=== PATIENT | female | born 1950 | race Caucasian/White ===

== ENCOUNTER → 2017-07-10 16:16 | Outpatient (CLI) | payer MEDICARE, SELFPAY ==
[2017-07-10 18:25] LABS: Amphetamine Urine VISTA NEGATIVE (<1000 ng/mL); Barbiturate Urine VISTA NEGATIVE (< 200 ng/mL); Benzodiazepine Urine VISTA NEGATIVE (< 200 ng/mL); Cocaine Urine VISTA NEGATIVE (< 300 ng/mL); Ecstacy Urine VISTA NEGATIVE (< 500 ng/mL); Methadone Urine VISTA NEGATIVE (< 300 ng/mL); PCP Urine VISTA NEGATIVE (< 25 ng/mL); THC Urine VISTA NEGATIVE (< 50 ng/mL); Vista UDS pH Range 6
== END ==
PROVIDERS: Family Provider Family Medicine; PCP Family Medicine; Visit Provider Anesthesiology Pain Medicine
DX: F11.20 Opioid dependence, uncomplicated (principal)
CPT/HCPCS: 80307

== ENCOUNTER → 2017-08-21 09:01 | Outpatient (CLI) | payer MEDICARE, SELFPAY ==
[2017-08-21 10:24] LABS: Absolute Lymphocyte Count 1.47 X10^3/ul (0.83-4.51); Absolute Neutrophil Count 3.2 X10^3/uL (2.0-7.7); Basophil# 0.02 X10^3/uL; Basophil% 0.4 % (0-1); Eosinophil# 0.12 X10^3/uL; Eosinophils% 2.3 % (0-5); Hematocrit 43.3 % (37-47); Hemoglobin 13.9 g/dl (12.0-15.0); Lymphocyte # 1.47 X10^3/ul (4.0); Mean Corp Hgb Conc 32.1 g/gl (32-36); Mean Corpuscular Hgb 28.8 pg (27.0-32.0); Mean Corpuscular Volume 89.8 fL (81-99); Mean Platelet Vol. 11.1 fl (6.2-12.0); Monocyte# 0.48 X10^3/uL; Monocyte% 9.1 % (0-10); Neutrophil # 3.15 X10^3/uL (2.7-7.7); Platelet Count 132 K/mm3 (150-450); RBC Distribution Width CV 15.5 % (11.6-14.6); RBC Distribution Width SD 51.1 fl (35.1-43.9); Red Blood Count 4.82 M/mm3 (4.2-5.4); White Blood Count 5.3 K/mm3 (4.4-11.0)
[2017-08-21 10:25] LABS: POSITIVE COUNT NO; POSITIVE DIFFERENTIAL NO; POSITIVE MORPHOLOGY NO
[2017-08-21 10:56] LABS: Hemoglobin A1c 5.9 % (4.2-6.3)
[2017-08-21 10:57] LABS: Vitamin D,25 Hydroxy 6.1 ng/mL (29.95-100.01)
[2017-08-21 11:01] LABS: Anion Gap 6 (5-15); BUN 18 mg/dL (7-18); Calcium,Total 8.8 mg/dL (8.5-10.1); Chloride 107 mmol/L (98-107); Cholesterol 136 mg/dL (200); Creatinine, Serum 0.86 mg/dL (0.55-1.02); EST Glomerular Filtration Rate 70 mL/min (>60); Est Glom Filt Rate - Afr Amer 85 mL/min (>60); Glucose 76 mg/dL (74-106); High Density Lipoprotein 60 mg/dL; Potassium 4.3 mmol/L (3.5-5.1); Sodium Level 140 mmol/L (136-145); Triglycerides 68 mg/dL; Very Low Density Lipoprotein 14 mg/dL (5-40)
== END ==
PROVIDERS: Family Provider Family Medicine; PCP Family Medicine; Visit Provider Family Medicine
DX: I10 Essential (primary) hypertension (principal); R53.83 Other fatigue; E11.9 Type 2 diabetes mellitus without complications; D50.9 Iron deficiency anemia, unspecified; E55.9 Vitamin D deficiency, unspecified
CPT/HCPCS: 36415; 80048; 80061; 82306; 83036; 84443; 85025

== ENCOUNTER → 2017-12-02 15:39 | Outpatient (CLI) | payer MEDICARE, SELFPAY ==
[2017-12-02 17:56] LABS: Vitamin D,25 Hydroxy 72.6 ng/mL (29.95-100.01)
== END ==
PROVIDERS: Family Provider Family Medicine; PCP Family Medicine; Referring Provider Family Medicine; Visit Provider Family Medicine
DX: E55.9 Vitamin D deficiency, unspecified (principal)
CPT/HCPCS: 36415; 82306

== ENCOUNTER → 2018-10-29 | Outpatient (CLI) | payer MEDICARE, SELFPAY ==
--- NOTE | 2018-10-29 15:41 | RAD_ITS ---
STUDY: X-RAY - ABDOMEN/PELVIS REASON FOR EXAM: Female, 68 years old. Chronic diarrhea. TECHNIQUE: AP supine and upright views of the abdomen and pelvis. COMPARISON: Prior abdominal series of September 20, 2016. FINDINGS: Normal visualized lung bases. Nondistended stomach. Increased intestinal bowel gas and fluid levels in mostly nondistended colon without evidence of obstruction or bowel wall thickening. Negative for organomegaly, abdominal or pelvic calcifications. Normal soft tissue structures. Bilateral spinal fusion hardware unchanged from prior exam. The fusion alexia on the left is broken at approximately the L4-5 disc space level. The fusion alexia on the right is broken at its sacral implant. RAD/Abd Inc Decub and/or Erect IMPRESSION: Diffuse increased bowel gas and fluid levels present mostly in the colon without evidence of obstruction or bowel perforation. Findings are consistent with diarrhea but do not suggest a specific etiology. Stable appearance of the posterior spinal fusion hardware. There are fractures of the posterior fusion rods bilaterally as described above. This finding is not changed from prior examination. Electronically Signed: Swathi Puente MD at 21:24 EDT , Service support ,
== END | disposition home or self-care (01) ==
PROVIDERS: Family Provider Family Medicine; PCP Family Medicine; Referring Provider Family Medicine; Visit Provider Family Medicine
DX: K52.9 Noninfective gastroenteritis and colitis, unspecified (principal)
CPT/HCPCS: 74019

== ENCOUNTER → 2018-10-30 13:19 | Outpatient (CLI) | payer MEDICARE, SELFPAY | PROVIDERS: Family Provider Family Medicine; PCP Family Medicine; Referring Provider Family Medicine; Visit Provider Family Medicine | DX: K52.9 Noninfective gastroenteritis and colitis, unspecified (principal) | CPT/HCPCS: 87493 ==

== ENCOUNTER → 2018-11-07 16:44 | Outpatient (CLI) | payer MEDICARE, SELFPAY ==
[2018-11-07 17:47] LABS: Absolute Lymphocyte Count 1.61 X10^3/uL (0.83-4.51); Absolute Neutrophil Count 4.4 X10^3/uL (2.0-7.7); Basophil# 0.04 X10^3/uL; Basophil% 0.6 % (0-1); Eosinophil# 0.18 X10^3/uL; Eosinophils% 2.6 % (0-5); Hematocrit 42.4 % (37-47); Hemoglobin 13.3 g/dL (12.0-15.0); Lymphocyte # 1.61 X10^3/ul (4.0); Lymphocyte % 23.5 % (19-41); Mean Corp Hgb Conc 31.4 g/dL (32-36); Mean Corpuscular Hgb 29.8 pg (27.0-32.0); Mean Corpuscular Volume 94.9 fL (81-99); Mean Platelet Vol. 10.8 fl (6.2-12.0); Monocyte# 0.58 X10^3/uL; Monocyte% 8.5 % (0-10); NRBC Flagged by Analyzer 0 % (0-5); Neutrophil # 4.38 X10^3/uL (2.7-7.7); Neutrophil % 64.1 % (47-70); Platelet Count 174 K/mm3 (150-450); RBC Distribution Width CV 15.2 % (11.6-14.6); RBC Distribution Width SD 53.3 fl (35.1-43.9); Red Blood Count 4.47 M/mm3 (4.2-5.4); White Blood Count 6.8 K/mm3 (4.4-11.0)
[2018-11-07 18:21] LABS: Erythrocyte Sedimentation Rate 22 mm/hr (0-30)
[2018-11-11 16:34] LABS: Endomysial Antibody IgA Negative (Negative)
[2018-11-12 12:10] LABS: Deamidated Gliadin IgA 4 units (0-19); Deamidated Gliadin IgG 2 units (0-19); Immunoglobulin A 97 mg/dL (87-352); t-Transglutaminase IgA <2 U/mL (0-3)
== END ==
PROVIDERS: Family Provider Family Medicine; PCP Family Medicine; Referring Provider Family Medicine; Visit Provider Family Medicine
DX: K52.9 Noninfective gastroenteritis and colitis, unspecified (principal)
CPT/HCPCS: 36415; 82784; 83516; 85025; 85652; 86255

== ENCOUNTER → 2018-12-02 17:05 | Outpatient (CLI) | payer MEDICARE, SELFPAY ==
--- NOTE | 2018-12-02 17:08 | RAD_ITS ---
STUDY: X-RAY - LUMBAR SPINE REASON FOR EXAM: Female, 68 years old. Back pain. TECHNIQUE: 6 view(s) of the lumbar spine were obtained. COMPARISON: Prior lumbar spine films of September 20, 2016 FINDINGS: Increased lumbar lordosis. There is no substantial scoliosis. She is status post bilateral posterior spinal fusion. The lumbar component extends from the sacrum to T12 on the right and 2 T11 on the left. Since the prior exam there has been a fracture in the posterior spinal fusion hardware on the left just below its first lumbar pedicle screw and 4.5 cm above the last sacral screw. No additional hardware changes. Concerning the fracture hardware, the distal alexia at the fracture is displaced posteriorly by 3 mm relative to the anterior alexia. Generally there appears to be fusion of the mid/lower and sacral levels. Atherosclerotic calcifications of the aorta and iliac vessels. RAD/L/S Spine Min 4 Views IMPRESSION: Fracture of the left spinal fusion alexia occurring just below the first sacral pedicle screw and 4.5 cm above the last sacral screw with 3 mm posterior displacement of the distal alexia relative to the proximal alexia. No general change in lumbar alignment status post fusion of mid and lower lumbar segments and sacrum. Electronically Signed: Swathi Puente MD at 16:37 EDT , Service support ,
--- NOTE | 2018-12-02 17:20 | RAD_ITS ---
STUDY: X-RAY - SACROILIAC JOINTS REASON FOR EXAM: Female, 68 years old. Back pain. TECHNIQUE: 3 view(s) of the sacroiliac joints were obtained. COMPARISON: None. FINDINGS: Mild to moderate degenerative changes of the sacroiliac joints left greater than right. Normal visualized sacral ala and sacrum. Normal visualized iliac bones. Spinal fusion hardware present with sacral implants. There is a fracture of the left-sided alexia occurring just below the first lumbar implantation and 4.5 cm above the left sacral implantation screw. RAD/S-I Jts 3 or More Views IMPRESSION: Broken spinal fusion hardware on the left side occurring just below the first lumbar pedicle screw and 4.5 cm above the sacral screw on the left. Degenerative changes of the sacroiliac joints, left greater than right. Electronically Signed: Swathi Puente MD at 16:54 EDT , Service support ,
== END ==
PROVIDERS: Family Provider Family Medicine; PCP Family Medicine; Referring Provider Family Medicine; Visit Provider Family Medicine
DX: M54.9 Dorsalgia, unspecified (principal)
CPT/HCPCS: 72110; 72202

== ENCOUNTER → 2019-01-01 16:04 | Outpatient (CLI) | payer MEDICARE, SELFPAY ==
--- NOTE | 2019-01-01 16:06 | CT_ITS ---
STUDY: CT LUMBAR SPINE WITHOUT CONTRAST REASON FOR EXAM: Female, 68 years old. Spinal fusion failure RADIATION DOSAGE (If Supplied By Facility): CTDIvol = ( 37.07 ) mGy, DLP = ( 1207.20 ) mGycm TECHNIQUE: The patient was scanned in a multi detector CT scanner. High resolution transaxial imaging was performed. Images were obtained from T11 to coccyx. Sagittal and coronal images were reconstructed. Individualized dose optimization techniques were used for this CT. COMPARISON: Previous study of April 19, 2015 FINDINGS: Normal lumbar lordosis. There is a mild thoracolumbar levoscoliosis. There is a grade 1 anterolisthesis of L4 relative to L5. There are posterior spinal fusion changes with rods and interpeduncular screws extending from T11 to the sacrum. There are status post laminectomy changes at L1 and L2. There is a fractured alexia on the left at the L3 level. There are status post laminectomy changes throughout the visualized thoracolumbar region. There is a question of fracture of intrapeduncular screws on the left at the L1 and L2 levels. Evaluation of this is limited however secondary to scanning artifact. L1-2: Disc spacing is within normal limits. There is no central canal stenosis or foraminal narrowing. There are bilateral degenerative facet changes. L2-3: There is severe disc space narrowing. There is sclerosis of the adjacent endplates. There are mild bilateral degenerative facet changes. There is no central canal stenosis. L3-4: There is severe disc space narrowing. There is mild central canal stenosis. There are mild bilateral degenerative facet changes. There is foraminal narrowing on the left. L4-5: There is severe disc space narrowing. Again noted is a grade 1 anterolisthesis of L4 relative to L5. There is mild central canal stenosis. There are bilateral degenerative facet changes. L5-S1: There is moderately severe disc space narrowing. There are bilateral degenerative facet changes. There is mild central canal stenosis. There are calcified plaques of the visualized abdominal aorta and common iliac arteries. CT/Spine Lumbar without Contrast IMPRESSION: Extensive orthopedic hardware as detailed above. There is a fracture of the left fixation alexia at the L3 level and possible fractures of left interpeduncular screws at L1 and L2. Extensive degenerative changes of the visualized thoracolumbar spine. Electronically Signed: Hima Painting MD at 17:55 EST , Service support ,
--- NOTE | 2019-01-01 16:07 | CT_ITS ---
STUDY: CT THORACIC SPINE WITHOUT CONTRAST REASON FOR EXAM: Female, 68 years old. Spinal fusion failure. RADIATION DOSAGE (If Supplied By Facility): CTDIvol = ( 20.66 ) mGy, DLP = ( 637.83 ) mGycm TECHNIQUE: The patient was scanned in a multi detector CT scanner. High resolution imaging was performed. Images were obtained from C6-C7 to L2. Sagittal and coronal images were reconstructed. Individualized dose optimization techniques were used for this CT. COMPARISON: None. FINDINGS: There is multilevel degenerative disc disease and cervical spondylosis. There is a slight increased kyphosis of the thoracic spine more so in the cephalad aspect. There is suggestion of scoliosis of thoracic spine with convexity to the right. The patient is status post posterior fusion from T5 to L1. Otherwise unremarkable vertebrae and endplates. There is multilevel spondylosis with degenerative disease of the disc spaces . No acute fracture. No subluxation. The soft tissue structures are unremarkable. CT/Spine Thoracic without Contras IMPRESSION: Postoperative changes of thoracic spine with no acute fracture or subluxation. Electronically Signed: Eda Dunaway MD at 7:08 EST , Service support ,
== END ==
PROVIDERS: Family Provider Family Medicine; PCP Family Medicine; Visit Provider Family Medicine
DX: T84.9XXA Unspecified complication of internal orthopedic prosthetic device, implant and graft, initial encounter (principal)
CPT/HCPCS: 72128; 72131

== ENCOUNTER → 2019-02-04 16:25 | Outpatient (CLI) | payer MEDICARE, SELFPAY ==
[2019-02-04 17:54] LABS: Absolute Lymphocyte Count 1.38 X10^3/uL (0.83-4.51); Absolute Neutrophil Count 6.6 X10^3/uL (2.0-7.7); Basophil# 0.03 X10^3/uL; Basophil% 0.3 % (0-1); Eosinophil# 0.19 X10^3/uL; Eosinophils% 2.1 % (0-5); Hematocrit 41.3 % (37-47); Hemoglobin 12.9 g/dL (12.0-15.0); Lymphocyte # 1.38 X10^3/ul (4.0); Lymphocyte % 15.2 % (19-41); Mean Corp Hgb Conc 31.2 g/dL (32-36); Mean Corpuscular Hgb 29.3 pg (27.0-32.0); Mean Corpuscular Volume 93.7 fL (81-99); Mean Platelet Vol. 10.4 fl (6.2-12.0); Monocyte# 0.79 X10^3/uL; Monocyte% 8.7 % (0-10); NRBC Flagged by Analyzer 0 % (0-5); Neutrophil # 6.61 X10^3/uL (2.7-7.7); Platelet Count 220 K/mm3 (150-450); RBC Distribution Width SD 51.8 fl (35.1-43.9); Red Blood Count 4.41 M/mm3 (4.2-5.4); White Blood Count 9.1 K/mm3 (4.4-11.0)
[2019-02-04 18:16] LABS: Hemoglobin A1c 6.3 % (4.2-6.3)
[2019-02-04 18:17] LABS: ALB/GLOB Ratio 0.9 RATIO (0.9-2.4); AST(SGOT) 10 U/L (15-37); Alanine Aminotransfer ALT/SGPT 13 U/L (13-56); Albumin, Serum 3.4 g/dL (3.2-5.0); Alkaline Phosphatase 47 U/L (45-117); Anion Gap 5 (5-15); BUN 19 mg/dL (7-18); Calcium,Total 9.2 mg/dL (8.5-10.1); Chloride 106 mmol/L (98-107); Cholesterol 155 mg/dL (200); Creatinine, Serum 1.12 mg/dL (0.55-1.02); EST Glomerular Filtration Rate 51 mL/min (>60); Est Glom Filt Rate - Afr Amer 62 mL/min (>60); Globulin 3.9 g/dL (2.2-4.2); Glucose 145 mg/dL (74-106); High Density Lipoprotein 37 mg/dL; Potassium 4.6 mmol/L (3.5-5.1); Protein, Total 7.3 g/dL (6.4-8.2); Sodium Level 138 mmol/L (136-145); Thyroid Stim Hormone (TSH) 2.62 uIU/mL (0.358-3.74); Triglycerides 158 mg/dL; Very Low Density Lipoprotein 32 mg/dL (5-40)
[2019-02-04 18:24] LABS: Microalbumin,Random Urine < 5.0 mg/L (NO RANGE EST.)
[2019-02-04 18:25] LABS: Vitamin D,25 Hydroxy 30.5 ng/mL (29.95-100.01)
[2019-02-04 18:26] LABS: Amphetamine Urine VISTA NEGATIVE (<1000 ng/mL); Barbiturate Urine VISTA NEGATIVE (< 200 ng/mL); Benzodiazepine Urine VISTA NEGATIVE (< 200 ng/mL); Cocaine Urine VISTA NEGATIVE (< 300 ng/mL); Ecstacy Urine VISTA NEGATIVE (< 500 ng/mL); Methadone Urine VISTA NEGATIVE (< 300 ng/mL); PCP Urine VISTA NEGATIVE (< 25 ng/mL); THC Urine VISTA NEGATIVE (< 50 ng/mL); Vista UDS pH Range 5
== END ==
PROVIDERS: Family Provider Family Medicine; PCP Family Medicine; Referring Provider Family Medicine; Visit Provider Family Medicine
DX: E11.9 Type 2 diabetes mellitus without complications (principal); E55.9 Vitamin D deficiency, unspecified; I10 Essential (primary) hypertension; T84.9XXA Unspecified complication of internal orthopedic prosthetic device, implant and graft, initial encounter
CPT/HCPCS: 36415; 80053; 80061; 80307; 82043; 82306; 82570; 83036; 84443; 85025

== ENCOUNTER → 2019-03-19 17:04 | Outpatient (CLI) | payer MEDICARE, SELFPAY ==
[2019-03-19 17:55] LABS: Mucous, Urine 0 SEEN /hpf (<or=2+)
[2019-03-19 18:35] LABS: Color, Urine Yellow (Yellow); Glucose, Dipstick Normal (Normal); Ketone-Dipstick Negative (Negative); Leukocyte Esterase-Dipstick 500 /ul (Negative); Nitrite-Dipstick Negative (Negative); Occult Blood-Urine 250 /ul (Negative); Protein-Dipstick 100 mg/dl (Negative); Specific Gravity, Urine 1.015 (1.002-1.030); Urine Bilirubin Dipstick Negative (Negative); Urine Clarity Cloudy (Clear); Urine Urobilinogen 4 mg/dl (Normal)
[2019-03-19 18:41] LABS: Anion Gap 6 (5-15); BUN 15 mg/dL (7-18); BUN/Creat Ratio 21.6 RATIO (10-20); Chloride 107 mmol/L (98-107); EST Glomerular Filtration Rate 89 mL/min (>60); Est Glom Filt Rate - Afr Amer 107 mL/min (>60); Glucose 65 mg/dL (74-106); Potassium 3.2 mmol/L (3.5-5.1); Sodium Level 140 mmol/L (136-145)
[2019-03-19 18:50] LABS: Bacteria 1+ /hpf (None Seen); Red Blood Cells-Urine 25-50 SEEN /hpf (0-5); Squamous Epithelial Cells - UA 0-5 SEEN /hpf (5-10); White Blood Cells >100 SEEN /hpf (0-5)
[2019-03-19 19:46] LABS: BNP,B-Type NATRIURETIC PEPTIDE 374.2 pg/mL (0-100)
== END ==
PROVIDERS: Nurse Practitioner Family; PCP Family Medicine; Referring Provider Family Medicine; Visit Provider Family Medicine
DX: N39.0 Urinary tract infection, site not specified (principal); R94.4 Abnormal results of kidney function studies; R60.9 Edema, unspecified
CPT/HCPCS: 80048; 81001; 83880; 87086; 87088

== ENCOUNTER 2019-03-21 17:16 | Emergency (ER) | payer MEDICARE, SELFPAY ==
[2019-03-21 17:17] VITALS: BP 168/75; PULSE 106; RESP 20; TEMP 36.1; O2SAT 94; BMI 34.2
[2019-03-21 17:19] VITALS: BP 168/75; PULSE 106; RESP 20; TEMP 36.1; O2SAT 94
--- NOTE | 2019-03-21 17:28 | RAD_ITS ---
STUDY: X-RAY CHEST REASON FOR EXAM: Female, 68 years old. RECENT BACK SURGERY ON FEB 10, RECENT FLU, INCREASE OF SHORTNESS OF BREATH, TECHNIQUE: Single AP portable view of the chest. COMPARISON: 06/13/2016. FINDINGS: The lungs are clear and expanded. There is no demonstrated pleural abnormality. Normal size heart. Normal mediastinum and giancarlo. Normal visualized pulmonary arteries. Normal visualized aortic arch and descending thoracic aorta. Stable appearance of extensive spinal fixation and right shoulder arthroplasty. There is no demonstrated abnormality of the visualized soft tissue structures of the upper abdomen. RAD/Chest 1 View (Portable) IMPRESSION: No evidence for acute chest disease. Electronically Signed: Lit Holly MD at 18:05 EST , Service support ,
--- NOTE | 2019-03-21 17:29 | EKG12_ITS ---
Test Reason : SOB Blood Pressure : / mmHG Vent. Rate : 081 BPM Atrial Rate : 081 BPM P-R Int : 128 ms QRS Dur : 082 ms QT Int : 412 ms P-R-T Axes : 062 007 -17 degrees QTc Int : 478 ms Sinus rhythm with Premature atrial complexes Cannot rule out Inferior infarct , age undetermined Abnormal ECG Confirmed by SOFIA WASHINGTON, ANDREA ([id number]), news editor MIREYA IVORY ([id number]) on 03/23/2019 12:27:24 PM Referred By: LAURYN Confirmed By:ANDREA BLACK MD
--- NOTE | 2019-03-21 17:43 | CT_ITS ---
STUDY: CTA CHEST REASON FOR EXAM: Female, 68 years old. SHORT OF BREATH,EDEMA IN LEGS, RADIATION DOSAGE (If Supplied By Facility): CTDIvol = ( 13.78 ) mGy, DLP = ( 551.06 ) mGycm TECHNIQUE: The examination was performed with the intravenous administration of IV 100mL Isovue-370. Post-processing of the angiographic images was performed, with multiplanar reformation and 3D reconstruction. Individualized dose optimization techniques were used for this CT. COMPARISON: 06/14/2016. FINDINGS: Normal enhancement of the main pulmonary artery and right and left pulmonary arteries. Normal enhancement of the bilateral peripheral pulmonary arteries. There is no demonstrated pulmonary embolism. There is atherosclerotic calcification of the aortic arch with tortuosity. There is no demonstrated aortic dissection. Normal heart and pericardium. Normal mediastinum. Normal hilar regions. Moderate hiatal hernia. Normal visualized trachea and bronchi. The lungs are hyper expanded, with flattening of the hemidiaphragms. Diffuse emphysematous changes are seen. No focal infiltrates. Trace bilateral pleural effusions are suggested. Normal chest wall structures. Stable extensive postoperative changes throughout the spine. Normal visualized upper abdomen. CT/CTA Chest W/WO Contrast IMPRESSION: No evidence for PE. Stable COPD. Possible trace bilateral pleural effusions. Electronically Signed: Lit Holly MD at 18:59 EST , Service support ,
--- NOTE | 2019-03-21 17:44 | ED.VIS.GEN ---
History of Present Illness Chief Complaint: Shortness of Breath Informant: Patient Onset: Weeks Maximum Severity: Mild Narrative: The patient presents complaining of persistent shortness of breath she has had for weeks indicates in January she had a lumbar spine alexia removed by [facility] physicians as the alexia had broken, about a week later she developed describes a bad flu with cough shortness of breath runny nose body aches that seemed to improve but then she was left with a persistent sense of shortness of breath and lower extremity edema She saw her outpatient providers she was told the exact etiology is unclear she is started on Lasix which she started yesterday she reports persistence of the shortness of breath and she presents now for evaluation. She has a dry cough that is been persistent throughout the course of this month-long illness, she had no chest pain shortness of breath is worse when she is in bed at night, she denies orthopnea however. She denies chest pain she has no history of KS PE or DVT she has normal urine output normal bowel habits no fever she does report potential history for COPD that would be new onset she is trying to quit smoking she does have an inhaler Past Medical History - Allergies and Home Meds Allergies/Adverse Reactions: Allergies atorvastatin calcium [From Lipitor] Allergy (Verified 03/21/19 17:19) Unknown LEG CRAMPS pravastatin Allergy (Verified 03/21/19 17:19) Unknown LEG CRAMPS simvastatin Allergy (Verified 03/21/19 17:19) Unknown LEG CRAMPS morphine Adverse Reaction (Verified 03/21/19 17:19) Other BAD NIGHTMARES altace Allergy (Uncoded 03/21/19 17:19) Unknown antihyperlipidemics Allergy (Uncoded 03/21/19 17:19) Unknown LEG CRAMPS Primary Care Physician: Israel Carrion MD [Primary Care Provider] - Past Medical History: - Surgical History: appendectomy, cataract - 2012, total knee arthroplasty - bilateral, - - carpal tunnel 1989, lumbar fusion x 6; the patient has had multiple back surgeries with placement of metal hardware. She is undergone bilateral total knee replacement surgery. Appendectomy was performed in the past. Smoking Status: Current every day smoker - Family History Paternal Family History: Family History (Last Reviewed 02/14/17 @ 14:54 by Jennifer Pete) Mother Brain aneurysm Father CVA (cerebral vascular accident) Sister Thyroid cancer Family History: Reports: Stroke - age 68, - - Alcoholism Offspring Family History: Family History (Last Reviewed 02/14/17 @ 14:54 by Jennifer Pete) Mother Brain aneurysm Father CVA (cerebral vascular accident) Sister Thyroid cancer Family History: Reports: Asthma - Multiple allergies requiring allergy shots twice weekly Maternal Family History: Family History (Last Reviewed 02/14/17 @ 14:54 by Jennifer Pete) Mother Brain aneurysm Father CVA (cerebral vascular accident) Sister Thyroid cancer Family History: Reports: - - age 72 cerebral aneurysm; the patient's father at age of 72 from a cerebrovascular accident. He was an alcoholic. Additional Family History: No pertinent family history Review of Systems ROS: - As above General: Denies: Chills, Fever, Sweats Eyes: Denies: Visual changes - bilaterally, Diplopia ENT: Denies: Rhinorrhea, Sore throat Cardiovascular: Denies: Chest pain, Palpitations Respiratory: Denies: Dyspnea, Cough, Dyspnea on exertion Gastrointestinal: Denies: Abdominal pain, Nausea, Vomiting, Diarrhea, Melena, Hematochezia Genitourinary: Denies: Dysuria, Hematuria, Frequency Musculoskeletal: Denies: Back pain, Extremity Pain Skin: Denies: Rash, Wounds Neurological: Denies: Headache, Weakness, Numbness Physical Exam Vital Signs/Narrative: Vital Signs Temp Pulse Resp BP Pulse Ox 03/21/19 17:19 97 F L 106 H 20 H 168/75 H 94 03/21/19 17:17 97 F L 106 H 20 H 168/75 H 94 General: Well nourished, Well developed, No Acute Distress Head: Normocephalic, Atraumatic Eyes: Perrl, EOMI ENT: Moist mucous membranes, No rhinorrhea Neck: Supple, Nontender Cardiovascular: Regular rate, Regular rhythm, No murmurs Respiratory: No distress, CTA bilaterally, Chest nontender Abdomen: Soft, Nontender, Nondistended, Normal bowel sounds Back: Nontender, Normal Inspection Extremities: Nontender, No edema, - - She has 1+ edema bilaterally there is no cords and gets her edema is markedly improved since using the Lasix Skin: Normal color, No rash Neurological: Alert, Oriented x3, Cranial nerves II-XII grossly intact, Normal Strength, Normal Sensation Psychological: Normal affect, Normal Mood Diagnostic/Tx/Re-eval - Medical Decision Making Patient indicates she has a chronic history of leg edema and shortness of breath that occurs after she has a procedure indications had multiple back spine procedures knee replacement shoulder replacement since she experiences edema and shortness of breath usually resolve this time they have persisted She indicates the viral type illness she had 10 days ago resolved without specific therapy, she has no history of KS PE or DVT given all the above screening labs CTA Patient screening labs are all generally unremarkable BNP 310 no old for comparison chest x-ray CTA unremarkable for signs of life-threatening condition no PE no pneumonia, see those reports The patient is currently on Lasix just discussed with her and her family she understands all the above discussed and patient is outpatient management discomfort discharged home to continue the Lasix she is referred to see her outpatient for further management of the dyspnea Understands and agrees Home stable Final impression dyspnea, edema, recent lumbar spine back surgery ED Disposition - Plan for ED Patient: Diagnosis: Dyspnea Instructions: Copd Flare Referrals: Israel Carrion MD [Primary Care Provider] -
[2019-03-21] MEDS: Ipratropium/Albuterol Sulfate 3 ML AMPUL.NEB INHALATION (17:46)
[2019-03-21 17:48] VITALS: PULSE 99; RESP 18
[2019-03-21 17:58] LABS: Absolute Lymphocyte Count 1.26 X10^3/uL (0.83-4.51); Absolute Neutrophil Count 5.4 X10^3/uL (2.0-7.7); Basophil# 0.01 X10^3/uL; Basophil% 0.1 % (0-1); Eosinophil# 0.19 X10^3/uL; Eosinophils% 2.5 % (0-5); Hematocrit 35.6 % (37-47); Hemoglobin 11.1 g/dL (12.0-15.0); Lymphocyte # 1.26 X10^3/ul (4.0); Lymphocyte % 16.7 % (19-41); Mean Corp Hgb Conc 31.2 g/dL (32-36); Mean Corpuscular Hgb 27.7 pg (27.0-32.0); Mean Corpuscular Volume 88.8 fL (81-99); Mean Platelet Vol. 9.4 fl (6.2-12.0); Monocyte# 0.62 X10^3/uL; Monocyte% 8.2 % (0-10); NRBC Flagged by Analyzer 0 % (0-5); Neutrophil # 5.36 X10^3/uL (2.7-7.7); Neutrophil % 71.3 % (47-70); Platelet Count 286 K/mm3 (150-450); RBC Distribution Width CV 14.5 % (11.6-14.6); RBC Distribution Width SD 46.2 fl (35.1-43.9); Red Blood Count 4.01 M/mm3 (4.2-5.4); White Blood Count 7.5 K/mm3 (4.4-11.0)
[2019-03-21 18:04] VITALS: BP 133/74; PULSE 85; RESP 14; O2SAT 92
[2019-03-21 18:13] LABS: Anion Gap 7 (5-15); BUN 13 mg/dL (7-18); BUN/Creat Ratio 13.8 RATIO (10-20); Calcium,Total 9.1 mg/dL (8.5-10.1); Chloride 108 mmol/L (98-107); Creatinine, Serum 0.94 mg/dL (0.55-1.02); EST Glomerular Filtration Rate 62 mL/min (>60); Est Glom Filt Rate - Afr Amer 75 mL/min (>60); Estimated Creatinine Clearance 66.33 ml/min; Glucose 173 mg/dL (74-106); Sodium Level 141 mmol/L (136-145)
[2019-03-21 18:29] LABS: BNP,B-Type NATRIURETIC PEPTIDE 310.1 pg/mL (0-100)
[2019-03-21 19:08] LABS: Color, Urine Yellow (Yellow); Glucose, Dipstick Normal (Normal); Ketone-Dipstick Negative (Negative); Leukocyte Esterase-Dipstick 500 /ul (Negative); Nitrite-Dipstick Negative (Negative); Occult Blood-Urine 250 /ul (Negative); Protein-Dipstick 30 mg/dl (Negative); Urine Bilirubin Dipstick Negative (Negative); Urine Clarity Cloudy (Clear); Urine Urobilinogen Normal (Normal)
[2019-03-21 19:18] LABS: White Blood Cells >100 SEEN /hpf (0-5)
[2019-03-21 19:19] LABS: Bacteria 3+ /hpf (None Seen); Mucous, Urine RARE /hpf (<or=2+); Red Blood Cells-Urine 10-25 SEEN /hpf (0-5); Squamous Epithelial Cells - UA 0-5 SEEN /hpf (5-10)
== END 2019-03-21 19:46 | disposition home or self-care (01) ==
LOC: ED 18:00
PROVIDERS: Emergency Provider Emergency Medicine; PCP Family Medicine
DX: R06.00 Dyspnea, unspecified (principal); R60.0 Localized edema; R05 Cough; Z98.890 Other specified postprocedural states; Z79.899 Other long term (current) drug therapy; F17.200 Nicotine dependence, unspecified, uncomplicated
CPT/HCPCS: 71045; 71275; 80048; 81001; 83880; 84484; 85025; 93005; 94640; 99284; Q9967; A4216

== ENCOUNTER → 2019-03-26 14:09 | Outpatient (CLI) | payer MEDICARE, SELFPAY ==
[2019-03-21 17:17] VITALS: BMI 34.2
[2019-03-26 06:17] VITALS: BMI 35.5
--- NOTE | 2019-03-26 14:14 | ECHOCS_ITS ---
Reason For Study: SOB Procedure This was a 2D Doppler, Color Flow transthoracic echocardiogram. The study was technically difficult. Contrast injection was performed. Exam performed in department. Left Ventricle Normal LV size. The estimated ejection fraction is 60 %. No evidence for diastolic dysfunction. No regional wall motion abnormalities noted. Right Ventricle Normal RV size. Normal systolic function. Atria The left atrium is mildly enlarged. Normal right atrium. No doppler evidence for ASD. Mitral Valve There is no mitral valve stenosis. Mild (1+) mitral valve insufficiency. Tricuspid Valve There is no tricuspid stenosis. Mild tricuspid valve insufficiency. Pulmonary artery systolic pressure is 60 mmHg. Aortic Valve Trisinus/trileaflet aortic valve. Aortic sclerosis, no stenosis. There is no aortic stenosis. No aortic valve insufficiency. Pulmonic Valve There is no pulmonic valvular stenosis. No pulmonic valve insufficiency. Great Vessels Normal aortic root. Pericardium/Pleural No pericardial effusion. Medication 22 gauge I.V. with prn adaptor inserted into left arm. Diluted definity 4.5ml given slow IV push to enhance endocardial definition. MMode/2D Measurements & Calculations LVIDd: 4.4 cm IVSd: 0.87 cm Ao root diam: 3.4 cm LVIDs: 3.1 cm LVPWd: 1.00 cm FS: 28.8 % LAV(MOD-bp): 65.0 ml LA A4 area: 20.2 cm2 LA dimension(2D): 4.5 cm LAV(MOD-bp) Indexed: 37.7 ml/m2 LAV(MOD-sp2): 70.4 ml LAV(MOD-sp4): 59.9 ml RA A4 area: 16.9 cm2 Time Measurements MV dec time: 0.14 sec Doppler Measurements & Calculations MV E max leo: 119.3 cm/sec Lat Peak E' Leo: 8.0 cm/sec Med Peak E' Leo: 8.6 cm/sec MV A max leo: 57.8 cm/sec E/E' lat: 14.9 E/E' med: 13.9 MV E/A: 2.1 Ao V2 max: 150.6 cm/sec LV V1 max: 93.9 cm/sec PA V2 max: 84.3 cm/sec Ao max P.1 mmHg LV V1 max P.5 mmHg TR max leo: 384.5 cm/sec TR max P.1 mmHg Interpretation Summary The study was technically difficult. Diluted definity 4.5ml given slow IV push to enhance endocardial definition. The estimated ejection fraction is 60 %. No evidence for diastolic dysfunction. Mild (1+) mitral valve insufficiency. Pulmonary artery systolic pressure is 60 mmHg. The study was technically difficult. Ordering Physician: Shaunna Bradley Referring Physician: CLEVELAND MELCHOR Performed By: Talia, Teresa, RDCS, RVT
== END ==
PROVIDERS: PCP Family Medicine; Referring Provider Nurse Practitioner Family; Visit Provider Nurse Practitioner Family
DX: R06.02 Shortness of breath (principal)
CPT/HCPCS: 93306; Q9957; A4216; C8929

== ENCOUNTER → 2019-04-30 16:35 | Outpatient (CLI) | payer MEDICARE, SELFPAY ==
[2019-03-26 06:17] VITALS: BMI 35.5
[2019-04-30 18:45] LABS: ALB/GLOB Ratio 0.9 RATIO (0.9-2.4); AST(SGOT) 15 U/L (15-37); Alanine Aminotransfer ALT/SGPT 14 U/L (13-56); Albumin, Serum 3.4 g/dL (3.2-5.0); Alkaline Phosphatase 61 U/L (45-117); Anion Gap 8 (5-15); BUN 22 mg/dL (7-18); BUN/Creat Ratio 19.6 RATIO (10-20); Calcium,Total 9.6 mg/dL (8.5-10.1); Chloride 107 mmol/L (98-107); Creatinine, Serum 1.12 mg/dL (0.55-1.02); EST Glomerular Filtration Rate 51 mL/min (>60); Est Glom Filt Rate - Afr Amer 62 mL/min (>60); Globulin 3.8 g/dL (2.2-4.2); Glucose 145 mg/dL (74-106); Magnesium 1.7 mg/dL (1.6-2.6); Protein, Total 7.2 g/dL (6.4-8.2); Sodium Level 139 mmol/L (136-145)
== END ==
PROVIDERS: PCP Family Medicine; Referring Provider Family Medicine; Visit Provider Family Medicine
DX: R19.7 Diarrhea, unspecified (principal)
CPT/HCPCS: 36415; 80053; 83735

== ENCOUNTER → 2019-05-05 12:16 | Outpatient (CLI) | payer MEDICARE, SELFPAY ==
[2019-03-26 06:17] VITALS: BMI 35.5
[2019-05-05 12:50] VITALS: PULSE 62; PULSE 64; PULSE 77; PULSE 81; PULSE 83; PULSE 84; PULSE 85; O2SAT 91; O2SAT 92; O2SAT 94; O2SAT 95; O2SAT 96
--- NOTE | 2019-05-06 10:41 | PCM.PSN.6M ---
PSN 6 Minute Walk Test - 6 Minute Walk Test 6 Minute Walk Test: 6 Minute Walk Test PSN:6-Minute Walk Test Start: 05/05/19 12:50 Freq: Status: Active Protocol: [id number].6MINW Document 05/05/19 12:50 [facility] (Rec: 05/05/19 12:53 [facility] [id number]) 6 Minute Walk Test Date Performed 05/05/19 Time Performed 12:30 Height 4 ft 11 in Weight: 164 lb Weight in Pounds 164.[address]: Nathan Breaux Assistive device used: Walker Pre-test Oxygen Delivery Method Room Air Pulse Ox (%) 95 Pulse Rate (60-100 beats/min) 64 Dyspnea Lucie Scale (0-10) 0 1st minute Oxygen Delivery Method Room Air Pulse Ox (%) 94 Pulse Rate (60-100 beats/min) 77 Dyspnea Lucie Scale (0-10) 0 Number of Rests Taken 0 2nd minute Oxygen Delivery Method Room Air Pulse Ox (%) 91 Pulse Rate (60-100 beats/min) 81 Dyspnea Lucie Scale (0-10) 1 Number of Rests Taken 0 3rd minute Oxygen Delivery Method Room Air Pulse Ox (%) 94 Pulse Rate (60-100 beats/min) 85 Dyspnea Lucie Scale (0-10) 1 Number of Rests Taken 0 4th minute Oxygen Delivery Method Room Air Pulse Ox (%) 92 Pulse Rate (60-100 beats/min) 83 Dyspnea Lucie Scale (0-10) 1 Number of Rests Taken 0 5th minute Oxygen Delivery Method Room Air Pulse Ox (%) 92 Pulse Rate (60-100 beats/min) 84 Dyspnea Lcuie Scale (0-10) 1 Number of Rests Taken 0 6th minute Oxygen Delivery Method Room Air Pulse Ox (%) 91 Pulse Rate (60-100 beats/min) 84 Dyspnea Lucie Scale (0-10) 1 Number of Rests Taken 0 Post-test Oxygen Delivery Method Room Air Pulse Ox (%) 96 Pulse Rate (60-100 beats/min) 62 Dyspnea Lucie Scale (0-10) 0 Full Laps Walked 10 Partial Lap, Number of Tiles Walked 23 Total Distance Walked (ft) 613 - Interpretation Interpretation: The patient ambulated 613 feet over the course of 6 minutes beginning on room air with the use of a walker. Pretesting oxygen saturation was noted to be 95% on room air. With ambulation, the norma oxygen saturation was 91%. Although there was no significant exertional oxygen desaturation, there was evidence of impaired walk distance. - Recommendations Recommendations: There is no indication for the use of supplemental oxygen at this time.
== END ==
PROVIDERS: PCP Family Medicine; Referring Provider Internal Medicine Critical Care Medicine; Visit Provider Internal Medicine Critical Care Medicine
DX: R06.09 Other forms of dyspnea (principal); M41.35 Thoracogenic scoliosis, thoracolumbar region; T84.9XXS Unspecified complication of internal orthopedic prosthetic device, implant and graft, sequela
CPT/HCPCS: 94618

== ENCOUNTER → 2019-05-07 13:00 | Outpatient (CLI) | payer MEDICARE, SELFPAY ==
[2019-03-26 06:17] VITALS: BMI 35.5
--- NOTE | 2019-05-08 10:43 | PFT ---
INTRODUCTION: The patient is a 69-year-old female that presents for pulmonary function studies secondary to a diagnosis of dyspnea on exertion. Respiratory therapy reports good patient effort. Bronchodilators were used during testing. INTERPRETATION: Forced expiration spirometry demonstrates no evidence of a large airways obstructive ventilatory defect. There was no significant response to aerosolized bronchodilators. Spirograms are of fair quality and plateau normally. Body plethysmography was performed and reveals an elevated TLC and RV, likely spurious in nature. Diffusing capacity by single breath CO is reduced at 45% of predicted. IMPRESSION: Isolated reduction in diffusing capacity, which could be related to an underlying pulmonary vascular disorder such as pulmonary hypertension.
== END ==
PROVIDERS: PCP Family Medicine; Referring Provider Internal Medicine Critical Care Medicine; Visit Provider Internal Medicine Critical Care Medicine
DX: R06.09 Other forms of dyspnea (principal); M41.35 Thoracogenic scoliosis, thoracolumbar region; T84.9XXS Unspecified complication of internal orthopedic prosthetic device, implant and graft, sequela
CPT/HCPCS: 94060; 94726; 94729

== ENCOUNTER 2019-05-13 15:00 | Outpatient (RCR) | payer MEDICARE, SELFPAY ==
[2019-03-26 06:17] VITALS: BMI 35.5
--- NOTE | 2019-04-15 17:44 | HP.PTEVAL_ITS ---
Patient's Visit Information LUCY GUTIERREZ is a 69 year old F referred to Physical Therapy by CLEVELAND EMMANUEL with a diagnosis of Pain from implanted hardware. Date of Evaluation: 04/15/19 Physical Therapist: Fabricio Cagle, MITCHT, OCS, CSCS - Visit Plan Frequency: 2x /Week Duration: 4-6 Weeks Plan: 2x/week for 4-6 weeks for : Stretch quad and hip flexors, ITB with supine lie. Core strengthening, postural strength and LE strength to HEP as safety allows. Gait training. Pt to use cane at home for now, I am recommending wh walker to help her get on a walking program regularly. - Subjective Findings: Had surgery taking alexia out of back in Mid January as it was broken. It snapped in October while pushing a trash can. That hurt. Had instant back pain and stayed until mid January at 8/10 with standing, needed heat to sit. Surgery helped. Feels weak but not painful. Fusion is still holding. Is still in pain in LB but it is more tolerable at 7/10 with rain and good days are 5/10. Still taking ibuprofen adn tylenol. Sleeping is OK sometimes and other times interrupted. Comfortable lying down. Spends day working on crafts sitting most of day as standing is hard. Has asthma. Live alone and doing basic ADLs are getting done painfully. gets groceries and drives OK. Has to lean on cart. Did fall last week and could not get up. Fell putting boot on with foot ons tep in standing. Has cane she uses sometimes. - Pain LBP Pain Intensity (Out of 10): 5 Pain Intensity Range: 5, 8 - Objective Pt walks slightly hunched over today but taller than I have seen her in previous PT episodes. Incision is full back posterior and seems healed well, no signs of excessive redness heat or swelling. Patient has limited UE elevation due to OA and hard time moving hips on table due to pain and bursitis. Virtually no spinal ROM due to history of rods throughout spine. Patient in LBP if tries to lie flat on table with legs extended but can lie with large pillow and knees bent to 20 degrees fairly comforably. No SB or flexion or ext in lumbar or thoracic spine. Able to get hands down past knees in full body flexion mostly at hips. Is tender to palpation in B lateral hips over trochanter L >R(time for her injection she says). ITB and quads and hip flexors max tight, HS not bad. reflexes 2/3 patelaa and achilles with some clonus R achilles. Sensation is diminished to gross light touch in R ant-lat quad from previous back problems adn has been like that for years. Strength in hips is 3, knees 3+ adn ankles 4- . Hard to get knees together due to hip tighness. Coordination to reciprocal toe tap is good. Ankle AROM is good but tight in gastroc to 0 DF., Knee AROM WFL, Hips barely get to neutral ext adn adduction. Functionally: Walks I but slow with short steps adn wide QUINTON withotu AD. Using walker with wh feels much better adn able to stay even taller. Sit to stadn transfer from chair without need for UE. Needs assist for table trasnfers and is very weka in pelvis and core unable to bridge fully or rol or scoot on her own with an I can't attitude. Mod A to trasnfer to back and roll to side. - Balance Scores Functional Gait Assessment Score: 19 % Disability: 36.6700 - Goals Goal 1:: Patient roll to side adn sit up I without c/o pain. Goal Time Frame: 4-6 Weeks Goal 2:: Patient feel pain 4/10 at worst adn 50% improved. Goal Time Frame: 4-6 Weeks Goal 3:: LEFS < 50% disability Goal Time Frame: 4-6 Weeks Goal 4:: I approp HEP to help with mobility adn pain Goal Time Frame: 4-6 Weeks Goal 5:: FGA with good posture without VC to diminish fall risk. Goal Time Frame: 4-6 Weeks - Rehabilitation Potential Physical Therapy Diagnosis: debility adn pain LB. Rehabilitation Potential: Fair - Anticipated Interventions Patient/Client Instruction: Educate patient on: Condition, Plan of Care For the Purpose of:: To decrease pain, To increase ROM, To improve muscle performance and motor function, To increase tolerance to activity/condition/position Therapeutic Exercise to Include: Strength training, Balance training, Postural training, Flexibilty training, Gait and locomotor training, Neuromotor development, Passive ROM, Active ROM, Dynamic Lumbar Stabilization For the Purpose of:: To decrease pain, To increase ROM, To improve muscle performance and motor function, To increase tolerance to activity/condition/position, To improve ability of physical actions for home/community/work/leisure, To improve gait and locomotor functions Manual Therapy Techniques to Include: Passive ROM For the Purpose of:: To increase ROM Thank you for the opportunity to evaluate your patient. For Medicare and Medicare HMO plans, please review the plan of care and approve it. It will need to be FAXED BACK to us at [phone] for Medicare purposes. For Medicare only, by signing this I certify the plan of care. Please let me know if there are questions or concerns regarding this plan of care. Physician Signature: Date:
[2019-05-06 20:31] LABS: Fats, Neutral Normal (.); Fats, Total Normal (.)
--- NOTE | 2019-09-10 11:19 | HP.PT.NRP ---
LUCY GUTIERREZ was seen in my office for initial evaluation on 04/15/19. The following Plan of Care was established for this patient: Initial Frequency: 2x /Week Initial Duration: 4-6 Weeks Patient/Client Instruction: Educate patient on: Condition, Plan of Care For the Purpose of:: To decrease pain, To increase ROM, To improve muscle performance and motor function, To increase tolerance to activity/condition/position Therapeutic Exercise to Include: Strength training, Balance training, Postural training, Flexibilty training, Gait and locomotor training, Neuromotor development, Passive ROM, Active ROM, Dynamic Lumbar Stabilization For the Purpose of:: To decrease pain, To increase ROM, To improve muscle performance and motor function, To increase tolerance to activity/condition/position, To improve ability of physical actions for home/community/work/leisure, To improve gait and locomotor functions Manual Therapy Techniques to Include: Passive ROM For the Purpose of:: To increase ROM This patient was last seen in our office 05/13/19. Pertinent comments regarding their Physical therapy will appear below: Pt seen 4 visits of POC but cancelled due to diarrhea sickness that she was being doctored for. She was to call when that was taken care of. at this point, it has been over 3 months and I will discontinue due to nonattendance. At this point I will be discontinuing this patient from physical therapy. I would be happy to see this patient again in the future if found appropriate by the physician. Thank you! Fabricio Cagle, DPT, OCS, CSCS
== END 2019-05-13 19:00 | disposition home or self-care (01) ==
LOC: PT 15:00
PROVIDERS: PCP Family Medicine
DX: T85.848D Pain due to other internal prosthetic devices, implants and grafts, subsequent encounter (principal); R19.7 Diarrhea, unspecified
CPT/HCPCS: 82705; 83630; 87177; 87209; 87493; 87506; 97110; 97163

== ENCOUNTER → 2019-05-14 15:06 | Outpatient (CLI) | payer MEDICARE, SELFPAY ==
[2019-05-14 08:39] VITALS: BMI 32.1
[2019-05-14 16:31] LABS: Rheumatoid Factor < 10.0 IU/mL (<15)
[2019-05-18 13:56] LABS: ANTINUCLEAR ANTIBODIES DIRECT Negative (Negative)
[2019-05-18 16:07] LABS: Cytoplasmic Ab (C-ANCA) <1:20 titer (Neg:<1:20)
[2019-05-18 16:34] LABS: Perinuclear Ab (P-ANCA) <1:20 titer (Neg:<1:20)
== END ==
PROVIDERS: Nurse Practitioner Acute Care; PCP Family Medicine; Referring Provider Internal Medicine Critical Care Medicine; Visit Provider Internal Medicine Critical Care Medicine
DX: R06.09 Other forms of dyspnea (principal)
CPT/HCPCS: 36415; 86038; 86256; 86431

== ENCOUNTER → 2019-06-04 13:56 | Outpatient (CLI) | payer MEDICARE, SELFPAY ==
[2019-05-14 08:39] VITALS: BMI 32.1
[2019-06-04 15:21] LABS: Absolute Lymphocyte Count 1.17 X10^3/uL (0.83-4.51); Absolute Neutrophil Count 5.9 X10^3/uL (2.0-7.7); Basophil# 0.02 X10^3/uL; Basophil% 0.3 % (0-1); Eosinophil# 0.04 X10^3/uL; Eosinophils% 0.5 % (0-5); Hematocrit 36.2 % (37-47); Hemoglobin 11.4 g/dL (12.0-15.0); Lymphocyte # 1.17 X10^3/ul (4.0); Lymphocyte % 14.9 % (19-41); Mean Corp Hgb Conc 31.5 g/dL (32-36); Mean Corpuscular Hgb 27.6 pg (27.0-32.0); Mean Corpuscular Volume 87.7 fL (81-99); Mean Platelet Vol. 10.3 fl (6.2-12.0); Monocyte# 0.63 X10^3/uL; NRBC Flagged by Analyzer 0 % (0-5); Neutrophil # 5.91 X10^3/uL (2.7-7.7); Neutrophil % 75.2 % (47-70); Platelet Count 240 K/mm3 (150-450); RBC Distribution Width CV 15.6 % (11.6-14.6); RBC Distribution Width SD 49.9 fl (35.1-43.9); Red Blood Count 4.13 M/mm3 (4.2-5.4); White Blood Count 7.9 K/mm3 (4.4-11.0)
== END ==
PROVIDERS: PCP Family Medicine; Referring Provider Family Medicine; Visit Provider Family Medicine
DX: N39.0 Urinary tract infection, site not specified (principal); R19.7 Diarrhea, unspecified
CPT/HCPCS: 36415; 82705; 83630; 85025; 87086; 87088; 87177; 87186; 87209; 87493; 87506

== ENCOUNTER → 2019-06-05 17:47 | Outpatient (CLI) | payer MEDICARE, SELFPAY ==
[2019-05-14 08:39] VITALS: BMI 32.1
== END ==
PROVIDERS: PCP Family Medicine; Visit Provider Family Medicine
DX: Z00.00 Encounter for general adult medical examination without abnormal findings (principal)

== ENCOUNTER → 2019-07-15 16:56 | Outpatient (CLI) | payer MEDICARE, SELFPAY ==
[2019-05-14 08:39] VITALS: BMI 32.1
[2019-07-15 18:07] LABS: Absolute Lymphocyte Count 1.81 X10^3/uL (0.83-4.51); Absolute Neutrophil Count 3.5 X10^3/uL (2.0-7.7); Basophil# 0.02 X10^3/uL; Basophil% 0.3 % (0-1); Eosinophil# 0.05 X10^3/uL; Eosinophils% 0.8 % (0-5); Hematocrit 35.8 % (37-47); Hemoglobin 11.1 g/dL (12.0-15.0); Lymphocyte # 1.81 X10^3/ul (4.0); Lymphocyte % 30.3 % (19-41); Mean Corpuscular Hgb 28.1 pg (27.0-32.0); Mean Corpuscular Volume 90.6 fL (81-99); Mean Platelet Vol. 10.5 fl (6.2-12.0); Monocyte# 0.53 X10^3/uL; Monocyte% 8.9 % (0-10); NRBC Flagged by Analyzer 0 % (0-5); Neutrophil # 3.53 X10^3/uL (2.7-7.7); Neutrophil % 59.2 % (47-70); Platelet Count 221 K/mm3 (150-450); RBC Distribution Width CV 17.5 % (11.6-14.6); Red Blood Count 3.95 M/mm3 (4.2-5.4)
[2019-07-15 18:50] LABS: ALB/GLOB Ratio 0.7 RATIO (0.9-2.4); AST(SGOT) 15 U/L (15-37); Alanine Aminotransfer ALT/SGPT 21 U/L (13-56); Alkaline Phosphatase 46 U/L (45-117); Anion Gap 8 (5-15); BUN 19 mg/dL (7-18); BUN/Creat Ratio 15.7 RATIO (10-20); Calcium,Total 9.5 mg/dL (8.5-10.1); Chloride 107 mmol/L (98-107); Creatinine, Serum 1.21 mg/dL (0.55-1.02); EST Glomerular Filtration Rate 47 mL/min (>60); Est Glom Filt Rate - Afr Amer 57 mL/min (>60); Globulin 4.1 g/dL (2.2-4.2); Glucose 115 mg/dL (74-106); Magnesium 1.5 mg/dL (1.6-2.6); Potassium 3.6 mmol/L (3.5-5.1); Protein, Total 7.1 g/dL (6.4-8.2); Sodium Level 137 mmol/L (136-145); Thyroid Stim Hormone (TSH) 2.66 uIU/mL (0.358-3.74)
[2019-07-15 19:32] LABS: Vitamin B12 271 pg/mL (211-911); Vitamin D,25 Hydroxy 71.6 ng/mL
[2019-07-16 09:16] LABS: Iron 45 ug/dL (50-170); Iron Binding Capacity,Total 291 ug/dL (250-450); PERCENT IRON SATURATION 15.5 % (15.0-55.0)
[2019-07-17 14:54] LABS: Transferrin 215 mg/dL (192-364)
== END ==
PROVIDERS: PCP Family Medicine; Referring Provider Family Medicine; Visit Provider Family Medicine
DX: R53.83 Other fatigue (principal); K52.9 Noninfective gastroenteritis and colitis, unspecified; D64.9 Anemia, unspecified
CPT/HCPCS: 36415; 80053; 82306; 82607; 83540; 83550; 83735; 84443; 84466; 85025

== ENCOUNTER → 2019-07-22 15:43 | Outpatient (CLI) | payer MEDICARE, SELFPAY ==
[2019-05-14 08:39] VITALS: BMI 32.1
[2019-07-24 16:08] LABS: Endomysial Antibody IgA Negative (Negative)
[2019-07-24 19:09] LABS: Immunoglobulin A 137 mg/dL (87-352); t-Transglutaminase IgA <2 U/mL (0-3)
== END ==
PROVIDERS: PCP Family Medicine; Referring Provider Family Medicine; Visit Provider Internal Medicine Gastroenterology
DX: R19.7 Diarrhea, unspecified (principal)
CPT/HCPCS: 36415; 82746; 82784; 83516; 86140; 86255

== ENCOUNTER → 2019-07-23 14:37 | Outpatient (CLI) | payer MEDICARE, SELFPAY ==
[2019-05-14 08:39] VITALS: BMI 32.1
--- NOTE | 2019-07-23 14:39 | BI_ITS ---
MAMMOGRAPHY - BILATERAL SCREENING REASON FOR EXAM: Female, 69 years old. Routine annual screening examination. PERTINENT HISTORY: Non-contributory. TECHNIQUE: Digital bilateral breast nakul (3D mammographic acquisition) in the CC and MLO projections. 2-D mediolateral oblique (MLO) and craniocaudad (CC) views of both breasts were obtained. CAD: Full Field Digital Mammography with Computer Added Detection was performed. COMPARISON: Comparison is made with prior study dated February 23, 2015 and January 09, 2012. FINDINGS: Breast Composition: There are scattered areas of fibroglandular density. There are no dominant masses or suspicious calcifications. Stable scattered bilateral benign-appearing calcifications. No other significant abnormalities are identified. There has been no significant change since the prior study. BI/SCREEN MAMM (CAD) W/NAKUL BILAT IMPRESSION: Stable bilateral screening mammogram. Yearly follow-up mammogram recommended. (A) ASSESSMENT CATEGORY: BIRADS Category 2: Benign. A letter regarding these results will be sent to the patient by the facility within 30 days. Approximately 10% of breast cancers are not detected by mammography. A normal mammogram should not delay biopsy of a clinically suspicious abnormality. [id number] Electronically Signed: Moreno Landa, at 15:27 EDT , Service support ,
--- NOTE | 2019-07-23 15:10 | BD_ITS ---
STUDY: DUAL ENERGY X-RAY ABSORPTIOMETRY / DXA REASON FOR EXAM: Female, 69 years old. PATIENT WAS UNABLE TO GET ON TABLE OR LIE FLAT. Pat is 153.4# and 4''10 and quot; a loss of 4.5 and quot;. Past hx of taking an HRT. Past hx of taking a diurtetic. Has been a smoker for about 20 yrs off and on, she is currently smoking. Type II diabetic and takes Gliburide. Hx of steriod injections in her back. Takes a multi-vit. Hx of 7 back surgerys. Does not exercise. TECHNIQUE: Bone Mineral Density (BMD) measurements of both forearms were obtained. COMPARISON: None. FINDINGS: Right Forearm: g/cm2 (0.710) / T-score (-2.0) / Z-score (-0.2) Left Forearm: g/cm2 (0.759) / T-score (-1.5) / Z-score (0.4) BD/Dexa Bone Density/Append Skel IMPRESSION: The patient is considered osteopenic as outlined below according to World Perry Organization (WHO) criteria with a moderate fracture risk. Reference Information: The T-score is the number of standard deviations above or below the standard which is normal for young adults at their peak bone mineral density. The World Health Organization (WHO) interprets the T-scores as follows: Above -1 Normal bone density Between -1 and -2.5 Osteopenia Equal to / or below -2.5 Osteoporosis As a practical clinical guideline, osteopenia may be graded as follows: Mild -1 through -1.5 Moderate -1.6 through -2.0 Severe -2.1 through -2.4 The Z-score is the number of standard deviations above or below age-matched controls. A Z-score of less than -1.5 would be considered abnormal. References: 1. NIH Osteoporosis and Related Bone Diseases http://www.osteo.org 2. International Society for Clinical Densitometry http://www.iscd.org 3. National Osteoporosis Foundation http://www.nof.org Electronically Signed: Moreno Landa, at 15:23 EDT , Service support ,
== END ==
PROVIDERS: PCP Family Medicine; Referring Provider Family Medicine; Visit Provider Family Medicine
DX: Z12.31 Encounter for screening mammogram for malignant neoplasm of breast (principal); Z13.820 Encounter for screening for osteoporosis; M81.0 Age-related osteoporosis without current pathological fracture
CPT/HCPCS: 77063; 77067; 77080; 77081

== ENCOUNTER → 2019-08-06 14:00 | Outpatient (CLI) | payer MEDICARE, SELFPAY ==
[2019-05-14 08:39] VITALS: BMI 32.1
--- NOTE | 2019-08-06 14:03 | CT_ITS ---
STUDY: CT ABDOMEN AND PELVIS WITH CONTRAST REASON FOR EXAM: Female, 69 years old. Crohn''s, COLITIS, DIARRHEA X 2 MONTHS -- ENTEROGRAPHY PROTOCOL RADIATION DOSAGE (If Supplied By Facility): CTDIvol = ( 20.21 ) mGy, DLP = ( 1909.99 ) mGycm TECHNIQUE: Transaxial images were obtained from the dome of the diaphragm to the symphysis pubis with oral contrast. 100CC ISOVUE 370 was administered. Sagittal and coronal images were reconstructed. Individualized dose optimization techniques were used for this CT. COMPARISON: None. FINDINGS: The lung bases are not visualized. The visualized portions of the heart are within normal limits. Hepatomegaly. Fatty infiltration of the liver. There are multiple gallstones. Normal spleen. Normal pancreas. Normal bilateral adrenal glands. Normal right kidney. Normal left kidney. Normal visualized stomach. Normal small intestine. There are multiple colonic diverticula consistent with diverticulosis. The appendix is visualized and appears normal. There is diffuse atherosclerotic calcification of the abdominal aorta, without a demonstrated aneurysm. Normal inferior vena cava. There is borderline retroperitoneal lymphadenopathy with enlarged nodes no greater than 10mm in the short axis diameter. Normal urinary bladder. Normal abdominal wall. There are diffuse degenerative changes of the visualized lumbar spine. Levoscoliosis. Prior multilevel interpedicular screw and alexia fixation CT/Abdomen/Pelvis WITH Contrast IMPRESSION: Stable examination. No acute abnormality is seen. Electronically Signed: Moreno Landa, at 9:02 EDT , Service support ,
== END ==
PROVIDERS: PCP Family Medicine; Referring Provider Internal Medicine Gastroenterology; Visit Provider Internal Medicine Gastroenterology
DX: K50.90 Crohn's disease, unspecified, without complications (principal)
CPT/HCPCS: 74177; Q9967

== ENCOUNTER → 2019-09-23 16:24 | Outpatient (CLI) | payer MEDICARE, SELFPAY ==
[2019-05-14 08:39] VITALS: BMI 32.1
--- NOTE | 2019-09-23 16:29 | RAD_ITS ---
STUDY: X-RAY - LUMBAR SPINE REASON FOR EXAM: Female, 69 years old. EXTREME PAIN IN HER BACK MOSTLY LOWER BACK. HX OF 7 BACK SURGERYS. NO KNOWN RECENT INJURY. TECHNIQUE: 6 view(s) of the lumbar spine were obtained. COMPARISON: Prior lumbar spine films of 12/02/2018 FINDINGS: Exaggerated lumbar lordosis. Mild levoscoliosis. The mild levoscoliosis has increased from prior exam. Spinal fusion hardware remains bilaterally noting that the lowermost portion of the hardware on the left side has been removed below the last pedicle screw at the level of the prior hardware fracture. There is a new fracture of the posterior fusion alexia on the left that is occurring above the pedicle screw of L2. The remainder of the hardware above this level included in the [id number] which extends into the thoracic spine appears unchanged On the right, the terminal portion of the spinal fusion hardware appears unstable in its sacral anchor, possibly a hub of the sacral screw is fractured. Otherwise the fusion hardware on the right remains unchanged in alignment. There is no visible loss of vertebral body height. Disc spaces are obliterated in the mid and lower lumbar levels. The soft tissue structures are unremarkable. RAD/L/S Spine Min 4 Views IMPRESSION: Continued exaggerated lumbar lordosis with an increased levocurvature of the lumbar spine since prior exam. The distalmost portion of the left posterior spinal fusion hardware has been surgically removed at its fracture point below the last pedicle screw. There is a new hardware fracture just above the pedicle screw on the left that enters at L2. The distal end of the spinal fusion alexia on the right appears unstable as it enters the sacral anchor, of the anchor appears partially fragmented. Electronically Signed: Swathi Puente MD at 17:54 EDT , Service support ,
== END ==
LOC: MTRAD 16:25
PROVIDERS: PCP Family Medicine; Referring Provider Family Medicine; Visit Provider Family Medicine
DX: M54.9 Dorsalgia, unspecified (principal)
CPT/HCPCS: 72110

== ENCOUNTER → 2019-11-19 11:27 | Outpatient (CLI) | payer MEDICARE, SELFPAY ==
[2019-05-14 08:39] VITALS: BMI 32.1
[2019-11-19 15:26] LABS: Absolute Neutrophil Count 3.4 X10^3/uL (2.0-7.7); Basophil# 0.03 X10^3/uL; Basophil% 0.5 % (0-1); Eosinophil# 0.09 X10^3/uL; Eosinophils% 1.4 % (0-5); Hematocrit 41.2 % (37-47); Hemoglobin 12.8 g/dL (12.0-15.0); Lymphocyte % 30.1 % (19-41); Mean Corp Hgb Conc 31.1 g/dL (32-36); Mean Corpuscular Hgb 29.2 pg (27.0-32.0); Mean Corpuscular Volume 93.8 fL (81-99); Mean Platelet Vol. 11.2 fl (6.2-12.0); Monocyte# 0.88 X10^3/uL; Monocyte% 13.9 % (0-10); NRBC Flagged by Analyzer 0 % (0-5); Neutrophil # 3.39 X10^3/uL (2.7-7.7); Neutrophil % 53.6 % (47-70); Platelet Count 229 K/mm3 (150-450); RBC Distribution Width CV 14.7 % (11.6-14.6); RBC Distribution Width SD 51.4 fl (35.1-43.9); Red Blood Count 4.39 M/mm3 (4.2-5.4); White Blood Count 6.3 K/mm3 (4.4-11.0)
[2019-11-19 15:52] LABS: Vitamin B12 303 pg/mL (211-911); Vitamin D,25 Hydroxy 50.1 ng/mL
[2019-11-19 16:35] LABS: ALB/GLOB Ratio 0.7 RATIO (0.9-2.4); AST(SGOT) 10 U/L (15-37); Alanine Aminotransfer ALT/SGPT 12 U/L (13-56); Albumin, Serum 3.1 g/dL (3.2-5.0); Alkaline Phosphatase 51 U/L (45-117); Anion Gap 7 (5-15); BUN 23 mg/dL (7-18); BUN/Creat Ratio 16.2 RATIO (10-20); Calcium,Total 9.6 mg/dL (8.5-10.1); Chloride 107 mmol/L (98-107); Cholesterol 137 mg/dL (200); Creatinine, Serum 1.42 mg/dL (0.55-1.02); EST Glomerular Filtration Rate 39 mL/min (>60); Est Glom Filt Rate - Afr Amer 47 mL/min (>60); Ferritin 93 ng/mL (8-252); Globulin 4.4 g/dL (2.2-4.2); Glucose 82 mg/dL (74-106); High Density Lipoprotein 33 mg/dL; Iron 34 ug/dL (50-170); Iron Binding Capacity,Total 319 ug/dL (250-450); Phosphorus 4.2 mg/dL (2.5-4.9); Potassium 4.6 mmol/L (3.5-5.1); Protein, Total 7.5 g/dL (6.4-8.2); Sodium Level 139 mmol/L (136-145); Triglycerides 156 mg/dL; Very Low Density Lipoprotein 31 mg/dL (5-40)
[2019-11-20 08:21] LABS: PTHIN 18.7 pg/mL (18.4-80.1)
== END ==
PROVIDERS: PCP Family Medicine; Referring Provider Family Medicine; Visit Provider Family Medicine
DX: D64.9 Anemia, unspecified (principal); E55.9 Vitamin D deficiency, unspecified; E78.00 Pure hypercholesterolemia, unspecified; E11.22 Type 2 diabetes mellitus with diabetic chronic kidney disease; N18.3 Chronic kidney disease, stage 3 (moderate)
CPT/HCPCS: 36415; 80053; 80061; 82306; 82607; 82728; 82746; 83036; 83540; 83550; 83970; 84100; 85025

== ENCOUNTER → 2020-03-10 15:22 | Outpatient (CLI) | payer MEDICARE, SELFPAY ==
[2019-05-14 08:39] VITALS: BMI 32.1
[2020-03-10 18:28] LABS: Absolute Lymphocyte Count 1.71 X10^3/uL (0.83-4.51); Absolute Neutrophil Count 4.7 X10^3/uL (2.0-7.7); Basophil# 0.03 X10^3/uL; Basophil% 0.4 % (0-1); Eosinophil# 0.12 X10^3/uL; Eosinophils% 1.6 % (0-5); Hematocrit 38.6 % (37-47); Lymphocyte # 1.71 X10^3/ul (4.0); Lymphocyte % 23.3 % (19-41); Mean Corp Hgb Conc 31.1 g/dL (32-36); Mean Corpuscular Hgb 28.9 pg (27.0-32.0); Mean Platelet Vol. 10.8 fl (6.2-12.0); Monocyte# 0.73 X10^3/uL; NRBC Flagged by Analyzer 0 % (0-5); Neutrophil % 64.2 % (47-70); Platelet Count 208 K/mm3 (150-450); RBC Distribution Width CV 15.9 % (11.6-14.6); RBC Distribution Width SD 54.5 fl (35.1-43.9); Red Blood Count 4.15 M/mm3 (4.2-5.4); White Blood Count 7.3 K/mm3 (4.4-11.0)
[2020-03-10 18:52] LABS: Vitamin B12 285 pg/mL (211-911)
[2020-03-10 18:55] LABS: Hemoglobin A1c 6.4 % (3.8-5.6)
[2020-03-10 18:57] LABS: ALB/GLOB Ratio 0.8 RATIO (0.9-2.4); AST(SGOT) 13 U/L (15-37); Alanine Aminotransfer ALT/SGPT 13 U/L (13-56); Albumin, Serum 3.2 g/dL (3.2-5.0); Alkaline Phosphatase 46 U/L (45-117); Anion Gap 5 (5-15); BUN 37 mg/dL (7-18); BUN/Creat Ratio 20.3 RATIO (10-20); Calcium,Total 8.9 mg/dL (8.5-10.1); Chloride 101 mmol/L (98-107); Cholesterol 153 mg/dL (200); Creatinine, Serum 1.82 mg/dL (0.55-1.02); EST Glomerular Filtration Rate 29 mL/min (>60); Est Glom Filt Rate - Afr Amer 35 mL/min (>60); Ferritin 83 ng/mL (8-252); Globulin 3.8 g/dL (2.2-4.2); Glucose 130 mg/dL (74-106); High Density Lipoprotein 45 mg/dL; Iron 53 ug/dL (50-170); Iron Binding Capacity,Total 370 ug/dL (250-450); Potassium 4.6 mmol/L (3.5-5.1); Sodium Level 134 mmol/L (136-145); Triglycerides 127 mg/dL; Very Low Density Lipoprotein 25 mg/dL (5-40)
== END ==
PROVIDERS: PCP Family Medicine; Referring Provider Family Medicine; Visit Provider Family Medicine
DX: E11.9 Type 2 diabetes mellitus without complications (principal); E78.00 Pure hypercholesterolemia, unspecified; E55.9 Vitamin D deficiency, unspecified; D64.9 Anemia, unspecified
CPT/HCPCS: 36415; 80053; 80061; 82306; 82607; 82728; 82746; 83036; 83540; 83550; 85025

== ENCOUNTER → 2020-03-24 14:58 | Outpatient (CLI) | payer MEDICARE, SELFPAY ==
[2019-05-14 08:39] VITALS: BMI 32.1
--- NOTE | 2020-03-24 15:03 | RAD_ITS ---
STUDY: X-RAY EXAMINATION: SCOLIOSIS SERIES REASON FOR EXAM: Female, 70 years old. PAIN IN ENTIRE SPINE. PATIENT STATES IT FEELS LIKE ALL OF HER RODS ARE MOVING. PATIENT STATES HAS A HX OF POLIO AND HAS HAD 8 SPINAL SURGERYS FIRST ONE BEING IN 1962. NO KNOWN RECENT INJURY PER PATIENT. TECHNIQUE: 5 view(s) of the thoracolumbar spine were obtained in the upright standing position. COMPARISON: 06/17/2015 FINDINGS: Extensive spinal alexia fixation throughout the thoracic and lumbar spines. Interval removal from the screws and rods at the level of the sacrum. Interval fracture of the rods at L1/L2 with distraction and kyphosis.. Normal kyphosis of the thoracic spine. There is multilevel endplate spondylosis of the thoracic vertebrae. There is multilevel disc space narrowing of the thoracic spine. Normal lordosis of the lumbar spine. There is multilevel endplate spondylosis of the lumbar vertebrae. There is multilevel disc space narrowing of the lumbar spine. The soft tissue structures are unremarkable. RAD/Scoliosis 2 or 3 views IMPRESSION: Interval fracture of the spinal rods at L1/L2 with increased distraction and kyphosis. Electronically Signed: Kendell Flanagan MD at 9:09 EST Tel , Service support ,
--- NOTE | 2020-03-24 15:20 | RAD_ITS ---
STUDY: X-RAY - LUMBAR SPINE REASON FOR EXAM: Female, 70 years old. PAIN IN ENTIRE SPINE. PATIENT STATES IT FEELS LIKE ALL OF HER RODS ARE MOVING. PATIENT STATES HAS A HX OF POLIO AND HAS HAD 8 SPINAL SURGERYS FIRST ONE BEING IN 1962. NO KNOWN RECENT INJURY PER PATIENT. TECHNIQUE: 4 view(s) of the lumbar spine were obtained. COMPARISON: 09/23/2019 FINDINGS: Normal lumbar lordosis. There is a levoscoliosis of the lumbar spine. Status post transpedicular and alexia fixation of the thoracolumbar spine. The rods are fractured at L1/L2 and there has been an interval increase in the kyphosis and distraction of the rods this level. This is unchanged on the flexion and extension views. Interval removal of the screw through the sacrum. Status post discectomy with 5 mm of anterolisthesis of L5 on S1 which is unchanged. There is multilevel endplate spondylosis of the lumbar vertebrae. There is multi-level degenerative disc disease with multi-level disc space narrowing. The soft tissue structures are unremarkable. RAD/L/S Spine Min 4 Views IMPRESSION: Fracture the spinal rods at L1/L2 with increased kyphosis and distraction which is unchanged on the flexion and extension views. Electronically Signed: Kendell Flanagan MD at 9:06 EST Tel , Service support ,
[2020-03-24 18:10] LABS: ALB/GLOB Ratio 0.8 RATIO (0.9-2.4); AST(SGOT) 12 U/L (15-37); Alanine Aminotransfer ALT/SGPT 13 U/L (13-56); Albumin, Serum 3.3 g/dL (3.2-5.0); Alkaline Phosphatase 55 U/L (45-117); Anion Gap 7 (5-15); BUN 19 mg/dL (7-18); BUN/Creat Ratio 13.4 RATIO (10-20); Calcium,Total 8.9 mg/dL (8.5-10.1); Chloride 107 mmol/L (98-107); Creatinine, Serum 1.42 mg/dL (0.55-1.02); EST Glomerular Filtration Rate 39 mL/min (>60); Est Glom Filt Rate - Afr Amer 47 mL/min (>60); Globulin 4.1 g/dL (2.2-4.2); Glucose 211 mg/dL (74-106); Potassium 4.6 mmol/L (3.5-5.1); Protein, Total 7.4 g/dL (6.4-8.2); Sodium Level 137 mmol/L (136-145)
[2020-03-25 08:08] LABS: PTHIN 29.2 pg/mL (18.4-80.1)
== END ==
PROVIDERS: PCP Family Medicine
DX: T85.848D Pain due to other internal prosthetic devices, implants and grafts, subsequent encounter (principal); N18.30 Chronic kidney disease, stage 3 unspecified
CPT/HCPCS: 36415; 72082; 72110; 80053; 83970

== ENCOUNTER → 2020-05-05 15:28 | Outpatient (CLI) | payer MEDICARE, SELFPAY ==
[2019-05-14 08:39] VITALS: BMI 32.1
[2020-05-05 17:24] LABS: Albumin, Serum 2.8 g/dL (3.2-5.0); BUN 18 mg/dL (7-18); BUN/Creat Ratio 13.8 RATIO (10-20); Calcium,Total 8.7 mg/dL (8.5-10.1); Chloride 110 mmol/L (98-107); EST Glomerular Filtration Rate 43 mL/min (>60); Est Glom Filt Rate - Afr Amer 52 mL/min (>60); Glucose 212 mg/dL (74-106); Phosphorus 3.6 mg/dL (2.5-4.9); Potassium 4.1 mmol/L (3.5-5.1); Sodium Level 143 mmol/L (136-145)
[2020-05-05 17:31] LABS: Protein, Urine (Random) 9.3 mg/dL (<11.9); Protein:Creat Ratio 189 mg/g CRE (0-200)
== END ==
PROVIDERS: PCP Family Medicine; Visit Provider Internal Medicine Nephrology
DX: N18.32 Chronic kidney disease, stage 3b (principal)
CPT/HCPCS: 80069; 82570; 84156

== ENCOUNTER 2020-06-09 15:43 | Emergency (ER) | payer MEDICARE, SELFPAY ==
[2019-05-14 08:39] VITALS: BMI 32.1
[2020-06-09 15:44] VITALS: BP 100/77; PULSE 100; RESP 18; TEMP 36.6; O2SAT 92; BMI 38.0
--- NOTE | 2020-06-09 16:04 | ED.VISSUMM ---
- ER Visit Summary Date of Service: 06/09/20 Chief Complaint: [Fall] History of Present Illness: The patient is a 70 F presents to the emergency department after sustaining a fall today. Patient states that she and her friend were walking out the front steps trying to go to her doctor's appointment when patient lost her balance and fell down about 2-3 steps. Patient states that she fell mostly onto her back. She is complaining of low back pain and left hip pain. Patient was unable to get up afterwards. Patient states that she recently got a walker normally walks with a walker. She has history of chronic back pain issues and is scheduled to see a neurosurgeon to have surgery for some broken rods in her back. Patient has history of diabetes, hypertension, high cholesterol, pulmonary hypertension, and osteoarthritis. Patient denies striking her head or loss of consciousness. She denies any neck pain. She is not currently anticoagulated. [] Physical Examination: [HEENT-PERRLA, EOMI. Cranial nerves II through XII grossly intact. TMs clear. Mucous membranes moist. No adenopathy. No external evidence of trauma to her head. No C-spine tenderness on palpation. Cardiovascular-regular rate and rhythm without murmur or ectopy Lungs-clear to auscultation, chest wall stable without crepitus or subcu emphysema Abdomen-normoactive bowel sounds, soft, nontender, no rebound or rigidity, no peritoneal signs. Back exam-patient has diffuse tenderness over lumbar spine. No ecchymosis or bruising noted. Patient has some mild tenderness over the left hip on exam with no evidence of shortening or rotational deformity noted. She is neurovascular intact distally. Extremities-intact ?4, normal range of motion, normal pulses, atraumatic. Patient does have +2 edema in both lower extremities.] Test Results: [X-rays of the lumbar spine 3 views obtained interpreted by myself as no acute fractures. She was noted to have hardware with screws and rods and the rods appear to be broken. Radiology was in agreement. Patient also had x-rays of the left hip and pelvis 3 views interpreted by myself as no acute fractures and radiology in agreement.] Emergency Department Course and Treatment: [Patient was given Dilaudid 1mg IM and she had some pain relief with that. Patient was able to stand and move around and radiology and she feels comfortable going home. Her friend can take her home and make sure she gets into the home. She has a walker at home which she uses and also got a power chair that she can use as well. I offered patient admission for pain control and physical therapy and possible admission if she does not feel safe going home and she does not want to do that and would prefer to go home at this time. Patient feels like she can care for herself still.] Treatment Plan: [To follow-up with her primary care physician in 3 to 4 days.] Disposition: [Discharged home in stable condition] Impression: [Mechanical fall Back contusion] Left hip contusion This note was generated with [employer] dictation software. It may contain incorrect words, spelling, and punctuation that were not noted in review of the chart prior to signing ED Disposition - Plan for ED Patient: Referrals: Makenzie Ace DO [Primary Care Provider] -
[2020-06-09] MEDS: HYDROmorphone 1 MG/ML Syringe IM (16:13)
--- NOTE | 2020-06-09 16:45 | RAD_ITS ---
STUDY: X-RAY - PELVIS AND LEFT HIP REASON FOR EXAM: Female, 70 years old. patient fell down 2-3 steps onto cement. patient complaining of left hip pain. patient with chronic back pain. TECHNIQUE: 3 views of the pelvis and hip. The images are under penetrated COMPARISON: CT of abdomen and pelvis dated AUGUST 06, 2019 FINDINGS: There is a non-specific bowel gas pattern. Normal visualized soft tissue structures. Stable lumbar spine hardware and chronic postoperative changes. No visualized fractures of the pelvis or bilateral hips. Normal visualized femoral head. Normal acetabulum. Normal hip joint. RAD/HIP, UNI W/ Pelvis 2-3 Views IMPRESSION: No visualized acute process Electronically Signed: Jah Mullins MD at 17:52 EDT , Service support ,
--- NOTE | 2020-06-09 16:45 | RAD_ITS ---
STUDY: X-RAY - LUMBAR SPINE REASON FOR EXAM: Female, 70 years old. fall TECHNIQUE: 2 view(s) of the lumbar spine were obtained. COMPARISON: Lumbar spine x-ray dated March 24, 2020 FINDINGS: Stable thoracic and lumbar spine spinal rods and pedicle screws. Reidentification of fracture of the rods and T12-L1 mild levoscoliosis chronic postoperative changes. No definite visualized acute fracture. Multilevel degenerative changes are present. The soft tissue structures are unremarkable. RAD/Lumbar Spine 2 or 3 Views IMPRESSION: No definite visualized acute fracture Electronically Signed: Jah Mullins MD at 17:56 EDT , Service support ,
[2020-06-09 17:56] LABS: Bedside Glucose 130 mg/dL (70-110)
--- NOTE | 2020-06-09 18:20 | ED.DEP ---
ED Disposition - Plan for ED Patient: Instructions: ED Mechanical Fall, ED Back Contusion, ED Hip Contusion Referrals: Makenzie Ace DO [Primary Care Provider] - 3-5 Days
[2020-06-09 18:36] VITALS: BP 105/70; PULSE 87; RESP 17; TEMP 36.6; O2SAT 98
== END 2020-06-09 18:38 | disposition home or self-care (01) ==
LOC: ED 16:28
PROVIDERS: Emergency Provider Emergency Medicine; PCP Internal Medicine Nephrology
DX: S30.0XXA Contusion of lower back and pelvis, initial encounter (principal); S70.02XA Contusion of left hip, initial encounter; W10.9XXA Fall (on) (from) unspecified stairs and steps, initial encounter; Y93.01 Activity, walking, marching and hiking; Y92.9 Unspecified place or not applicable; I10 Essential (primary) hypertension; E11.9 Type 2 diabetes mellitus without complications; E78.00 Pure hypercholesterolemia, unspecified; I27.20 Pulmonary hypertension, unspecified; M19.90 Unspecified osteoarthritis, unspecified site; K21.9 Gastro-esophageal reflux disease without esophagitis; Z79.84 Long term (current) use of oral hypoglycemic drugs; Z79.899 Other long term (current) drug therapy; Z72.0 Tobacco use
CPT/HCPCS: 72100; 73502; 82962; 96372; 99284

== ENCOUNTER 2020-06-14 16:58 | Observation (INO) | payer MEDICARE, SELFPAY ==
[2020-06-14] VITALS (7 sets, daily range): BP systolic 100–122; BP diastolic 34–92; PULSE 76–111; RESP 16–18; TEMP 36.6–36.8; O2SAT 88–98; BMI 38.8
--- NOTE | 2020-06-14 17:50 | ED.DCSUM_ITS ---
History of Present Illness Chief Complaint: Back Informant: Patient Onset: Weeks Timing: Continuous Quality: Low back pain with radiation to the right thigh laterally Location: Central and paralumbar with radiation to the right thigh Current Severity: Moderate Maximum Severity: Severe Worsened by: Movement Relieved by: Nothing Associated Symptoms: None Narrative: Patient is 70-year-old woman with multiple back surgeries who recently had x- rays of her hip and back which revealed a broken alexia where she had a fusion. This is the suspected culprit causing her back pain. She does not have sciatica, which she claims. She has pain that radiates to the proximal lateral right thigh. It does not go to the knee or down the medial aspect of the leg to suggest an L3-4 lesion either. She denies foot drop. Denies buckling of her knees going up or down steps. She denies numbness or tingling in her perineal region. She denies loss of bowel control or inability to urinate. She denies fever or chills. She has had no recent injection of her back. She denies weigh t loss. She denies night sweats. Prior similar symptoms: Yes Recent Illness/Hospitalization: Yes - Past Medical History (1) Dyspnea on exertion Status: Acute (2) Pulmonary hypertension Status: Acute Comment: RVSP 60 mmHg (3) Degenerative arthritis of spine Status: Chronic (4) Diabetes Status: Chronic (5) Esophageal reflux disease Status: Chronic (6) Hiatal hernia with GERD Status: Chronic (7) Hypercholesterolemia Status: Chronic (8) Hypertension Status: Chronic (9) Obesity (BMI 35.0-39.9 without comorbidity) Status: Chronic (10) Osteoarthritis Status: Chronic (11) Scoliosis Status: Chronic Past Medical History - Allergies and Home Meds Allergies/Adverse Reactions: Allergies atorvastatin calcium [From Lipitor] Allergy (Verified 06/14/20 17:07) Unknown LEG CRAMPS pravastatin Allergy (Verified 06/14/20 17:07) Unknown LEG CRAMPS simvastatin Allergy (Verified 06/14/20 17:07) Unknown LEG CRAMPS morphine Adverse Reaction (Verified 06/14/20 17:07) Other BAD NIGHTMARES altace Allergy (Uncoded 06/14/20 17:07) Unknown antihyperlipidemics Allergy (Uncoded 06/14/20 17:07) Unknown LEG CRAMPS Primary Care Physician: Makenzie Ace DO [Primary Care Provider] - Surgical History: appendectomy, cataract - 2012, total knee arthroplasty - bilateral, - - carpal tunnel 1989, lumbar fusion x 6; the patient has had multiple back surgeries with placement of metal hardware. She is undergone bilateral total knee replacement surgery. Appendectomy was performed in the past. Lives: Alone Smoking Status: Former smoker Alcohol: None Drugs: None - Family History Paternal Family History: Family History (Last Reviewed 05/14/19 @ 14:33 by Arianne Smiley OFFSHORE WIND OPERATIONS MANAGER, OFFSHORE WIND OPERATIONS MANAGER-C) Mother Brain aneurysm Father CVA (cerebral vascular accident) Sister Thyroid cancer Family History: Reports: Stroke - age 68, - - Alcoholism Offspring Family History: Family History (Last Reviewed 05/14/19 @ 14:33 by Arianne Smiley OFFSHORE WIND OPERATIONS MANAGER, OFFSHORE WIND OPERATIONS MANAGER-C) Mother Brain aneurysm Father CVA (cerebral vascular accident) Sister Thyroid cancer Family History: Reports: Asthma - Multiple allergies requiring allergy shots twice weekly Maternal Family History: Family History (Last Reviewed 05/14/19 @ 14:33 by Arianne Smiley OFFSHORE WIND OPERATIONS MANAGER, OFFSHORE WIND OPERATIONS MANAGER-C) Mother Brain aneurysm Father CVA (cerebral vascular accident) Sister Thyroid cancer Family History: Reports: - - age 72 cerebral aneurysm; the patient's father at age of 72 from a cerebrovascular accident. He was an alcoholic. Additional Family History: No pertinent family history Review of Systems General: Denies: Chills, Fever, Malaise, Subjective, Sweats, Weight loss Eyes: Denies: Visual changes - bilaterally, Blurred Vision - bilaterally ENT: Denies: Right ear pain, Rhinorrhea Cardiovascular: Denies: Chest pain, Palpitations Respiratory: Denies: Dyspnea, Cough, Dyspnea on exertion Gastrointestinal: Denies: Abdominal pain, Nausea, Vomiting, Diarrhea, Melena, Hematochezia Genitourinary: Denies: Dysuria, Hematuria, Frequency Musculoskeletal: Reports: Back pain. Denies: Myalgias, Arthralgias, Neck pain, Swelling, Extremity Pain, -, - Skin: Denies: Rash, Wounds Neurological: Denies: Headache, Weakness, Numbness Psych: Denies: Depression, Anxiety Endocrine: Denies: Polyuria, Polydipsia Hematologic: Denies: Easy bruising, Easy bleeding Allergy: Denies: Uticaria Physical Exam Vital Signs/Narrative: Vital Signs Temp Pulse Resp BP Pulse Ox 06/14/20 17:29 78 16 113/34 L 98 06/14/20 17:04 97.8 F 111 H 18 116/52 L 88 06/14/20 17:01 97.8 F 76 18 116/52 L 92 Inital Vital Signs reviewed: Yes General: Well nourished, Well developed, Obese, No Acute Distress Head: Normocephalic, Atraumatic Eyes: Perrl, EOMI. Negative for: Pale conjunctiva, Scleral icterus ENT: Moist mucous membranes, No rhinorrhea Neck: Supple, Nontender, No lymphadenopathy, No JVD Cardiovascular: Regular rate, Regular rhythm, No murmurs, Normal S1, Normal S2 Respiratory: No distress, CTA bilaterally, Chest nontender Abdomen: Soft, Nontender, Nondistended, Normal bowel sounds Back: Normal Inspection. Negative for: CVA tenderness Extremities: Nontender, Edema - 2 to 4 mm of pitting edema bilateral 3 with venous stasis changes. Skin: Normal color, No rash Neurological: Alert, Oriented x3, Cranial nerves II-XII grossly intact, Normal Strength, Normal Sensation Psychological: Depressed Diagnostic/Tx/Re-eval - Medical Decision Making Patient has mechanical back pain based on history and physical exam. Straight leg test is negative. Crossover test is negative. Patella and ankle reflex are 2+ and symmetric. PT pulses palpable bilaterally. She has normal sensation over L4-5 dermatome. She had normal perianal sensation. EHL is intact. She has good strength with plantar and dorsiflexion of her foot. She is unable to stand presently. She states she has pain that she localizes to the right groin area. X-rays revealed no acute pathology that were obtained on June 09. She was medicated with IV Zofran and morphine. Patient was reassessed at 2004. And states she feels better. She does not feel comfortable going home. Head consult to case management. She informed Viktoriya that she is not been feeling for last couple days. She does not feel comfortable going home and being by herself. Patient was informed that she does not meet criteria for admission. Case management recommended observation status with OT PT eval in the morning. ED Disposition - Plan for ED Patient: Disposition: Acute Care [facility] Diagnosis: Acute exacerbation of chronic low back pain, Broken alexia for fusion lumbar Referrals: Makenzie Ace DO [Primary Care Provider] -
[2020-06-14] MEDS: Ondansetron 4 MG/2 ML Vial IV (18:44)
[2020-06-14] MEDS: HYDROmorphone 0.5 MG/0.5 ML SYRINGE IV (18:44)
--- NOTE | 2020-06-14 20:26 | CM.ED ---
Social Work Note Referral Source: MD Referral Reason: Patient advised MD that she does not feel safe going home and feels she needs to go someplace MIKAYLA and MIKAYLA Celaya met with patient at MD's request. Patient said that she needs to go someplace as she is unable to care for her ADL's. She reports that on Saturday she was unable to go to bathroom and had to urinate in a cup and then got urine all over her yesterda Patient said that her private pay nursing staff assisted her with cleaning her up and giving a sponge bath. Patient said she hasn't eaten since yesterday. Patient reports her son on Saturday and she is grieving. She reports that she is always the strong one but can't be due to her current medical condition. Patient said that she has private duty nursing, [facility]. Patient said that she has some money stashed away if she would need to private pay to senior care. Patient said that she would also be interested in assisted living. Patient has previously been on the rehab unit 2x in the past. Patient reports her daughter, who lives in [place], and her don't talk and haven't talked for 4 years but she will take care of my cats. Patient said that she needs someone to take care of her and assist her with toileting and ADL's . Updated Dr. Mcintosh about the above. Anticipate admission. Juliana JOSHUA
--- NOTE | 2020-06-14 21:19 | PCM.HP.STD ---
Problem List (1) Acute exacerbation of chronic low back pain Status: Acute (2) Type 2 diabetes mellitus without complications Status: Chronic Qualifiers: Diabetes mellitus ocean transportation intermediary insulin use: without long-term use Qualified Code(s): E11.9 - Type 2 diabetes mellitus without complications (3) Diabetes Status: Chronic (4) Hypercholesterolemia Status: Chronic (5) Hypertension Status: Chronic (6) Esophageal reflux disease Status: Chronic Qualifiers: Esophagitis presence: esophagitis presence not specified Qualified Code(s): K21.9 - Gastro-esophageal reflux disease without esophagitis (7) Scoliosis Status: Chronic History of Present Illness Date of Admission: 06/14/20 Chief Complaint: Intractable back pain The patient is a 70 y/o F w/ PMHx: HTN, HLD, Diabetes mellitus type II, GERD, Hx Polio, Chronic back pain s/p intervention with hardware who presents to the [facility] ED on 06/14/20 with history of ongoing intractable back pain with recent worsening back discomfort with recent film of her hip and back revealing a broken alexia where she had a previous fusion with worsened sciatica specifically to the right thigh described as severe, constant, worse with any movement or activity, rated 10 out of 10 in severity at its worst, recent pain medication in the ED and now rated 6 out of 10. She denies any alteration to her bowel or bladder. She denies any focal specific weakness or foot drop. She has fallen over the last week but has had no injury associated. Patient has follow-up with her surgeon, Dr. Rust with the [facility] but she cannot recall the exact date. Patient presents to the ED secondary to pain worsening noting to recently have completed a steroid regimen of unclear type. Work-up in the ED included T 97.8, heart rate 76, BP 116/52, respiratory rate 18, 98% on room air, no labs were obtained per the ED or any repeat imaging. In the ED patient ministered Zofran, morphine and Dilaudid. Past Medical History Past Medical History (Chronic Problems): Chronic Problems (Last Reviewed 05/14/19 @ 14:33 by Arianne Smiley PELLETISING EXTRUDER OPERATOR, PELLETISING EXTRUDER OPERATOR-C) Hiatal hernia with GERD (Chronic) Osteoarthritis (Chronic) Lumbar disc disease (Chronic) Scoliosis (Chronic) Polio (Chronic) Hyperlipidemia (Chronic) Hypertension (Chronic) Type 2 diabetes mellitus without complications (Chronic) Diabetes (Chronic) Hypercholesterolemia (Chronic) Hypertension (Chronic) Esophageal reflux disease (Chronic) Scoliosis (Chronic) Lumbar disc disease (Chronic) Obesity (BMI 35.0-39.9 without comorbidity) (Chronic) Tobacco abuse (Chronic) Hypoxia (Chronic) Diabetes mellitus (Chronic) Degenerative arthritis of spine (Chronic) Medical History: Medical History (Last Reviewed 05/14/19 @ 14:33 by Arianne Smiley PELLETISING EXTRUDER OPERATOR, PELLETISING EXTRUDER OPERATOR-C) Hiatal hernia with GERD (Chronic) K21.9, K44.9 Osteoarthritis (Chronic) M19.90 Lumbar disc disease (Chronic) M51.9 Scoliosis (Chronic) M41.9 Polio (Chronic) A80.9 Hyperlipidemia (Chronic) E78.5 Hypertension (Chronic) I10 Type 2 diabetes mellitus without complications (Chronic) E11.9 Allergies atorvastatin calcium [From Lipitor] Allergy (Verified 06/14/20 17:07) Unknown LEG CRAMPS pravastatin Allergy (Verified 06/14/20 17:07) Unknown LEG CRAMPS simvastatin Allergy (Verified 06/14/20 17:07) Unknown LEG CRAMPS morphine Adverse Reaction (Verified 06/14/20 17:07) Other BAD NIGHTMARES altace Allergy (Uncoded 06/14/20 17:07) Unknown antihyperlipidemics Allergy (Uncoded 06/14/20 17:07) Unknown LEG CRAMPS Home Medications: Ambulatory Orders Medication Instructions Recorded Gabapentin [Neurontin] 800 mg PO 4X/DAYCM 05/13/15 Glimepiride [Amaryl] 4 mg PO DAILY 05/13/15 Omeprazole [Prilosec] 20 mg PO QHS 05/13/15 Fenofibrate,Micronized 134 mg PO DAILY 06/04/16 [Fenofibrate] Tizanidine HCl [Zanaflex] 4 mg PO Q8H PRN 06/04/16 Metoprolol Succinate 50 mg PO DAILY 12/18/16 albuterol sulfate 90 mcg/actuation 2 puff INHALATION Q6H PRN #18 g 05/14/19 aerosol inhaler budesonide-formoterol HFA 160 2 inh INHALATION BID #10.2 g 05/14/19 mcg-4.5 mcg/actuation aerosol inhaler Ascorbic Acid [Vitamin C] 500 mg PO DAILY 06/09/20 Cyanocobalamin [Vitamin B12] 1,000 mcg PO DAILY@0800 06/09/20 Magnesium Oxide [Magnesium] 400 mg PO DAILY 06/09/20 Zinc Amino Acid Chelate [Zinc] 50 mg PO DAILY 06/09/20 Surgical History: Surgical History (Last Reviewed 05/14/19 @ 14:33 by Arianne Smiley PELLETISING EXTRUDER OPERATOR, PELLETISING EXTRUDER OPERATOR-C) S/P carpal tunnel release (Resolved) Z98.890 left 12/26/16 H/O tubal ligation Z98.51 History of Z98.891 History of reverse total replacement of right shoulder joint Z98.890 05/2016 S/P appendectomy Z90.49 S/P carpal tunnel release Z98.890 Status post total replacement of right shoulder Z96.611 02/07/16 back 04/2015 knee right shoulder 05/2016 spinal fusion from polio complications Surgical History: appendectomy, cataract - 2012, total knee arthroplasty - bilateral, - - carpal tunnel 1989, lumbar fusion x 6; the patient has had multiple back surgeries with placement of metal hardware. She is undergone bilateral total knee replacement surgery. Appendectomy was performed in the past. Psychiatric History: No pertinent psych hx INCOME TAX ANALYST History: No pertinent INCOME TAX ANALYST history Lives: Alone Smoking Status: Former smoker Tobacco Use: Non-smoker Alcohol: None Drugs: None - *Family History Paternal Family History: Family History (Last Reviewed 05/14/19 @ 14:33 by Arianne Smiley PELLETISING EXTRUDER OPERATOR, PELLETISING EXTRUDER OPERATOR-C) Mother Brain aneurysm Father CVA (cerebral vascular accident) Sister Thyroid cancer History Items: Stroke - age 68, - - Alcoholism Offspring Family History: Family History (Last Reviewed 05/14/19 @ 14:33 by Arianne Smiley NP, PELLETISING EXTRUDER OPERATOR-C) Mother Brain aneurysm Father CVA (cerebral vascular accident) Sister Thyroid cancer History Items: Asthma - Multiple allergies requiring allergy shots twice weekly Maternal Family History: Family History (Last Reviewed 05/14/19 @ 14:33 by Arianne Smiley NP, PELLETISING EXTRUDER OPERATOR-C) Mother Brain aneurysm Father CVA (cerebral vascular accident) Sister Thyroid cancer History Items: - - age 72 cerebral aneurysm; the patient's father at age of 72 from a cerebrovascular accident. He was an alcoholic. Review of Systems Constitutional: Reports: Weakness, Fatigue. Denies: Anorexia, Chills, Fever, Malaise, Weight Change HEENT: Denies: Head Aches, Sinus Congestion, Sinus Drainage Cardiovascular: Denies: Chest Pain, Palpitations Respiratory: Denies: Cough, Shortness of breath at rest, Sputum production Gastrointestinal: Denies: Abdominal Pain, Nausea, Vomiting Genitourinary: Denies: Dysuria Musculoskeletal: Reports: Back Pain, Joint Pain, Leg Pain. Denies: Joint Tenderness Skin: Denies: Rash, Wounds Neurological: Reports: - - Chronic neuropathy.. Denies: Focal weakness, Numbness, Tingling Psychiatric: Denies: Anxiety, Depression, Homicidal Ideations, Suicidal Ideations Hematologic/ Lymphatic: Denies: Easy Bruising, Easy Bleeding VTE Information - Inpt Only VTE Present on Admission: No VTE Mechan Device Prophylaxis: SCD's VTE Pharm Prophylaxis ordered?: Yes Patient Problems: Active and Suspected Problems (Last Reviewed 05/14/19 @ 14:33 by Arianne Smiley PELLETISING EXTRUDER OPERATOR, PELLETISING EXTRUDER OPERATOR-C) Acute exacerbation of chronic low back pain (Acute) Pulmonary hypertension (Acute) RVSP 60 mmHg Dyspnea on exertion (Acute) Subjective: Patient laying in the ED bed, fatigued, uncomfortable, notes recent pain regimen with some improvement to 6 8 of 10 in severity. Objective: Physical Examination: General: awake, alert, oriented x 3 and cooperative, seated upright in the ED bed, uncomfortable appearing, notes some improvement following recent ED pain regimen. Skin: normal color, turgor, no icterus, cyanosis. HEENT: AT/NC, EOMI, PERRLA, mildly dry MM, no carotid bruits or JVD noted. Lungs: Diminished breath sounds, greater bases, appropriate effort, no rales, ronchi or wheezing. Heart: Regular rate and rhythm; no gallop, rub audible. Abdomen: soft, obese, NTTP, ND, normal BS, no HSM. Extremities: no cyanosis, clubbing, or edema. Significant discomfort with any straight leg attempts, bilateral paraspinous lumbar discomfort with palpation. Neurological: patient awake, alert, oriented x 3; cognitive function intact; pupils equally reactive to light and accomodation; cranial nerves II-XII grossly normal, moving all 4 extremities however extremely limited given intractable back pain, strength accordingly severely global decrease. Psychiatric: affect appears fatigued, uncomfortable, no acute evidence of depressive or anxiety feelings. - Physical Exam Vitals/I&O's: Vital Signs Temp Pulse Resp BP Pulse Ox 98.2 F 95 16 112/85 H 97 06/14/20 19:54 06/14/20 19:54 06/14/20 19:54 06/14/20 19:54 06/14/20 19:54 Oxygen Flow Rate (L/min) 2 Oxygen Delivery Method Nasal Cannula Weight: 192 lb 3.889 oz Body Mass Index (BMI) 38.8 Finger Stick Blood Glucose 83 Assessment/Plan All Active Problems (Last Reviewed 05/14/19 @ 14:33 by Arianne Smiley PELLETISING EXTRUDER OPERATOR, PELLETISING EXTRUDER OPERATOR-C) Acute exacerbation of chronic low back pain (Acute) Pulmonary hypertension (Acute) Dyspnea on exertion (Acute) S/P carpal tunnel release (Resolved) Left carpal tunnel syndrome (Acute) Ulnar nerve compression (Acute) Cubital tunnel syndrome (Acute) Spinal fusion failure (Acute) S/P laminectomy with spinal fusion (Acute) Surgical wound infection (Acute) Dehiscence of surgical wound (Acute) The patient is a 70 y/o F w/ PMHx: Chronic COPD, Former Tobacco use, HTN, HLD, Diabetes mellitus type II, GERD, Hx Polio, Chronic back pain s/p intervention with hardware who presents to the [facility] ED on 06/14/20 with history of ongoing intractable back pain with recent worsening back discomfort with recent film of her hip and back revealing a broken alexia where she had a previous fusion with worsened sciatica specifically to the right thigh described as severe, constant, worse with any movement or activity. 1. Acute Intractable Back Pain likely secondary to broken alexia status post fusion complicated by prior chronic back pain with hardware secondary to history of prior polio: Will admit to [facility], maintain on fall precautions, frequent positioning, initiate IV toradol if renal function is appropriate as awaiting admission CBC and CMP, place lidoacine patches, transition to scheduled tizanidine, continue patient gabapentin regimen, initiate medrol dose pack, po/IV narcotic pain regimen, anti-emetics, bowel regimen. Will consult PT and OT for evaluation as well as Case management for discharge planning. If pain ongoing intractable despite these interventions may require placement and may need to consider neurosurgery/orthospine evaluation. 2. Diabetes mellitus type II with neuropathy: Hold oral home regimen, ADA diet, accu checks w/ ISS, continued on patient home gabapentin regimen. 3. Hypertension: Continue home regimen including metoprolol with hold parameters, PRN hydralazine. 4. Hyperlipidemia: We will continue patient fenofibrate regimen. 5. Chronic COPD: We will temporarily hold patient home inhaler, transition to ATC DuoNeb therapy, as needed albuterol, encourage head of bed and I-S. 6. GERD: We will continue patient home PPI. 7. Obesity: Weight loss and lifestyle changes encouraged. 8. Former tobacco use: Encourage continued tobacco cessation. 9. DVT prophylaxis: SCDs, Lovenox. OBSV E&M: [id number] Initial observation care L3
[2020-06-15] VITALS (15 sets, daily range): BP systolic 75–131; BP diastolic 48–70; PULSE 61–100; RESP 12–20; TEMP 36.5–36.9; O2SAT 93–98; BMI 34.4; BMI 34.5
[2020-06-15] MEDS: 0.9% Normal Saline 1,000 ML 100 ML IV (01:26)
[2020-06-15] MEDS: HYDROmorphone 0.5 MG/0.5 ML SYRINGE IV (01:30)
[2020-06-15] MEDS: guaiFENesin 10 ML UDC (200MG/10ML) 20 ML PO (01:31)
[2020-06-15] MEDS: 0.9% Saline Lock 10 ML Syringe IV ×3 (01:31→19:02)
[2020-06-15 02:04] LABS: Absolute Lymphocyte Count 1.47 X10^3/uL (0.83-4.51); Absolute Neutrophil Count 5.1 X10^3/uL (2.0-7.7); Basophil# 0.03 X10^3/uL; Basophil% 0.4 % (0-1); Eosinophils% 1.3 % (0-5); Hematocrit 37.7 % (37-47); Hemoglobin 11.1 g/dL (12.0-15.0); Lymphocyte # 1.47 X10^3/ul (0.83-4.51); Lymphocyte % 19.7 % (19-41); Mean Corp Hgb Conc 29.4 g/dL (32-36); Mean Corpuscular Hgb 28.8 pg (27.0-32.0); Mean Corpuscular Volume 97.9 fL (81-99); Mean Platelet Vol. 10.2 fl (6.2-12.0); Monocyte# 0.71 X10^3/uL; Monocyte% 9.5 % (0-10); NRBC Flagged by Analyzer 0 % (0-5); Neutrophil # 5.12 X10^3/uL (2.7-7.7); Neutrophil % 68.7 % (47-70); Platelet Count 219 K/mm3 (150-450); RBC Distribution Width SD 61.3 fl (35.1-43.9); Red Blood Count 3.85 M/mm3 (4.2-5.4); White Blood Count 7.5 K/mm3 (4.4-11.0)
[2020-06-15 02:23] LABS: ALB/GLOB Ratio 0.8 RATIO (0.9-2.4); AST(SGOT) 9 U/L (15-37); Alanine Aminotransfer ALT/SGPT 19 U/L (13-56); Albumin, Serum 2.7 g/dL (3.2-5.0); Alkaline Phosphatase 40 U/L (45-117); Anion Gap 3 (5-15); BUN 20 mg/dL (7-18); Calcium,Total 8.6 mg/dL (8.5-10.1); Chloride 102 mmol/L (98-107); Creatinine, Serum 1.11 mg/dL (0.55-1.02); EST Glomerular Filtration Rate 52 mL/min (>60); Est Glom Filt Rate - Afr Amer 62 mL/min (>60); Globulin 3.5 g/dL (2.2-4.2); Glucose 133 mg/dL (74-106); Magnesium 2.2 mg/dL (1.6-2.6); Potassium 4.1 mmol/L (3.5-5.1); Protein, Total 6.2 g/dL (6.4-8.2); Sodium Level 135 mmol/L (136-145)
[2020-06-15] MEDS: tiZANidine HCl 2 MG Tablet 4 MG PO ×2 (06:41→14:05)
[2020-06-15] MEDS: Acetaminophen 325 MG Tablet 650 MG PO ×2 (06:47→20:22)
[2020-06-15] MEDS: Senna/Docusate Sodium 1 Tablet 2 TABLET PO ×2 (06:47→10:19)
[2020-06-15] MEDS: oxyCODONE 5 MG Tablet 10 MG PO ×3 (06:47→20:23)
[2020-06-15 07:05] LABS: Bedside Glucose 110 mg/dL (70-110)
[2020-06-15] MEDS: MethylPREDNISolone DosePak 4 MG BOX PO ×4 (08:39→20:24)
[2020-06-15] MEDS: Gabapentin 800 MG Tablet PO (08:40)
[2020-06-15] MEDS: Cyanocobalamin 500 MCG Tablet 1000 MCG PO (08:41)
--- NOTE | 2020-06-15 09:48 | PN_ITS ---
Patient Problems: Active and Suspected Problems (Last Reviewed 05/14/19 @ 14:33 by Arianne Smiley PROCESS WORKER, PROCESS WORKER-C) Acute exacerbation of chronic low back pain (Acute) Pulmonary hypertension (Acute) RVSP 60 mmHg Dyspnea on exertion (Acute) Vitals/I&O's: Vital Signs Temp Pulse Resp BP Pulse Ox 98.2 F 61 16 87/60 L 95 06/15/20 08:33 06/15/20 08:33 06/15/20 08:33 06/15/20 08:33 06/15/20 09:01 Oxygen Flow Rate (L/min) 2 Oxygen Delivery Method Nasal Cannula Weight: 174 lb 6.17 oz Body Mass Index (BMI) 34.4 Finger Stick Blood Glucose 83 Intake and Output for Last 24 Hours 06/13/20 06/14/20 06/15/20 23:59 23:59 23:59 Intake Total 340 / 340 Balance 340 / 340 Laboratory Results 06/15/20 01:50: WBC 7.5, RBC 3.85 L, Hgb 11.1 L, Hct 37.7, MCV 97.9, MCH 28.8, MCHC 29.4 L, RDW Std Deviation 61.3 H, RDW Coeff of Liseth 17.0 H, Plt Count 219, MPV 10.2, Immature Gran % (Auto) 0.400, Neut % (Auto) 68.7, Lymph % (Auto) 19.7, [place] % (Auto) 9.5, Eos % (Auto) 1.3, Baso % (Auto) 0.4, Absolute Neuts (auto) 5.1, Absolute Lymphs (auto) 1.47, Nucleated RBC % 0 06/15/20 01:50: Sodium 135 L, Potassium 4.1, Chloride 102, Carbon Dioxide 30.0, Anion Gap 3 L, BUN 20 H, Creatinine 1.11 H, Estim Creat Clear Calc 56.80, Est GFR (MDRD) Af Amer 62, Est GFR (MDRD) Non-Af 52 L, BUN/Creatinine Ratio 18.0, Glucose 133 H, Calcium 8.6, Magnesium 2.2, Total Bilirubin 0.40, AST 9 L, ALT 19, Alkaline Phosphatase 40 L, Total Protein 6.2 L, Albumin 2.7 L, Globulin 3.5, Albumin/Globulin Ratio 0.8 L 06/15/20 06:35: POC Glucose 110 Current Medications Acetaminophen (Acetaminophen 325 Mg Tablet) 650 mg PO Q6H PRN PRN PRN Reason: Pain Score 1-10/Temp > 100.7 F Last Admin: 06/15/20 06:47 Dose: 650 mg Documented by: Al Hydroxide/Mg Hydroxide (Mag Hydrox/Al Hydrox/Simeth 30 Ml Udc) 30 ml PO Q6H PRN PRN PRN Reason: Gastric Burning Albuterol Sulfate (Albuterol 2.5 Mg/3 Ml Vial.Neb.) 2.5 mg INHALATION Q2H PRN PRN PRN Reason: Dyspnea, wheezing Albuterol/Ipratropium (Ipratropium/Albuterol Sulfate 3 Ml Ampul.Neb) 3 ml INHALATION Q6HWA.RT SARAH Atenolol (Atenolol 50 Mg Tablet) 50 mg PO DAILY SARAH Cyanocobalamin (Cyanocobalamin 500 Mcg Tablet) 1,000 mcg PO DAILY@0800 [facility] Last Admin: 06/15/20 08:41 Dose: 1,000 mcg Documented by: Diphenhydramine HCl (Diphenhydramine 25 Mg Capsule) 50 mg PO QHS SARAH Enoxaparin Sodium (Enoxaparin 40 Mg/0.4 Ml Syringe) 40 mg SC DAILY SARAH Fenofibrate (Fenofibrate 145 Mg Tablet) 145 mg PO DAILY SARAH Gabapentin (Gabapentin 800 Mg Tablet) 800 mg PO 4X/DAYCM [facility] Last Admin: 06/15/20 08:40 Dose: 800 mg Documented by: Guaifenesin (Guaifenesin 10 Ml Udc (200mg/10ml)) 20 ml PO Q4H PRN PRN PRN Reason: COUGH Last Admin: 06/15/20 01:31 Dose: 20 ml Documented by: Hydralazine HCl (Hydralazine 20 Mg/Ml Vial) 10 mg IV Q4H PRN PRN PRN Reason: SBP > 160 Hydromorphone HCl (Hydromorphone 0.5 Mg/0.5 Ml Syringe) 0.5 mg IV Q4H PRN PRN PRN Reason: Pain Score 6-10 Last Admin: 06/15/20 01:30 Dose: 0.5 mg Documented by: Sodium Chloride () 1,000 mls @ 100 mls/hr IV .Q10H SARAH Stop: 06/15/20 10:26 Last Admin: 06/15/20 01:26 Dose: 100 mls/hr Documented by: Insulin Human Lispro (Insulin Lispro 100 Unit/Ml Insuln.Pen) 0 unit SC ACHS [facility]; Protocol Last Admin: 06/15/20 06:38 Dose: Not Given Documented by: Lidocaine (Lidocaine 5% Patch) 3 patch TOPICAL DAILY [facility]; Protocol Magnesium Hydroxide (Magnesium Hydroxide 30 Ml Udc) 30 ml PO DAILY PRN PRN PRN Reason: Constipation Melatonin (Melatonin 10 Mg Tablet) 15 mg PO QHS [facility] Methylprednisolone (Methylprednisolone Dosepak 4 Mg Box) 8 mg PO 0800 [facility]; Taper Stop: 06/20/20 08:59 Last Admin: 06/15/20 08:39 Dose: 8 mg Documented by: Nutritional Formula (Lactose Free) (Glucerna Shake 120 Ml Liquid) 120 ml PO 4X/DAY [facility] Ondansetron HCl (Ondansetron 4 Mg/2 Ml Vial) 4 mg IV Q8H PRN PRN PRN Reason: NAUSEA/VOMITING Oxycodone HCl (Oxycodone 5 Mg Tablet) 10 mg PO Q4H PRN PRN PRN Reason: Pain Score 4-5 Last Admin: 06/15/20 06:47 Dose: 10 mg Documented by: Pantoprazole Sodium (Pantoprazole Sodium 20 Mg Tablet) 20 mg PO QHS [facility] Prochlorperazine Edisylate (Prochlorperazine 10 Mg/2 Ml Vial) 5 mg IV Q4H PRN PRN PRN Reason: Breakthrough nausea/vomiting Psyllium Hydrophilic Mucilloid (Psyllium 1 Packet) 1 packet PO DAILY PRN PRN PRN Reason: Constipation Senna/Docusate Sodium (Senna/Docusate Sodium 1 Tablet) 2 tablet PO BID PRN PRN PRN Reason: Constipation Last Admin: 06/15/20 06:47 Dose: 2 tablet Documented by: Sodium Chloride (0.9% Saline Lock 10 Ml Syringe) 10 - 40 ml IV UD PRN PRN Reason: SALINE FLUSH Last Admin: 06/15/20 01:31 Dose: 10 ml Documented by: Throat Lozenges (Benzocaine/Menthol 1 Lozenge) 1 lozenge MUCOUS MEM Q2H PRN PRN PRN Reason: SORE THROAT Tizanidine HCl (Tizanidine Hcl 2 Mg Tablet) 4 mg PO Q8 SARAH Last Admin: 06/15/20 06:41 Dose: 4 mg Documented by: STROKE Vital Signs/Narrative: Vital Signs Temp Pulse Resp BP Pulse Ox 06/15/20 09:01 95 06/15/20 08:33 98.2 F 61 16 87/60 L 93 Medical Necessity - Tobacco Use Smoking Status: Former smoker Tobacco Use: Cigarettes Assessment/Plan All Active Problems (Last Reviewed 05/14/19 @ 14:33 by Arianne Smiley PROCESS WORKER, PROCESS WORKER- C) Acute exacerbation of chronic low back pain (Acute) Pulmonary hypertension (Acute) Dyspnea on exertion (Acute) S/P carpal tunnel release (Resolved) Left carpal tunnel syndrome (Acute) Ulnar nerve compression (Acute) Cubital tunnel syndrome (Acute) Spinal fusion failure (Acute) S/P laminectomy with spinal fusion (Acute) Surgical wound infection (Acute) Dehiscence of surgical wound (Acute)
[2020-06-15] MEDS: Fenofibrate 145 MG Tablet PO (10:11)
[2020-06-15] MEDS: Enoxaparin 40 MG/0.4 ML Syringe SC (10:11)
--- NOTE | 2020-06-15 10:20 | CASEMGMT ---
LUCIE BRAGA Assessment: Face to Face with pt for initial transition planning/care coordination assessment. LUCIE BRAGA introduced self and role at [facility], pt voices understanding and consents to assessment. Pt is A/O x4 and answers all questions appropriately at this time. Pt lying in bed in no distress. Pt receiving meds from nurse Roldan during assessment. Care providers, pharmacy, and demographics verified/updated. Admitting Dx: intractable back pain PCP: Sheyla Specialists: Antonia Curiel [facility] neurospine; NADER Rust Preferred Pharmacy: [facility] [place] Insurance: [facility] Prescription Benefit: yes LW/HPOA: Pt states her dtr is working on her LW/DPOA. She does not believe she has either yet. LNOK: Marcy Sewell, dtr; Vera Barrow, friend Living Arrangements: Pt states she lives alone as her son who lived with her passed 2 weeks ago from a drug overdose. Pt denied needing to speak to SW regarding this, although Alyssia SW notified. Pt states she cannot return home in the shape she is in. Pt reports being I in ADL's. Transportation: Pt states she drives self and denies concerns with transportation. DME/HHC/SNF: Pt has a lift chair, rollator and shower chair at home. Pt states she is current with [facility] at this time, denies prior SNF stays. Pt states no further concerns/needs. CM to follow for home vs placement. Advised pt to ask CM if any further question/concerns/needs arise, voices understanding. Pt Goal: Home vs SNF Plan: Home vs SNF, CM to follow. Notified Alyssia of pt possibly wanting placement.
[2020-06-15] MEDS: Atenolol 25 MG Tablet PO (10:26)
[2020-06-15 11:41] LABS: Bedside Glucose 196 mg/dL (70-110)
[2020-06-15] MEDS: Nystatin Ointment 1 APPLIC TOPICAL (12:10)
[2020-06-15] MEDS: Gabapentin 600 MG Tablet PO ×3 (12:12→20:25)
[2020-06-15] MEDS: Insulin Lispro 100 UNIT/ML INSULN.PEN SC ×3 (12:12→20:35)
--- NOTE | 2020-06-15 13:14 | CASEMGMT ---
Social Work SW received referral that pt feels she needs placement and cannot live at home alone at this time. SW met with pt in room and introduced self and role of SW. Pt stating that her son, who lived with her and provided some assistance, 10 days ago. SW and pt spoke at length about pt son and his . Emotional support provided. Pt feels she will need placement as she cannot care for herself at time of discharge but she is hopeful she could return home with home health services in place. SW provided list of SNF providers including quality and resource use data and consistent with the patient's preferred geographic region, medical needs, and insurance network. Pt preferred provider is [facility]. SW also spoke with pt about advance directives. Pt stating that she would like to complete a new HCPOA as hers is out of date. SW offered to assist however, pt stating she is too painful to complete at this time. Pt aware that SW can assist when pt feels better. SW spoke with Bren in TCU and they are able to accept patient. TCU to start precert. Pt notified and agreeable to discharge plan. PROSPER Bishop
[2020-06-15] MEDS: Glucerna Shake 120 ML LIQUID PO ×2 (14:05→18:33)
--- NOTE | 2020-06-15 15:30 | TREXTCAR_ITS ---
- Diet 06/15/20 15:46 Diet: Carbohydrate Controlled Food consistency:: Regular Liquid Consistency:: Regular/Thin Is pt able to select menu?: Yes - Routine Orders/Code Status Suppository Type: Dulcolax 10mg Suppository Frequency: Daily PRN Code Status: Full Code - Wound(s) right knee Wound Type: Abrasion left elbow Wound Type: Skin Tear - Therapies Weight Bearing: Weight bearing as tolerated Extremity Affected:: Bilateral Lower Physical Therapy: Eval and Treat Occupational Therapy: Eval and Treat Speech Therapy: Eval and Treat - Allergies/Procedures Done in Hospital Allergies/Adverse Reactions: Allergies atorvastatin calcium [From Lipitor] Allergy (Verified 06/14/20 17:07) Unknown LEG CRAMPS pravastatin Allergy (Verified 06/14/20 17:07) Unknown LEG CRAMPS simvastatin Allergy (Verified 06/14/20 17:07) Unknown LEG CRAMPS morphine Adverse Reaction (Verified 06/14/20 17:07) Other BAD NIGHTMARES altace Allergy (Uncoded 06/14/20 17:07) Unknown antihyperlipidemics Allergy (Uncoded 06/14/20 17:07) Unknown LEG CRAMPS - Type of Care/Length of Stay Estimated LOS: Convalescent Care Less Than 30 days Type of Care Needed: Skilled Rehab Potential: Good Prognosis: Good - Additional Orders/Day of Discharge Additional Orders: Israel Ruvalcaba, [facility] neuro spine surgeon and Dr. Rust in June 2020 Day of Discharge: 06/15/20 - Dietary and Speech Recommendations Dietitian Recommendations/Changes: Will liberalize diet to CHO controlled. Will continue ONS at [facility]. - Follow Up Care Primary Care Physician: Israel Carrion MD [STAFF PHYSICIAN] - Makenzie Ace DO [Primary Care Provider] - 06/30/20 1:00 pm Please follow up with your Primary Care Physician in: In 2 weeks Please Follow Up With: Makenzie Ace DO When: On 06/30/2020 Please Follow Up With: Darnell Burgos MD When: for management
--- NOTE | 2020-06-15 15:41 | CHAPLAIN ---
Type of Pastoral Visit _x__ Initial Visit ___ Follow-up Visit ___ On-call Visit ___ General Patient Visit ___ Spiritual Assessment ___ Family Conference ___ Bereavement ___ Rapid Response ___ Code Blue ___ Other (describe below) Pastoral Care Referral From _x__ Patient ___ Family ___ Nurse ___ Physician ___ News Photographer ___ Steeler ___ Other (describe below) Sacrament/Intervention _x__ Active listening ___ Anointing ___ Hinduism _x__ Bereavement ___ Communion _x__ Faviola exploration ___ _x__ Life review ___ Prayer ___ Reconciliation ___ Sacrament of Sick _x__ Supportive presence ___ Wedding ___ Other (describe below) Pastoral Comments patient has experienced of son in last 10 days and is estranged from her daughter which is compounding to her physical issues; pt identifies as Anabaptist and would seek further spiritual support
--- NOTE | 2020-06-15 15:45 | CASEMGMT ---
Addendum entered by Reta Jaimes 06/15/20 16:33: SW updated both Charge Nurse and pt's RN that pt is able to discharge to TCU today once discharge is in and once pt's COVID test comes back. Physician does still need to complete SNF paperwork (transfer summary and signed medication list). Plan: TCU today Original Note: Social Work Note SW received call from [facility] with TCU stating pt was approved and can discharge to TCU today. Pt will need COVID test. SW in to speak with pt. SW introduced self and role at [facility]. SW updated pt that she has been approved for TCU and will discharge there today. Pt states understanding. SW updated Charge Nurse that pt will need COVID test. SW updated physician on approval to TCU. Plan: TCU today Reta Jaimes PAINTING INSTRUCTOR, ROLL WRAPPER
[2020-06-15 16:36] LABS: Bedside Glucose 169 mg/dL (70-110)
--- NOTE | 2020-06-15 17:01 | PCM.PN.HOSP ---
Patient Problems: Active and Suspected Problems (Last Reviewed 05/14/19 @ 14:33 by Arianne Smiley WELFARE MANAGER, WELFARE MANAGER-C) Acute exacerbation of chronic low back pain (Acute) Pulmonary hypertension (Acute) RVSP 60 mmHg Dyspnea on exertion (Acute) Reason for Visit: Follow-up for acute on chronic back pain with debility Objective: Patient has chronic history of lumbar radiculopathy and sciatica and had lumbar spine surgery in the past. She follows pain management Dr. Medeiros. She has also seen spine surgeon Dr. Israel Ruvalcaba in [facility] and is referred to Dr. Rust in [facility], neuro spine surgeon. Physical exam General: Alert, Oriented x3, Cooperative HEENT: Atraumatic, PERRLA, EOMI, Normocephalic Oral: No Gingival or Mucosal Lesions/ Ulcerations Neck: Supple, No JVD, Negative Carotid Bruits Lungs: Air entry diminished in bilateral lung bases. No crepitation/rhonchi Cardiovascular: Regular rate, Regular Rhythm, Normal S1, Normal S2, No murmurs Abdomen: Bowel Sounds Present, Soft, Non Tender, Non-Distended : No renal angle tenderness. No suprapubic tenderness. Spine: Lumbar spine tenderness. Muscle strength at right hip and knee joint, 4/5 and left lower extremity 4+/5. Extremities: moderate bilateral lower extremity edema, Capillary Refill Less than 3 Seconds Skin: No rashes, No breakdown Musculoskeletal: Bilateral knee and hip joints arthritis. Neurological: Cranial nerves II-XII grossly intact, Deep Tendon Reflexes 2+/4 and Symmetrical, Neuro grossly intact Psych/Mental Status: Normal Affect, Appropriate. Vitals/I&O's: Vital Signs Temp Pulse Resp BP Pulse Ox 98.4 F 76 12 86/56 L 94 06/15/20 16:53 06/15/20 16:53 06/15/20 16:53 06/15/20 16:53 06/15/20 16:53 Oxygen Flow Rate (L/min) 2 Oxygen Delivery Method Nasal Cannula Weight: 174 lb 6.17 oz Body Mass Index (BMI) 34.4 Finger Stick Blood Glucose 83 Intake and Output for Last 24 Hours 06/13/20 06/14/20 06/15/20 23:59 23:59 23:59 Intake Total 1340 / 1340 Output Total 100 / 100 Balance 1240 / 1240 Laboratory Results 06/15/20 01:50: WBC 7.5, RBC 3.85 L, Hgb 11.1 L, Hct 37.7, MCV 97.9, MCH 28.8, MCHC 29.4 L, RDW Std Deviation 61.3 H, RDW Coeff of Liseth 17.0 H, Plt Count 219, MPV 10.2, Immature Gran % (Auto) 0.400, Neut % (Auto) 68.7, Lymph % (Auto) 19.7, [place] % (Auto) 9.5, Eos % (Auto) 1.3, Baso % (Auto) 0.4, Absolute Neuts (auto) 5.1, Absolute Lymphs (auto) 1.47, Nucleated RBC % 0 06/15/20 01:50: Sodium 135 L, Potassium 4.1, Chloride 102, Carbon Dioxide 30.0, Anion Gap 3 L, BUN 20 H, Creatinine 1.11 H, Estim Creat Clear Calc 56.80, Est GFR (MDRD) Af Amer 62, Est GFR (MDRD) Non-Af 52 L, BUN/Creatinine Ratio 18.0, Glucose 133 H, Calcium 8.6, Magnesium 2.2, Total Bilirubin 0.40, AST 9 L, ALT 19, Alkaline Phosphatase 40 L, Total Protein 6.2 L, Albumin 2.7 L, Globulin 3.5, Albumin/Globulin Ratio 0.8 L 06/15/20 06:35: POC Glucose 110 06/15/20 11:34: POC Glucose 196 H 06/15/20 16:31: POC Glucose 169 H Current Medications Acetaminophen (Acetaminophen 325 Mg Tablet) 650 mg PO Q6H PRN PRN PRN Reason: Pain Score 1-10/Temp > 100.7 F Last Admin: 06/15/20 06:47 Dose: 650 mg Documented by: Al Hydroxide/Mg Hydroxide (Mag Hydrox/Al Hydrox/Simeth 30 Ml Udc) 30 ml PO Q6H PRN PRN PRN Reason: Gastric Burning Albuterol Sulfate (Albuterol 2.5 Mg/3 Ml Vial.Neb.) 2.5 mg INHALATION Q2H PRN PRN PRN Reason: Dyspnea, wheezing Albuterol/Ipratropium (Ipratropium/Albuterol Sulfate 3 Ml Ampul.Neb) 3 ml INHALATION Q6HWA.RT SARAH Atenolol (Atenolol 25 Mg Tablet) 25 mg PO DAILY [facility] Last Admin: 06/15/20 10:26 Dose: 25 mg Documented by: Calamine/Phenol (Menthol/Lanolin/Calamine/Znox 113 Gm Tube) 1 applic TOPICAL BID [facility]; Protocol Cyanocobalamin (Cyanocobalamin 500 Mcg Tablet) 1,000 mcg PO DAILY@0800 [facility] Last Admin: 06/15/20 08:41 Dose: 1,000 mcg Documented by: Diphenhydramine HCl (Diphenhydramine 25 Mg Capsule) 25 mg PO QHS [facility] Enoxaparin Sodium (Enoxaparin 40 Mg/0.4 Ml Syringe) 40 mg SC DAILY [facility] Last Admin: 06/15/20 10:11 Dose: 40 mg Documented by: Fenofibrate (Fenofibrate 145 Mg Tablet) 145 mg PO DAILY [facility] Last Admin: 06/15/20 10:11 Dose: 145 mg Documented by: Gabapentin (Gabapentin 600 Mg Tablet) 600 mg PO 4X/DAYCM [facility] Last Admin: 06/15/20 16:46 Dose: 600 mg Documented by: Guaifenesin (Guaifenesin 10 Ml Udc (200mg/10ml)) 20 ml PO Q4H PRN PRN PRN Reason: COUGH Last Admin: 06/15/20 01:31 Dose: 20 ml Documented by: Hydralazine HCl (Hydralazine 20 Mg/Ml Vial) 10 mg IV Q4H PRN PRN PRN Reason: SBP > 160 Hydromorphone HCl (Hydromorphone 0.5 Mg/0.5 Ml Syringe) 0.5 mg IV Q4H PRN PRN PRN Reason: Pain Score 6-10 Last Admin: 06/15/20 01:30 Dose: 0.5 mg Documented by: Insulin Human Lispro (Insulin Lispro 100 Unit/Ml Insuln.Pen) 0 unit SC ACHS [facility]; Protocol Last Admin: 06/15/20 16:47 Dose: 1 u Documented by: Lidocaine (Lidocaine 5% Patch) 3 patch TOPICAL DAILY [facility]; Protocol Last Admin: 06/15/20 10:33 Dose: Not Given Documented by: Melatonin (Melatonin 10 Mg Tablet) 15 mg PO QHS [facility] Methylprednisolone (Methylprednisolone Dosepak 4 Mg Box) 4 mg PO 1200,1700 [facility]; Taper Stop: 06/20/20 08:59 Last Admin: 06/15/20 16:46 Dose: 4 mg Documented by: Nutritional Formula (Lactose Free) (Glucerna Shake 120 Ml Liquid) 120 ml PO 4X/DAY [facility] Last Admin: 06/15/20 14:05 Dose: 120 ml Documented by: Nystatin (Nystatin Ointment) 1 applic TOPICAL TID [facility]; Protocol Last Admin: 06/15/20 12:10 Dose: 1 applic Documented by: Ondansetron HCl (Ondansetron 4 Mg/2 Ml Vial) 4 mg IV Q8H PRN PRN PRN Reason: NAUSEA/VOMITING Oxycodone HCl (Oxycodone 5 Mg Tablet) 10 mg PO Q4H PRN PRN PRN Reason: Pain Score 4-5 Last Admin: 06/15/20 10:21 Dose: 10 mg Documented by: Pantoprazole Sodium (Pantoprazole Sodium 20 Mg Tablet) 20 mg PO QHS [facility] Prochlorperazine Edisylate (Prochlorperazine 10 Mg/2 Ml Vial) 5 mg IV Q4H PRN PRN PRN Reason: Breakthrough nausea/vomiting Psyllium Hydrophilic Mucilloid (Psyllium 1 Packet) 1 packet PO DAILY PRN PRN PRN Reason: Constipation Senna/Docusate Sodium (Senna/Docusate Sodium 1 Tablet) 2 tablet PO BID PRN PRN PRN Reason: Constipation Last Admin: 06/15/20 10:19 Dose: 2 tablet Documented by: Sodium Chloride (0.9% Saline Lock 10 Ml Syringe) 10 - 40 ml IV UD PRN PRN Reason: SALINE FLUSH Last Admin: 06/15/20 01:31 Dose: 10 ml Documented by: Throat Lozenges (Benzocaine/Menthol 1 Lozenge) 1 lozenge MUCOUS MEM Q2H PRN PRN PRN Reason: SORE THROAT Tizanidine HCl (Tizanidine Hcl 2 Mg Tablet) 4 mg PO Q8 [facility] Last Admin: 06/15/20 14:05 Dose: 4 mg Documented by: STROKE Vital Signs/Narrative: Vital Signs Temp Pulse Resp BP BP Pulse Ox 06/15/20 16:53 98.4 F 76 12 86/56 L 94 06/15/20 16:51 75/48 L 06/15/20 15:03 98.4 F 89 18 91/50 L 94 06/15/20 13:34 82 19 H Medical Necessity - Tobacco Use Smoking Status: Former smoker Tobacco Use: Cigarettes Assessment/Plan All Active Problems (Last Reviewed 05/14/19 @ 14:33 by Arianne Smiley WELFARE MANAGER, WELFARE MANAGER-C) Acute exacerbation of chronic low back pain (Acute) Pulmonary hypertension (Acute) Dyspnea on exertion (Acute) S/P carpal tunnel release (Resolved) Left carpal tunnel syndrome (Acute) Ulnar nerve compression (Acute) Cubital tunnel syndrome (Acute) Spinal fusion failure (Acute) S/P laminectomy with spinal fusion (Acute) Surgical wound infection (Acute) Dehiscence of surgical wound (Acute) The patient is a 70 y/o F with multiple comorbidities admitted with severe worsening lower back pain with radiation to bilateral lower extremity, right more than left, sciatic in nature. 1. 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 Muscle relaxant. On high dose of gabapentin. Patient blood pressure was 131/70 and then decreased to 87/60, 86/56. Most likely due to atenolol, muscle relaxant narcotics. Dose decreased. Hold Dilaudid. 2. Diabetes mellitus type II with neuropathy: Hold oral home regimen, ADA diet, accu checks SNF coverage Humalog sliding scale 3. Hypertension: Continue home regimen including metoprolol with hold parameters, PRN hydralazine. 4. Hyperlipidemia: continue patient fenofibrate regimen. 5. COPD: On bronchodilator as needed. Not in exacerbation 6. GERD: We will continue patient home PPI. 7. Obesity: Weight loss and lifestyle changes encouraged. 8. Former tobacco use: Encourage continued tobacco cessation. VT prophylaxis: On Lovenox 40 mg subcu daily OBSV E&M: [id number] Subsequent observation care L2
[2020-06-15] MEDS: Lactated Ringers 1,000 ML 999 ML IV ×2 (17:22→19:02)
--- NOTE | 2020-06-15 18:57 | NURSING ---
tcu notified of cancellation of dc for tonight
[2020-06-15] MEDS: Ipratropium/Albuterol Sulfate 3 ML AMPUL.NEB INHALATION (19:10)
--- NOTE | 2020-06-15 19:13 | NURSING ---
2nd bolus infusing. ls clear to auscultation. payton w/resp therapy in to give breathing tx
[2020-06-15] MEDS: tiZANidine HCl 2 MG Tablet PO (20:25)
[2020-06-15] MEDS: MELATONIN 10 MG TABLET 15 MG PO (20:25)
[2020-06-15] MEDS: Pantoprazole Sodium 20 MG Tablet PO (20:25)
[2020-06-15] MEDS: Menthol/Lanolin/Calamine/Znox 113 GM Tube 1 APPLIC TOPICAL (20:26)
[2020-06-15] MEDS: DiphenhydrAMINE 25 MG Capsule PO (20:26)
[2020-06-15] MEDS: Lidocaine 5% Patch 2 PATCH TOPICAL (20:36)
[2020-06-15 22:41] LABS: Bedside Glucose 173 mg/dL (70-110)
[2020-06-15] MEDS: NYSTATIN 500,000 UNIT/5 ML UDC 500000 UNIT PO (23:08)
[2020-06-15] MEDS: Nystatin Powder 15gm Bottle 1 APPLIC TOPICAL (23:08)
[2020-06-16] MEDS: oxyCODONE 5 MG Tablet 10 MG PO ×3 (02:08→12:10)
[2020-06-16] MEDS: guaiFENesin 10 ML UDC (200MG/10ML) 20 ML PO (02:08)
[2020-06-16] MEDS: Acetaminophen 325 MG Tablet 650 MG PO (02:09)
[2020-06-16 02:10] VITALS: BP 101/60; PULSE 77; RESP 16; TEMP 36.1; O2SAT 99
[2020-06-16] MEDS: Nystatin Powder 15gm Bottle 1 APPLIC TOPICAL (06:59)
[2020-06-16] MEDS: tiZANidine HCl 2 MG Tablet PO (07:00)
[2020-06-16 07:05] LABS: Absolute Lymphocyte Count 2.06 X10^3/uL (0.83-4.51); Absolute Neutrophil Count 6.7 X10^3/uL (2.0-7.7); Basophil# 0.02 X10^3/uL; Basophil% 0.2 % (0-1); Eosinophil# 0.06 X10^3/uL; Eosinophils% 0.6 % (0-5); Hemoglobin 12.1 g/dL (12.0-15.0); Lymphocyte # 2.06 X10^3/ul (0.83-4.51); Lymphocyte % 21.5 % (19-41); Mean Corp Hgb Conc 29.5 g/dL (32-36); Mean Corpuscular Hgb 28.1 pg (27.0-32.0); Mean Corpuscular Volume 95.3 fL (81-99); Mean Platelet Vol. 10.5 fl (6.2-12.0); Monocyte# 0.75 X10^3/uL; Monocyte% 7.8 % (0-10); NRBC Flagged by Analyzer 0 % (0-5); Neutrophil # 6.68 X10^3/uL (2.7-7.7); Neutrophil % 69.6 % (47-70); Platelet Count 281 K/mm3 (150-450); RBC Distribution Width CV 16.7 % (11.6-14.6); White Blood Count 9.6 K/mm3 (4.4-11.0)
[2020-06-16 07:15] VITALS: PULSE 90; RESP 16; O2SAT 90
[2020-06-16 07:15] LABS: Bedside Glucose 79 mg/dL (70-110)
[2020-06-16] MEDS: Ipratropium/Albuterol Sulfate 3 ML AMPUL.NEB INHALATION ×2 (07:15→13:18)
[2020-06-16 07:26] LABS: Anion Gap 5 (5-15); BUN 23 mg/dL (7-18); BUN/Creat Ratio 21.1 RATIO (10-20); Calcium,Total 8.6 mg/dL (8.5-10.1); Chloride 100 mmol/L (98-107); Creatinine, Serum 1.09 mg/dL (0.55-1.02); EST Glomerular Filtration Rate 53 mL/min (>60); Est Glom Filt Rate - Afr Amer 64 mL/min (>60); Estimated Creatinine Clearance 59.36 ml/min; Glucose 81 mg/dL (74-106); Potassium 4.5 mmol/L (3.5-5.1); Sodium Level 131 mmol/L (136-145)
[2020-06-16] MEDS: MethylPREDNISolone DosePak 4 MG BOX PO ×2 (07:44→11:59)
[2020-06-16] MEDS: Gabapentin 600 MG Tablet PO ×2 (07:45→12:00)
[2020-06-16] MEDS: Cyanocobalamin 500 MCG Tablet 1000 MCG PO (07:45)
[2020-06-16] MEDS: NYSTATIN 500,000 UNIT/5 ML UDC 500000 UNIT PO (07:46)
[2020-06-16] MEDS: Enoxaparin 40 MG/0.4 ML Syringe SC (07:46)
[2020-06-16] MEDS: Fenofibrate 145 MG Tablet PO (07:46)
[2020-06-16] MEDS: Glucerna Shake 120 ML LIQUID PO (07:47)
[2020-06-16] MEDS: Menthol/Lanolin/Calamine/Znox 113 GM Tube 1 APPLIC TOPICAL (07:47)
[2020-06-16 08:10] VITALS: BP 104/51; PULSE 99; RESP 16; TEMP 36.6; O2SAT 95
--- NOTE | 2020-06-16 08:55 | CASEMGMT ---
Social Work Note Discharge is in for today. MIKAYLA placed a call to Bren with TCU, pre-cert is still good for today. MIKAYLA informed Bren that discharge is in for today. Plan: TCU today Reta Jaimes CORN GRINDER, EDUCATION INSTRUCTOR
--- NOTE | 2020-06-16 09:34 | CASEMGMT ---
LUCIE CM in to discuss ALMANZA form with patient. RN CM explained ALMANZA form, patient voiced understanding. Pt signed form and filed in chart. Pt provided with a copy of signed ALMANZA form. Patient had no further questions or concerns at this time.
--- NOTE | 2020-06-16 10:37 | TREXTCAR_ITS ---
- Diet 06/15/20 15:46 Diet: Carbohydrate Controlled Food consistency:: Regular Liquid Consistency:: Regular/Thin Is pt able to select menu?: Yes - Routine Orders/Code Status Suppository Type: Dulcolax 10mg Suppository Frequency: Daily PRN Routine Lab Work: CBC, BMP - In 1 week Code Status: Full Code - Wound(s) right knee Wound Type: Abrasion left elbow Wound Type: Skin Tear - Therapies Weight Bearing: Weight bearing as tolerated Extremity Affected:: Bilateral Lower Physical Therapy: Eval and Treat Occupational Therapy: Eval and Treat Speech Therapy: Eval and Treat - Allergies/Procedures Done in Hospital Allergies/Adverse Reactions: Allergies atorvastatin calcium [From Lipitor] Allergy (Verified 06/14/20 17:07) Unknown LEG CRAMPS pravastatin Allergy (Verified 06/14/20 17:07) Unknown LEG CRAMPS simvastatin Allergy (Verified 06/14/20 17:07) Unknown LEG CRAMPS morphine Adverse Reaction (Verified 06/14/20 17:07) Other BAD NIGHTMARES altace Allergy (Uncoded 06/14/20 17:07) Unknown antihyperlipidemics Allergy (Uncoded 06/14/20 17:07) Unknown LEG CRAMPS - Type of Care/Length of Stay Estimated LOS: Convalescent Care Less Than 30 days Type of Care Needed: Skilled Rehab Potential: Good Prognosis: Good - Additional Orders/Day of Discharge Additional Orders: Israel Ruvalcaba, [facility] neuro spine surgeon and Dr. Rust in June 2020 Day of Discharge: 06/15/20 - Dietary and Speech Recommendations Dietitian Recommendations/Changes: Will liberalize diet to CHO controlled. Will continue ONS at [facility]. - Follow Up Care Primary Care Physician: Makenzie Ace DO [Primary Care Provider] - 06/30/20 1:00 pm Israel Carrion MD [STAFF PHYSICIAN] - Please follow up with your Primary Care Physician in: In 2 weeks Please Follow Up With: Makenzie Ace DO When: On 06/30/2020 Please Follow Up With: Darnell Burgos MD When: for management
[2020-06-16 11:20] VITALS: O2SAT 93
--- NOTE | 2020-06-16 11:21 | NURSING ---
c/o im short of breath. resps 18, ls cta, pox 93-94% on ra. i think im allergic to what is going on in my feet. me-'what do you mean, what is going on in your feet. pt replied i dont know, i just think i might be allergic to whatever is going on in my feet. pt had this nurse remove acewraps from bilat le. reassured pt that her feet look fine, slightly dry, rubbed them w/the rolled acewraps. pt resting quietly in chair.
[2020-06-16 11:50] LABS: Bedside Glucose 122 mg/dL (70-110)
--- NOTE | 2020-06-16 12:36 | NURSING ---
REPORT CALLED TO KAUSHIK IN TCU. PT WILL TRANSFER TO ROOM 17 AT 1300
[2020-06-16 13:18] VITALS: PULSE 93; RESP 16
--- NOTE | 2020-06-16 15:48 | PCM.DC.SUM ---
Discharge Date and Diagnosis - Problem List Patient Problems: Active and Suspected Problems (Last Reviewed 05/14/19 @ 14:33 by Arianne Smiley MANAGER [employer], MANAGER [employer]-C) Acute exacerbation of chronic low back pain (Acute) Pulmonary hypertension (Acute) RVSP 60 mmHg Dyspnea on exertion (Acute) Date of Admission: 06/14/20 Date of Discharge: 06/16/20 - Primary Discharge Diagnosis Acute Problems: Active Problems (Last Reviewed 05/14/19 @ 14:33 by Arianne Smiley MANAGER [employer]MENT, MANAGER [employer]-C) Acute exacerbation of chronic low back pain (Acute) Pulmonary hypertension (Acute) RVSP 60 mmHg Dyspnea on exertion (Acute) - Secondary Discharge Diagnosis Chronic Problems: Chronic Problems (Last Reviewed 05/14/19 @ 14:33 by Arianne Smiley MANAGER [employer], MANAGER [employer]-C) Hiatal hernia with GERD (Chronic) Osteoarthritis (Chronic) Lumbar disc disease (Chronic) Scoliosis (Chronic) Polio (Chronic) Hyperlipidemia (Chronic) Hypertension (Chronic) Type 2 diabetes mellitus without complications (Chronic) Diabetes (Chronic) Hypercholesterolemia (Chronic) Hypertension (Chronic) Esophageal reflux disease (Chronic) Scoliosis (Chronic) Lumbar disc disease (Chronic) Obesity (BMI 35.0-39.9 without comorbidity) (Chronic) Tobacco abuse (Chronic) Hypoxia (Chronic) Diabetes mellitus (Chronic) Degenerative arthritis of spine (Chronic) Hospital Course and Treatment Operations: None Summary of Care Provided: The patient is a 70 year old F with multiple comorbidities including COPD and chronic back pain with sciatica status post lumbar spine surgery came to ER with intractable worsening back pain and unable to ambulate. [facility] Blood pressure was low probably due to opioid medication, muscle relaxant. Patient states her baseline blood pressure is low in 80s and 90s. 2 L of Ringer lactate bolus was given. Patient had been seen by [facility] spine surgeon Dr. Israel Ruvalcaba was referred to Dr. Rust, neuro spine surgeon. Patient also follows pain management doctor. On [place], high-dose of gabapentin. Patient was given a prescription of gabapentin and 28 tablets of hydrocodone/APAP on 06/[address] Karin Altman. Prescription for 7 tablets of [place] was given in order to transfer to TCU. OARRS reviewed. On no stool softeners. She was seen by PT and OT. She has multiple other comorbidities which include diabetes mellitus type 2 with diabetic neuropathy, hypertension, dyslipidemia, COPD, GERD and morbid obesity: Glucose is in acceptable limit. Discharge medication reconciliation done. Discharge follow-up instructions completed. Discharge process discussed with the patient and all questions were answered to patient's satisfaction. Transfer to TCU Total time spent, exact 35 minutes on discharge meds reconciliation, examination, coordination of care with nurses and ancillary staff, review of imaging and blood test and discussion with the patient on follow-up instructions Patient Problems: Active and Suspected Problems (Last Reviewed 05/14/19 @ 14:33 by Arianne Smiley MANAGER [employer]MENT, MANAGER [employer]MENT-C) Acute exacerbation of chronic low back pain (Acute) Pulmonary hypertension (Acute) RVSP 60 mmHg Dyspnea on exertion (Acute) Objective: Blood pressure recovered after 2 boluses of Ringer lactate 1 L last evening. Muscle relaxant, opioids were held temporarily. Patient is still complaining of back pain and although drowsy but she asked for more pain medication. Patient has chronic history of lumbar radiculopathy and sciatica and had lumbar spine surgery in the past. She follows pain management Dr. Medeiros. She has also seen spine surgeon Dr. Israel Ruvalcaba in [facility] and is referred to Dr. Rust in [facility], neuro spine surgeon. Physical exam General: Intermittent drowsiness but wake up easily. Cooperative. Oriented x3 HEENT: Atraumatic, PERRLA, EOMI, Normocephalic Oral: No Gingival or Mucosal Lesions/ Ulcerations Neck: Supple, No JVD, Negative Carotid Bruits Lungs: Air entry diminished in bilateral lung bases. No crepitation/rhonchi Cardiovascular: Regular rate, Regular Rhythm, Normal S1, Normal S2, No murmurs Abdomen: Bowel Sounds Present, Soft, Non Tender, Non-Distended : No renal angle tenderness. No suprapubic tenderness. Spine: Lumbar spine tenderness. Muscle strength at right hip and knee joint, 4/5 and left lower extremity 4+/5. Extremities: moderate bilateral lower extremity edema, Capillary Refill Less than 3 Seconds. Skin: No rashes, No breakdown Musculoskeletal: Bilateral knee and hip joints arthritis. Diffuse degenerative joint disease of the spine, hip and knee joints. Neurological: Cranial nerves II-XII grossly intact, Deep Tendon Reflexes 2+/4 and Symmetrical, Neuro grossly intact Psych/Mental Status: Normal Affect, Appropriate. - Physical Exam Vitals/I&O's: Vital Signs Temp Pulse Resp BP Pulse Ox 98.4 F 89 18 91/50 L 94 06/15/20 15:03 06/15/20 15:03 06/15/20 15:03 06/15/20 15:03 06/15/20 15:03 Oxygen Flow Rate (L/min) 2 Oxygen Delivery Method Nasal Cannula Weight: 174 lb 6.17 oz Body Mass Index (BMI) 34.4 Finger Stick Blood Glucose 83 Intake and Output for Last 24 Hours 06/13/20 06/14/20 06/15/20 23:59 23:59 23:59 Intake Total 1340 / 1340 Output Total 100 / 100 Balance 1240 / 1240 Laboratory Results 06/15/20 01:50: WBC 7.5, RBC 3.85 L, Hgb 11.1 L, Hct 37.7, MCV 97.9, MCH 28.8, MCHC 29.4 L, RDW Std Deviation 61.3 H, RDW Coeff of Liseth 17.0 H, Plt Count 219, MPV 10.2, Immature Gran % (Auto) 0.400, Neut % (Auto) 68.7, Lymph % (Auto) 19.7, Kings % (Auto) 9.5, Eos % (Auto) 1.3, Baso % (Auto) 0.4, Absolute Neuts (auto) 5.1, Absolute Lymphs (auto) 1.47, Nucleated RBC % 0 06/15/20 01:50: Sodium 135 L, Potassium 4.1, Chloride 102, Carbon Dioxide 30.0, Anion Gap 3 L, BUN 20 H, Creatinine 1.11 H, Estim Creat Clear Calc 56.80, Est GFR (MDRD) Af Amer 62, Est GFR (MDRD) Non-Af 52 L, BUN/Creatinine Ratio 18.0, Glucose 133 H, Calcium 8.6, Magnesium 2.2, Total Bilirubin 0.40, AST 9 L, ALT 19, Alkaline Phosphatase 40 L, Total Protein 6.2 L, Albumin 2.7 L, Globulin 3.5, Albumin/Globulin Ratio 0.8 L 06/15/20 06:35: POC Glucose 110 06/15/20 11:34: POC Glucose 196 H 06/15/20 16:31: POC Glucose 169 H Current Medications Acetaminophen (Acetaminophen 325 Mg Tablet) 650 mg PO Q6H PRN PRN PRN Reason: Pain Score 1-10/Temp > 100.7 F Last Admin: 06/15/20 06:47 Dose: 650 mg Documented by: Al Hydroxide/Mg Hydroxide (Mag Hydrox/Al Hydrox/Simeth 30 Ml Udc) 30 ml PO Q6H PRN PRN PRN Reason: Gastric Burning Albuterol Sulfate (Albuterol 2.5 Mg/3 Ml Vial.Neb.) 2.5 mg INHALATION Q2H PRN PRN PRN Reason: Dyspnea, wheezing Albuterol/Ipratropium (Ipratropium/Albuterol Sulfate 3 Ml Ampul.Neb) 3 ml INHALATION Q6HWA.RT SARAH Atenolol (Atenolol 25 Mg Tablet) 25 mg PO DAILY [facility] Last Admin: 06/15/20 10:26 Dose: 25 mg Documented by: Calamine/Phenol (Menthol/Lanolin/Calamine/Znox 113 Gm Tube) 1 applic TOPICAL BID [facility]; Protocol Cyanocobalamin (Cyanocobalamin 500 Mcg Tablet) 1,000 mcg PO DAILY@0800 [facility] Last Admin: 06/15/20 08:41 Dose: 1,000 mcg Documented by: Diphenhydramine HCl (Diphenhydramine 25 Mg Capsule) 25 mg PO QHS [facility] Enoxaparin Sodium (Enoxaparin 40 Mg/0.4 Ml Syringe) 40 mg SC DAILY [facility] Last Admin: 06/15/20 10:11 Dose: 40 mg Documented by: Fenofibrate (Fenofibrate 145 Mg Tablet) 145 mg PO DAILY [facility] Last Admin: 06/15/20 10:11 Dose: 145 mg Documented by: Gabapentin (Gabapentin 600 Mg Tablet) 600 mg PO 4X/DAYCM [facility] Last Admin: 06/15/20 16:46 Dose: 600 mg Documented by: Guaifenesin (Guaifenesin 10 Ml Udc (200mg/10ml)) 20 ml PO Q4H PRN PRN PRN Reason: COUGH Last Admin: 06/15/20 01:31 Dose: 20 ml Documented by: Hydralazine HCl (Hydralazine 20 Mg/Ml Vial) 10 mg IV Q4H PRN PRN PRN Reason: SBP > 160 Hydromorphone HCl (Hydromorphone 0.5 Mg/0.5 Ml Syringe) 0.5 mg IV Q4H PRN PRN PRN Reason: Pain Score 6-10 Last Admin: 06/15/20 01:30 Dose: 0.5 mg Documented by: Insulin Human Lispro (Insulin Lispro 100 Unit/Ml Insuln.Pen) 0 unit SC [facility]; Protocol Last Admin: 06/15/20 16:47 Dose: 1 u Documented by: Lidocaine (Lidocaine 5% Patch) 3 patch TOPICAL DAILY [facility]; Protocol Last Admin: 06/15/20 10:33 Dose: Not Given Documented by: Melatonin (Melatonin 10 Mg Tablet) 15 mg PO QHS [facility] Methylprednisolone (Methylprednisolone Dosepak 4 Mg Box) 4 mg PO 1200,1700 [facility]; Taper Stop: 06/20/20 08:59 Last Admin: 06/15/20 16:46 Dose: 4 mg Documented by: Nutritional Formula (Lactose Free) (Glucerna Shake 120 Ml Liquid) 120 ml PO 4X/DAY [facility] Last Admin: 06/15/20 14:05 Dose: 120 ml Documented by: Nystatin (Nystatin Ointment) 1 applic TOPICAL TID [facility]; Protocol Last Admin: 06/15/20 12:10 Dose: 1 applic Documented by: Ondansetron HCl (Ondansetron 4 Mg/2 Ml Vial) 4 mg IV Q8H PRN PRN PRN Reason: NAUSEA/VOMITING Oxycodone HCl (Oxycodone 5 Mg Tablet) 10 mg PO Q4H PRN PRN PRN Reason: Pain Score 4-5 Last Admin: 06/15/20 10:21 Dose: 10 mg Documented by: Pantoprazole Sodium (Pantoprazole Sodium 20 Mg Tablet) 20 mg PO QHS [facility] Prochlorperazine Edisylate (Prochlorperazine 10 Mg/2 Ml Vial) 5 mg IV Q4H PRN PRN PRN Reason: Breakthrough nausea/vomiting Psyllium Hydrophilic Mucilloid (Psyllium 1 Packet) 1 packet PO DAILY PRN PRN PRN Reason: Constipation Senna/Docusate Sodium (Senna/Docusate Sodium 1 Tablet) 2 tablet PO BID PRN PRN PRN Reason: Constipation Last Admin: 06/15/20 10:19 Dose: 2 tablet Documented by: Sodium Chloride (0.9% Saline Lock 10 Ml Syringe) 10 - 40 ml IV UD PRN PRN Reason: SALINE FLUSH Last Admin: 04/21/21 01:31 Dose: 10 ml Documented by: Throat Lozenges (Benzocaine/Menthol 1 Lozenge) 1 lozenge MUCOUS MEM Q2H PRN PRN PRN Reason: SORE THROAT Tizanidine HCl (Tizanidine Hcl 2 Mg Tablet) 4 mg PO Q8 SARAH Last Admin: 06/15/20 14:05 Dose: 4 mg Documented by: Home Medications: Medications to take at Discharge Glimepiride [Amaryl] 4 mg PO DAILY 05/13/15 Omeprazole [Prilosec] 20 mg PO QHS 05/13/15 Fenofibrate,Micronized [Fenofibrate] 134 mg PO DAILY 06/04/16 Tizanidine HCl [Zanaflex] 4 mg PO Q8H PRN 06/04/16 albuterol sulfate 90 mcg/actuation aerosol inhaler 2 puff INHALATION Q6H PRN #18 g 05/14/19 Ascorbic Acid [Vitamin C] 500 mg PO DAILY 06/09/20 Magnesium Oxide [Magnesium] 400 mg PO DAILY 06/09/20 Zinc Amino Acid Chelate [Zinc] 50 mg PO DAILY 06/09/20 Cyanocobalamin [Vitamin B12] 500 mcg PO QHS #0 06/15/20 Hydrocodone Bitart/Apap 5-325 [[place] 5/325] 1 tablet PO Q6H PRN PRN 2 Days #7 tablet 06/15/20 Melatonin 15 mg PO QHS 06/15/20 Psyllium [Metamucil] 1 packet PO DAILY PRN PRN packet 06/15/20 Senna/Docusate Sodium [Senokot-S] 2 tablet PO BID PRN PRN tablet 06/15/20 Atenolol [Tenormin (beta annalee)] 25 mg PO DAILY 06/16/20 Budesonide/Formoterol Fumarate [Budesonide-Formoterol 160-4.5] 2 inh INHALATION BID 06/16/20 DiphenhydrAMINE [Benadryl] 25 mg PO QHS 06/16/20 Gabapentin [Neurontin] 600 mg PO 4X/DAYCM 06/16/20 Nystatin [Mycostatin] 1 applic TOPICAL TID 06/16/20 Following Prescriptions Were Given to Patient: Hydrocodone Bitart/Apap 5-325 [[place] 5/325] 1 tablet PO Q6H PRN PRN 2 Days #7 tablet PRN Reason: Pain Score 6-10 Prescription Printed Primary Care Physician: Makenzie Ace DO [Primary Care Provider] - 06/30/20 1:00 pm Israel Carrion MD [STAFF PHYSICIAN] - Please follow up with your Primary Care Physician in: In 2 weeks Please Follow Up With: Makenzie Ace DO When: On 06/30/2020 Please Follow Up With: Darnell Burgos MD When: for management Medical Necessity - Tobacco Use Smoking Status: Former smoker Tobacco Use: Cigarettes Meaningful Use Info Meaningful Use Diagnoses (Choose all that apply): None applicable Inpatient E&M: 57807 Disch Hosp
== END 2020-06-16 13:52 | disposition skilled nursing facility (03) ==
LOC: ED 20:55 → MS3 22:47
PROVIDERS: Admitting Provider Family Medicine; Emergency Provider Emergency Medicine; PCP Internal Medicine Nephrology; Visit Provider Internal Medicine
DX: M51.16 Intervertebral disc disorders with radiculopathy, lumbar region (principal); G89.29 Other chronic pain; T84.89XA Other specified complication of internal orthopedic prosthetic devices, implants and grafts, initial encounter; I27.20 Pulmonary hypertension, unspecified; K21.9 Gastro-esophageal reflux disease without esophagitis; K44.9 Diaphragmatic hernia without obstruction or gangrene; M41.9 Scoliosis, unspecified; E78.5 Hyperlipidemia, unspecified; I10 Essential (primary) hypertension; J44.9 Chronic obstructive pulmonary disease, unspecified; E11.40 Type 2 diabetes mellitus with diabetic neuropathy, unspecified; E66.9 Obesity, unspecified; Z86.12 Personal history of poliomyelitis; Z79.899 Other long term (current) drug therapy; Y79.2 Prosthetic and other implants, materials and accessory orthopedic devices associated with adverse incidents; Z87.891 Personal history of nicotine dependence; Z68.38 Body mass index [BMI] 38.0-38.9, adult
CPT/HCPCS: 36415; 80048; 80053; 82962; 83735; 85025; 87426; 94640; 96361; 96372; 96374; 96375; 96376; 97162; 97166; 97530; 97802; 99218; 99251; 99285; 99406; J7030; J7120; A4216; G0378; G0463; J2405

== ENCOUNTER 2020-06-16 13:57 | Inpatient (IN) | payer MEDICARE, SELFPAY ==
[2020-06-15 00:39] VITALS: BMI 34.4
[2020-06-16 14:13] VITALS: BMI 37.5
[2020-06-16 14:17] VITALS: BP 99/48; PULSE 84; RESP 20; TEMP 36.6; O2SAT 92
[2020-06-16 15:23] VITALS: BMI 37.5
[2020-06-16 15:37] VITALS: BP 99/48; PULSE 84; RESP 20; TEMP 36.6; O2SAT 92
[2020-06-16 15:38] VITALS: PULSE 84; RESP 20; O2SAT 92
[2020-06-16] MEDS: Menthol/Lanolin/Calamine/Znox 113 GM Tube 1 APPLIC TOPICAL (18:50)
[2020-06-16] MEDS: Gabapentin 600 MG Tablet PO ×2 (18:51→21:46)
--- NOTE | 2020-06-16 19:11 | HP.PCM_ITS ---
Problem List (1) Debility Status: Acute (2) Low back pain Status: Acute (3) Neuropathic pain Status: Chronic (4) Muscle spasm Status: Chronic (5) Chronic obstructive pulmonary disease Status: Chronic (6) Hiatal hernia Status: Chronic (7) Body mass index 37.0-37.9, adult Status: Chronic (8) Pulmonary hypertension Status: Chronic Comment: RVSP 60 mmHg (9) Scoliosis Status: Chronic Qualifiers: (10) Hyperlipidemia Status: Chronic (11) Hypertension Status: Chronic (12) Esophageal reflux disease Status: Chronic Qualifiers: (13) Diabetes mellitus Status: Chronic (14) Degenerative arthritis of spine Status: Chronic History of Present Illness Date of Admission: 06/16/20 Chief Complaint: Here for rehabilitation, strengthening, prior to discharge home alone. 06/14/2020 The patient is a 70 year old Female with below past medical history presented to [facility] Emergency Department with back pain. low back pain radiating to right thigh for weeks. Moderate to severe pain. Broken alexia in back where she had fusion. Straight leg raise negative, unable to stand due to pain. Morphine, Zofran given. 06/14/2020 Admit to Hospital. Toradol, Lidoderm, Tizanidine, Gabapentin, Medrol dose pack, PO/IV narcotics for pain control. PT/OT for debility. Patient sees Dr. Rust, Neuro Spine. Patient sees Dr. Burgos, pain management. 06/15/2020 Patient hypotensive, probably from atenolol, tizanidine, Dilaudid. Dose decreased, Dilaudid held. Normal Saline 2 liters IV bolus given with improvement in blood pressure. 06/16/2020 Admit to TCU with debility, here for rehabilitation, strengthening, prior to discharge home alone. Past Medical History Past Medical History (Chronic Problems): Chronic Problems (Last Reviewed 05/14/19 @ 14:33 by Arianne Smiley PAIN MANAGEMENT PHYSICIAN, PAIN MANAGEMENT PHYSICIAN-C) Neuropathic pain (Chronic) Muscle spasm (Chronic) Chronic obstructive pulmonary disease (Chronic) Hiatal hernia (Chronic) Body mass index 37.0-37.9, adult (Chronic) Pulmonary hypertension (Chronic) RVSP 60 mmHg Hiatal hernia with GERD (Chronic) Osteoarthritis (Chronic) Lumbar disc disease (Chronic) Scoliosis (Chronic) Polio (Chronic) Hyperlipidemia (Chronic) Hypertension (Chronic) Type 2 diabetes mellitus without complications (Chronic) Diabetes (Chronic) Hypercholesterolemia (Chronic) Hypertension (Chronic) Esophageal reflux disease (Chronic) Scoliosis (Chronic) Lumbar disc disease (Chronic) Obesity (BMI 35.0-39.9 without comorbidity) (Chronic) Tobacco abuse (Chronic) Hypoxia (Chronic) Diabetes mellitus (Chronic) Degenerative arthritis of spine (Chronic) Medical History: Medical History (Last Reviewed 05/14/19 @ 14:33 by Arianne Smiley PAIN MANAGEMENT PHYSICIAN, PAIN MANAGEMENT PHYSICIAN-C) Hiatal hernia with GERD (Chronic) K21.9, K44.9 Osteoarthritis (Chronic) M19.90 Lumbar disc disease (Chronic) M51.9 Scoliosis (Chronic) M41.9 Polio (Chronic) A80.9 Hyperlipidemia (Chronic) E78.5 Hypertension (Chronic) I10 Type 2 diabetes mellitus without complications (Chronic) E11.9 Allergies atorvastatin calcium [From Lipitor] Allergy (Verified 06/14/20 17:07) Unknown LEG CRAMPS pravastatin Allergy (Verified 06/14/20 17:07) Unknown LEG CRAMPS simvastatin Allergy (Verified 06/14/20 17:07) Unknown LEG CRAMPS morphine Adverse Reaction (Verified 06/14/20 17:07) Other BAD NIGHTMARES altace Allergy (Uncoded 06/14/20 17:07) Unknown antihyperlipidemics Allergy (Uncoded 06/14/20 17:07) Unknown LEG CRAMPS Home Medications: Ambulatory Orders Medication Instructions Recorded Glimepiride [Amaryl] 4 mg PO DAILY 05/13/15 Omeprazole [Prilosec] 20 mg PO QHS 05/13/15 Fenofibrate,Micronized 134 mg PO DAILY 06/04/16 [Fenofibrate] Tizanidine HCl [Zanaflex] 4 mg PO Q8H PRN 06/04/16 albuterol sulfate 90 mcg/actuation 2 puff INHALATION Q6H PRN #18 g 05/14/19 aerosol inhaler Ascorbic Acid [Vitamin C] 500 mg PO DAILY 06/09/20 Magnesium Oxide [Magnesium] 400 mg PO DAILY 06/09/20 Zinc Amino Acid Chelate [Zinc] 50 mg PO DAILY 06/09/20 Cyanocobalamin [Vitamin B12] 500 mcg PO QHS #0 06/15/20 Hydrocodone Bitart/Apap 5-325 1 tablet PO Q6H PRN PRN 2 Days #7 06/15/20 [[place] 5/325] tablet Melatonin 15 mg PO QHS 06/15/20 Psyllium [Metamucil] 1 packet PO DAILY PRN PRN packet 06/15/20 Senna/Docusate Sodium [Senokot-S] 2 tablet PO BID PRN PRN tablet 06/15/20 Atenolol [Tenormin (beta annalee)] 25 mg PO DAILY 06/16/20 Budesonide/Formoterol Fumarate 2 inh INHALATION BID 06/16/20 [Budesonide-Formoterol 160-4.5] DiphenhydrAMINE [Benadryl] 25 mg PO QHS 06/16/20 Gabapentin [Neurontin] 600 mg PO 4X/DAYCM 06/16/20 Nystatin [Mycostatin] 1 applic TOPICAL TID 06/16/20 Surgical History: Surgical History (Last Reviewed 05/14/19 @ 14:33 by Arianne Smiley PAIN MANAGEMENT PHYSICIAN, PAIN MANAGEMENT PHYSICIAN-C) S/P carpal tunnel release (Resolved) Z98.890 left 12/26/16 H/O tubal ligation Z98.51 History of Z98.891 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 Lives: Alone Smoking Status: Former smoker Tobacco Use: Non-smoker Alcohol: None Drugs: None - *Family History Paternal Family History: Family History (Last Reviewed 05/14/19 @ 14:33 by Arianne Smiley PAIN MANAGEMENT PHYSICIAN, PAIN MANAGEMENT PHYSICIAN-C) Mother Brain aneurysm Father CVA (cerebral vascular accident) Sister Thyroid cancer History Items: Stroke - age 68, - - Alcoholism Offspring Family History: Family History (Last Reviewed 05/14/19 @ 14:33 by Arianne Smiley PAIN MANAGEMENT PHYSICIAN, PAIN MANAGEMENT PHYSICIAN-C) Mother Brain aneurysm Father CVA (cerebral vascular accident) Sister Thyroid cancer History Items: Asthma - Multiple allergies requiring allergy shots twice weekly Maternal Family History: Family History (Last Reviewed 05/14/19 @ 14:33 by Arianne Smiley PAIN MANAGEMENT PHYSICIAN, PAIN MANAGEMENT PHYSICIAN-C) Mother Brain aneurysm Father CVA (cerebral vascular accident) Sister Thyroid cancer History Items: - - age 72 cerebral aneurysm; the patient's father at age of 72 from a cerebrovascular accident. He was an alcoholic. Review of Systems Constitutional: Denies: Chills, Fever, Weight Change HEENT: Denies: Head Aches, Sinus Congestion, Sinus Drainage Cardiovascular: Denies: Chest Pain, Palpitations Respiratory: Denies: Cough, Shortness of breath at rest, Sputum production Gastrointestinal: Denies: Abdominal Pain, Nausea, Vomiting Genitourinary: Denies: Dysuria Musculoskeletal: Reports: Back Pain. Denies: Joint Pain, Joint Tenderness Skin: Denies: Rash, Wounds Neurological: Denies: Numbness, Tingling, Focal weakness Psychiatric: Denies: Anxiety, Depression, Homicidal Ideations, Suicidal Ideations Hematologic/ Lymphatic: Denies: Easy Bruising, Easy Bleeding VTE Information - Inpt Only VTE Present on Admission: No VTE Mechan Device Prophylaxis: Knee High JANNETTE Hose VTE Pharm Prophylaxis ordered?: Yes Patient Problems: Active and Suspected Problems (Last Reviewed 05/14/19 @ 14:33 by Arianne Smiley PAIN MANAGEMENT PHYSICIAN, PAIN MANAGEMENT PHYSICIAN-C) Debility (Acute) Low back pain (Acute) - Physical Exam Vitals/I&O's: Vital Signs Temp Pulse Resp BP Pulse Ox 97.8 F 84 20 H 99/48 L 92 06/16/20 15:37 06/16/20 15:38 06/16/20 15:38 06/16/20 15:37 06/16/20 15:38 Oxygen Flow Rate (L/min) 2 Oxygen Delivery Method Nasal Cannula Weight: 84.232 kg Body Mass Index (BMI) 37.5 Finger Stick Blood Glucose 83 General: Alert, Oriented x3, Cooperative HEENT: Atraumatic, PERRLA, EOMI, Normocephalic Neck: Supple, No JVD, Negative Carotid Bruits Lungs: Clear to auscultation, Normal air movement Cardiovascular: Regular rate, No murmurs Abdomen: Bowel Sounds Present, Soft, Non Tender Extremities: No edema, Capillary Refill Less than 3 Seconds Skin: No rashes, No breakdown Musculoskeletal: No Tenderness to Palpation of Joints or Extremities Neurological: Cranial nerves II-XII grossly intact Psych/Mental Status: Normal Affect, Appropriate Laboratory Results 06/16/20 17:23: COVID-19 (MARLENI) Pending Current Medications Acetaminophen (Acetaminophen 500 Mg Tablet) 1,000 mg PO Q6H PRN PRN Reason: Pain Score 1-3 Albuterol Sulfate (Albuterol Sulfate 8 Gm Inhaler (60 Puffs)) 2 puff INHALATION Q6H PRN PRN Reason: SOB/WHEEZING Ascorbic Acid (Ascorbic Acid 500 Mg Tablet) 500 mg PO DAILY SARAH Atenolol (Atenolol 25 Mg Tablet) 25 mg PO DAILY SARAH Bisacodyl (Bisacodyl 10 Mg Suppository) 10 mg RC DAILY PRN PRN Reason: Constipation Calamine/Phenol (Menthol/Lanolin/Calamine/Znox 113 Gm Tube) 1 applic TOPICAL BI D SARAH; Protocol Last Admin: 06/16/20 18:50 Dose: 1 applic Documented by: Cyanocobalamin (Cyanocobalamin 500 Mcg Tablet) 500 mcg PO QHS [facility] Diphenhydramine HCl (Diphenhydramine 25 Mg Capsule) 25 mg PO QHS [facility] Fenofibrate (Fenofibrate 145 Mg Tablet) 145 mg PO DAILYCM [facility] Gabapentin (Gabapentin 600 Mg Tablet) 600 mg PO 4X/DAYCM [facility] Last Admin: 06/16/20 18:51 Dose: 600 mg Documented by: Glimepiride (Glimepiride 4 Mg Tablet) 4 mg PO DAILYCM [facility] Magnesium Chloride (Magnesium Chloride 64 Mg Delay Rel.Tablet) 128 mg PO DAILY [facility] Melatonin (Melatonin 10 Mg Tablet) 15 mg PO QHS SARAH Nystatin (Nystatin Ointment) 1 applic TOPICAL TID SARAH; Protocol Oxycodone HCl (Oxycodone 5 Mg Tablet) 10 mg PO Q4H PRN PRN PRN Reason: Pain Score 6-10 Pantoprazole Sodium (Pantoprazole Sodium 20 Mg Tablet) 20 mg PO QHS [facility] Psyllium Hydrophilic Mucilloid (Psyllium 1 Packet) 1 packet PO DAILY PRN PRN PRN Reason: Constipation Fluticasone/Salmeterol (Fluticasone/Salmeterol 232-14 Inhaler) 1 puff INHA LATION Q12 [facility] Senna/Docusate Sodium (Senna/Docusate Sodium 1 Tablet) 2 tablet PO BID PRN PRN PRN Reason: Constipation Sodium Chloride (0.9% Saline Lock 10 Ml Syringe) 10 - 40 ml IV UD PRN PRN Reason: SALINE FLUSH Sodium Chloride (0.9% Saline Lock 10 Ml Syringe) 10 - 40 ml IV UD PRN PRN Reason: SALINE FLUSH Tizanidine HCl (Tizanidine Hcl 2 Mg Tablet) 4 mg PO Q8H PRN PRN Reason: SPASMS Tramadol HCl (Tramadol 50 Mg Tablet) 50 mg PO Q6H PRN PRN PRN Reason: Pain Score 4-5 Tuberculin PPD (Tuberculin,Purif.Prot.Deriv. 50 Tu/Ml Vial) 5 tu ID X1 ONE Stop: 06/17/20 10:01 Tuberculin PPD (Tuberculin,Purif.Prot.Deriv. 50 Tu/Ml Vial) 5 tu ID X1 ONE Stop: 06/24/20 10:01 Zinc Sulfate (Zinc Sulfate (50mg Elemental) 220 Mg Capsule) 220 mg PO DAILY [facility] Assessment/Plan All Active Problems (Last Reviewed 05/14/19 @ 14:33 by Arianne Smiley PAIN MANAGEMENT PHYSICIAN, PAIN MANAGEMENT PHYSICIAN- C) Acute exacerbation of chronic low back pain (Acute) Debility (Acute) Low back pain (Acute) Dyspnea on exertion (Acute) S/P carpal tunnel release (Resolved) Left carpal tunnel syndrome (Acute) Ulnar nerve compression (Acute) Cubital tunnel syndrome (Acute) Spinal fusion failure (Acute) S/P laminectomy with spinal fusion (Acute) Surgical wound infection (Acute) Dehiscence of surgical wound (Acute) 70 year old female with below past medical history hospitalized for intractable low back pain, complicated by hypotension secondary to medications, admitted to TCU with debility, here for rehabilitation, strengthening, prior to discharge home alone. * Debility - PT/OT. * Pain - Tylenol 1000MG Q6H PRN pain (1-3), Tramadol 50MG Q6H PRN pain (4-5), Oxycodone 10MG Q4H PRN pain (6-10), Consult Dr. Burgos. * Bowel - Miralax 17GM daily, Senna/colace 2 tablets BID, MOM 30ML daily PRN, Dulcolax 10MG MO daily PRN. * Adult immunization - Administer Prevnar 13, Pneumovax 23, Fluzone, COVID19 vaccine as appropriate. * DVT prophylaxis - Lovenox 40MG SC daily. * COPD - Advair 232-14 1 puff BID, Albuterol MDI 2 puffs Q6H PRN. * Vitamin C deficiency - Vitamin C 500MG daily. * Hypertension - Atenolol 25MG daily. * Vitamin B12 deficiency - Vitamin B12 500MCG QHS. * Hyperlipidemia - Fenofibrate 145MG daily. * Neuropathic pain - Gabapentin 600MG 4x/day. * Diabetes Mellitus II - Glimepiride 4MG daily. * Hypomagnesemia - Magnesium 128MG daily. * Insomnia - Melatonin 15MG QHS. * Skin irritation - Calmoseptine topical BID. * Tinea Corporis - Nystatin topical TID. * GERD - Pantoprazole 20MG QHS. * Muscle spasm - Tizanidine 4MG Q8H PRN. * Zinc deficiency - Zinc 220MG daily.
[2020-06-16 19:55] LABS: Probe Check PASS; Specimen Processing Control PASS
[2020-06-16] MEDS: oxyCODONE 5 MG Tablet 10 MG PO (20:05)
[2020-06-16] MEDS: DiphenhydrAMINE 25 MG Capsule PO (21:46)
[2020-06-16] MEDS: Cyanocobalamin 500 MCG Tablet PO (21:46)
[2020-06-16] MEDS: Pantoprazole Sodium 20 MG Tablet PO (21:46)
[2020-06-16] MEDS: Nystatin Ointment 1 APPLIC TOPICAL (21:47)
[2020-06-17] MEDS: oxyCODONE 5 MG Tablet 10 MG PO ×2 (01:05→05:08)
[2020-06-17] MEDS: MELATONIN 10 MG TABLET 15 MG PO (01:05)
[2020-06-17] MEDS: Acetaminophen 500 MG Tablet 1000 MG PO (05:08)
[2020-06-17] MEDS: Atenolol 25 MG Tablet PO (05:09)
[2020-06-17] MEDS: Menthol/Lanolin/Calamine/Znox 113 GM Tube 1 APPLIC TOPICAL (05:10)
[2020-06-17] MEDS: Nystatin Ointment 1 APPLIC TOPICAL (05:10)
[2020-06-17] MEDS: Enoxaparin 40 MG/0.4 ML Syringe SC (05:11)
[2020-06-17 05:41] LABS: Absolute Lymphocyte Count 1.55 X10^3/uL (0.83-4.51); Absolute Neutrophil Count 7.7 X10^3/uL (2.0-7.7); Basophil# 0.02 X10^3/uL; Basophil% 0.2 % (0-1); Eosinophil# 0.07 X10^3/uL; Eosinophils% 0.7 % (0-5); Hematocrit 41.2 % (37-47); Hemoglobin 12.3 g/dL (12.0-15.0); Lymphocyte # 1.55 X10^3/ul (0.83-4.51); Lymphocyte % 15.1 % (19-41); Mean Corp Hgb Conc 29.9 g/dL (32-36); Mean Corpuscular Hgb 28.3 pg (27.0-32.0); Mean Corpuscular Volume 94.9 fL (81-99); Mean Platelet Vol. 10.5 fl (6.2-12.0); Monocyte# 0.89 X10^3/uL; Monocyte% 8.7 % (0-10); NRBC Flagged by Analyzer 0 % (0-5); Neutrophil # 7.68 X10^3/uL (2.7-7.7); Neutrophil % 74.8 % (47-70); Platelet Count 284 K/mm3 (150-450); RBC Distribution Width CV 16.8 % (11.6-14.6); Red Blood Count 4.34 M/mm3 (4.2-5.4); White Blood Count 10.3 K/mm3 (4.4-11.0)
[2020-06-17 06:02] LABS: Anion Gap 7 (5-15); BUN 19 mg/dL (7-18); BUN/Creat Ratio 19.3 RATIO (10-20); Calcium,Total 8.8 mg/dL (8.5-10.1); Chloride 100 mmol/L (98-107); Creatinine, Serum 0.98 mg/dL (0.55-1.02); EST Glomerular Filtration Rate 59 mL/min (>60); Est Glom Filt Rate - Afr Amer 72 mL/min (>60); Estimated Creatinine Clearance 70.01 ml/min; Glucose 135 mg/dL (74-106); Potassium 3.9 mmol/L (3.5-5.1); Sodium Level 134 mmol/L (136-145)
[2020-06-17 06:21] LABS: Bedside Glucose 141 mg/dL (70-110)
[2020-06-17 07:25] VITALS: O2SAT 93
[2020-06-17] MEDS: Magnesium Chloride 64 MG Delay Rel.Tablet 128 MG PO (07:56)
[2020-06-17] MEDS: Ascorbic Acid 500 MG Tablet PO (07:57)
[2020-06-17 08:52] VITALS: BP 127/73; PULSE 73; RESP 18; TEMP 36.3; O2SAT 92
--- NOTE | 2020-06-17 08:57 | EKG12_ITS ---
Test Reason : ARRYTHMIA Blood Pressure : / mmHG Vent. Rate : 162 BPM Atrial Rate : 170 BPM P-R Int : 000 ms QRS Dur : 076 ms QT Int : 284 ms P-R-T Axes : 000 064 034 degrees QTc Int : 466 ms Atrial fibrillation Low voltage QRS Abnormal ECG Confirmed by NATHALY WASHINGTON, SOM ([id number]), social media editor DOMENICO GLEZ ([id number]) on 06/20/2020 9:46:31 AM Referred By: BAO Confirmed By:ALHAJI ANDERSEN MD
--- NOTE | 2020-06-17 08:59 | NURSING ---
pt c/o not feeling weak, light she is going to faint, shakey, palpitations. HR bouncing 90's to 120's, irreg pt had just been up with therapy to BR. sat 90% on 2 liters, increased to 3 liters, up to 95%. pt sitting up in chair, call light in reach. Resp therapy notified of needing STAT EKG. will update Dr Domingo
--- NOTE | 2020-06-17 09:11 | NURSING ---
EKG showing AFIB HR 150s, sending pt to ER. this is new for pt. notified ER sending pt down. will update DR Domingo
[2020-06-17 09:16] LABS: Bedside Glucose 178 mg/dL (70-110)
--- NOTE | 2020-06-17 09:18 | NURSING ---
Addendum entered by Macy Blunt 06/17/20 10:44: daughter returned call updated on mothers condition and then transferred call to ER for update. Original Note: attempted to notify Daughter, Marcy, no answer and mailbox full.
--- NOTE | 2020-06-17 14:40 | DCINST_ITS ---
- Discharge Diagnoses Current Active Problems: Current Active and Chronic Problems (Last Reviewed 05/14/19 @ 14:33 by Arianne Smiley CLIMATE CHANGE RISK ASSESSOR, CLIMATE CHANGE RISK ASSESSOR-C) Neuropathic pain (Chronic) Chronic obstructive pulmonary disease (Chronic) Hiatal hernia (Chronic) Body mass index 37.0-37.9, adult (Chronic) Pulmonary hypertension (Chronic) RVSP 60 mmHg Scoliosis (Chronic) Hyperlipidemia (Chronic) Hypertension (Chronic) Esophageal reflux disease (Chronic) Degenerative arthritis of spine (Chronic) You will use the following diet at home:: No restrictions, Regular Your food should be the consistency of: Regular Your liquids should be the consistency of: Regular/Thin Discharge Activity: Return to Normal Activity, May Shower, Use Walker Weight Bearing Status: Weight bearing as tolerated Call your doctor if you observe: Fever of 101 or Higher, Inability to urinate, Inability to have a bowel movement, Shortness of breath, Chest pain, Uncontrolled pain Allergies/Adverse Reactions: Allergies atorvastatin calcium [From Lipitor] Allergy (Verified 06/17/20 09:37) Unknown LEG CRAMPS pravastatin Allergy (Verified 06/17/20 09:37) Unknown LEG CRAMPS simvastatin Allergy (Verified 06/17/20 09:37) Unknown LEG CRAMPS morphine Adverse Reaction (Verified 06/17/20 09:37) Other BAD NIGHTMARES altace Allergy (Uncoded 06/17/20 09:37) Unknown antihyperlipidemics Allergy (Uncoded 06/17/20 09:37) Unknown LEG CRAMPS Medications to take at Discharge Glimepiride [Amaryl] 4 mg PO DAILY 05/13/15 Fenofibrate,Micronized [Fenofibrate] 134 mg PO DAILY 06/04/16 Tizanidine HCl [Zanaflex] 4 mg PO Q8H PRN 06/04/16 albuterol sulfate 90 mcg/actuation aerosol inhaler 2 puff INHALATION Q6H PRN #18 g 05/14/19 Ascorbic Acid [Vitamin C] 500 mg PO DAILY 06/09/20 Magnesium Oxide [Magnesium] 400 mg PO DAILY 06/09/20 Cyanocobalamin [Vitamin B12] 500 mcg PO QHS #0 06/15/20 Melatonin 15 mg PO QHS 06/15/20 Senna/Docusate Sodium [Senokot-S] 2 tablet PO BID PRN PRN tablet 06/15/20 Atenolol [Tenormin (beta annalee)] 25 mg PO DAILY 06/16/20 DiphenhydrAMINE [Benadryl] 25 mg PO QHS 06/16/20 Gabapentin [Neurontin] 600 mg PO 4X/DAYCM 06/16/20 Nystatin [Mycostatin] 1 applic TOPICAL TID 06/16/20 Acetaminophen [Tylenol Extra Strength] 1,000 mg PO Q6H PRN PRN 06/17/20 Enoxaparin Sodium 40 mg SQ DAILY 06/17/20 Menthol/Zinc Oxide [Calmoseptine Ointment] 1 applic TOPICAL BID 06/17/20 Oxycodone HCl 10 mg PO Q4H PRN PRN 06/17/20 Pantoprazole Sodium [Protonix] 20 mg PO QHS 06/17/20 Polyethylene Glycol 3350 17 gm PO DAILY 06/17/20 Zinc Sulfate 220 mg PO DAILY 06/17/20 traMADol [Ultram (G)] 50 mg PO Q6H PRN PRN 06/17/20 Primary Care Physician: Israel Carrion MD [STAFF PHYSICIAN] - Please follow up with your Primary Care Physician in: 1 week. Test Results: Test results from this visit will be discussed in further detail at your follow- up appointment, if applicable. Please Follow Up With: Makenzie Ace DO When: 2 weeks. Please Follow Up With: Darnell Burgos MD When: 2 weeks. Proposed Discharge Date: 06/17/20
--- NOTE | 2020-06-17 14:42 | PCM.DC.SUM ---
Discharge Date and Diagnosis Date of Admission: 06/17/20 Date of Discharge: 06/17/20 - Secondary Discharge Diagnosis Chronic Problems: Chronic Problems (Last Reviewed 05/14/19 @ 14:33 by Arianne Smiley UNDERWRITING TECHNICIAN, UNDERWRITING TECHNICIAN-C) Neuropathic pain (Chronic) Chronic obstructive pulmonary disease (Chronic) Hiatal hernia (Chronic) Body mass index 37.0-37.9, adult (Chronic) Pulmonary hypertension (Chronic) RVSP 60 mmHg Dyspnea on exertion (Chronic) Hiatal hernia with GERD (Chronic) Osteoarthritis (Chronic) Lumbar disc disease (Chronic) Scoliosis (Chronic) Polio (Chronic) Hyperlipidemia (Chronic) Hypertension (Chronic) Type 2 diabetes mellitus without complications (Chronic) Left carpal tunnel syndrome (Chronic) Ulnar nerve compression (Chronic) Cubital tunnel syndrome (Chronic) Hypercholesterolemia (Chronic) Hypertension (Chronic) Esophageal reflux disease (Chronic) Scoliosis (Chronic) Lumbar disc disease (Chronic) Spinal fusion failure (Chronic) S/P laminectomy with spinal fusion (Chronic) Obesity (BMI 35.0-39.9 without comorbidity) (Chronic) Tobacco abuse (Chronic) Hypoxia (Chronic) Degenerative arthritis of spine (Chronic) Hospital Course and Treatment Imaging Results: Labs (Last 48 Hours) 06/16/20 06/17/20 06/17/20 17:23 05:20 05:20 WBC 10.3 RBC 4.34 Hgb 12.3 Hct 41.2 MCV 94.9 MCH 28.3 MCHC 29.9 L RDW Std Deviation 58.0 H RDW Coeff of Liseth 16.8 H Plt Count 284 MPV 10.5 Immature Gran % (Auto) 0.500 Neut % (Auto) 74.8 H Lymph % (Auto) 15.1 L Kent % (Auto) 8.7 Eos % (Auto) 0.7 Baso % (Auto) 0.2 Absolute Neuts (auto) 7.7 Absolute Lymphs (auto) 1.55 Nucleated RBC % 0 Sodium 134 L Potassium 3.9 Chloride 100 Carbon Dioxide 27.0 Anion Gap 7 BUN 19 H Creatinine 0.98 Estim Creat Clear Calc 70.01 Est GFR (MDRD) Af Amer 72 Est GFR (MDRD) Non-Af 59 L BUN/Creatinine Ratio 19.3 Glucose 135 H Calcium 8.8 COVID-19 (MARLENI) Negative POC Glucose 06/17/20 06/17/20 06:08 09:09 WBC RBC Hgb Hct MCV MCH MCHC RDW Std Deviation RDW Coeff of Liseth Plt Count MPV Immature Gran % (Auto) Neut % (Auto) Lymph % (Auto) Kent % (Auto) Eos % (Auto) Baso % (Auto) Absolute Neuts (auto) Absolute Lymphs (auto) Nucleated RBC % Sodium Potassium Chloride Carbon Dioxide Anion Gap BUN Creatinine Estim Creat Clear Calc Est GFR (MDRD) Af Amer Est GFR (MDRD) Non-Af BUN/Creatinine Ratio Glucose Calcium COVID-19 (MARLENI) POC Glucose 141 H 178 H Operations: None Procedures: None Summary of Care Provided: The patient is a 70 year old Female with below past medical history hospitalized for intractable low back pain, complicated by hypotension secondary to medications, admitted to TCU with debility, here for rehabilitation, strengthening, prior to discharge home alone. 06/17/2020 Heart rate 150's, EKG showed new onset atrial fibrillation with rapid ventricular response, resident diaphoretic, unstable. Discharge to [facility] Emergency Department for evaluation, admission to hospital. - Physical Exam Vitals/I&O's: Vital Signs Temp Pulse Resp BP Pulse Ox 97.3 F L 73 18 127/73 H 92 06/17/20 08:52 06/17/20 08:52 06/17/20 08:52 06/17/20 08:52 06/17/20 08:52 Oxygen Flow Rate (L/min) 2 Oxygen Delivery Method Nasal Cannula Weight: 84.232 kg Body Mass Index (BMI) 37.5 Finger Stick Blood Glucose 83 Intake and Output for Last 24 Hours 06/15/20 06/16/20 06/17/20 23:59 23:59 23:59 Intake Total 240 / 240 120 / 120 Balance 240 / 240 120 / 120 Laboratory Results 06/16/20 17:23: COVID-19 (MARLENI) Negative 06/17/20 05:20: WBC 10.3, RBC 4.34, Hgb 12.3, Hct 41.2, MCV 94.9, MCH 28.3, MCHC 29.9 L, RDW Std Deviation 58.0 H, RDW Coeff of Liseth 16.8 H, Plt Count 284, MPV 10.5, Immature Gran % (Auto) 0.500, Neut % (Auto) 74.8 H, Lymph % (Auto) 15.1 L, Kent % (Auto) 8.7, Eos % (Auto) 0.7, Baso % (Auto) 0.2, Absolute Neuts (auto) 7.7, Absolute Lymphs (auto) 1.55, Nucleated RBC % 0 06/17/20 05:20: Sodium 134 L, Potassium 3.9, Chloride 100, Carbon Dioxide 27.0, Anion Gap 7, BUN 19 H, Creatinine 0.98, Estim Creat Clear Calc 70.01, Est GFR (MDRD) Af Amer 72, Est GFR (MDRD) Non-Af 59 L, BUN/Creatinine Ratio 19.3, Glucose 135 H, Calcium 8.8 06/17/20 06:08: POC Glucose 141 H 06/17/20 09:09: POC Glucose 178 H Discharge Diet: No Restrictions Discharge Activity: Return to Normal Activity, May Shower, Use Walker Weight Bearing Status: Weight bearing as tolerated Call your doctor if you observe: Fever of 101 or Higher, Inability to urinate, Inability to have a bowel movement, Shortness of breath, Chest pain, Uncontrolled pain Home Medications: Medications to take at Discharge Glimepiride [Amaryl] 4 mg PO DAILY 05/13/15 Fenofibrate,Micronized [Fenofibrate] 134 mg PO DAILY 06/04/16 Tizanidine HCl [Zanaflex] 4 mg PO Q8H PRN 06/04/16 albuterol sulfate 90 mcg/actuation aerosol inhaler 2 puff INHALATION Q6H PRN #18 g 05/14/19 Ascorbic Acid [Vitamin C] 500 mg PO DAILY 06/09/20 Magnesium Oxide [Magnesium] 400 mg PO DAILY 06/09/20 Cyanocobalamin [Vitamin B12] 500 mcg PO QHS #0 06/15/20 Melatonin 15 mg PO QHS 06/15/20 Senna/Docusate Sodium [Senokot-S] 2 tablet PO BID PRN PRN tablet 06/15/20 Atenolol [Tenormin (beta annalee)] 25 mg PO DAILY 06/16/20 DiphenhydrAMINE [Benadryl] 25 mg PO QHS 06/16/20 Gabapentin [Neurontin] 600 mg PO 4X/DAYCM 06/16/20 Nystatin [Mycostatin] 1 applic TOPICAL TID 06/16/20 Acetaminophen [Tylenol Extra Strength] 1,000 mg PO Q6H PRN PRN 06/17/20 Enoxaparin Sodium 40 mg SQ DAILY 06/17/20 Menthol/Zinc Oxide [Calmoseptine Ointment] 1 applic TOPICAL BID 06/17/20 Oxycodone HCl 10 mg PO Q4H PRN PRN 06/17/20 Pantoprazole Sodium [Protonix] 20 mg PO QHS 06/17/20 Polyethylene Glycol 3350 17 gm PO DAILY 06/17/20 Zinc Sulfate 220 mg PO DAILY 06/17/20 traMADol [Ultram (G)] 50 mg PO Q6H PRN PRN 06/17/20 Primary Care Physician: Israel Carrion MD [STAFF PHYSICIAN] - Please follow up with your Primary Care Physician in: 1 week. Please Follow Up With: Makenzie Ace DO When: 2 weeks. Please Follow Up With: Darnell Burgos MD When: 2 weeks. Disposition: Acute care Hospital Minutes spent on discharge:: 30 Patient Condition:: Guarded Medical Necessity - Tobacco Use Smoking Status: Former smoker Tobacco Use: Non-smoker Meaningful Use Info Meaningful Use Diagnoses (Choose all that apply): None applicable
--- NOTE | 2020-06-28 12:34 | MDS.RN ---
Information for the mds was obtained from review of the clinical record, interview of resident, staff, and direct observation of resident's care.
== END 2020-06-17 13:35 | disposition short-term general hospital (02) | DRG 552 ==
LOC: TCU 14:05
PROVIDERS: Admitting Provider Family Medicine Geriatric Medicine; PCP Internal Medicine Nephrology; Visit Provider Family Medicine Geriatric Medicine
DX: M51.9 Unspecified thoracic, thoracolumbar and lumbosacral intervertebral disc disorder (principal); E78.5 Hyperlipidemia, unspecified; J44.9 Chronic obstructive pulmonary disease, unspecified; E11.9 Type 2 diabetes mellitus without complications; I48.91 Unspecified atrial fibrillation; K21.9 Gastro-esophageal reflux disease without esophagitis; B35.4 Tinea corporis; E60 Dietary zinc deficiency; M62.838 Other muscle spasm; I10 Essential (primary) hypertension; E53.8 Deficiency of other specified B group vitamins; I27.20 Pulmonary hypertension, unspecified; K44.9 Diaphragmatic hernia without obstruction or gangrene; M41.9 Scoliosis, unspecified; T84.296D Other mechanical complication of internal fixation device of vertebrae, subsequent encounter; Y79.3 Surgical instruments, materials and orthopedic devices (including sutures) associated with adverse incidents; M19.90 Unspecified osteoarthritis, unspecified site; E66.9 Obesity, unspecified; Z68.37 Body mass index [BMI] 37.0-37.9, adult; Z86.12 Personal history of poliomyelitis; Z79.899 Other long term (current) drug therapy; Z79.84 Long term (current) use of oral hypoglycemic drugs; Z98.1 Arthrodesis status; Z87.891 Personal history of nicotine dependence
CPT/HCPCS: 80048; 82962; 85025; 87635; 93005; 97162; 97166; 99406; U0002

== ENCOUNTER 2020-06-17 09:31 | Inpatient (IN) | payer MEDICARE, SELFPAY ==
[2020-06-16 14:13] VITALS: BMI 37.5
[2020-06-17] VITALS (24 sets, daily range): BP systolic 103–141; BP diastolic 60–103; PULSE 88–164; RESP 12–25; TEMP 36.2–37.1; O2SAT 83–96; BMI 39.4; BMI 40.0
--- NOTE | 2020-06-17 09:48 | RAD_ITS ---
STUDY: X-RAY CHEST REASON FOR EXAM: Female, 70 years old. Sob TECHNIQUE: Single AP portable view of the chest. COMPARISON: Comparison is made with prior examination dated 09/19/2019. FINDINGS: EKG electrodes are seen. Right lower lobe infiltrate. Mild increased markings at the left lung base. There is no demonstrated pleural abnormality. Normal size heart. Normal mediastinum and giancarlo. Normal visualized pulmonary arteries. Normal visualized aortic arch and descending thoracic aorta. Status post multilevel screw and interpedicular screw fixation of the thoracic and lumbar spines. Prior right shoulder replacement. There is no demonstrated abnormality of the visualized soft tissue structures of the upper abdomen. RAD/Chest 1 View (Portable) IMPRESSION: Right lower lobe infiltrate. The remainder the examination is unchanged. Electronically Signed: Moreno Landa MD at 10:44 EDT , Service support ,
--- NOTE | 2020-06-17 09:49 | EKG12_ITS ---
Test Reason : AFIB NSR Blood Pressure : / mmHG Vent. Rate : 126 BPM Atrial Rate : 156 BPM P-R Int : 000 ms QRS Dur : 076 ms QT Int : 312 ms P-R-T Axes : 000 062 028 degrees QTc Int : 451 ms Atrial fibrillation Abnormal ECG Confirmed by NATHALY WASHINGTON, SOM ([id number]), social media editor DOMENICO GLEZ ([id number]) on 06/20/2020 9:46:52 AM Referred By: Confirmed By:ALHAJI ANDERSEN MD
--- NOTE | 2020-06-17 09:51 | ED.DCSUM_ITS ---
- ER Visit Summary Date of Service: 06/17/20 Chief Complaint: Palpitations History of Present Illness: The patient is a 70 F presenting from TCU for palpitations, dizziness, near syncope. Patient was admitted to the hospital on Saturday for back pain. She was sent to the TCU yesterday. This morning she co mplained of dizziness and near syncope and EKG was performed which showed atrial fibrillation. She has no history of atrial fibrillation. She denies chest pain. She complains of shortness of breath which has been ongoing. Denies fever. She continues to have back pain. This is no worse than usual. She believes she had Covid in February 2019. Physical Examination: Vitals are stable. Heart rate 162. Patient is afebrile. Alert no acute distress. HEENT exam is unremarkable. Neck is supple. Lungs are clear and equal bilaterally. Heart is irregularly irregular and tachycardic Abdomen is soft nontender nondistended. Extremities are unremarkable. Skin is warm and dry. No focal neurologic deficit. Remainder of exam is unremarkable. Emergency Department Course and Treatment: EKG shows A. fib with RVR rate of 162. Patient was given Cardizem IV with some improvement of her heart rate. She was a started on a Cardizem drip. She was given Zofran IV. D-dimer 1.77, troponin 0.029. Chest x-ray read by myself and radiology shows right lower lobe infiltrate. The remainder the examination is unchanged. CTA chest shows no e vidence of pulmonary embolism. Bilateral pleural effusions with bibasilar compressive atelectasis and/or infiltrates. Discussed with hospitalist for admission. Disposition: Admission Impression: New onset A. fib with RVR This note was generated with [employer] dictation software. It may contain incorrect words, spelling, and punctuation that were not noted in review of the chart prior to signing ED Disposition - Plan for ED Patient: Referrals: Makenzie Ace DO [Primary Care Provider] -
[2020-06-17] MEDS: dilTIAZem 25 MG/5 ML Vial 20 MG IV BOLUS (09:59)
[2020-06-17 10:20] LABS: International Normalized Ratio 1.3; Prothrombin Time (Protime)PT. 15.1 SECONDS (11.7-14.9)
[2020-06-17 10:21] LABS: Partial Thromboplast Time 29.7 Seconds (24.1-36.2)
[2020-06-17 10:26] LABS: D-Dimer Quantitative (DVT/PE) 1.77 FEU/ug/m (0.27-0.49)
--- NOTE | 2020-06-17 10:27 | CT_ITS ---
STUDY: CTA CHEST REASON FOR EXAM: Female, 70 years old. Elevated d dimer RADIATION DOSAGE (If Supplied By Facility): CTDIvol = ( 15.41 ) mGy, DLP = ( 441.64 ) mGycm TECHNIQUE: The examination was performed with the intravenous administration of IV 100mL [id number]-370. Post-processing of the angiographic images was performed, with multiplanar reformation and 3D reconstruction. Individualized dose optimization techniques were used for this CT. COMPARISON: Comparison is made with prior CT scan of the thorax dated 03/21/2019 and prior chest radiograph done earlier in the day. FINDINGS: Normal enhancement of the main pulmonary artery and right and left pulmonary arteries. Normal enhancement of the bilateral peripheral pulmonary arteries. There is no demonstrated pulmonary embolism. Normal thoracic aorta and visualized great vessels. There is no demonstrated aortic dissection. Normal heart and pericardium. Normal mediastinum. Normal hilar regions. Normal visualized trachea and bronchi. The lungs are well expanded. Small bilateral pleural effusions slightly worse on the right side with bibasilar compressive atelectasis and/or infiltrates. Mild degree of emphysematous changes more prominent in the upper lobes. Normal chest wall structures. Status post multilevel interpedicular screw and alexia fixation of the thoracic and lumbar vertebrae. Status post right shoulder replacement. Small amount of perihepatic fluid. CT/CTA Chest W/WO Contrast IMPRESSION: No evidence of pulmonary was obtained. Bilateral pleural effusions with bibasilar compressive atelectasis and/or infiltrates. Electronically Signed: Moreno Landa MD at 11:57 EDT , Service support ,
[2020-06-17] MEDS: Ondansetron 4 MG/2 ML Vial IV (10:58)
[2020-06-17] MEDS: oxyCODONE 5 MG Tablet 10 MG PO (11:40)
--- NOTE | 2020-06-17 14:04 | HP.PCM_ITS ---
Problem List (1) Acute exacerbation of chronic low back pain Status: Acute (2) Neuropathic pain Status: Chronic (3) Chronic obstructive pulmonary disease Status: Chronic (4) Hiatal hernia Status: Chronic (5) Body mass index 37.0-37.9, adult Status: Chronic (6) Pulmonary hypertension Status: Chronic Comment: RVSP 60 mmHg (7) Dyspnea on exertion Status: Chronic (8) S/P carpal tunnel release Status: Resolved Comment: left 12/26/16 (9) Hiatal hernia with GERD Status: Chronic (10) Osteoarthritis Status: Chronic (11) Lumbar disc disease Status: Chronic (12) Scoliosis Status: Chronic Qualifiers: (13) Polio Status: Chronic (14) Hyperlipidemia Status: Chronic (15) Hypertension Status: Chronic (16) Type 2 diabetes mellitus without complications Status: Chronic Qualifiers: (17) Left carpal tunnel syndrome Status: Chronic (18) Ulnar nerve compression Status: Chronic (19) Cubital tunnel syndrome Status: Chronic (20) Hypercholesterolemia Status: Chronic (21) Hypertension Status: Chronic (22) Esophageal reflux disease Status: Chronic Qualifiers: (23) Scoliosis Status: Chronic (24) Lumbar disc disease Status: Chronic (25) Spinal fusion failure Status: Chronic (26) S/P laminectomy with spinal fusion Status: Chronic (27) Obesity (BMI 35.0-39.9 without comorbidity) Status: Chronic (28) Tobacco abuse Status: Chronic (29) Hypoxia Status: Chronic (30) Degenerative arthritis of spine Status: Chronic (31) Dehiscence of surgical wound Status: Resolved History of Present Illness Date of Admission: 06/17/20 Chief Complaint: Atrial fibrillation. The patient is a 70 year old F who presents from transitional care unit due to palpitations, dizziness and near syncope. She was found to be in atrial fibrillation. Patient was discharged to transitional care unit yesterday, 06/16/2020 for rehab due to intractable acute on chronic back pain. This morning, patient was noted to develop palpitations with dizziness and near syncope and was evaluated by nursing. EKG was performed which demonstrated atrial fibrillation. She denies chest pain. Denies other associated symptoms or complaints. Denies history of atrial fibrillation. She has a past medical history of chronic back pain, type 2 diabetes mellitus with neuropathy, hypertension, hyperlipidemia, chronic COPD, GERD, obesity, former tobacco use. Past Medical History Past Medical History (Chronic Problems): Chronic Problems (Last Reviewed 05/14/19 @ 14:33 by Arianne Smiley FULFILLMENT ASSOCIATE, FULFILLMENT ASSOCIATE-C) Neuropathic pain (Chronic) Chronic obstructive pulmonary disease (Chronic) Hiatal hernia (Chronic) Body mass index 37.0-37.9, adult (Chronic) Pulmonary hypertension (Chronic) RVSP 60 mmHg Dyspnea on exertion (Chronic) Hiatal hernia with GERD (Chronic) Osteoarthritis (Chronic) Lumbar disc disease (Chronic) Scoliosis (Chronic) Polio (Chronic) Hyperlipidemia (Chronic) Hypertension (Chronic) Type 2 diabetes mellitus without complications (Chronic) Left carpal tunnel syndrome (Chronic) Ulnar nerve compression (Chronic) Cubital tunnel syndrome (Chronic) Hypercholesterolemia (Chronic) Hypertension (Chronic) Esophageal reflux disease (Chronic) Scoliosis (Chronic) Lumbar disc disease (Chronic) Spinal fusion failure (Chronic) S/P laminectomy with spinal fusion (Chronic) Obesity (BMI 35.0-39.9 without comorbidity) (Chronic) Tobacco abuse (Chronic) Hypoxia (Chronic) Degenerative arthritis of spine (Chronic) Medical History: Medical History (Last Reviewed 05/14/19 @ 14:33 by Arianne Smiley FULFILLMENT ASSOCIATE, FULFILLMENT ASSOCIATE-C) Hiatal hernia with GERD (Chronic) K21.9, K44.9 Osteoarthritis (Chronic) M19.90 Lumbar disc disease (Chronic) M51.9 Scoliosis (Chronic) M41.9 Polio (Chronic) A80.9 Hyperlipidemia (Chronic) E78.5 Hypertension (Chronic) I10 Type 2 diabetes mellitus without complications (Chronic) E11.9 Allergies atorvastatin calcium [From Lipitor] Allergy (Verified 06/17/20 09:37) Unknown LEG CRAMPS pravastatin Allergy (Verified 06/17/20 09:37) Unknown LEG CRAMPS simvastatin Allergy (Verified 06/17/20 09:37) Unknown LEG CRAMPS morphine Adverse Reaction (Verified 06/17/20 09:37) Other BAD NIGHTMARES altace Allergy (Uncoded 06/17/20 09:37) Unknown antihyperlipidemics Allergy (Uncoded 06/17/20 09:37) Unknown LEG CRAMPS Home Medications: Ambulatory Orders Medication Instructions Recorded Glimepiride [Amaryl] 4 mg PO DAILY 05/13/15 Fenofibrate,Micronized 134 mg PO DAILY 06/04/16 [Fenofibrate] Tizanidine HCl [Zanaflex] 4 mg PO Q8H PRN 06/04/16 albuterol sulfate 90 mcg/actuation 2 puff INHALATION Q6H PRN #18 g 05/14/19 aerosol inhaler Ascorbic Acid [Vitamin C] 500 mg PO DAILY 06/09/20 Magnesium Oxide [Magnesium] 400 mg PO DAILY 06/09/20 Cyanocobalamin [Vitamin B12] 500 mcg PO QHS #0 06/15/20 Melatonin 15 mg PO QHS 06/15/20 Senna/Docusate Sodium [Senokot-S] 2 tablet PO BID PRN PRN tablet 06/15/20 Atenolol [Tenormin (beta annalee)] 25 mg PO DAILY 06/16/20 DiphenhydrAMINE [Benadryl] 25 mg PO QHS 06/16/20 Gabapentin [Neurontin] 600 mg PO 4X/DAYCM 06/16/20 Nystatin [Mycostatin] 1 applic TOPICAL TID 06/16/20 Acetaminophen [Tylenol Extra 1,000 mg PO Q6H PRN PRN 06/17/20 Strength] Enoxaparin Sodium 40 mg SQ DAILY 06/17/20 Menthol/Zinc Oxide [Calmoseptine 1 applic TOPICAL BID 06/17/20 Ointment] Oxycodone HCl 10 mg PO Q4H PRN PRN 06/17/20 Pantoprazole Sodium [Protonix] 20 mg PO QHS 06/17/20 Polyethylene Glycol 3350 17 gm PO DAILY 06/17/20 Zinc Sulfate 220 mg PO DAILY 06/17/20 traMADol [Ultram (G)] 50 mg PO Q6H PRN PRN 06/17/20 Surgical History: Surgical History (Last Reviewed 05/14/19 @ 14:33 by Arianne Smiley FULFILLMENT ASSOCIATE, FULFILLMENT ASSOCIATE-C) S/P carpal tunnel release (Resolved) Z98.890 left 12/26/16 H/O tubal ligation Z98.51 History of Z98.891 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 Psychiatric History: No pertinent psych hx FLAGMAN History: No pertinent FLAGMAN history Smoking Status: Former smoker - *Family History Paternal Family History: Family History (Last Reviewed 05/14/19 @ 14:33 by Arianne Smiley FULFILLMENT ASSOCIATE, FULFILLMENT ASSOCIATE-C) Mother Brain aneurysm Father CVA (cerebral vascular accident) Sister Thyroid cancer History Items: Stroke - age 68, - - Alcoholism Offspring Family History: Family History (Last Reviewed 05/14/19 @ 14:33 by Arianne Smiley NP, FULFILLMENT ASSOCIATE-C) Mother Brain aneurysm Father CVA (cerebral vascular accident) Sister Thyroid cancer History Items: Asthma - Multiple allergies requiring allergy shots twice weekly Maternal Family History: Family History (Last Reviewed 05/14/19 @ 14:33 by Arianne Smiley NP, FULFILLMENT ASSOCIATE-C) Mother Brain aneurysm Father CVA (cerebral vascular accident) Sister Thyroid cancer History Items: - - age 72 cerebral aneurysm; the patient's father at age of 72 from a cerebrovascular accident. He was an alcoholic. Review of Systems Constitutional: Denies: Chills, Fever, Weight Change HEENT: Denies: Head Aches, Sinus Congestion, Sinus Drainage Cardiovascular: Reports: Light Headedness, Palpitations, - - Near syncope. D enies: Chest Pain Respiratory: Denies: Cough, Shortness of breath at rest, Sputum production Gastrointestinal: Denies: Abdominal Pain, Nausea, Vomiting Genitourinary: Denies: Dysuria Musculoskeletal: Reports: Back Pain - Chronic. Denies: Joint Pain, Joint Tenderness Skin: Denies: Rash, Wounds Neurological: Denies: Numbness, Tingling, Focal weakness Psychiatric: Denies: Anxiety, Depression, Homicidal Ideations, Suicidal I deations Hematologic/ Lymphatic: Denies: Easy Bruising, Easy Bleeding VTE Information - Inpt Only VTE Present on Admission: No VTE Mechan Device Prophylaxis: None VTE Pharm Prophylaxis ordered?: Yes Patient Problems: Active and Suspected Problems (Last Reviewed 05/14/19 @ 14:33 by Arianne Smiley NP, FULFILLMENT ASSOCIATE-C) Acute exacerbation of chronic low back pain (Acute) - Physical Exam Vitals/I&O's: Vital Signs Temp Pulse Resp BP Pulse Ox 98.8 F 124 H 18 118/62 90 06/17/20 12:47 06/17/20 13:29 06/17/20 13:29 06/17/20 13:29 06/17/20 13:29 Oxygen Flow Rate (L/min) 3 Oxygen Delivery Method Nasal Cannula Weight: 188 lb 11.451 oz Body Mass Index (BMI) 39.4 Finger Stick Blood Glucose 83 Intake and Output for Last 24 Hours 06/15/20 06/16/20 06/17/20 23:59 23:59 23:59 Intake Total .02.18 Balance 02.18 General: Alert, Oriented x3, Cooperative HEENT: Atraumatic, PERRLA, EOMI, Normocephalic Neck: Supple, No JVD, Negative Carotid Bruits Lungs: Clear to auscultation, Normal air movement Cardiovascular: - - Atrial fibrillation, tachycardic Abdomen: Bowel Sounds Present, Soft, Non Tender, Non-Distended Extremities: No clubbing, No cyanosis, No edema, Capillary Refill Less than 3 Seconds Skin: No rashes, No breakdown Musculoskeletal: No Tenderness to Palpation of Joints or Extremities Neurological: Cranial nerves II-XII grossly intact, Neuro grossly intact Psych/Mental Status: Normal Affect, Appropriate Laboratory Results 06/17/20 09:55: PT 15.1 H, INR 1.3, APTT 29.7, D-Dimer Quant (PE/DVT) 1.77 H* 06/17/20 09:55: Troponin I 0.029 Current Medications Diltiazem HCl 125 mg/ Dextrose 125 mls @ 5 mls/hr IV .Q25H [facility]; Protocol Last Titration: 06/17/20 13:29 Dose: 15 mg/hr, 15 mls/hr Documented by: Assessment/Plan All Active Problems (Last Reviewed 05/14/19 @ 14:33 by Arianne Smiley FULFILLMENT ASSOCIATE, FULFILLMENT ASSOCIATE- C) Acute exacerbation of chronic low back pain (Acute) S/P carpal tunnel release (Resolved) Dehiscence of surgical wound (Resolved) 1. New onset atrial fibrillation with RVR-placed on Cardizem drip in ER. D- dimer elevated. CTA without PE. Trend enzymes. Begin Eliquis. Obtain echocardiogram. Continue Cardizem drip for rate control. 2. Debility with intractable back pain, chronic lumbar spinal radicular pain- discharge to transitional care 06/16/20 for rehab. 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 PT/OT. As needed pain regimen. Plan for return to rehab following treatment of above. 3. Type 2 diabetes mellitus with [id number] with sliding scale insulin. Continue oral regimen. Continue gabapentin regimen. 4. Hypertension-stable, on atenolol. 5. Hyperlipidemia-on fenofibrate. 6. Chronic COPD-as needed albuterol aerosol. 7. GERD-continue PPI. 8. Obesity-encouraged diet and lifestyle modifications. 9. Former tobacco use-encouraged continued cessation. DVT prophylaxis- Lovenox sc This patient was seen by CEDRIC Peacock under the supervision of Dr. Vale.
--- NOTE | 2020-06-17 14:06 | ECHOD_ITS ---
Reason For Study: Afib Procedure This was a 2D Doppler, Color Flow transthoracic echocardiogram. The study was technically difficult. Patient has severe fungal infection under left breast, unable to tolerate probe pressure, apicals are foreshortened. Exam performed portable in patient room. Left Ventricle Normal LV size. The estimated ejection fraction is 55 %. Unable to assess diastolic dysfunction. No regional wall motion abnormalities noted. Right Ventricle Normal RV size. Normal systolic function. Atria The left atrium is mildly enlarged. The right atrium is mildly enlarged. No doppler evidence for ASD. Mitral Valve There is no mitral valve stenosis. Mild-Moderate (1-2+) mitral valve insufficiency. Tricuspid Valve There is no tricuspid stenosis. Mild tricuspid valve insufficiency. Pulmonary artery systolic pressure is 40 mmHg. Aortic Valve Aortic sclerosis, no stenosis. There is no aortic stenosis. No aortic valve insufficiency. Pulmonic Valve There is no pulmonic valvular stenosis. No pulmonic valve insufficiency. Great Vessels Normal aortic root. Pericardium/Pleural No pericardial effusion. MMode/2D Measurements & Calculations LVIDd: 4.5 cm IVSd: 0.77 cm Ao root diam: 3.0 cm LVIDs: 3.5 cm LVPWd: 0.75 cm RVDd: 2.9 cm FS: 21.7 % LAV(MOD-bp): 29.4 ml LA A4 area: 13.1 cm2 LA dimension(2D): 4.8 cm LAV(MOD-bp) Indexed: 16.6 ml/m2 LAV(MOD-sp2): 20.4 ml LAV(MOD-sp4): 31.0 ml RA A4 area: 15.3 cm2 Doppler Measurements & Calculations MV E max ye: 81.1 cm/sec Ao V2 max: 84.3 cm/sec LV V1 max: 59.0 cm/sec Ao max P.8 mmHg LV V1 max P.4 mmHg Ao V2 mean: 61.9 cm/sec Ao mean P.7 mmHg Ao V2 VTI: 15.4 cm PA V2 max: 50.7 cm/sec TR max ye: 289.4 cm/sec TR max P.5 mmHg ECHO/Echo Complete Interpretation Summary The estimated ejection fraction is 55 %. Unable to assess diastolic dysfunction. Mild-Moderate (1-2+) mitral valve insufficiency. Mild tricuspid valve insufficiency. The left atrium is mildly enlarged. The right atrium is mildly enlarged. Ordering Physician: Deshaun Vale Referring Physician: Israel Carrion Performed By: Peggy Jean-Baptiste, FAVIANCS, RVT
--- NOTE | 2020-06-17 15:11 | CON.PCM_ITS ---
Reason for Consult Date of Consultation: 06/17/20 Reason for Consultation: Atrial fibrillation with rapid ventricular response History of Present Illness: The patient is a 70 year old F [presenting to the ER with severe back pain. She was found to be in A. fib with RVR. The ER notes and H&P do mention that the patient was having palpitations, dizziness, near syncope. Patient denies any chest pain or shortness of breath. In the emergency room she was started on Cardizem drip and her heart rate is better controlled. Review of systems: All systems reviewed. All else is negative except that in HPI.] Past Medical History Allergies/Adverse Reactions: Allergies atorvastatin calcium [From Lipitor] Allergy (Verified 06/17/20 09:37) Unknown LEG CRAMPS pravastatin Allergy (Verified 06/17/20 09:37) Unknown LEG CRAMPS simvastatin Allergy (Verified 06/17/20 09:37) Unknown LEG CRAMPS morphine Adverse Reaction (Verified 06/17/20 09:37) Other BAD NIGHTMARES altace Allergy (Uncoded 06/17/20 09:37) Unknown antihyperlipidemics Allergy (Uncoded 06/17/20 09:37) Unknown LEG CRAMPS Home Medications: Ambulatory Orders Medication Instructions Recorded Glimepiride [Amaryl] 4 mg PO DAILY 05/13/15 Fenofibrate,Micronized 134 mg PO DAILY 06/04/16 [Fenofibrate] Tizanidine HCl [Zanaflex] 4 mg PO Q8H PRN 06/04/16 albuterol sulfate 90 mcg/actuation 2 puff INHALATION Q6H PRN #18 g 05/14/19 aerosol inhaler Ascorbic Acid [Vitamin C] 500 mg PO DAILY 06/09/20 Magnesium Oxide [Magnesium] 400 mg PO DAILY 06/09/20 Cyanocobalamin [Vitamin B12] 500 mcg PO QHS #0 06/15/20 Melatonin 15 mg PO QHS 06/15/20 Senna/Docusate Sodium [Senokot-S] 2 tablet PO BID PRN PRN tablet 06/15/20 Atenolol [Tenormin (beta annalee)] 25 mg PO DAILY 06/16/20 DiphenhydrAMINE [Benadryl] 25 mg PO QHS 06/16/20 Gabapentin [Neurontin] 600 mg PO 4X/DAYCM 06/16/20 Nystatin [Mycostatin] 1 applic TOPICAL TID 06/16/20 Acetaminophen [Tylenol Extra 1,000 mg PO Q6H PRN PRN 06/17/20 Strength] Enoxaparin Sodium 40 mg SQ DAILY 06/17/20 Menthol/Zinc Oxide [Calmoseptine 1 applic TOPICAL BID 06/17/20 Ointment] Oxycodone HCl 10 mg PO Q4H PRN PRN 06/17/20 Pantoprazole Sodium [Protonix] 20 mg PO QHS 06/17/20 Polyethylene Glycol 3350 17 gm PO DAILY 06/17/20 Zinc Sulfate 220 mg PO DAILY 06/17/20 traMADol [Ultram (G)] 50 mg PO Q6H PRN PRN 06/17/20 Past Medical History (Chronic Problems): Chronic Problems (Last Reviewed 05/14/19 @ 14:33 by Arianne Smiley DRUG REGULATORY AFFAIRS SPECIALIST, DRUG REGULATORY AFFAIRS SPECIALIST-C) Neuropathic pain (Chronic) Chronic obstructive pulmonary disease (Chronic) Hiatal hernia (Chronic) Body mass index 37.0-37.9, adult (Chronic) Pulmonary hypertension (Chronic) RVSP 60 mmHg Dyspnea on exertion (Chronic) Hiatal hernia with GERD (Chronic) Osteoarthritis (Chronic) Lumbar disc disease (Chronic) Scoliosis (Chronic) Polio (Chronic) Hyperlipidemia (Chronic) Hypertension (Chronic) Type 2 diabetes mellitus without complications (Chronic) Left carpal tunnel syndrome (Chronic) Ulnar nerve compression (Chronic) Cubital tunnel syndrome (Chronic) Hypercholesterolemia (Chronic) Hypertension (Chronic) Esophageal reflux disease (Chronic) Scoliosis (Chronic) Lumbar disc disease (Chronic) Spinal fusion failure (Chronic) S/P laminectomy with spinal fusion (Chronic) Obesity (BMI 35.0-39.9 without comorbidity) (Chronic) Tobacco abuse (Chronic) Hypoxia (Chronic) Degenerative arthritis of spine (Chronic) Surgical History: appendectomy, cataract - 2012, total knee arthroplasty - bilateral, - - carpal tunnel 1989, lumbar fusion x 6; the patient has had multiple back surgeries with placement of metal hardware, tubal ligation, C- section, reverse total right shoulder replacement. 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: No pertinent ORANGE PICKING SUPERVISOR history - *Family History Paternal Family History: Family History (Last Reviewed 05/14/19 @ 14:33 by Arianne Smiley DRUG REGULATORY AFFAIRS SPECIALIST, DRUG REGULATORY AFFAIRS SPECIALIST-C) Mother Brain aneurysm Father CVA (cerebral vascular accident) Sister Thyroid cancer History Items: Stroke - age 68, - - Alcoholism Offspring Family History: Family History (Last Reviewed 05/14/19 @ 14:33 by Arianne Smiley DRUG REGULATORY AFFAIRS SPECIALIST, DRUG REGULATORY AFFAIRS SPECIALIST-C) Mother Brain aneurysm Father CVA (cerebral vascular accident) Sister Thyroid cancer History Items: Asthma - Multiple allergies requiring allergy shots twice weekly Maternal Family History: Family History (Last Reviewed 05/14/19 @ 14:33 by Arianne Smiley DRUG REGULATORY AFFAIRS SPECIALIST, DRUG REGULATORY AFFAIRS SPECIALIST-C) Mother Brain aneurysm Father CVA (cerebral vascular accident) Sister Thyroid cancer History Items: - - age 72 cerebral aneurysm; the patient's father at age of 72 from a cerebrovascular accident. He was an alcoholic. Smoking Status: Former smoker Objective: Vital Signs Temp Pulse Resp BP Pulse Ox 98.8 F 124 H 18 118/62 90 06/17/20 12:47 06/17/20 14:30 06/17/20 13:29 06/17/20 13:29 06/17/20 13:29 Oxygen Flow Rate (L/min) 3 Oxygen Delivery Method Nasal Cannula Weight: 191 lb 9.307 oz Body Mass Index (BMI) 40.0 Finger Stick Blood Glucose 83 Intake and Output for Last 24 Hours 06/15/20 06/16/20 06/17/20 23:59 23:59 23:59 Intake Total 12.25 / 12.25 Balance 12.25 / 12.25 General: Awake, Alert, Oriented x 3 HEENT: Atraumatic Oral: Moist Mucosa Neck: Supple Lungs: Clear to auscultation Cardiovascular: Irregular Rhythm Abdomen: Soft Extremities: Bilateral Edema +1 Psych/Mental Status: Appropriate 06/17/20 09:55: PT 15.1 H, INR 1.3, APTT 29.7, D-Dimer Quant (PE/DVT) 1.77 H* 06/17/20 09:55: Troponin I 0.029 Rhythm: EKG: ECHO: Stress Test: Cardiac Cath: PCI: CT Surgery: Holter monitor: EPS: PPM: CXR: Chest CT Scan: Assessment/Plan 1. Atrial fibrillation: Patient is on Cardizem drip. We will start her on p.o. Cardizem and DC the IV Cardizem. Patient is also being started on Eliquis.
[2020-06-17] MEDS: dilTIAZem 30 MG Tablet PO ×2 (17:24→23:28)
[2020-06-17] MEDS: APIXABAN 5 MG TABLET PO (17:24)
[2020-06-17] MEDS: Gabapentin 600 MG Tablet PO ×2 (17:24→21:36)
[2020-06-17] MEDS: HYDROcodone Bitartrate/Apap 5/325 Tablet PO ×2 (17:27→23:28)
[2020-06-17] MEDS: 0.9% Saline Lock 10 ML Syringe IV ×2 (18:41→23:27)
[2020-06-17] MEDS: Pantoprazole Sodium 20 MG Tablet PO (21:36)
[2020-06-17] MEDS: Cyanocobalamin 500 MCG Tablet PO (21:36)
[2020-06-17] MEDS: DiphenhydrAMINE 25 MG Capsule PO (21:36)
[2020-06-17] MEDS: Nystatin Ointment 1 APPLIC TOPICAL (21:36)
--- NOTE | 2020-06-17 23:55 | PCA ---
Pt up to [facility]SC x1 assist w/o incident.
[2020-06-18] VITALS (29 sets, daily range): BP systolic 93–133; BP diastolic 59–109; PULSE 64–117; RESP 10–27; TEMP 36.2–37.1; O2SAT 88–96
[2020-06-18] MEDS: Insulin Lispro 100 UNIT/ML INSULN.PEN SC ×4 (06:48→21:44)
[2020-06-18] MEDS: dilTIAZem 30 MG Tablet PO (06:50)
[2020-06-18 07:00] LABS: Bedside Glucose 167 mg/dL (70-110)
[2020-06-18] MEDS: Gabapentin 600 MG Tablet PO ×4 (08:37→21:43)
[2020-06-18] MEDS: Glimepiride 4 MG Tablet PO (08:37)
[2020-06-18] MEDS: HYDROcodone Bitartrate/Apap 5/325 Tablet PO ×3 (08:37→23:14)
--- NOTE | 2020-06-18 08:47 | RAD_ITS ---
STUDY: X-RAY CHEST REASON FOR EXAM: Female, 70 years old. dyspnea TECHNIQUE: Single AP portable view of the chest. COMPARISON: 06/17/2020 FINDINGS: Poor inspiration with some bibasilar atelectasis. There is no demonstrated pleural abnormality. Normal size heart. Normal mediastinum and giancarlo. Normal visualized pulmonary arteries. Normal visualized aortic arch and descending thoracic aorta. Spinal rods. Status post right shoulder reverse arthroplasty. There is no demonstrated abnormality of the visualized soft tissue structures of the upper abdomen. RAD/Chest 1 View (Portable) IMPRESSION: No change from 06/17/2020. Electronically Signed: Kendell Flanagan MD at 9:57 EDT Tel , Service support ,
--- NOTE | 2020-06-18 10:19 | PCM.PROGNOTE ---
Patient Problems: Active and Suspected Problems (Last Reviewed 05/14/19 @ 14:33 by Arianne Smiley SYSTEMS CONSULTANT, SYSTEMS CONSULTANT-C) Acute exacerbation of chronic low back pain (Acute) Subjective: Patient seen and examined. Denies further palpitations, shortness of breath. Denies chest pain. Remains on Cardizem drip, heart rate currently controlled. - Physical Exam Vitals/I&O's: Vital Signs Temp Pulse Resp BP Pulse Ox 98.3 F 110 H 19 H 120/95 H 90 06/18/20 08:00 06/18/20 08:40 06/18/20 08:00 06/18/20 08:00 06/18/20 08:00 Oxygen Flow Rate (L/min) 6 Oxygen Delivery Method Nasal Cannula Weight: 191 lb 9.307 oz Body Mass Index (BMI) 40.0 Finger Stick Blood Glucose 83 Intake and Output for Last 24 Hours 06/16/20 06/17/20 06/18/20 23:59 23:59 23:59 Intake Total 218.42 / 462.17 381.58 / 381.58 Balance 218.42 / 462.17 381.58 / 381.58 General: Alert, Oriented x3, Cooperative HEENT: Atraumatic, PERRLA, EOMI, Normocephalic Neck: Supple, No JVD, Negative Carotid Bruits Lungs: Clear to auscultation, Normal air movement Cardiovascular: - - Atrial fibrillation, tachycardic Abdomen: Bowel Sounds Present, Soft, Non Tender, Non-Distended Extremities: No clubbing, No cyanosis, No edema, Capillary Refill Less than 3 Seconds Skin: No rashes, No breakdown Musculoskeletal: No Tenderness to Palpation of Joints or Extremities Neurological: Cranial nerves II-XII grossly intact, Neuro grossly intact Psych/Mental Status: Normal Affect, Appropriate Laboratory Results 06/17/20 09:55: PT 15.1 H, INR 1.3, APTT 29.7, D-Dimer Quant (PE/DVT) 1.77 H* 06/17/20 09:55: Troponin I 0.029 06/17/20 15:25: Troponin I 0.020 06/17/20 18:00: Troponin I 0.019 06/18/20 06:47: POC Glucose 167 H Current Medications Hydrocodone Bitart/Acetaminophen (Hydrocodone Bitartrate/Apap 5/325 Tablet) 1 - 2 tablet PO Q6H PRN PRN PRN Reason: Pain Score 6-10 Last Admin: 06/18/20 08:37 Dose: 2 tablet Documented by: Apixaban (Apixaban 5 Mg Tablet) 5 mg PO BID [facility] Last Admin: 06/17/20 19:55 Dose: Not Given Documented by: Atenolol (Atenolol 25 Mg Tablet) 25 mg PO DAILY [facility] Cyanocobalamin (Cyanocobalamin 500 Mcg Tablet) 500 mcg PO QHS [facility] Last Admin: 06/17/20 21:36 Dose: 500 mcg Documented by: Dextrose (Dextrose 50%-Water 25 Gm/50 Ml Disp.Syrin) 0 gm IV X1 PRN; Protocol PRN Reason: Hypoglycemia Diltiazem HCl (Diltiazem 30 Mg Tablet) 60 mg PO Q6 [facility] Diphenhydramine HCl (Diphenhydramine 25 Mg Capsule) 25 mg PO QHS [facility] Last Admin: 06/17/20 21:36 Dose: 25 mg Documented by: Gabapentin ([facility]entin 600 Mg Tablet) [facility] Last Admin: 06/18/20 08:37 Dose: 600 mg Documented by: Glimepiride ([facility]pir[facility] 4 Mg Tablet) [facility] Last Admin: 06/18/20 08:37 Dose: 4 mg Documented by: Glucagon (Glucagon 1 Mg/Ml Syringe) 1 mg IM .X1 PRN PRN Reason: Hypoglycemia Diltiazem HCl 125 mg/ Dextrose 125 mls @ 5 mls/hr IV .Q25H [facility]; Protocol Last Titration: 06/18/20 08:40 Dose: 15 mg/hr, 15 mls/hr Documented by: Insulin Human Lispro (Insulin Lispro 100 Unit/Ml Insuln.Pen) 0 unit SC ACHS [facility]; Protocol Last Admin: 06/18/20 06:48 Dose: 1 unit Documented by: Melatonin (Melatonin 10 Mg Tablet) 15 mg PO QHS [facility] Last Admin: 06/18/20 01:04 Dose: Not Given Documented by: Morphine Sulfate (Morphine 4 Mg/Ml Syringe) 4 mg IV Q3H PRN PRN PRN Reason: Pain Score 6-10 Nystatin (Nystatin Ointment) 1 applic TOPICAL TID [facility]; Protocol Last Admin: 06/18/20 06:52 Dose: Not Given Documented by: Ondansetron HCl (Ondansetron 4 Mg/2 Ml Vial) 4 mg IV Q8H PRN PRN PRN Reason: NAUSEA/VOMITING Pantoprazole Sodium (Pantoprazole Sodium 20 Mg Tablet) 20 mg PO QHS [facility] Last Admin: 06/17/20 21:36 Dose: 20 mg Documented by: Senna/Docusate Sodium (Senna/Docusate Sodium 1 Tablet) 2 tablet PO BID PRN PRN PRN Reason: Constipation Sodium Chloride (0.9% Saline Lock 10 Ml Syringe) 10 - 40 ml IV UD PRN PRN Reason: SALINE FLUSH Last Admin: 06/17/20 23:27 Dose: 10 ml Documented by: Tizanidine HCl (Tizanidine Hcl 2 Mg Tablet) 4 mg PO Q8H PRN PRN PRN Reason: SPASMS Medical Necessity - Tobacco Use Smoking Status: Former smoker Tobacco Use: Cigarettes Assessment/Plan All Active Problems (Last Reviewed 05/14/19 @ 14:33 by Arianne Smiley SYSTEMS CONSULTANT, SYSTEMS CONSULTANT-C) Acute exacerbation of chronic low back pain (Acute) S/P carpal tunnel release (Resolved) Dehiscence of surgical wound (Resolved) 1. New onset atrial fibrillation with RVR-D-dimer elevated. CTA without PE. Enzymes normal. On Cardizem drip. Continue Eliquis 5 mg twice daily. Echocardiogram demonstrates an EF of 55%, mild to moderate mitral valve insufficiency. Cardiology following. 2. Acute hypoxic respiratory insufficiency-CTA unremarkable as noted above. Chest x-ray shows atelectasis. Check BNP. IV lasix X1. Continue supplement oxygen to maintain O2 at above 90%. 3. Debility with intractable back pain, chronic lumbar spinal radicular pain-discharge to transitional care 06/16/20 for rehab. 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 PT/OT. As needed pain regimen. Plan for return to rehab following treatment of above. 4. Type 2 diabetes mellitus with [id number] with sliding scale insulin. Continue oral regimen. Continue gabapentin regimen. 5. Hypertension-stable, on atenolol. 6. Hyperlipidemia-on fenofibrate. 7. Chronic COPD-as needed albuterol aerosol. 8. GERD-continue PPI. 9. Obesity-encouraged diet and lifestyle modifications. 10. Former tobacco use-encouraged continued cessation. DVT prophylaxis- Lovenox sc This patient was seen by CEDRIC Peacock under the supervision of Dr. Vale.
[2020-06-18] MEDS: Atenolol 25 MG Tablet PO (10:31)
[2020-06-18] MEDS: APIXABAN 5 MG TABLET PO ×2 (10:31→21:44)
[2020-06-18 10:55] LABS: Hematocrit 39.7 % (37-47); Hemoglobin 11.6 g/dL (12.0-15.0); Mean Corp Hgb Conc 29.2 g/dL (32-36); Mean Corpuscular Hgb 28.6 pg (27.0-32.0); Mean Corpuscular Volume 97.8 fL (81-99); Mean Platelet Vol. 10.5 fl (6.2-12.0); Platelet Count 280 K/mm3 (150-450); RBC Distribution Width CV 16.9 % (11.6-14.6); RBC Distribution Width SD 60.6 fl (35.1-43.9); Red Blood Count 4.06 M/mm3 (4.2-5.4); White Blood Count 12.4 K/mm3 (4.4-11.0)
[2020-06-18] MEDS: Furosemide 40 MG/4 ML Vial IV (11:05)
[2020-06-18 11:11] LABS: Anion Gap 2 (5-15); BUN 27 mg/dL (7-18); BUN/Creat Ratio 18.6 RATIO (10-20); Calcium,Total 8.6 mg/dL (8.5-10.1); Chloride 99 mmol/L (98-107); Creatinine, Serum 1.45 mg/dL (0.55-1.02); EST Glomerular Filtration Rate 38 mL/min (>60); Est Glom Filt Rate - Afr Amer 46 mL/min (>60); Estimated Creatinine Clearance 48.82 ml/min; Glucose 253 mg/dL (74-106); Potassium 4.5 mmol/L (3.5-5.1); Sodium Level 130 mmol/L (136-145)
[2020-06-18 11:20] LABS: BNP,B-Type NATRIURETIC PEPTIDE 429.3 pg/mL (0-100)
[2020-06-18 11:25] LABS: Bedside Glucose 290 mg/dL (70-110)
[2020-06-18] MEDS: dilTIAZem 30 MG Tablet 60 MG PO ×3 (12:31→23:13)
--- NOTE | 2020-06-18 13:48 | PCM.PN.CARD ---
Subjectve: Patient is doing well symptom sanchez. Still requires IV and p.o. Cardizem. Heart rate is better now. We will start weaning off IV Cardizem. Objective: Vital Signs Temp Pulse Resp BP Pulse Ox 98.2 F 84 14 124/92 H 91 06/18/20 12:00 06/18/20 13:40 06/18/20 13:40 06/18/20 13:40 06/18/20 13:40 Oxygen Flow Rate (L/min) 5 Oxygen Delivery Method Nasal Cannula Weight: 191 lb 9.307 oz Body Mass Index (BMI) 40.0 Finger Stick Blood Glucose 83 Intake and Output for Last 24 Hours 06/16/20 06/17/20 06/18/20 23:59 23:59 23:59 Intake Total 218.42 / 462.17 437.83 / 437.83 Output Total 50 / 50 Balance 218.42 / 462.17 387.83 / 387.83 General: Awake, Alert, Oriented x 3 HEENT: Atraumatic Oral: Moist Mucosa Neck: Supple Cardiovascular: Irregular Rhythm 06/17/20 15:25: Troponin I 0.020 06/17/20 18:00: Troponin I 0.019 06/18/20 10:39: WBC 12.4 H, RBC 4.06 L, Hgb 11.6 L, Hct 39.7, MCV 97.8, MCH 28.6, MCHC 29.2 L, Plt Count 280, MPV 10.5 06/18/20 10:39: Sodium 130 L, Potassium 4.5, Chloride 99, Carbon Dioxide 29.0, Anion Gap 2 L, BUN 27 H, Creatinine 1.45 H, Est GFR (MDRD) Af Amer 46 L, Est GFR (MDRD) Non-Af 38 L, BUN/Creatinine Ratio 18.6, Glucose 253 H, Calcium 8.6 06/18/20 10:39: B-Natriuretic Peptide 429.3 H Rhythm: EKG: ECHO: Stress Test: Cardiac Cath: PCI: CT Surgery: Holter monitor: EPS: PPM: CXR: Chest CT Scan: Medical Necessity - Tobacco Use Smoking Status: Former smoker Tobacco Use: Cigarettes Assessment/Plan 1. Atrial fibrillation: Still requires IV and p.o. Cardizem. Heart rate is better now. We will start weaning off IV Cardizem.
--- NOTE | 2020-06-18 13:59 | NURSING ---
RN CM Assessment Introduced role of RN CM to patient.? Patient is alert, oriented and able?to participate in RN CM Assessment. ?Care providers, pharmacy, and demographics verified. Admit Dx: Afib RVR Re-Admit: No. Was in ER on 06/09/20 for Fall, Admitted Obs on 06/14-06/16/20 for intractable back pain and Dc'd to TCU Barriers/Issues: Admitted from TCU, Afib RVR new for patient. Patient lives alone. Son Arvind Alarcon listed on demographics recently . Has a Dtr in [facility] that she has not spoken with for four years. Only support is Dtr Marcy that lives in [place], [place]. PCP: Sheyla Specialists: None Preferred Pharmacy: [facility] Insurance: O [facility] Rx Benefit:?Yes LNOK: Dtr Marcy Sewell LW/HPOA: States has completed both and HPOA is Dtr Marcy Living Arrangements:? Lives alone in a 2SH, bedroom on upper level. 3 steps to enter home with no handrails. ADL?s: Ambulated independently prior to going to TCU and fall. Independent with ADLs. Has been using a cane lately since fall. Transportation: Patient drives DME: Cane, walker, has a shower chair that she uses for gardening. HHC: Was active with [facility] prior to going to TCU SNF: TCU Goal: Return to TCU and have [facility] after. Denies any issues, questions or concerns with DC planning at this time. RNCM remains available should any needs arise. DC PLAN: Return to TCU. JEREMY Koch
[2020-06-18] MEDS: Fluconazole 100 MG Tablet 200 MG PO (15:48)
[2020-06-18] MEDS: Azithromycin 250 MG Tablet 500 MG PO (17:12)
[2020-06-18 17:25] LABS: Bedside Glucose 151 mg/dL (70-110)
[2020-06-18] MEDS: Budesonide Respules 0.5 MG/2 ML AMPUL.NEB. INHALATION (19:12)
[2020-06-18] MEDS: Cyanocobalamin 500 MCG Tablet PO (21:43)
[2020-06-18] MEDS: 0.9% Saline Lock 10 ML Syringe IV (21:44)
[2020-06-18] MEDS: DiphenhydrAMINE 25 MG Capsule PO (21:44)
[2020-06-18] MEDS: Pantoprazole Sodium 20 MG Tablet PO (21:44)
[2020-06-18 21:50] LABS: Bedside Glucose 177 mg/dL (70-110)
[2020-06-18] MEDS: Menthol/Lanolin/Calamine/Znox 113 GM Tube 1 APPLIC TOPICAL (21:50)
[2020-06-18] MEDS: MELATONIN 10 MG TABLET 15 MG PO (23:13)
[2020-06-18] MEDS: tiZANidine HCl 2 MG Tablet 4 MG PO (23:16)
[2020-06-19] VITALS (16 sets, daily range): BP systolic 64–102; BP diastolic 42–64; PULSE 61–113; RESP 13–20; TEMP 36.1–36.8; O2SAT 94–97
[2020-06-19 05:50] LABS: Hematocrit 37.9 % (37-47); Hemoglobin 11.3 g/dL (12.0-15.0); Mean Corp Hgb Conc 29.8 g/dL (32-36); Mean Corpuscular Hgb 29.2 pg (27.0-32.0); Mean Corpuscular Volume 97.9 fL (81-99); Mean Platelet Vol. 10.7 fl (6.2-12.0); Platelet Count 235 K/mm3 (150-450); RBC Distribution Width CV 16.8 % (11.6-14.6); RBC Distribution Width SD 60.2 fl (35.1-43.9); Red Blood Count 3.87 M/mm3 (4.2-5.4); White Blood Count 8.3 K/mm3 (4.4-11.0)
[2020-06-19 06:04] LABS: Anion Gap 6 (5-15); BUN 29 mg/dL (7-18); BUN/Creat Ratio 14.2 RATIO (10-20); Calcium,Total 8.5 mg/dL (8.5-10.1); Chloride 96 mmol/L (98-107); Creatinine, Serum 2.04 mg/dL (0.55-1.02); EST Glomerular Filtration Rate 26 mL/min (>60); Est Glom Filt Rate - Afr Amer 31 mL/min (>60); Glucose 132 mg/dL (74-106); Potassium 4.8 mmol/L (3.5-5.1); Sodium Level 130 mmol/L (136-145)
[2020-06-19] MEDS: 0.9% Saline Lock 10 ML Syringe IV (06:50)
[2020-06-19 06:55] LABS: Bedside Glucose 136 mg/dL (70-110)
[2020-06-19] MEDS: Budesonide Respules 0.5 MG/2 ML AMPUL.NEB. INHALATION ×2 (07:15→19:30)
[2020-06-19] MEDS: Azithromycin 250 MG Tablet 500 MG PO (09:08)
[2020-06-19] MEDS: Glimepiride 4 MG Tablet PO (09:08)
[2020-06-19] MEDS: APIXABAN 5 MG TABLET PO ×2 (09:09→22:04)
[2020-06-19] MEDS: Fluconazole 100 MG Tablet 200 MG PO (09:09)
[2020-06-19] MEDS: Menthol/Lanolin/Calamine/Znox 113 GM Tube 1 APPLIC TOPICAL ×2 (09:09→22:04)
[2020-06-19] MEDS: dilTIAZem CD 180 MG Capsule PO (09:17)
[2020-06-19] MEDS: HYDROcodone Bitartrate/Apap 5/325 Tablet PO (09:20)
[2020-06-19] MEDS: Insulin Lispro 100 UNIT/ML INSULN.PEN SC ×3 (11:29→22:02)
[2020-06-19 11:41] LABS: Bedside Glucose 210 mg/dL (70-110)
--- NOTE | 2020-06-19 12:28 | PCM.PROGNOTE ---
Patient Problems: Active and Suspected Problems (Last Reviewed 05/14/19 @ 14:33 by Arianne Smiley TERRITORY REPRESENTATIVE, TERRITORY REPRESENTATIVE-C) Acute exacerbation of chronic low back pain (Acute) Subjective: Patient seen and examined. Patient became hypotensive overnight and IV Cardizem drip discontinued. Heart rate stable on oral Cardizem. No new symptoms or complaints. - Physical Exam Vitals/I&O's: Vital Signs Temp Pulse Resp BP Pulse Ox 97.3 F L 76 15 102/64 94 06/19/20 09:00 06/19/20 11:00 06/19/20 09:00 06/19/20 09:00 06/19/20 09:00 Oxygen Flow Rate (L/min) 5 Oxygen Delivery Method Nasal Cannula Weight: 191 lb 9.307 oz Body Mass Index (BMI) 40.0 Finger Stick Blood Glucose 83 Intake and Output for Last 24 Hours 06/17/20 06/18/20 06/19/20 23:59 23:59 23:59 Intake Total 218.42 / 462.17 466.00 / 706.00 1230 / 1230 Output Total 50 / 50 50 / 50 Balance 218.42 / 462.17 416.00 / 656.00 1180 / 1180 General: Alert, Oriented x3, Cooperative HEENT: Atraumatic, PERRLA, EOMI, Normocephalic Neck: Supple, No JVD, Negative Carotid Bruits Lungs: Clear to auscultation, Normal air movement Cardiovascular: - - Atrial fibrillation, rate controlled Abdomen: Bowel Sounds Present, Soft, Non Tender, Non-Distended Extremities: No clubbing, No cyanosis, No edema, Capillary Refill Less than 3 Seconds Skin: No rashes, No breakdown Musculoskeletal: No Tenderness to Palpation of Joints or Extremities Neurological: Cranial nerves II-XII grossly intact, Neuro grossly intact Psych/Mental Status: Normal Affect, Appropriate Laboratory Results 06/18/20 15:46: POC Glucose 151 H 06/18/20 21:41: POC Glucose 177 H 06/19/20 05:05: WBC 8.3, RBC 3.87 L, Hgb 11.3 L, Hct 37.9, MCV 97.9, MCH 29.2, MCHC 29.8 L, RDW Std Deviation 60.2 H, RDW Coeff of Liseth 16.8 H, Plt Count 235, MPV 10.7 06/19/20 05:05: Sodium 130 L, Potassium 4.8, Chloride 96 L, Carbon Dioxide 28.0, Anion Gap 6, BUN 29 H, Creatinine 2.04 H, Estim Creat Clear Calc 34.70, Est GFR (MDRD) Af Amer 31 L, Est GFR (MDRD) Non-Af 26 L, BUN/Creatinine Ratio 14.2, Glucose 132 H, Calcium 8.5 06/19/20 06:51: POC Glucose 136 H 06/19/20 11:27: POC Glucose 210 H Current Medications Hydrocodone Bitart/Acetaminophen (Hydrocodone Bitartrate/Apap 5/325 Tablet) 1 - 2 tablet PO Q6H PRN PRN PRN Reason: Pain Score 6-10 Last Admin: 06/19/20 09:20 Dose: 2 tablet Documented by: Apixaban (Apixaban 5 Mg Tablet) 5 mg PO BID [facility] Last Admin: 06/19/20 09:09 Dose: 5 mg Documented by: Atenolol (Atenolol 25 Mg Tablet) 25 mg PO DAILY [facility] Last Admin: 06/19/20 09:10 Dose: Not Given Documented by: Azithromycin (Azithromycin 250 Mg Tablet) 500 mg PO Q24 [facility] Last Admin: 06/19/20 09:08 Dose: 500 mg Documented by: Budesonide (Budesonide Respules 0.5 Mg/2 Ml Ampul.Neb.) 0.5 mg INHALATION BID.RT [facility] Last Admin: 06/19/20 07:15 Dose: 0.5 mg Documented by: Calamine/Phenol (Menthol/Lanolin/Calamine/Znox 113 Gm Tube) 1 applic TOPICAL BID [facility]; Protocol Last Admin: 06/19/20 09:09 Dose: 1 applic Documented by: Cyanocobalamin (Cyanocobalamin 500 Mcg Tablet) 500 mcg PO QHS [facility] Last Admin: 06/18/20 21:43 Dose: 500 mcg Documented by: Dextrose (Dextrose 50%-Water 25 Gm/50 Ml Disp.Syrin) 0 gm IV X1 PRN; Protocol PRN Reason: Hypoglycemia Diltiazem HCl (Diltiazem Cd 180 Mg Capsule) 180 mg PO DAILY [facility] Last Admin: 06/19/20 09:17 Dose: 180 mg Documented by: Diphenhydramine HCl (Diphenhydramine 25 Mg Capsule) 25 mg PO QHS [facility] Last Admin: 06/18/20 21:44 Dose: 25 mg Documented by: Fluconazole (Fluconazole 100 Mg Tablet) 200 mg PO DAILY [facility] Last Admin: 06/19/20 09:09 Dose: 200 mg Documented by: Gabapentin (Gabapentin 600 Mg Tablet) 600 mg PO TID [facility] Glimepiride (Glimepiride 4 Mg Tablet) 4 mg PO DAILYCM [facility] Last Admin: 06/19/20 09:08 Dose: 4 mg Documented by: Glucagon (Glucagon 1 Mg/Ml Syringe) 1 mg IM .X1 PRN PRN Reason: Hypoglycemia Insulin Human Lispro (Insulin Lispro 100 Unit/Ml Insuln.Pen) 0 unit SC [facility]; Protocol Last Admin: 06/19/20 11:29 Dose: 2 unit Documented by: Melatonin (Melatonin 10 Mg Tablet) 15 mg PO QHS [facility] Last Admin: 06/18/20 23:13 Dose: 15 mg Documented by: Ondansetron HCl (Ondansetron 4 Mg/2 Ml Vial) 4 mg IV Q8H PRN PRN PRN Reason: NAUSEA/VOMITING Pantoprazole Sodium (Pantoprazole Sodium 20 Mg Tablet) 20 mg PO QHS [facility] Last Admin: 06/18/20 21:44 Dose: 20 mg Documented by: Senna/Docusate Sodium (Senna/Docusate Sodium 1 Tablet) 2 tablet PO BID PRN PRN PRN Reason: Constipation Sodium Chloride (0.9% Saline Lock 10 Ml Syringe) 10 - 40 ml IV UD PRN PRN Reason: SALINE FLUSH Last Admin: 06/19/20 06:50 Dose: 10 ml Documented by: Tizanidine HCl (Tizanidine Hcl 2 Mg Tablet) 4 mg PO Q8H PRN PRN PRN Reason: SPASMS Last Admin: 06/18/20 23:16 Dose: 4 mg Documented by: Medical Necessity - Tobacco Use Smoking Status: Former smoker Tobacco Use: Cigarettes Assessment/Plan All Active Problems (Last Reviewed 05/14/19 @ 14:33 by Arianne Smiley TERRITORY REPRESENTATIVE, TERRITORY REPRESENTATIVE-C) Acute exacerbation of chronic low back pain (Acute) S/P carpal tunnel release (Resolved) Dehiscence of surgical wound (Resolved) 1. New onset atrial fibrillation with RVR-D-dimer elevated. CTA without PE. Enzymes normal. Echocardiogram demonstrates an EF of 55%, mild to moderate mitral valve insufficiency. Cardiology following. Cardizem drip discontinued. Continue oral Cardizem CD 180 mg daily. Continue Eliquis 5 mg twice daily. 2. Acute hypoxic respiratory insufficiency-CTA unremarkable as noted above. Chest x-ray shows atelectasis. BNP 429. Continue supplement oxygen to maintain O2 at above 90%. Patient received IV Lasix x1. Will begin p.o. Lasix 40mg daily. 3. Debility with intractable back pain, chronic lumbar spinal radicular pain-discharge to transitional care 06/16/20 for rehab. 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 PT/OT. As needed pain regimen. Plan for return to rehab following treatment of above. 4. Type 2 diabetes mellitus with [id number] with sliding scale insulin. Continue oral regimen. Continue gabapentin regimen. 5. Hypertension-stable, on atenolol. 6. Hyperlipidemia-on fenofibrate. 7. Chronic COPD-as needed albuterol aerosol. 8. GERD-continue PPI. 9. Obesity-encouraged diet and lifestyle modifications. 10. Former tobacco use-encouraged continued cessation. DVT prophylaxis- Lovenox sc Discharge planning: Return to TCU when medically stable/pending acceptance. This patient was seen by CEDRIC Peacock under the supervision of Dr. Vale.
[2020-06-19 16:56] LABS: Bedside Glucose 169 mg/dL (70-110)
--- NOTE | 2020-06-19 20:09 | PCM.PN.CARD ---
Subjectve: Patient is doing well. Denies any cardiac complaints. Objective: Vital Signs Temp Pulse Resp BP Pulse Ox 98.1 F 87 18 97/62 96 06/19/20 18:10 06/19/20 18:10 06/19/20 18:10 06/19/20 18:10 06/19/20 18:10 Oxygen Flow Rate (L/min) 2 Oxygen Delivery Method Nasal Cannula Weight: 191 lb 9.307 oz Body Mass Index (BMI) 40.0 Finger Stick Blood Glucose 83 Intake and Output for Last 24 Hours 06/17/20 06/18/20 06/19/20 23:59 23:59 23:59 Intake Total 218.42 / 462.17 466.00 / 706.00 1470 / 1470 Output Total 50 / 50 100 / 100 Balance 218.42 / 462.17 416.00 / 656.00 1370 / 1370 General: Awake, Alert, Oriented x 3 HEENT: Atraumatic Neck: Supple Cardiovascular: Irregular Rhythm 06/19/20 05:05: WBC 8.3, RBC 3.87 L, Hgb 11.3 L, Hct 37.9, MCV 97.9, MCH 29.2, MCHC 29.8 L, Plt Count 235, MPV 10.7 06/19/20 05:05: Sodium 130 L, Potassium 4.8, Chloride 96 L, Carbon Dioxide 28.0, Anion Gap 6, BUN 29 H, Creatinine 2.04 H, Est GFR (MDRD) Af Amer 31 L, Est GFR (MDRD) Non-Af 26 L, BUN/Creatinine Ratio 14.2, Glucose 132 H, Calcium 8.5 Rhythm: EKG: ECHO: Stress Test: Cardiac Cath: PCI: CT Surgery: Holter monitor: EPS: PPM: CXR: Chest CT Scan: Medical Necessity - Tobacco Use Smoking Status: Former smoker Tobacco Use: Cigarettes Assessment/Plan 1. Atrial fibrillation: Continue Cardizem. We will increase it to Cardizem CD 240 mg p.o. daily. Continue Eliquis. If heart rate remains controlled tomorrow she can be discharged to transitional care unit from a cardiac standpoint. We will sign off at this time. If we can be of any further assistance please let us know.
[2020-06-19] MEDS: Pantoprazole Sodium 20 MG Tablet PO (22:04)
[2020-06-19] MEDS: DiphenhydrAMINE 25 MG Capsule PO (22:04)
[2020-06-19] MEDS: Cyanocobalamin 500 MCG Tablet PO (22:04)
[2020-06-19] MEDS: MELATONIN 10 MG TABLET 15 MG PO (22:04)
[2020-06-19] MEDS: Gabapentin 600 MG Tablet PO (22:04)
[2020-06-19 22:16] LABS: Bedside Glucose 160 mg/dL (70-110)
[2020-06-20] VITALS (16 sets, daily range): BP systolic 99–117; BP diastolic 66–90; PULSE 86–124; RESP 12–22; TEMP 36.3–36.7; O2SAT 88–97
[2020-06-20] MEDS: HYDROcodone Bitartrate/Apap 5/325 Tablet PO ×2 (02:31→21:45)
[2020-06-20 05:43] LABS: Hematocrit 41.4 % (37-47); Hemoglobin 11.8 g/dL (12.0-15.0); Mean Corp Hgb Conc 28.5 g/dL (32-36); Mean Corpuscular Volume 101.7 fL (81-99); Mean Platelet Vol. 10.7 fl (6.2-12.0); Platelet Count 228 K/mm3 (150-450); RBC Distribution Width CV 17.1 % (11.6-14.6); RBC Distribution Width SD 63.9 fl (35.1-43.9); Red Blood Count 4.07 M/mm3 (4.2-5.4); White Blood Count 9.3 K/mm3 (4.4-11.0)
[2020-06-20 06:13] LABS: Anion Gap 8 (5-15); BUN 41 mg/dL (7-18); BUN/Creat Ratio 19.4 RATIO (10-20); Calcium,Total 8.3 mg/dL (8.5-10.1); Chloride 96 mmol/L (98-107); Creatinine, Serum 2.11 mg/dL (0.55-1.02); EST Glomerular Filtration Rate 25 mL/min (>60); Est Glom Filt Rate - Afr Amer 30 mL/min (>60); Estimated Creatinine Clearance 33.55 ml/min; Glucose 95 mg/dL (74-106); Potassium 4.6 mmol/L (3.5-5.1); Sodium Level 124 mmol/L (136-145)
[2020-06-20] MEDS: Gabapentin 600 MG Tablet PO ×3 (06:49→21:38)
[2020-06-20 06:50] LABS: Bedside Glucose 97 mg/dL (70-110)
[2020-06-20] MEDS: Fluconazole 100 MG Tablet 200 MG PO (09:11)
[2020-06-20] MEDS: Azithromycin 250 MG Tablet 500 MG PO (09:11)
[2020-06-20] MEDS: dilTIAZem CD 240 MG Capsule PO (09:11)
[2020-06-20] MEDS: Atenolol 25 MG Tablet PO (09:11)
[2020-06-20] MEDS: APIXABAN 5 MG TABLET PO (09:12)
[2020-06-20] MEDS: Furosemide 40 MG Tablet PO (09:12)
[2020-06-20] MEDS: Glimepiride 4 MG Tablet PO (09:12)
[2020-06-20] MEDS: Menthol/Lanolin/Calamine/Znox 113 GM Tube 1 APPLIC TOPICAL ×2 (09:14→21:39)
[2020-06-20 11:40] LABS: Bedside Glucose 70 mg/dL (70-110)
--- NOTE | 2020-06-20 13:08 | CASEMGMT ---
Pt screened with [facility] Palliative Care Screening Tool due to Strata 3, pt did not meet criteria.
[2020-06-20] MEDS: Ipratropium/Albuterol Sulfate 3 ML AMPUL.NEB INHALATION ×2 (13:29→20:36)
--- NOTE | 2020-06-20 13:34 | PN_ITS ---
<Jojo Garcia AIR QUALITY ENGINEER - Last Filed: 06/20/20 13:50> Patient Problems: Active and Suspected Problems (Last Reviewed 05/14/19 @ 14:33 by Arianne jacinto AIR QUALITY ENGINEER, AIR QUALITY ENGINEER-C) Acute exacerbation of chronic low back pain (Acute) Subjective: Patient seen and examined. Reports increased shortness of breath however oxygen requirements decreased from prior. Remains in atrial fibrillation, rate controlled. - Physical Exam Vitals/I&O's: Vital Signs Temp Pulse Resp BP Pulse Ox 97.6 F L 109 H 20 H 113/75 95 06/20/20 09:11 06/20/20 13:30 06/20/20 13:30 06/20/20 09:11 06/20/20 09:11 Oxygen Flow Rate (L/min) 3 Oxygen Delivery Method Nasal Cannula Weight: 191 lb 9.307 oz Body Mass Index (BMI) 40.0 Finger Stick Blood Glucose 83 Intake and Output for Last 24 Hours 06/18/20 06/19/20 06/20/20 23:59 23:59 23:59 Intake Total 466.00 / 706.00 1710 / 1710 600 / 600 Output Total 50 / 50 250 / 250 450 / 450 Balance 416.00 / 656.00 1460 / 1460 150 / 150 General: Alert, Oriented x3, Cooperative HEENT: Atraumatic, PERRLA, EOMI, Normocephalic Neck: Supple, No JVD, Negative Carotid Bruits Lungs: Clear to auscultation, Diminished Cardiovascular: - - Atrial fibrillation, rate controlled Abdomen: Bowel Sounds Present, Soft, Non Tender, Non-Distended Extremities: No clubbing, No cyanosis, No edema, Capillary Refill Less than 3 Seconds Skin: No rashes, No breakdown Musculoskeletal: No Tenderness to Palpation of Joints or Extremities Neurological: Cranial nerves II-XII grossly intact, Neuro grossly intact Psych/Mental Status: Normal Affect, Appropriate Laboratory Results 06/19/20 16:31: POC Glucose 169 H 06/19/20 21:57: POC Glucose 160 H 06/20/20 05:30: WBC 9.3, RBC 4.07 L, Hgb 11.8 L, Hct 41.4, MCV 101.7 H, MCH 29.0, MCHC 28.5 L, RDW Std Deviation 63.9 H, RDW Coeff of Liseth 17.1 H, Plt Count 228, MPV 10.7 06/20/20 05:30: Sodium 124 L, Potassium 4.6, Chloride 96 L, Carbon Dioxide 20.0 L, Anion Gap 8, BUN 41 H, Creatinine 2.11 H, Estim Creat Clear Calc 33.55, Est GFR (MDRD) Af Amer 30 L, Est GFR (MDRD) Non-Af 25 L, BUN/Creatinine Ratio 19.4, Glucose 95, Calcium 8.3 L 06/20/20 06:46: POC Glucose 97 06/20/20 11:31: POC Glucose 70 Current Medications Hydrocodone Bitart/Acetaminophen (Hydrocodone Bitartrate/Apap 5/325 Tablet) 1 - 2 tablet PO Q6H PRN PRN PRN Reason: Pain Score 6-10 Last Admin: 06/20/20 02:31 Dose: 2 tablet Documented by: Albuterol/Ipratropium (Ipratropium/Albuterol Sulfate 3 Ml Ampul.Neb) 3 ml INHALATION Q6HWA.RT [facility] Last Admin: 06/20/20 13:29 Dose: 3 ml Documented by: Atenolol (Atenolol 25 Mg Tablet) 25 mg PO DAILY SARAH Last Admin: 06/20/20 09:11 Dose: 25 mg Documented by: Azithromycin (Azithromycin 250 Mg Tablet) 500 mg PO Q24 SARAH Last Admin: 06/20/20 09:11 Dose: 500 mg Documented by: Budesonide (Budesonide Respules 0.5 Mg/2 Ml Ampul.Neb.) 0.5 mg INHALATION BID.RT [facility] Last Admin: 06/19/20 19:30 Dose: 0.5 mg Documented by: Calamine/Phenol (Menthol/Lanolin/Calamine/Znox 113 Gm Tube) 1 applic TOPICAL BID [facility]; Protocol Last Admin: 06/20/20 09:14 Dose: 1 applic Documented by: Cyanocobalamin (Cyanocobalamin 500 Mcg Tablet) 500 mcg PO QHS [facility] Last Admin: 06/19/20 22:04 Dose: 500 mcg Documented by: Dextrose (Dextrose 50%-Water 25 Gm/50 Ml Disp.Syrin) 0 gm IV X1 PRN; Protocol PRN Reason: Hypoglycemia Diltiazem HCl (Diltiazem Cd 240 Mg Capsule) 240 mg PO DAILY [facility] Last Admin: 06/20/20 09:11 Dose: 240 mg Documented by: Diphenhydramine HCl (Diphenhydramine 25 Mg Capsule) 25 mg PO QHS [facility] Last Admin: 06/19/20 22:04 Dose: 25 mg Documented by: Fluconazole (Fluconazole 100 Mg Tablet) 200 mg PO DAILY [facility] Last Admin: 06/20/20 09:11 Dose: 200 mg Documented by: Furosemide (Furosemide 40 Mg Tablet) 40 mg PO DAILY [facility] Last Admin: 06/20/20 09:12 Dose: 40 mg Documented by: Gabapentin (Gabapentin 600 Mg Tablet) 600 mg PO TID [facility] Last Admin: 06/20/20 06:49 Dose: 600 mg Documented by: Glimepiride (Glimepiride 4 Mg Tablet) 4 mg PO DAILYCM [facility] Last Admin: 06/20/20 09:12 Dose: 4 mg Documented by: Glucagon (Glucagon 1 Mg/Ml Syringe) 1 mg IM .X1 PRN PRN Reason: Hypoglycemia Insulin Human Lispro (Insulin Lispro 100 Unit/Ml Insuln.Pen) 0 unit SC [facility]; Protocol Last Admin: 06/20/20 11:41 Dose: Not Given Documented by: Melatonin (Melatonin 10 Mg Tablet) 15 mg PO QHS [facility] Last Admin: 06/19/20 22:04 Dose: 15 mg Documented by: Ondansetron HCl (Ondansetron 4 Mg/2 Ml Vial) 4 mg IV Q8H PRN PRN PRN Reason: NAUSEA/VOMITING Pantoprazole Sodium (Pantoprazole Sodium 20 Mg Tablet) 20 mg PO QHS [facility] Last Admin: 06/19/20 22:04 Dose: 20 mg Documented by: Senna/Docusate Sodium (Senna/Docusate Sodium 1 Tablet) 2 tablet PO BID PRN PRN PRN Reason: Constipation Sodium Chloride (0.9% Saline Lock 10 Ml Syringe) 10 - 40 ml IV UD PRN PRN Reason: SALINE FLUSH Last Admin: 06/19/20 06:50 Dose: 10 ml Documented by: Tizanidine HCl (Tizanidine Hcl 2 Mg Tablet) 4 mg PO Q8H PRN PRN PRN Reason: SPASMS Last Admin: 06/18/20 23:16 Dose: 4 mg Documented by: Medical Necessity - Tobacco Use Smoking Status: Former smoker Tobacco Use: Cigarettes Assessment/Plan All Active Problems (Last Reviewed 05/14/19 @ 14:33 by Arianne Smiley NP, AIR QUALITY ENGINEER- C) Acute exacerbation of chronic low back pain (Acute) S/P carpal tunnel release (Resolved) Dehiscence of surgical wound (Resolved) 1. New onset atrial fibrillation with RVR-D-dimer elevated. CTA without PE. Enzymes normal. Echocardiogram demonstrates an EF of 55%, mild to moderate mitral valve insufficiency. Cardiology following. Continue Cardizem CD 240 mg daily. Eliquis on hold due to plans for thoracentesis. Therapeutic Lovenox. 2. Acute hypoxic respiratory insufficiency, bilateral pleural effusion-CTA with bilateral pleural effusions, right greater than left. Chest x-ray shows atelectasis. BNP 429. Continue supplement oxygen to maintain O2 at above 90%. Further Lasix discontinued due to increasing creatinine. Eliquis on hold, plan for thoracentesis following 48 hours off of anticoagulation. Per pulmonary medicine who is on consult, if patient requires 6 L or less with ambulation, thoracentesis may be completed on an outpatient basis/at TCU. 3. Debility with intractable back pain, chronic lumbar spinal radicular pain- discharge to transitional care 06/16/20 for rehab. 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 PT/OT. As needed pain regimen. Plan for return to rehab following treatment of above. 4. Type 2 diabetes mellitus with [id number] with sliding scale insulin. Continue oral regimen. Continue gabapentin regimen. 5. Hypertension-stable, on atenolol. 6. Hyperlipidemia-on fenofibrate. 7. Chronic COPD-as needed albuterol aerosol. 8. GERD-continue PPI. 9. Obesity-encouraged diet and lifestyle modifications. 10. Former tobacco use-encouraged continued cessation. 11. Hyponatremia-suspected due to hypervolemia however worsened with diuresis. Diuretics on hold. Trend BMP. Check urine studies. DVT prophylaxis- Lovenox sc Discharge planning: Return to TCU pending acceptance. This patient was seen by CEDRIC Peacock under the supervision of Dr. Jon. <Fabricio Jon - Last Filed: 06/20/20 14:12> - Physical Exam Vitals/I&O's: Vital Signs Temp Pulse Resp BP Pulse Ox 36.4 C L 109 H 20 H 113/75 93 06/20/20 09:11 06/20/20 13:30 06/20/20 13:30 06/20/20 09:11 06/20/20 13:34 Oxygen Flow Rate (L/min) 5 Oxygen Delivery Method Nasal Cannula Weight: 86.9 kg Body Mass Index (BMI) 40.0 Finger Stick Blood Glucose 83 Intake and Output for Last 24 Hours 06/18/20 06/19/20 06/20/20 23:59 23:59 23:59 Intake Total 466.00 / 706.00 1710 / 1710 600 / 600 Output Total 50 / 50 250 / 250 450 / 450 Balance 416.00 / 656.00 1460 / 1460 150 / 150 General: Alert, Cooperative HEENT: Atraumatic, Normocephalic Lungs: Clear to auscultation, Diminished Cardiovascular: - Abdomen: Bowel Sounds Present, Soft, Non Tender, Non-Distended Extremities: No clubbing, Capillary Refill Less than 3 Seconds Skin: No rashes, No breakdown Psych/Mental Status: Normal Affect, Appropriate Laboratory Results 06/19/20 16:31: POC Glucose 169 H 06/19/20 21:57: POC Glucose 160 H 06/20/20 05:30: WBC 9.3, RBC 4.07 L, Hgb 11.8 L, Hct 41.4, MCV 101.7 H, MCH 29.0, MCHC 28.5 L, RDW Std Deviation 63.9 H, RDW Coeff of Liseth 17.1 H, Plt Count 228, MPV 10.7 06/20/20 05:30: Sodium 124 L, Potassium 4.6, Chloride 96 L, Carbon Dioxide 20.0 L, Anion Gap 8, BUN 41 H, Creatinine 2.11 H, Estim Creat Clear Calc 33.55, Est GFR (MDRD) Af Amer 30 L, Est GFR (MDRD) Non-Af 25 L, BUN/Creatinine Ratio 19.4, Glucose 95, Calcium 8.3 L 06/20/20 06:46: POC Glucose 97 06/20/20 11:31: POC Glucose 70 Current Medications Hydrocodone Bitart/Acetaminophen (Hydrocodone Bitartrate/Apap 5/325 Tablet) 1 - 2 tablet PO Q6H PRN PRN PRN Reason: Pain Score 6-10 Last Admin: 06/20/20 02:31 Dose: 2 tablet Documented by: Albuterol/Ipratropium (Ipratropium/Albuterol Sulfate 3 Ml Ampul.Neb) 3 ml INHALATION Q6HWA.RT [facility] Last Admin: 06/20/20 13:29 Dose: 3 ml Documented by: Atenolol (Atenolol 25 Mg Tablet) 25 mg PO DAILY [facility] Last Admin: 06/20/20 09:11 Dose: 25 mg Documented by: Budesonide (Budesonide Respules 0.5 Mg/2 Ml Ampul.Neb.) 0.5 mg INHALATION BID.RT [facility] Last Admin: 06/19/20 19:30 Dose: 0.5 mg Documented by: Calamine/Phenol (Menthol/Lanolin/Calamine/Znox 113 Gm Tube) 1 applic TOPICAL BID [facility]; Protocol Last Admin: 06/20/20 09:14 Dose: 1 applic Documented by: Cyanocobalamin (Cyanocobalamin 500 Mcg Tablet) 500 mcg PO QHS [facility] Last Admin: 06/19/20 22:04 Dose: 500 mcg Documented by: Dextrose (Dextrose 50%-Water 25 Gm/50 Ml Disp.Syrin) 0 gm IV X1 PRN; Protocol PRN Reason: Hypoglycemia Diltiazem HCl (Diltiazem Cd 240 Mg Capsule) 240 mg PO DAILY [facility] Last Admin: 06/20/20 09:11 Dose: 240 mg Documented by: Diphenhydramine HCl (Diphenhydramine 25 Mg Capsule) 25 mg PO QHS [facility] Last Admin: 06/19/20 22:04 Dose: 25 mg Documented by: Enoxaparin Sodium (Enoxaparin 80 Mg/0.8 Ml Syringe) 80 mg SC QHS [facility] Fluconazole (Fluconazole 100 Mg Tablet) 200 mg PO DAILY [facility] Last Admin: 06/20/20 09:11 Dose: 200 mg Documented by: Furosemide (Furosemide 40 Mg Tablet) 40 mg PO DAILY [facility] Last Admin: 06/20/20 09:12 Dose: 40 mg Documented by: Gabapentin (Gabapentin 600 Mg Tablet) 600 mg PO TID [facility] Last Admin: 06/20/20 13:49 Dose: 600 mg Documented by: Glimepiride (Glimepiride 4 Mg Tablet) 4 mg PO DAILYCM [facility] Last Admin: 06/20/20 09:12 Dose: 4 mg Documented by: Glucagon (Glucagon 1 Mg/Ml Syringe) 1 mg IM .X1 PRN PRN Reason: Hypoglycemia Insulin Human Lispro (Insulin Lispro 100 Unit/Ml Insuln.Pen) 0 unit SC [facility]; Protocol Last Admin: 06/20/20 11:41 Dose: Not Given Documented by: Melatonin (Melatonin 10 Mg Tablet) 15 mg PO QHS [facility] Last Admin: 06/19/20 22:04 Dose: 15 mg Documented by: Ondansetron HCl (Ondansetron 4 Mg/2 Ml Vial) 4 mg IV Q8H PRN PRN PRN Reason: NAUSEA/VOMITING Pantoprazole Sodium (Pantoprazole Sodium 20 Mg Tablet) 20 mg PO QHS [facility] Last Admin: 06/19/20 22:04 Dose: 20 mg Documented by: Senna/Docusate Sodium (Senna/Docusate Sodium 1 Tablet) 2 tablet PO BID PRN PRN PRN Reason: Constipation Sodium Chloride (0.9% Saline Lock 10 Ml Syringe) 10 - 40 ml IV UD PRN PRN Reason: SALINE FLUSH Last Admin: 06/19/20 06:50 Dose: 10 ml Documented by: Tizanidine HCl (Tizanidine Hcl 2 Mg Tablet) 4 mg PO Q8H PRN PRN PRN Reason: SPASMS Last Admin: 06/18/20 23:16 Dose: 4 mg Documented by: Assessment/Plan Patient seen and examined independently. Data reviewed. I agree with the above note by the nurse practitioner. 1. New onset A. fib with RVR. CTA negative for PE on diltiazem CD 240 mg daily 2. Acute hypoxic respiratory insufficiency: Secondary to pleural effusions and atelectasis. Wean oxygen as tolerated 3. Pleural effusions: Likely transitive from heart failure and pulmonary hypertension. Inpatient E&M: [id number] [facility] L2
[2020-06-20 14:29] LABS: Urine Sodium 33 mmol/L (Not Establ.)
[2020-06-20 14:34] LABS: Osmolality, Urine 188 mOsm/KG
--- NOTE | 2020-06-20 14:41 | CASEMGMT ---
SW spoke with patient and her daughter per the daughter's request. She asked if someone could please keep her involved as patient cannot go home alone. SW told her that patient came from the hospital's Transitional Care Unit and SW was assuming she was going to return. Patient said that is the plan. Patient's daughter was surprised and said she did not know any of that. Patient was alert and oriented and confirmed this is her plan. Plan: d/c back to TCU pending insurance approval. Janae CHO
--- NOTE | 2020-06-20 14:53 | CON.PCM_ITS ---
Problem List (1) Hiatal hernia Status: Chronic (2) Body mass index 37.0-37.9, adult Status: Chronic (3) Pulmonary hypertension Status: Chronic Comment: RVSP 60 mmHg (4) S/P carpal tunnel release Status: Resolved Comment: left 12/26/16 Reason for Consult Date of Consultation: 06/20/20 Reason for Consultation: Hypoxia History of Present Illness: The patient is a 70 year old F with past medical history listed below and known to me from the outpatient office, who presented to [facility] on 06/17/2020 from the TCU secondary to palpitations, dizziness and near syncope. Patient reportedly had been admitted to the hospital previously secondary to back pain and was sent to the TCU for rehab. Patient had an EKG that was showing new onset atrial fibrillation. Patient did not report chest pain at that time, but shortness of breath was worsening. Patient did report that she had COVID-19 in February 2019. In the ER, patient was noted to have a heart rate of 162 bpm. Lungs were clear and equal bilaterally per the ER evaluation. This was confirmed by EKG. Patient was given Cardizem IV with some improvement, so a Cardizem drip was not initiated. Patient did have an elevated D-dimer at 1.77 and a slightly elevated troponin. Chest x-ray was suspected to have a right lower lobe infiltrate. CTA of the chest showed no PE, but bilateral pleural effusions with compressive atelectasis. Patient was admitted to the hospital for further evaluation. Since being in the hospital, patient's rate has been controlled, but response to diuretics have been marginal. Patient reports she feels subjectively improved compared to previous. Patient had been seen by me previously as an outpatient and PFT showed only isolated reduction in diffusion capacity consistent with pulmonary hypertension. Patient did have some hyperinflation with air trapping and some stigmata of possible small airways disease. However, patient was lost to follow-up as she thought that it was not necessary moving forward. Patient did not attempt to contact our office prior to being hospitalized. Patient has reported that her kyphosis has significantly worsened since we were first seen her. Patient did not use supplemental oxygen at baseline, but had reported increasing lower extremity edema over the last 2 to 3 months. Patient denied any change in sputum change or hemoptysis recently. Review of systems otherwise negative from a constitutional, HEENT, respiratory, cardiovascular, GI, genitourinary, musculoskeletal, skin, neurologic, psychiatric and hematologic system unless stated above. Past Medical History Past Medical History (Chronic Problems): Chronic Problems (Last Reviewed 05/14/19 @ 14:33 by Arianne Smiley LAUNDRY BAG PUNCH OPERATOR, LAUNDRY BAG PUNCH OPERATOR-C) Neuropathic pain (Chronic) Chronic obstructive pulmonary disease (Chronic) Hiatal hernia (Chronic) Body mass index 37.0-37.9, adult (Chronic) Pulmonary hypertension (Chronic) RVSP 60 mmHg Dyspnea on exertion (Chronic) Hiatal hernia with GERD (Chronic) Osteoarthritis (Chronic) Lumbar disc disease (Chronic) Scoliosis (Chronic) Polio (Chronic) Hyperlipidemia (Chronic) Hypertension (Chronic) Type 2 diabetes mellitus without complications (Chronic) Left carpal tunnel syndrome (Chronic) Ulnar nerve compression (Chronic) Cubital tunnel syndrome (Chronic) Hypercholesterolemia (Chronic) Hypertension (Chronic) Esophageal reflux disease (Chronic) Scoliosis (Chronic) Lumbar disc disease (Chronic) Spinal fusion failure (Chronic) S/P laminectomy with spinal fusion (Chronic) Obesity (BMI 35.0-39.9 without comorbidity) (Chronic) Tobacco abuse (Chronic) Hypoxia (Chronic) Degenerative arthritis of spine (Chronic) Medical History: Medical History (Last Reviewed 05/14/19 @ 14:33 by Arianne Smiley LAUNDRY BAG PUNCH OPERATOR, LAUNDRY BAG PUNCH OPERATOR-C) Hiatal hernia with GERD (Chronic) K21.9, K44.9 Osteoarthritis (Chronic) M19.90 Lumbar disc disease (Chronic) M51.9 Scoliosis (Chronic) M41.9 Polio (Chronic) A80.9 Hyperlipidemia (Chronic) E78.5 Hypertension (Chronic) I10 Type 2 diabetes mellitus without complications (Chronic) E11.9 Allergies atorvastatin calcium [From Lipitor] Allergy (Verified 06/17/20 09:37) Unknown LEG CRAMPS pravastatin Allergy (Verified 06/17/20 09:37) Unknown LEG CRAMPS simvastatin Allergy (Verified 06/17/20 09:37) Unknown LEG CRAMPS morphine Adverse Reaction (Verified 06/17/20 09:37) Other BAD NIGHTMARES altace Allergy (Uncoded 06/17/20 09:37) Unknown antihyperlipidemics Allergy (Uncoded 06/17/20 09:37) Unknown LEG CRAMPS Home Medications: Ambulatory Orders Medication Instructions Recorded Glimepiride [Amaryl] 4 mg PO DAILY 05/13/15 Fenofibrate,Micronized 134 mg PO DAILY 06/04/16 [Fenofibrate] Tizanidine HCl [Zanaflex] 4 mg PO Q8H PRN 06/04/16 albuterol sulfate 90 mcg/actuation 2 puff INHALATION Q6H PRN #18 g 05/14/19 aerosol inhaler Ascorbic Acid [Vitamin C] 500 mg PO DAILY 06/09/20 Magnesium Oxide [Magnesium] 400 mg PO DAILY 06/09/20 Cyanocobalamin [Vitamin B12] 500 mcg PO QHS #0 06/15/20 Melatonin 15 mg PO QHS 06/15/20 Senna/Docusate Sodium [Senokot-S] 2 tablet PO BID PRN PRN tablet 06/15/20 Atenolol [Tenormin (beta annalee)] 25 mg PO DAILY 06/16/20 DiphenhydrAMINE [Benadryl] 25 mg PO QHS 06/16/20 Gabapentin [Neurontin] 600 mg PO 4X/DAYCM 06/16/20 Nystatin [Mycostatin] 1 applic TOPICAL TID 06/16/20 Acetaminophen [Tylenol Extra 1,000 mg PO Q6H PRN PRN 06/17/20 Strength] Enoxaparin Sodium 40 mg SQ DAILY 06/17/20 Menthol/Zinc Oxide [Calmoseptine 1 applic TOPICAL BID 06/17/20 Ointment] Oxycodone HCl 10 mg PO Q4H PRN PRN 06/17/20 Pantoprazole Sodium [Protonix] 20 mg PO QHS 06/17/20 Polyethylene Glycol 3350 17 gm PO DAILY 06/17/20 Zinc Sulfate 220 mg PO DAILY 06/17/20 traMADol [Ultram (G)] 50 mg PO Q6H PRN PRN 06/17/20 Surgical History: Surgical History (Last Reviewed 05/14/19 @ 14:33 by Arianne Smiley LAUNDRY BAG PUNCH OPERATOR, LAUNDRY BAG PUNCH OPERATOR-C) S/P carpal tunnel release (Resolved) Z98.890 left 12/26/16 H/O tubal ligation Z98.51 History of Z98.891 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 Psychiatric History: No pertinent psych hx [employer]NER History: No pertinent [employer] history Smoking Status: Former smoker Tobacco Use: Cigarettes - *Family History Paternal Family History: Family History (Last Reviewed 05/14/19 @ 14:33 by Arianne Smiley NP, LAUNDRY BAG PUNCH OPERATOR-C) Mother Brain aneurysm Father CVA (cerebral vascular accident) Sister Thyroid cancer History Items: Stroke - age 68, - - Alcoholism Offspring Family History: Family History (Last Reviewed 05/14/19 @ 14:33 by Arianne Smiley NP, LAUNDRY BAG PUNCH OPERATOR-C) Mother Brain aneurysm Father CVA (cerebral vascular accident) Sister Thyroid cancer History Items: Asthma - Multiple allergies requiring allergy shots twice weekly Maternal Family History: Family History (Last Reviewed 05/14/19 @ 14:33 by Arianne Smiley NP, LAUNDRY BAG PUNCH OPERATOR-C) Mother Brain aneurysm Father CVA (cerebral vascular accident) Sister Thyroid cancer History Items: - - age 72 cerebral aneurysm; the patient's father at age of 72 from a cerebrovascular accident. He was an alcoholic. Review of Systems Comment: See HPI Patient Problems: Active and Suspected Problems (Last Reviewed 05/14/19 @ 14:33 by Arianne Smiley NP, LAUNDRY BAG PUNCH OPERATOR-C) Acute exacerbation of chronic low back pain (Acute) Objective: All imaging was personally reviewed. Agree with formal interpretation. Previous PFTs were discussed in the HPI. Echocardiogram during this hospitalization showed an EF of 55% with mild to moderate mitral valve insufficiency and a pulmonary artery pressure of 40 mmHg. - Physical Exam Vitals/I&O's: Vital Signs Temp Pulse Resp BP Pulse Ox 36.4 C L 109 H 20 H 113/75 93 06/20/20 09:11 06/20/20 13:30 06/20/20 13:30 06/20/20 09:11 06/20/20 13:34 Oxygen Flow Rate (L/min) 3 Oxygen Delivery Method Nasal Cannula Weight: 86.9 kg Body Mass Index (BMI) 40.0 Finger Stick Blood Glucose 83 Intake and Output for Last 24 Hours 06/18/20 06/19/20 06/20/20 23:59 23:59 23:59 Intake Total 466.00 / 706.00 1710 / 1710 600 / 600 Output Total 50 / 50 250 / 250 450 / 450 Balance 416.00 / 656.00 1460 / 1460 150 / 150 General: Alert, Oriented x3, Cooperative, - - Patient's daughter at the bedside. Mild conversational dyspnea. Morbidly obese. HEENT: Atraumatic, PERRLA, EOMI, Normocephalic, - - No scleral icterus or injection noted. Oral: Moist Mucosa, No Gingival or Mucosal Lesions/ Ulcerations, - - Crowded posterior pharynx Neck: Supple, No Nodes, Trachea Midline, JVD, Right Lungs: No rhonchi, No wheeze, No rales, Diminished, - - Dullness to percussion bilaterally posteriorly Cardiovascular: Normal S1, Normal S2, Irregular Rate, Murmur - Grade 2 out of 6 diastolic murmur at the left sternal border Abdomen: Bowel Sounds Present, Soft, Non Tender, Non-Distended Extremities: No clubbing, No cyanosis, Edema Skin: No rashes, No breakdown Musculoskeletal: No Tenderness to Palpation of Joints or Extremities Lymphatic: No Cervical, Supraclavicular, or Inguinal Adenopathy Neurological: Cranial nerves II-XII grossly intact, Neuro grossly intact, Motor Exam 5/5 strength throughout Psych/Mental Status: Normal Affect, Appropriate Laboratory Results 06/19/20 16:31: POC Glucose 169 H 06/19/20 21:57: POC Glucose 160 H 06/20/20 05:30: WBC 9.3, RBC 4.07 L, Hgb 11.8 L, Hct 41.4, MCV 101.7 H, MCH 29.0, MCHC 28.5 L, RDW Std Deviation 63.9 H, RDW Coeff of Liseth 17.1 H, Plt Count 228, MPV 10.7 06/20/20 05:30: Sodium 124 L, Potassium 4.6, Chloride 96 L, Carbon Dioxide 20.0 L, Anion Gap 8, BUN 41 H, Creatinine 2.11 H, Estim Creat Clear Calc 33.55, Est GFR (MDRD) Af Amer 30 L, Est GFR (MDRD) Non-Af 25 L, BUN/Creatinine Ratio 19.4, Glucose 95, Calcium 8.3 L 06/20/20 06:46: POC Glucose 97 06/20/20 11:31: POC Glucose 70 06/20/20 14:10: Urine Osmolality 188, Ur Random Sodium 33 Current Medications Hydrocodone Bitart/Acetaminophen (Hydrocodone Bitartrate/Apap 5/325 Tablet) 1 - 2 tablet PO Q6H PRN PRN PRN Reason: Pain Score 6-10 Last Admin: 06/20/20 02:31 Dose: 2 tablet Documented by: Albuterol/Ipratropium (Ipratropium/Albuterol Sulfate 3 Ml Ampul.Neb) 3 ml INHALATION Q6HWA.RT SARAH Last Admin: 06/20/20 13:29 Dose: 3 ml Documented by: Atenolol (Atenolol 25 Mg Tablet) 25 mg PO DAILY [facility] Last Admin: 06/20/20 09:11 Dose: 25 mg Documented by: Budesonide (Budesonide Respules 0.5 Mg/2 Ml Ampul.Neb.) 0.5 mg INHALATION BID.RT SARAH Last Admin: 06/19/20 19:30 Dose: 0.5 mg Documented by: Calamine/Phenol (Menthol/Lanolin/Calamine/Znox 113 Gm Tube) 1 applic TOPICAL BID SARAH; Protocol Last Admin: 06/20/20 09:14 Dose: 1 applic Documented by: Cyanocobalamin (Cyanocobalamin 500 Mcg Tablet) 500 mcg PO QHS [facility] Last Admin: 06/19/20 22:04 Dose: 500 mcg Documented by: Dextrose (Dextrose 50%-Water 25 Gm/50 Ml Disp.Syrin) 0 gm IV X1 PRN; Protocol PRN Reason: Hypoglycemia Diltiazem HCl (Diltiazem Cd 240 Mg Capsule) 240 mg PO DAILY [facility] Last Admin: 06/20/20 09:11 Dose: 240 mg Documented by: Diphenhydramine HCl (Diphenhydramine 25 Mg Capsule) 25 mg PO QHS [facility] Last Admin: 06/19/20 22:04 Dose: 25 mg Documented by: Enoxaparin Sodium (Enoxaparin 80 Mg/0.8 Ml Syringe) 80 mg SC QHS [facility] Fluconazole (Fluconazole 100 Mg Tablet) 200 mg PO DAILY [facility] Last Admin: 06/20/20 09:11 Dose: 200 mg Documented by: Furosemide (Furosemide 40 Mg Tablet) 40 mg PO DAILY [facility] Last Admin: 06/20/20 09:12 Dose: 40 mg Documented by: Gabapentin (Gabapentin 600 Mg Tablet) 600 mg PO TID [facility] Last Admin: 06/20/20 13:49 Dose: 600 mg Documented by: Glimepiride (Glimepiride 4 Mg Tablet) 4 mg PO DAILYCM [facility] Last Admin: 06/20/20 09:12 Dose: 4 mg Documented by: Glucagon (Glucagon 1 Mg/Ml Syringe) 1 mg IM .X1 PRN PRN Reason: Hypoglycemia Insulin Human Lispro (Insulin Lispro 100 Unit/Ml Insuln.Pen) 0 unit SC [facility]; Protocol Last Admin: 06/20/20 11:41 Dose: Not Given Documented by: Melatonin (Melatonin 10 Mg Tablet) 15 mg PO QHS [facility] Last Admin: 06/19/20 22:04 Dose: 15 mg Documented by: Ondansetron HCl (Ondansetron 4 Mg/2 Ml Vial) 4 mg IV Q8H PRN PRN PRN Reason: NAUSEA/VOMITING Pantoprazole Sodium (Pantoprazole Sodium 20 Mg Tablet) 20 mg PO QHS [facility] Last Admin: 06/19/20 22:04 Dose: 20 mg Documented by: Senna/Docusate Sodium (Senna/Docusate Sodium 1 Tablet) 2 tablet PO BID PRN PRN PRN Reason: Constipation Sodium Chloride (0.9% Saline Lock 10 Ml Syringe) 10 - 40 ml IV UD PRN PRN Reason: SALINE FLUSH Last Admin: 06/19/20 06:50 Dose: 10 ml Documented by: Tizanidine HCl (Tizanidine Hcl 2 Mg Tablet) 4 mg PO Q8H PRN PRN PRN Reason: SPASMS Last Admin: 06/18/20 23:16 Dose: 4 mg Documented by: Assessment/Plan All Active Problems (Last Reviewed 05/14/19 @ 14:33 by Arianne Smiley LAUNDRY BAG PUNCH OPERATOR, LAUNDRY BAG PUNCH OPERATOR- C) Acute exacerbation of chronic low back pain (Acute) S/P carpal tunnel release (Resolved) Dehiscence of surgical wound (Resolved) RECOMMENDATIONS: 1. Consider diagnostic and therapeutic thoracentesis 2. Anticipate need for supplemental oxygen on discharge 3. Encourage incentive spirometer. Add bronchodilators 4. Wean oxygen as tolerated 5. Outpatient complete PFT IMPRESSIONS: 1. Acute hypoxic respiratory insufficiency secondary to pleural effusions and new onset A. fib with RVR Previous pulmonary function tests were suggestive of only small airways disease with elevated pulmonary artery pressures. This would likely be exacerbated by A. fib with RVR. Patient's rate control is doing better at this time. However, pleural effusions are likely not to resolve given elevation of creatinine with relatively sparse diuretic therapy. Will likely need to proceed with a diagnostic and therapeutic thoracentesis from my perspective. If patient is able to ambulate on 6 L or less, possible transition to TCU and complete thoracentesis as an outpatient. Repeat pulmonary function test can be completed as an outpatient for comparison. Anticipate an element of restriction secondary to kyphosis and pleural effusions. 2. New onset A. fib with RVR Patient with preserved ejection fraction of 55%, but A. fib with RVR would be exacerbated by mitral valve insufficiency. Cardiology is following and rate control appears to be doing well. Anticoagulation needs to be held secondary to a need for thoracentesis. 3. Pulmonary restriction secondary to intractable back pain with failed fusion Anticipate transition to transitional care unit for rehab. Patient will need PT OT and aggressive pain regimen. Doubt patient would be a good surgical candidate given comorbidities. 4. Hypertension/hyperlipidemia/GERD/obesity Complicates care, management, recovery and prognosis. Patient's pulmonary function tests were not significant for COPD. Patient does not have significant emphysematous changes on CT of the chest. Okay to continue with baseline medications from my perspective. Patient may benefit from an evaluation for sleep apnea Inpatient E&M: 58596 Init Hosp L2
[2020-06-20 16:31] LABS: Bedside Glucose 83 mg/dL (70-110)
--- NOTE | 2020-06-20 16:45 | NURSING ---
Handoff given to Juliana GARBER RN
[2020-06-20] MEDS: Budesonide Respules 0.5 MG/2 ML AMPUL.NEB. INHALATION (20:36)
[2020-06-20] MEDS: Cyanocobalamin 500 MCG Tablet PO (21:38)
[2020-06-20] MEDS: Pantoprazole Sodium 20 MG Tablet PO (21:38)
[2020-06-20] MEDS: DiphenhydrAMINE 25 MG Capsule PO (21:38)
[2020-06-20] MEDS: MELATONIN 10 MG TABLET 15 MG PO (21:38)
[2020-06-20] MEDS: Enoxaparin 80 MG/0.8 ML Syringe SC (21:38)
[2020-06-20 22:05] LABS: Bedside Glucose 109 mg/dL (70-110)
--- NOTE | 2020-06-20 23:22 | NURSING ---
Report given to Jarret rn who is assuming pts care at this time.
[2020-06-21] VITALS (9 sets, daily range): BP systolic 112–113; BP diastolic 62–75; PULSE 86–113; RESP 14–20; TEMP 36.6–36.7; O2SAT 92–96
[2020-06-21] MEDS: Gabapentin 600 MG Tablet PO ×2 (05:40→14:44)
[2020-06-21] MEDS: HYDROcodone Bitartrate/Apap 5/325 Tablet PO ×2 (05:40→14:49)
[2020-06-21 07:10] LABS: Bedside Glucose 65 mg/dL (70-110)
[2020-06-21 07:35] LABS: Bedside Glucose 76 mg/dL (70-110)
[2020-06-21 07:54] LABS: Anion Gap 8 (5-15); BUN 38 mg/dL (7-18); BUN/Creat Ratio 26.6 RATIO (10-20); Calcium,Total 8.5 mg/dL (8.5-10.1); Chloride 98 mmol/L (98-107); Creatinine, Serum 1.43 mg/dL (0.55-1.02); EST Glomerular Filtration Rate 38 mL/min (>60); Est Glom Filt Rate - Afr Amer 47 mL/min (>60); Glucose 42 mg/dL (74-106); Potassium 3.9 mmol/L (3.5-5.1); Sodium Level 133 mmol/L (136-145)
[2020-06-21 07:55] LABS: Bedside Glucose 41 mg/dL (70-110)
[2020-06-21 07:55] LABS: Bedside Glucose 46 mg/dL (70-110)
[2020-06-21 08:36] LABS: Bedside Glucose 85 mg/dL (70-110)
--- NOTE | 2020-06-21 08:55 | CASEMGMT ---
Addendum entered by Janae Leiva 06/21/20 11:10: Padmini from [facility] approved the request and asked that care home proceed with requesting pre-cert. Janae CHO Original Note: All clinicals were faxed to [facility] [place] to obtain the okay to proceed with requesting pre-cert for TCU. Await response. Janae CHO
[2020-06-21] MEDS: Menthol/Lanolin/Calamine/Znox 113 GM Tube 1 APPLIC TOPICAL (09:02)
[2020-06-21] MEDS: Fluconazole 100 MG Tablet 200 MG PO (09:02)
[2020-06-21] MEDS: dilTIAZem CD 240 MG Capsule PO (09:02)
[2020-06-21] MEDS: Atenolol 25 MG Tablet PO (09:02)
--- NOTE | 2020-06-21 10:26 | PCM.PN.INT ---
Subjective Subjective: Patient did well overnight. No acute issues were reported. Patient was on between 3 and 4 L nasal cannula for most of the evening. Patient did have some low blood sugar this morning and was treated with p.o. intake. No fever was noted overnight. Patient does desaturate with minimal movement. Objective Data Objective Data Vital Signs: Vital Signs Temp Pulse Resp BP Pulse Ox 36.6 C 93 14 113/75 96 06/21/20 08:10 06/21/20 08:10 06/21/20 08:10 06/21/20 08:10 06/21/20 08:10 Oxygen Flow Rate (L/min) 3 Oxygen Delivery Method Nasal Cannula Weight: 86.9 kg Body Mass Index (BMI) 40.0 Finger Stick Blood Glucose 83 Intake & Output: Intake and Output for Last 24 Hours 06/19/20 06/20/20 06/21/20 23:59 23:59 23:59 Intake Total 1710 / 1710 1200 / 1200 Output Total 250 / 250 1300 / 1300 Balance 1460 / 1460 -100 / -100 Lab / Micro Data Attestation: I reviewed the patient's lab results. Result Diagrams: 06/20/20 05:30 06/21/20 06:12 Labs: Laboratory Results - last 24 hr 06/20/20 06/20/20 06/20/20 11:31 14:10 16:21 Sodium Potassium Chloride Carbon Dioxide Anion Gap BUN Creatinine Estim Creat Clear Calc Est GFR (MDRD) Af Amer Est GFR (MDRD) Non-Af BUN/Creatinine Ratio Glucose Calcium Urine Osmolality 188 Ur Random Sodium 33 POC Glucose 70 83 06/20/20 06/21/20 06/21/20 21:41 06:12 06:36 Sodium 133 L Potassium 3.9 Chloride 98 Carbon Dioxide 27.0 Anion Gap 8 BUN 38 H Creatinine 1.43 H Estim Creat Clear Calc 49.50 Est GFR (MDRD) Af Amer 47 L Est GFR (MDRD) Non-Af 38 L BUN/Creatinine Ratio 26.6 H Glucose 42 L* Calcium 8.5 Urine Osmolality Ur Random Sodium POC Glucose 109 41 L* 06/21/20 06/21/20 06/21/20 06:39 06:57 07:29 Sodium Potassium Chloride Carbon Dioxide Anion Gap BUN Creatinine Estim Creat Clear Calc Est GFR (MDRD) Af Amer Est GFR (MDRD) Non-Af BUN/Creatinine Ratio Glucose Calcium Urine Osmolality Ur Random Sodium POC Glucose 46 L 65 L 76 06/21/20 08:09 Sodium Potassium Chloride Carbon Dioxide Anion Gap BUN Creatinine Estim Creat Clear Calc Est GFR (MDRD) Af Amer Est GFR (MDRD) Non-Af BUN/Creatinine Ratio Glucose Calcium Urine Osmolality Ur Random Sodium POC Glucose 85 Rhythm Strip Rhythm Strip: A-fib Physical Exam Const alert, oriented x3 and no apparent distress General Appearance: cooperative, well developed and frail; Negative for in distress HEENT normocephalic and moist oral mucous membranes Eyes PERRL, EOMs intact bilaterally, conjunctivae normal and no scleral icterus Neck full ROM Lymph Lymphatic: no lymphadenopathy noted Resp no use of accessory muscles Effort and Inspection: able to speak in complete sentences and prolonged expiratory phase; Negative for uses accessory muscles Percussion: dullness Lower: bilateral Cardio Negative for regular rhythm Rate: tachycardic Rhythm: abnormal rhythm irregularly irregular GI normal to inspection, nondistended, normoactive bowel sounds Extremity General Extremity: edema; Negative for clubbing Skin no rashes or lesions noted Neuro oriented x3 and CN's II-XII intact bilaterally Psych cooperative and affect normal Assessment & Plan Assessment/Plan (1) Hypoxia: Status: Chronic Code(s): R09.02 - Hypoxemia (2) Pleural effusion: Status: Acute Code(s): J90 - Pleural effusion, not elsewhere classified (3) Atrial fibrillation with rapid ventricular response: Status: Acute Code(s): I48.91 - Unspecified atrial fibrillation (4) Polio: Status: Chronic Code(s): A80.9 - Acute poliomyelitis, unspecified (5) Scoliosis: Status: Chronic Code(s): M41.9 - Scoliosis, unspecified Qualifiers: Scoliosis type: neuromuscular Spinal region: thoracolumbar Qualified Code(s): M41.45 - Neuromuscular scoliosis, thoracolumbar region (6) Hypertension: Status: Chronic (7) S/P laminectomy with spinal fusion: Status: Chronic Code(s): Z98.1 - Arthrodesis status (8) Hyperlipidemia: Status: Chronic Code(s): E78.5 - Hyperlipidemia, unspecified Qualifiers: Hyperlipidemia type: mixed hyperlipidemia Qualified Code(s): E78.2 - Mixed hyperlipidemia (9) Pulmonary hypertension: Status: Chronic Code(s): I27.20 - Pulmonary hypertension, unspecified (10) Hiatal hernia with GERD: Status: Chronic Code(s): K21.9 - Gastro-esophageal reflux disease without esophagitis; K44.9 - Diaphragmatic hernia without obstruction or gangrene (11) Neuropathic pain: Status: Chronic Code(s): M79.2 - Neuralgia and neuritis, unspecified (12) Type 2 diabetes mellitus without complications: Status: Chronic Code(s): E11.9 - Type 2 diabetes mellitus without complications Qualifiers: Diabetes mellitus terminal manager insulin use: without terminal manager use Qualified Code(s): E11.9 - Type 2 diabetes mellitus without complications (13) Acute kidney injury: Status: Acute Code(s): N17.9 - Acute kidney failure, unspecified Plan: RECOMMENDATIONS: 1. Consider diagnostic and therapeutic thoracentesis once safe following Eliquis 2. Anticipate need for supplemental oxygen on discharge 3. Encourage incentive spirometer. Add bronchodilators 4. Wean oxygen as tolerated 5. Outpatient complete PFT IMPRESSIONS: 1. Acute hypoxic respiratory insufficiency secondary to pleural effusions and new onset A. fib with RVR Previous pulmonary function tests were suggestive of only small airways disease with elevated pulmonary artery pressures. This would likely be exacerbated by A. fib with RVR. Patient's rate control is doing better at this time. However, pleural effusions are likely not to resolve given elevation of creatinine with relatively sparse diuretic therapy. Will likely need to proceed with a diagnostic and therapeutic thoracentesis from my perspective. If patient is able to ambulate on 6 L or less, possible transition to TCU and complete thoracentesis as an outpatient. Repeat pulmonary function test can be completed as an outpatient for comparison. Anticipate an element of restriction secondary to kyphosis and pleural effusions. 2. New onset A. fib with RVR Patient with preserved ejection fraction of 55%, but A. fib with RVR would be exacerbated by mitral valve insufficiency. Cardiology is following and rate control appears to be doing well. Anticoagulation needs to be held secondary to a need for thoracentesis. 3. Pulmonary restriction secondary to intractable back pain with failed fusion Anticipate transition to transitional care unit for rehab. Patient will need PT OT and aggressive pain regimen. Doubt patient would be a good surgical candidate given comorbidities. 4. Hypertension/hyperlipidemia/GERD/obesity/diabetes mellitus Complicates care, management, recovery and prognosis. Patient's pulmonary function tests were not significant for COPD. Patient does not have significant emphysematous changes on CT of the chest. Okay to continue with baseline medications from my perspective. Patient may benefit from an evaluation for sleep apnea. Patient was hypoglycemic this morning. Consider alteration of glimepiride 5. Acute kidney injury secondary to diuretics Patient's renal failure appears to be improving following cessation of diuretic challenge. We will continue to monitor on a daily basis. No indication for renal replacement therapy at this time. Inpatient E&M: 41445 [facility] Hosp L2
[2020-06-21 11:19] LABS: Hematocrit 37.4 % (37-47); Hemoglobin 11.5 g/dL (12.0-15.0); Mean Corp Hgb Conc 30.7 g/dL (32-36); Mean Corpuscular Hgb 29.3 pg (27.0-32.0); Mean Corpuscular Volume 95.2 fL (81-99); Platelet Count 239 K/mm3 (150-450); RBC Distribution Width CV 16.9 % (11.6-14.6); RBC Distribution Width SD 58.8 fl (35.1-43.9); Red Blood Count 3.93 M/mm3 (4.2-5.4); White Blood Count 8.2 K/mm3 (4.4-11.0)
[2020-06-21 11:23] LABS: Scan Indicated on CBC? Y/N NO
[2020-06-21 11:50] LABS: Bedside Glucose 136 mg/dL (70-110)
[2020-06-21] MEDS: Ipratropium/Albuterol Sulfate 3 ML AMPUL.NEB INHALATION (13:17)
--- NOTE | 2020-06-21 13:30 | CHAPLAIN ---
Type of Pastoral Visit ___ Initial Visit ___ Follow-up Visit ___ On-call Visit ___ General Patient Visit ___ Spiritual Assessment ___ Family Conference ___ Bereavement ___ Rapid Response ___ Code Blue _x__ Other (describe below) Pastoral Care Referral From _x__ Patient ___ Family ___ Nurse ___ Physician ___ Geophysical Data Technician ___ Porcelain Mixer ___ Other (describe below) Sacrament/Intervention ___ Active listening ___ Anointing ___ Gnosticist ___ Bereavement ___ Communion ___ Faviola exploration ___ ___ Life review ___ Prayer ___ Reconciliation ___ Sacrament of Sick ___ Supportive presence ___ Wedding _x__ Other (describe below) Pastoral Comments PT was completing therapy with patient at time of attempted visit; pt stated that she would be tired and needed at nap after therapy, therefore she declined this encounter; yesterday attempt was also made to visit pt and she also stated that she wanted a nap instead; will wait until further notice concerning pt desire for spiritual care support
--- NOTE | 2020-06-21 14:06 | CASEMGMT ---
MIKAYLA received a call from Bren and patient was approved to return to [facility]. MIKAYLA notified Jojo ERVIN MEDIA MARKETING MANAGER CARD PLACER
--- NOTE | 2020-06-21 14:23 | CASEMGMT ---
Pt screened with [facility] Palliative Screening Tool due to Strata 3, pt did not meet criteria.
--- NOTE | 2020-06-21 16:54 | PCM.TXEXTCAR ---
Diet 06/17/20 16:30 Diet: Cardiac: Calorie-Controlled Food consistency:: Regular Liquid Consistency:: Regular/Thin Dietary Modifications:: Consistent Carbohydrate Sodium Restricted Type of Dietary Supplement:: Mehdi Diet Comments: Mehdi BID w/ breakfast and dinner How many daily calories?: 1600 calorie Routine Orders/Code Status Enema Type: Fleetz Enema Frequency: Daily PRN Suppository Type: Dulcolax 10mg Suppository Frequency: Daily PRN O2 Liters per Minute: 3 O2 Frequency: Continuous Keep PO Greater than or Equal to (%): 90 Routine Lab Work: CBC (weekly) and BMP (weekly) Wound(s) Right buttock: Wound Type: Pressure Injury Suggestions for Active Care Change Position every (hours): 2 Times a day to sit in chair: 3 Therapies Weight Bearing: Full weight bearing Physical Therapy: Eval and Treat Occupational Therapy: Eval and Treat Problem/Diagnosis (1) Hypoxia: Status: Chronic (2) Pleural effusion: Status: Acute (3) Atrial fibrillation with rapid ventricular response: Status: Acute (4) Polio: Status: Chronic (5) Scoliosis: Status: Chronic (6) Hypertension: Status: Chronic (7) S/P laminectomy with spinal fusion: Status: Chronic (8) Hyperlipidemia: Status: Chronic (9) Pulmonary hypertension: Status: Chronic Comment: RVSP 60 mmHg (10) Hiatal hernia with GERD: Status: Chronic (11) Neuropathic pain: Status: Chronic (12) Type 2 diabetes mellitus without complications: Status: Chronic (13) Acute kidney injury: Status: Acute Allergies/Procedures Done in Hospital Allergies atorvastatin calcium [From Lipitor] Allergy (Verified 06/17/20 09:37) Unknown LEG CRAMPS pravastatin Allergy (Verified 06/17/20 09:37) Unknown LEG CRAMPS simvastatin Allergy (Verified 06/17/20 09:37) Unknown LEG CRAMPS morphine Adverse Reaction (Verified 06/17/20 09:37) Other BAD NIGHTMARES altace Allergy (Uncoded 06/17/20 09:37) Unknown antihyperlipidemics Allergy (Uncoded 06/17/20 09:37) Unknown LEG CRAMPS Procedures: 2-D Echocardiogram Type of Care/Length of Stay Estimated LOS: Convalescent Care Less Than 30 days Type of Care Needed: Skilled Rehab Potential: Fair Prognosis: Fair Additional Orders/Day of Discharge Additional Orders: Recommend right-sided thoracentesis following 48 hours off of Eliquis. Last dose 06/20/2020 am. H&P will serve as current which was dated: 06/17/20 Day of Discharge: 06/21/20 Dietary and Speech Recommendations Dietitian Recommendations/Changes: Continue 1600 calorie; carb-controlled; cardiac/sodium-restricted. Continue Mehdi BID to breakfast and dinner meals. Plans for return to TCU at d/c. Follow Up Care Please follow up with your Primary Care Physician in: 1 Week Please Follow Up With: Dr. Breaux When: 1 Week Please Follow Up With: Cardiology When: 1 Week Discharge Plan Admission Admit Date/Time: 06/17/20 12:29 Attending Provider: Fabricio Jon Primary Care Provider: Makenzie Ace Consulting Providers: Cielo Oropeza ; Nathan Breaux Instructions Additional Instructions / Restrictions: Patient will need right-sided thoracentesis following 48 hours off Eliquis. Last dose of Eliquis AM.06/20/20 Discharge Orders/Prescriptions Prescriptions: New fluconazole 100 mg Tablet 200 mg PO DAILY Qty: 0 RF: 0 gabapentin 600 mg Tablet 600 mg PO TID Qty: 0 RF: 0 diltiazem HCl 240 mg Capsule,Extended Release 24hr 240 mg PO DAILY Qty: 0 RF: 0 enoxaparin 80 mg/0.8 mL Syringe 80 mg subcut BID Qty: 0 RF: 0 Continued albuterol sulfate [Ventolin HFA] 90 mcg/actuation HFA aerosol inhaler 2 puff INHALATION Q6H PRN (Reason: shortness of breath or wheezing) Qty: 18 RF: 6 glimepiride 4 MG tablet 4 mg PO DAILY RF: 0 tizanidine 4 MG tablet 4 mg PO Q8H PRN (Reason: Spasms) RF: 0 fenofibrate micronized 134 MG capsule 134 mg PO DAILY RF: 0 ascorbic acid (vitamin C) 500 MG capsule 500 mg PO DAILY RF: 0 magnesium oxide 400 MG tablet 400 mg PO DAILY RF: 0 melatonin 5 MG tablet 15 mg PO QHS RF: 0 sennosides-docusate sodium 1 TABLET tablet 2 tablet PO BID PRN PRN (Reason: Constipation) RF: 0 cyanocobalamin (vitamin B-12) 500 MCG tablet 500 mcg PO QHS Qty: 0 RF: 0 nystatin 1 APPLIC ointment 1 applic TOPICAL TID RF: 0 atenolol 25 MG tablet 25 mg PO DAILY RF: 0 diphenhydramine HCl 25 MG capsule 25 mg PO QHS RF: 0 polyethylene glycol 3350 17 GM powder in packet 17 gm PO DAILY RF: 0 tramadol 50 MG tablet 50 mg PO Q6H PRN PRN (Reason: Pain Score 4-5) RF: 0 acetaminophen 500 MG tablet 1,000 mg PO Q6H PRN PRN (Reason: Pain Score 1-3) RF: 0 pantoprazole 20 MG tablet 20 mg PO QHS RF: 0 zinc sulfate 220 MG tablet 220 mg PO DAILY RF: 0 oxycodone 10 MG tablet 10 mg PO Q4H PRN PRN (Reason: Pain Score 6-10) RF: 0 menthol-zinc oxide 71 GM ointment 1 applic TOPICAL BID RF: 0 Discontinued gabapentin 600 MG tablet 600 mg PO 4X/DAYCM RF: 0 enoxaparin 40 MG/0.4 ML syringe 40 mg SQ DAILY RF: 0 Referrals: Nathan Breaux MD [STAFF PHYSICIAN] - In 1 Week Makenzie Ace DO [Primary Care Provider] - Nelsy Villanueva PA [PHYSICIAN CHAIR POST MACHINE OPERATOR] - In 1 Week Disposition Patient Disposition: [facility] Facility
--- NOTE | 2020-06-21 17:07 | PCM.DC.SUM ---
Documented by User: Jojo Garcia NP, SERVICE PORTER-C 06/21/20 17:11 Providers Date of Admission: 06/17/20 Primary Care Physician: Dr. Makenzie Ace DO Consultations 06/17/20 14:06 Physician Consult Routine Consulting Provider: Cielo Oropeza Consulted Physician Type:: CARD -[facility] Reason for Consult: a-fib Method of Consult:: In-Person MD Notified: Yes Date Notified:: 06/17/20 Time Notified: 12:46 Method of Notification:: Verbal 06/19/20 17:48 Physician Consult Routine Consulting Provider: Nathan Breaux Consulted Physician Type:: Pulmonary Reason for Consult: hypoxia Method of Consult:: In-Person MD Notified: Yes Date Notified:: 06/20/20 Time Notified: 06:25 Method of Notification:: Text Reason For Visit: A FIB WITH RVR Diagnosis Discharge Diagnosis (1) Hypoxia: Status: Chronic Code(s): R09.02 - Hypoxemia (2) Pleural effusion: Status: Acute Code(s): J90 - Pleural effusion, not elsewhere classified (3) Atrial fibrillation with rapid ventricular response: Status: Acute Code(s): I48.91 - Unspecified atrial fibrillation (4) Polio: Status: Chronic Code(s): A80.9 - Acute poliomyelitis, unspecified (5) Scoliosis: Status: Chronic Code(s): M41.9 - Scoliosis, unspecified Qualifiers: Scoliosis type: neuromuscular Spinal region: thoracolumbar Qualified Code(s): M41.45 - Neuromuscular scoliosis, thoracolumbar region (6) Hypertension: Status: Chronic (7) S/P laminectomy with spinal fusion: Status: Chronic Code(s): Z98.1 - Arthrodesis status (8) Hyperlipidemia: Status: Chronic Code(s): E78.5 - Hyperlipidemia, unspecified Qualifiers: Hyperlipidemia type: mixed hyperlipidemia Qualified Code(s): E78.2 - Mixed hyperlipidemia (9) Pulmonary hypertension: Status: Chronic Code(s): I27.20 - Pulmonary hypertension, unspecified (10) Hiatal hernia with GERD: Status: Chronic Code(s): K21.9 - Gastro-esophageal reflux disease without esophagitis; K44.9 - Diaphragmatic hernia without obstruction or gangrene (11) Neuropathic pain: Status: Chronic Code(s): M79.2 - Neuralgia and neuritis, unspecified (12) Type 2 diabetes mellitus without complications: Status: Chronic Code(s): E11.9 - Type 2 diabetes mellitus without complications Qualifiers: Diabetes mellitus hat copyist insulin use: without hat copyist use Qualified Code(s): E11.9 - Type 2 diabetes mellitus without complications (13) Acute kidney injury: Status: Acute Code(s): N17.9 - Acute kidney failure, unspecified Medications at Discharge Home Medications glimepiride 4 mg PO DAILY 05/13/15 fenofibrate micronized 134 mg PO DAILY 06/04/16 tizanidine 4 mg PO Q8H PRN 06/04/16 albuterol sulfate 90 mcg/actuation aerosol inhaler 2 puff INHALATION Q6H PRN #18 g 05/14/19 ascorbic acid (vitamin C) 500 mg PO DAILY 06/09/20 magnesium oxide 400 mg PO DAILY 06/09/20 cyanocobalamin (vitamin B-12) 500 mcg PO QHS #0 06/15/20 melatonin 15 mg PO QHS 06/15/20 sennosides-docusate sodium 2 tablet PO BID PRN PRN tablet 06/15/20 atenolol 25 mg PO DAILY 06/16/20 diphenhydramine HCl 25 mg PO QHS 06/16/20 nystatin 1 applic TOPICAL TID 06/16/20 acetaminophen 1,000 mg PO Q6H PRN PRN 06/17/20 menthol-zinc oxide 1 applic TOPICAL BID 06/17/20 oxycodone 10 mg PO Q4H PRN PRN 06/17/20 pantoprazole 20 mg PO QHS 06/17/20 polyethylene glycol 3350 17 gm PO DAILY 06/17/20 tramadol 50 mg PO Q6H PRN PRN 06/17/20 zinc sulfate 220 mg PO DAILY 06/17/20 diltiazem HCl 240 mg PO DAILY #0 cap 06/21/20 enoxaparin 80 mg SUBCUT BID #0 ml 06/21/20 fluconazole 200 mg PO DAILY #0 tab 06/21/20 gabapentin 600 mg PO TID #0 tab 06/21/20 Hospital Course Operations None Procedures 2-D Echocardiogram Summary of Care Provided Minutes Spent on Discharge: 35 Hospital Course: 1. New onset atrial fibrillation with RVR-D-dimer elevated. CTA without PE. Enzymes normal. Echocardiogram demonstrates an EF of 55%, mild to moderate mitral valve insufficiency. Cardiology consulted during admission. Continue Cardizem CD 240 mg daily. Eliquis on hold due to plans for thoracentesis. Therapeutic Lovenox. Follow-up with cardiology in 1 week. May resume Eliquis following thoracentesis. 2. Acute hypoxic respiratory insufficiency, bilateral pleural effusion-CTA with bilateral pleural effusions, right greater than left. Chest x-ray shows atelectasis. BNP 429. Continue supplement oxygen to maintain O2 at above 90%. Further Lasix discontinued due to increasing creatinine. Eliquis on hold, plan for thoracentesis following 48 hours off of anticoagulation. Per pulmonary medicine who is on consult, if patient requires 6 L or less with ambulation, thoracentesis may be completed on an outpatient basis/at TCU. Follow-up with pulmonary medicine in 1 week. 3. Debility with intractable back pain, chronic lumbar spinal radicular pain-discharge to transitional care 06/16/20 for rehab. 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 PT/OT. As needed pain regimen. Plan for return to rehab following treatment of above. 4. Type 2 diabetes mellitus with neuropathy-continue home oral and insulin regimen. 5. Hypertension-stable, on atenolol. 6. Hyperlipidemia-on fenofibrate. 7. Chronic COPD-as needed albuterol aerosol. 8. GERD-continue PPI. 9. Obesity-encouraged diet and lifestyle modifications. 10. Former tobacco use-encouraged continued cessation. 11. Hyponatremia-suspected due to hypervolemia however worsened with diuresis. Diuretics on hold. Trend BMP. Check urine studies. General: Alert, Oriented x3, Cooperative HEENT: Atraumatic, PERRLA, EOMI, Normocephalic Neck: Supple, No JVD, Negative Carotid Bruits Lungs: Clear to auscultation, Diminished Cardiovascular: - - Atrial fibrillation, rate controlled Abdomen: Bowel Sounds Present, Soft, Non Tender, Non-Distended Extremities: No clubbing, No cyanosis, No edema, Capillary Refill Less than 3 Seconds Skin: No rashes, No breakdown Musculoskeletal: No Tenderness to Palpation of Joints or Extremities Neurological: Cranial nerves II-XII grossly intact, Neuro grossly intact Psych/Mental Status: Normal Affect, Appropriate Patient seen and examined prior to discharge. Physical assessment as noted above. Patient is stable for discharge with follow up recommendations as noted above. This patient was seen by CEDRIC Peacock under the supervision of Dr. Jon. ABG / Lab / Microbiology Data Result Diagrams: 06/21/20 06:12 06/21/20 06:12 Laboratory: Laboratory Results - last 24 hr 06/20/20 06/21/20 06/21/20 21:41 06:12 06:12 WBC 8.2 RBC 3.93 L Hgb 11.5 L Hct 37.4 MCV 95.2 D MCH 29.3 MCHC 30.7 L D RDW Std Deviation 58.8 H RDW Coeff of Liseth 16.9 H Plt Count 239 MPV 11.0 Sodium 133 L Potassium 3.9 Chloride 98 Carbon Dioxide 27.0 Anion Gap 8 BUN 38 H Creatinine 1.43 H Estim Creat Clear Calc 49.50 Est GFR (MDRD) Af Amer 47 L Est GFR (MDRD) Non-Af 38 L BUN/Creatinine Ratio 26.6 H Glucose 42 L* Calcium 8.5 POC Glucose 109 06/21/20 06/21/20 06/21/20 06:36 06:39 06:57 WBC RBC Hgb Hct MCV MCH MCHC RDW Std Deviation RDW Coeff of Liseth Plt Count MPV Sodium Potassium Chloride Carbon Dioxide Anion Gap BUN Creatinine Estim Creat Clear Calc Est GFR (MDRD) Af Amer Est GFR (MDRD) Non-Af BUN/Creatinine Ratio Glucose Calcium POC Glucose 41 L* 46 L 65 L 06/21/20 06/21/20 06/21/20 07:29 08:09 11:36 WBC RBC Hgb Hct MCV MCH MCHC RDW Std Deviation RDW Coeff of Liseth Plt Count MPV Sodium Potassium Chloride Carbon Dioxide Anion Gap BUN Creatinine Estim Creat Clear Calc Est GFR (MDRD) Af Amer Est GFR (MDRD) Non-Af BUN/Creatinine Ratio Glucose Calcium POC Glucose 76 85 136 H D/C Instructions Please follow up with your Primary Care Physician in: 1 Week Please Follow Up With: Dr. Breaux Meaningful Use Info Meaningful Use Diagnoses (Choose all that apply): None applicable Discharge Plan Admission Admit Date/Time: 06/17/20 12:29 Attending Provider: Fabricio Jon Primary Care Provider: Makenzie Ace Consulting Providers: Cielo Oropeza ; Nathan Breaux Instructions Additional Instructions / Restrictions: Patient will need right-sided thoracentesis following 48 hours off Eliquis. Last dose of Eliquis AM.06/20/20 Discharge Orders/Prescriptions Prescriptions: New fluconazole 100 mg Tablet 200 mg PO DAILY Qty: 0 RF: 0 gabapentin 600 mg Tablet 600 mg PO TID Qty: 0 RF: 0 diltiazem HCl 240 mg Capsule,Extended Release 24hr 240 mg PO DAILY Qty: 0 RF: 0 enoxaparin 80 mg/0.8 mL Syringe 80 mg subcut BID Qty: 0 RF: 0 Continued albuterol sulfate [Ventolin HFA] 90 mcg/actuation HFA aerosol inhaler 2 puff INHALATION Q6H PRN (Reason: shortness of breath or wheezing) Qty: 18 RF: 6 glimepiride 4 MG tablet 4 mg PO DAILY RF: 0 tizanidine 4 MG tablet 4 mg PO Q8H PRN (Reason: Spasms) RF: 0 fenofibrate micronized 134 MG capsule 134 mg PO DAILY RF: 0 ascorbic acid (vitamin C) 500 MG capsule 500 mg PO DAILY RF: 0 magnesium oxide 400 MG tablet 400 mg PO DAILY RF: 0 melatonin 5 MG tablet 15 mg PO QHS RF: 0 sennosides-docusate sodium 1 TABLET tablet 2 tablet PO BID PRN PRN (Reason: Constipation) RF: 0 cyanocobalamin (vitamin B-12) 500 MCG tablet 500 mcg PO QHS Qty: 0 RF: 0 nystatin 1 APPLIC ointment 1 applic TOPICAL TID RF: 0 atenolol 25 MG tablet 25 mg PO DAILY RF: 0 diphenhydramine HCl 25 MG capsule 25 mg PO QHS RF: 0 polyethylene glycol 3350 17 GM powder in packet 17 gm PO DAILY RF: 0 tramadol 50 MG tablet 50 mg PO Q6H PRN PRN (Reason: Pain Score 4-5) RF: 0 acetaminophen 500 MG tablet 1,000 mg PO Q6H PRN PRN (Reason: Pain Score 1-3) RF: 0 pantoprazole 20 MG tablet 20 mg PO QHS RF: 0 zinc sulfate 220 MG tablet 220 mg PO DAILY RF: 0 oxycodone 10 MG tablet 10 mg PO Q4H PRN PRN (Reason: Pain Score 6-10) RF: 0 menthol-zinc oxide 71 GM ointment 1 applic TOPICAL BID RF: 0 Discontinued gabapentin 600 MG tablet 600 mg PO 4X/DAYCM RF: 0 enoxaparin 40 MG/0.4 ML syringe 40 mg SQ DAILY RF: 0 Referrals: Nathan Breaux MD [STAFF PHYSICIAN] - In 1 Week Makenzie Ace DO [Primary Care Provider] - Nelsy Villanueva PA [PHYSICIAN OFFAL SEPARATOR] - In 1 Week Disposition Patient Disposition: Care Home Facility Documented by User: Dr. Fabricio Jon DO 06/21/20 17:20 Providers Date of Admission: 06/17/20 Reason For Visit: A FIB WITH RVR Medications at Discharge Home Medications glimepiride 4 mg PO DAILY 05/13/15 fenofibrate micronized 134 mg PO DAILY 06/04/16 tizanidine 4 mg PO Q8H PRN 06/04/16 albuterol sulfate 90 mcg/actuation aerosol inhaler 2 puff INHALATION Q6H PRN #18 g 05/14/19 ascorbic acid (vitamin C) 500 mg PO DAILY 06/09/20 magnesium oxide 400 mg PO DAILY 06/09/20 cyanocobalamin (vitamin B-12) 500 mcg PO QHS #0 06/15/20 melatonin 15 mg PO QHS 06/15/20 sennosides-docusate sodium 2 tablet PO BID PRN PRN tablet 06/15/20 atenolol 25 mg PO DAILY 06/16/20 diphenhydramine HCl 25 mg PO QHS 06/16/20 nystatin 1 applic TOPICAL TID 06/16/20 acetaminophen 1,000 mg PO Q6H PRN PRN 06/17/20 menthol-zinc oxide 1 applic TOPICAL BID 06/17/20 oxycodone 10 mg PO Q4H PRN PRN 06/17/20 pantoprazole 20 mg PO QHS 06/17/20 polyethylene glycol 3350 17 gm PO DAILY 06/17/20 tramadol 50 mg PO Q6H PRN PRN 06/17/20 zinc sulfate 220 mg PO DAILY 06/17/20 diltiazem HCl 240 mg PO DAILY #0 cap 06/21/20 enoxaparin 80 mg SUBCUT BID #0 ml 06/21/20 fluconazole 200 mg PO DAILY #0 tab 06/21/20 gabapentin 600 mg PO TID #0 tab 06/21/20 Hospital Course Summary of Care Provided Minutes Spent on Discharge: 35 Hospital Course: Presents with shortness of breath. Patient was found to have A. fib with RVR. Patient also found to have acute hypoxic respiratory insufficiency due to pleural effusions and atelectasis. Patient with acute heart failure with preserved ejection fraction with EF of 55%. Furosemide had to be held due to worsening kidney function. Tentative plan is for the patient having thoracentesis while in the transitional care unit. Patient did not have that performed while she was here she was on apixaban and did not have enough time of the apixaban be removed from her system in the hospital. That will help with her respiratory status. Patient is otherwise doing well and stable for discharge. Physical Exam Const alert Resp Resp Narrative: diminished in bases. Cardio regular rate, regular rhythm, S1 normal heart sound and S2 normal heart sound ABG / Lab / Microbiology Data Result Diagrams: 06/21/20 06:12 06/21/20 06:12 Discharge Plan Admission Admit Date/Time: 06/17/20 12:29 Attending Provider: Fabricio Jon Primary Care Provider: Makenzie Ace Consulting Providers: Cielo Oropeza ; Nathan Breaux Instructions Additional Instructions / Restrictions: Patient will need right-sided thoracentesis following 48 hours off Eliquis. Last dose of Eliquis AM.06/20/20 Discharge Orders/Prescriptions Prescriptions: New fluconazole 100 mg Tablet 200 mg PO DAILY Qty: 0 RF: 0 gabapentin 600 mg Tablet 600 mg PO TID Qty: 0 RF: 0 diltiazem HCl 240 mg Capsule,Extended Release 24hr 240 mg PO DAILY Qty: 0 RF: 0 enoxaparin 80 mg/0.8 mL Syringe 80 mg subcut BID Qty: 0 RF: 0 Continued albuterol sulfate [Ventolin HFA] 90 mcg/actuation HFA aerosol inhaler 2 puff INHALATION Q6H PRN (Reason: shortness of breath or wheezing) Qty: 18 RF: 6 glimepiride 4 MG tablet 4 mg PO DAILY RF: 0 tizanidine 4 MG tablet 4 mg PO Q8H PRN (Reason: Spasms) RF: 0 fenofibrate micronized 134 MG capsule 134 mg PO DAILY RF: 0 ascorbic acid (vitamin C) 500 MG capsule 500 mg PO DAILY RF: 0 magnesium oxide 400 MG tablet 400 mg PO DAILY RF: 0 melatonin 5 MG tablet 15 mg PO QHS RF: 0 sennosides-docusate sodium 1 TABLET tablet 2 tablet PO BID PRN PRN (Reason: Constipation) RF: 0 cyanocobalamin (vitamin B-12) 500 MCG tablet 500 mcg PO QHS Qty: 0 RF: 0 nystatin 1 APPLIC ointment 1 applic TOPICAL TID RF: 0 atenolol 25 MG tablet 25 mg PO DAILY RF: 0 diphenhydramine HCl 25 MG capsule 25 mg PO QHS RF: 0 polyethylene glycol 3350 17 GM powder in packet 17 gm PO DAILY RF: 0 tramadol 50 MG tablet 50 mg PO Q6H PRN PRN (Reason: Pain Score 4-5) RF: 0 acetaminophen 500 MG tablet 1,000 mg PO Q6H PRN PRN (Reason: Pain Score 1-3) RF: 0 pantoprazole 20 MG tablet 20 mg PO QHS RF: 0 zinc sulfate 220 MG tablet 220 mg PO DAILY RF: 0 oxycodone 10 MG tablet 10 mg PO Q4H PRN PRN (Reason: Pain Score 6-10) RF: 0 menthol-zinc oxide 71 GM ointment 1 applic TOPICAL BID RF: 0 Discontinued gabapentin 600 MG tablet 600 mg PO 4X/DAYCM RF: 0 enoxaparin 40 MG/0.4 ML syringe 40 mg SQ DAILY RF: 0 Referrals: Nathan Breaux MD [STAFF PHYSICIAN] - In 1 Week Makenzie Ace DO [Primary Care Provider] - Nelsy Villanueva PA [PHYSICIAN OFFAL SEPARATOR] - In 1 Week Disposition Patient Disposition: Care Home Facility Inpatient E&M: [id number] [facility]
[2020-06-21 17:20] LABS: Bedside Glucose 142 mg/dL (70-110)
== END 2020-06-21 18:00 | disposition skilled nursing facility (03) | DRG 309 ==
LOC: ED 10:07 → PCU 12:59
PROVIDERS: Nurse Practitioner Family; Admitting Provider Internal Medicine; Emergency Provider Emergency Medicine; PCP Internal Medicine Nephrology
DX: I48.91 Unspecified atrial fibrillation (principal); E87.1 Hypo-osmolality and hyponatremia; Z68.41 Body mass index [BMI] 40.0-44.9, adult; J90 Pleural effusion, not elsewhere classified; N17.9 Acute kidney failure, unspecified; J98.11 Atelectasis; T84.89XA Other specified complication of internal orthopedic prosthetic devices, implants and grafts, initial encounter; I11.0 Hypertensive heart disease with heart failure; R09.02 Hypoxemia; T50.2X5A Adverse effect of carbonic-anhydrase inhibitors, benzothiadiazides and other diuretics, initial encounter; Y92.9 Unspecified place or not applicable; R79.89 Other specified abnormal findings of blood chemistry; I95.9 Hypotension, unspecified; R06.89 Other abnormalities of breathing; E11.40 Type 2 diabetes mellitus with diabetic neuropathy, unspecified; E66.01 Morbid (severe) obesity due to excess calories; E78.2 Mixed hyperlipidemia; G56.02 Carpal tunnel syndrome, left upper limb; G89.29 Other chronic pain; I27.20 Pulmonary hypertension, unspecified; I34.0 Nonrheumatic mitral (valve) insufficiency; M41.45 Neuromuscular scoliosis, thoracolumbar region; K44.9 Diaphragmatic hernia without obstruction or gangrene; K21.9 Gastro-esophageal reflux disease without esophagitis; Z79.899 Other long term (current) drug therapy; Z86.16 Personal history of COVID-19; Z98.1 Arthrodesis status; Z79.84 Long term (current) use of oral hypoglycemic drugs; M51.16 Intervertebral disc disorders with radiculopathy, lumbar region; M41.9 Scoliosis, unspecified; Z86.12 Personal history of poliomyelitis; Y79.2 Prosthetic and other implants, materials and accessory orthopedic devices associated with adverse incidents; Z68.38 Body mass index [BMI] 38.0-38.9, adult; E66.9 Obesity, unspecified; J44.9 Chronic obstructive pulmonary disease, unspecified
CPT/HCPCS: 36415; 71045; 71275; 80048; 80053; 82962; 83735; 83880; 83935; 84300; 84484; 85025; 85027; 85379; 85610; 85730; 87426; 93005; 93306; 94640; 96361; 96372; 96374; 96375; 96376; 97110; 97162; 97166; 97530; 97802; 97803; 99218; 99251; 99285; 99406; J7030; J7040; J7050; J7120; Q9957; Q9967; A4216; G0378; G0463; J1940; J2405

== ENCOUNTER 2020-06-21 18:00 | Inpatient (IN) | payer MEDICARE, SELFPAY ==
[2020-06-17 14:18] VITALS: BMI 40.0
[2020-06-21 18:15] VITALS: BMI 38.0
[2020-06-21 18:41] VITALS: BP 95/72; PULSE 92; RESP 18; TEMP 36.4; O2SAT 94
--- NOTE | 2020-06-21 21:00 | NURSING ---
MEMBERSHIP DIRECTOR reports pt co difficulty breathing. No O2 in place. Skin pink/pale, warm, and dry. O2 applied at 3 lpm via nc. In no acute distress. Pt reports relief almost immediately.
--- NOTE | 2020-06-21 21:30 | NURSING ---
This nurse assisted pt off of bedpan. Buttocks red, intact. Calmospetine applied. Positioned in bed for comfort.
--- NOTE | 2020-06-21 22:22 | HP.PCM_ITS ---
HPI - General General Date of Admission: 06/21/20 HPI Narrative 06/17/2020 LUCY GUTIERREZ, is a 70 Female with below past medical history TCU resident who presented to [facility] Emergency Department with new onset atrial fibrillation with rapid ventricular response. Palpitations, dizziness, near syncope. EKG showed atrial fibrillation with RVR, heart rate 162. Cardizem IV, then Cardizem drip, Zofran IV. Chest X-ray sowed right lower lobe infiltrate. CTA chest negative for pulmonary embolism. 06/17/2020 Admit to Hospital. Trend cardiac enzymes, start Eliquis, order echo, cardizem drip for atrial fibrillation with RVR. 06/17/2020 Echo EF 55%. 06/17/2020 Cardiology recommended oral cardizem, continue Eliquis. 06/18/2020 On Cardizem drip. Lasix IV for fluid overload. PT/OT for low back pain. 06/19/2020 Cardizem drip stopped, oral cardizem started. Lasix 40MG daily for fluid overload. 06/20/2020 Increased shortness of breath, but oxygen requirement decreased. Cardizem CD 240MG daily, Hold Eliquis for thoracentesis. Thoracentesis for bilateral pleural effusion. 06/21/2020 Thoracentesis as outpatient. PT/OT for TCU. Lasix stopped due to worsening creatinine. 06/21/2020 Plan thoracentesis 06/22/2020. 06/21/2020 Admit to TCU with debility, here for rehabilitation, strengthening, prior to discharge home alone. [facility] [place] Medical History (Updated 06/21/20 @ 22:[address] Mauricio Domingo MD) Hiatal hernia with GERD Hyperlipidemia Hypertension Lumbar disc disease Osteoarthritis Polio Scoliosis Type 2 diabetes mellitus without complications Home Medications glimepiride 4 mg PO DAILY 05/13/15 [History Last Taken 06/14/20] fenofibrate micronized 134 mg PO DAILY 06/04/16 [History Last Taken 06/14/20] tizanidine 4 mg PO Q8H PRN 06/04/16 [History Last Taken 06/14/20] albuterol sulfate 90 mcg/actuation aerosol inhaler 2 puff INHALATION Q6H PRN #18 g 05/14/19 [Rx Last Taken 06/14/20] ascorbic acid (vitamin C) 500 mg PO DAILY 06/09/20 [History Last Taken 06/17/20 07:57] magnesium oxide 400 mg PO DAILY 06/09/20 [History Last Taken 06/17/20 07:56] cyanocobalamin (vitamin B-12) 500 mcg PO QHS #0 06/15/20 [Rx Last Taken 06/16/20 21:46] melatonin 15 mg PO QHS 06/15/20 [History Last Taken 06/17/20 01:05] sennosides-docusate sodium 2 tablet PO BID PRN PRN tablet 06/15/20 [Rx Last Taken Unknown] atenolol 25 mg PO DAILY 06/16/20 [History Last Taken 06/17/20 05:09] diphenhydramine HCl 25 mg PO QHS 06/16/20 [History Last Taken 06/16/20 21:46] nystatin 1 applic TOPICAL TID 06/16/20 [History Last Taken 06/17/20 05:10] acetaminophen 1,000 mg PO Q6H PRN PRN 06/17/20 [History Last Taken 06/17/20 05:08] menthol-zinc oxide 1 applic TOPICAL BID 06/17/20 [History Last Taken 06/17/20 05:10] oxycodone 10 mg PO Q4H PRN PRN 06/17/20 [History Last Taken 06/17/20 05:08] pantoprazole 20 mg PO QHS 06/17/20 [History Last Taken 06/16/20 21:46] polyethylene glycol 3350 17 gm PO DAILY 06/17/20 [History Last Taken Unknown] tramadol 50 mg PO Q6H PRN PRN 06/17/20 [History Last Taken Unknown] zinc sulfate 220 mg PO DAILY 06/17/20 [History Last Taken 06/17/20 07:56] diltiazem HCl 240 mg PO DAILY #0 cap 06/21/20 [Rx Last Taken Unknown] enoxaparin 80 mg SUBCUT BID #0 ml 06/21/20 [Rx Last Taken Unknown] fluconazole 200 mg PO DAILY #0 tab 06/21/20 [Rx Last Taken Unknown] gabapentin 600 mg PO TID #0 tab 06/21/20 [Rx Last Taken Unknown] Allergy/AdvReac Type Severity Reaction Status Date / Time atorvastatin calcium Allergy Unknown Verified 06/17/20 09:37 [From Lipitor] pravastatin Allergy Unknown Verified 06/17/20 09:37 simvastatin Allergy Unknown Verified 06/17/20 09:37 morphine AdvReac Other Verified 06/17/20 09:37 altace Allergy Unknown Uncoded 06/17/20 09:37 antihyperlipidemics Allergy Unknown Uncoded 06/17/20 09:37 Family History (Reviewed 05/14/19 @ 14:33 by Arianne Smiley HVAC CONTROLS TECHNICIAN, HVAC CONTROLS TECHNICIAN-C) Mother Brain aneurysm Father CVA (cerebral vascular accident) Sister Thyroid cancer Surgical History (Updated 06/17/20 @ 14:19 by Jojo Garcia NP, HVAC CONTROLS TECHNICIAN-C) back H/O tubal ligation History of 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 Mauricio Domingo MD) household members: none Smoking Status: Former smoker Tobacco: How many years used: 20 ROS Constitutional Constitutional: Denies chills, fever(s) or weight gain ENT HEENT: Denies headache(s), nasal congestion or nasal discharge Cardiovascular Cardiovascular: Denies chest pain or palpitations Respiratory/Chest Respiratory/Chest: Denies cough, excessive phlegm production or shortness of breath with exertion Gastrointestinal Gastrointestinal: Denies abdominal pain, nausea or vomiting Genitourinary Genitourinary: Denies dysuria Musculoskeletal Musculoskeletal: Denies joint pain or joint swelling Integumentary Integumentary: Denies rash or wounds Neurologic Neurologic: Denies focal weakness, numbness or tingling Psychiatric Psychiatric: Reports auditory hallucinations; Denies anxiety, depression, homicidal ideation or suicidal ideation Vital Signs Vital Signs Vital Signs: 06/21/20 18:41 Temperature 97.6 F L Temperature Source Temporal Pulse Rate 92 Respiratory Rate 18 Blood Pressure 95/72 Blood Pressure Mean 79 Blood Pressure Source Monitor Blood Pressure Position Semi-Fowlers Blood Pressure Location Right Arm Pulse Ox 94 Oxygen Delivery Method Room Air Physical Exam Const alert and oriented x3 General Appearance: cooperative HEENT normocephalic Eyes PERRL and EOMs intact bilaterally Neck supple, no JVD and no carotid bruits Resp normal respiratory effort, normal air movement and clear to auscultation bilaterally Cardio regular rate and regular rhythm GI normal to inspection, nondistended, normoactive bowel sounds, non-tender and non-distended Extremity normal capillary refill General Extremity: Negative for edema Skin no rashes or lesions noted General Skin Exam: no breakdown Psych affect normal Appearance: appropriate Assessment & Plan Assessment/Plan (1) Atrial fibrillation with rapid ventricular response: Status: Acute Code(s): I48.91 - Unspecified atrial fibrillation (2) Acute kidney injury: Status: Acute Code(s): N17.9 - Acute kidney failure, unspecified (3) Pleural effusion: Status: Acute Code(s): J90 - Pleural effusion, not elsewhere classified (4) Debility: Status: Acute Code(s): R53.81 - Other malaise (5) COPD (chronic obstructive pulmonary disease): Status: Chronic Code(s): J44.9 - Chronic obstructive pulmonary disease, unspecified (6) Vitamin B12 deficiency: Status: Acute Code(s): E53.8 - Deficiency of other specified B group vitamins (7) Hyperlipidemia: Status: Chronic Code(s): E78.5 - Hyperlipidemia, unspecified Qualifiers: Hyperlipidemia type: mixed hyperlipidemia Qualified Code(s): E78.2 - Mixed hyperlipidemia (8) Thrush: Status: Acute Code(s): B37.0 - Candidal stomatitis (9) Neuropathic pain: Status: Chronic Code(s): M79.2 - Neuralgia and neuritis, unspecified (10) Type 2 diabetes mellitus without complications: Status: Chronic Code(s): E11.9 - Type 2 diabetes mellitus without complications Qualifiers: Diabetes mellitus keno terminal operator insulin use: without usp use Qualified Code(s): E11.9 - Type 2 diabetes mellitus without complications (11) Hypomagnesemia: Status: Acute Code(s): E83.42 - Hypomagnesemia (12) Insomnia: Status: Acute Code(s): G47.00 - Insomnia, unspecified (13) Muscle spasm: Status: Acute Code(s): M62.838 - Other muscle spasm (14) Zinc deficiency: Status: Acute Code(s): E60 - Dietary zinc deficiency Plan: 70 year old female with below past medical history hospitalized for new onset atrial fibrillation with rapid ventricular response, complicated by bilateral pleural effusions, low back pain, admitted to TCU with debility, here for rehabilitation, strengthening, prior to discharge home alone. Debility - PT/OT. Pain - Tylenol 1000MG Q6H PRN, Tramadol 50MG Q6H PRN, Oxycodone 10MG Q4H PRN. Bowel - Miralax 17GM daily, Senna/colace 2 tablets BID PRN. Adult immunization - Administer Prevnar 13, Pneumovax 23, Fluzone, COVID19 vaccine as appropriate. DVT prophylaxis - Not necessary, anticoagulation for atrial fibrillation. COPD - Albuterol 2 puffs Q4H PRN. Vitamin C deficiency - Vitamin C 500MG daily. Atrial fibrillation - Atenolol 25MG daily, Cardizem CD 240MG daily, Lovenox 80MG SC BID awaiting thoracentesis, then Eliquis 5MG BID. Hyperlipidemia - Fenofibrate 145MG daily. Thrush - Fluconazole 200MG daily thru 06/26/2020. Neuropathic pain - Gabapentin 600MG TID. Diabetes Mellitus II - Glimepiride 4MG daily, monitor blood sugar. Nutrition - Glucerna 120ML TID PRN. Hypomagnesemia - Magnesium 128MG daily. Insomnia - Melatonin 15MG QHS Skin irritation - Calmoseptine topical BID. Tinea Corporis - Nystatin topical TID. GERD - Pantoprazole 20MG QHS. Muscle spasm - Zanaflex 4MG Q8H PRN. Zinc deficiency - Zinc 220MG daily.
[2020-06-21] MEDS: Enoxaparin 80 MG/0.8 ML Syringe SC (22:51)
[2020-06-21] MEDS: MELATONIN 10 MG TABLET 15 MG PO (22:53)
[2020-06-21] MEDS: Nystatin Ointment 1 APPLIC TOPICAL (22:54)
[2020-06-21] MEDS: Pantoprazole Sodium 20 MG Tablet PO (22:55)
[2020-06-21] MEDS: Cyanocobalamin 500 MCG Tablet PO (22:56)
[2020-06-21] MEDS: oxyCODONE 5 MG Tablet 10 MG PO (23:00)
[2020-06-21] MEDS: 0.9% Saline Lock 10 ML Syringe IV (23:05)
[2020-06-22] MEDS: traMADol 50 MG Tablet PO (00:57)
[2020-06-22] MEDS: Acetaminophen 500 MG Tablet 1000 MG PO (00:58)
--- NOTE | 2020-06-22 01:11 | NURSING ---
Pt calls for pain medication. Assessed effectiveness of Oxycodone just prior to medication and pt was resting in bed w/ eyes closed. In no acute distress. Pt verbalizes she has not been able to sleep since 0300 yesterday, but is drowsy when engaged in brief conversation w/ this nurse. Pt dropped tablet of Tramadol 50 mg onto the floor. Obtained a new tablet from accucheck, wasted initial tablet in rx destroyer, witnessed per LUCIE Mo.
[2020-06-22] MEDS: dilTIAZem CD 240 MG Capsule PO (04:58)
[2020-06-22] MEDS: Fluconazole 100 MG Tablet 200 MG PO (04:58)
[2020-06-22] MEDS: Enoxaparin 80 MG/0.8 ML Syringe SC ×2 (04:58→17:06)
[2020-06-22] MEDS: Atenolol 25 MG Tablet PO (04:59)
[2020-06-22] MEDS: Polyethylene Glycol 3350 17 GM PACKET PO (05:01)
[2020-06-22] MEDS: Nystatin Ointment 1 APPLIC TOPICAL ×3 (05:01→21:28)
[2020-06-22 05:41] LABS: Absolute Lymphocyte Count 1.09 X10^3/uL (0.83-4.51); Absolute Neutrophil Count 5.7 X10^3/uL (2.0-7.7); Basophil# 0.02 X10^3/uL; Basophil% 0.3 % (0-1); Eosinophil# 0.08 X10^3/uL; Hematocrit 39.3 % (37-47); Lymphocyte # 1.09 X10^3/ul (0.83-4.51); Lymphocyte % 14.3 % (19-41); Mean Corp Hgb Conc 30.5 g/dL (32-36); Mean Corpuscular Hgb 29.1 pg (27.0-32.0); Mean Corpuscular Volume 95.2 fL (81-99); Mean Platelet Vol. 10.6 fl (6.2-12.0); Monocyte# 0.67 X10^3/uL; Monocyte% 8.8 % (0-10); NRBC Flagged by Analyzer 0 % (0-5); Neutrophil # 5.74 X10^3/uL (2.7-7.7); Neutrophil % 75.3 % (47-70); Platelet Count 242 K/mm3 (150-450); RBC Distribution Width CV 17.2 % (11.6-14.6); RBC Distribution Width SD 59.2 fl (35.1-43.9); Red Blood Count 4.13 M/mm3 (4.2-5.4); White Blood Count 7.6 K/mm3 (4.4-11.0)
[2020-06-22 05:58] LABS: Anion Gap 4 (5-15); BUN 28 mg/dL (7-18); BUN/Creat Ratio 26.9 RATIO (10-20); Calcium,Total 8.9 mg/dL (8.5-10.1); Chloride 101 mmol/L (98-107); Creatinine, Serum 1.04 mg/dL (0.55-1.02); EST Glomerular Filtration Rate 56 mL/min (>60); Est Glom Filt Rate - Afr Amer 67 mL/min (>60); Glucose 84 mg/dL (74-106); Potassium 4.6 mmol/L (3.5-5.1); Sodium Level 133 mmol/L (136-145)
[2020-06-22] MEDS: Menthol/Lanolin/Calamine/Znox 113 GM Tube 1 APPLIC TOPICAL ×2 (07:04→17:06)
[2020-06-22 07:17] VITALS: BP 111/61; PULSE 75; RESP 16; TEMP 35.8
[2020-06-22] MEDS: Glucerna Shake 120 ML LIQUID PO ×3 (08:30→17:04)
[2020-06-22] MEDS: Ascorbic Acid 500 MG Tablet PO (08:32)
[2020-06-22] MEDS: Glimepiride 4 MG Tablet PO (08:32)
[2020-06-22] MEDS: Gabapentin 600 MG Tablet PO ×3 (08:32→17:04)
[2020-06-22] MEDS: Fenofibrate 145 MG Tablet PO (08:32)
[2020-06-22] MEDS: Magnesium Chloride 64 MG Delay Rel.Tablet 128 MG PO (08:32)
[2020-06-22] MEDS: oxyCODONE 5 MG Tablet 10 MG PO ×2 (09:03→20:34)
[2020-06-22] MEDS: Tuberculin,Purif.prot.deriv. 50 TU/ML Vial 5 ML ID (10:37)
--- NOTE | 2020-06-22 12:20 | PCA ---
when taking in patients lunch patient states that she is not hungry and wants to sleep .as this collect on delivery clerk was leaving the room patient asked for the call light which was right beside her . this collect on delivery clerk handled the patient her call light and patient stated alot of good for the call light to be way over there when the call light was beside her the entire time . as collect on delivery clerk left the room the patient rang out to be put on the bed clinton . this and another collect on delivery clerk put patient on the bed clinton.
--- NOTE | 2020-06-22 14:20 | PHA.CONS_ITS ---
Progress Note - Pharmacy Subjective: TCU ADMISSION Objective: Allergies atorvastatin calcium [From Lipitor] Allergy (Verified 06/17/20 09:37) Unknown LEG CRAMPS pravastatin Allergy (Verified 06/17/20 09:37) Unknown LEG CRAMPS simvastatin Allergy (Verified 06/17/20 09:37) Unknown LEG CRAMPS morphine Adverse Reaction (Verified 06/17/20 09:37) Other BAD NIGHTMARES altace Allergy (Uncoded 06/17/20 09:37) Unknown antihyperlipidemics Allergy (Uncoded 06/17/20 09:37) Unknown LEG CRAMPS Current Medications Generic Name Dose Route Start Last Admin Trade Name Freq PRN Reason Stop Dose Admin Acetaminophen 1,000 mg 06/21/20 18:18 06/22/20 00:58 Acetaminophen 500 Mg Tablet PO 1,000 mg Q6H PRN PRN Administration Pain Score 1-3 Albuterol Sulfate 2 puff 06/21/20 18:18 Albuterol Sulfate 8 Gm Inhaler (60 Puffs) INHALATION Q6H PRN shortness of breath or wheezing Ascorbic Acid 500 mg 06/22/20 08:00 06/22/20 08:32 Ascorbic Acid 500 Mg Tablet PO 500 mg DAILYCM SARAH Administration Atenolol 25 mg 06/22/20 06:00 06/22/20 04:59 Atenolol 25 Mg Tablet PO 25 mg DAILY SARAH Administration Calamine/Phenol 1 applic 06/22/20 06:00 06/22/20 07:04 Menthol/Lanolin/Calamine/Znox 113 Gm Tube TOPICAL 1 u BID SARAH Administration Protocol Cyanocobalamin 500 mcg 06/21/20 22:00 06/21/20 22:56 Cyanocobalamin 500 Mcg Tablet PO 500 mcg QHS SARAH Administration Diltiazem HCl 240 mg 06/22/20 06:00 06/22/20 04:58 Diltiazem Cd 240 Mg Capsule PO 240 mg DAILY SARAH Administration Enoxaparin Sodium 80 mg 06/21/20 22:00 06/22/20 04:58 Enoxaparin 80 Mg/0.8 Ml Syringe SC 80 mg BID SARAH Administration Fenofibrate 145 mg 06/22/20 08:00 06/22/20 08:32 Fenofibrate 145 Mg Tablet PO 145 mg DAILY@0800 SARAH Administration Fluconazole 200 mg 06/22/20 06:00 06/22/20 04:58 Fluconazole 100 Mg Tablet PO 06/26/20 06:01 200 mg DAILY SARAH Administration Gabapentin 600 mg 06/22/20 07:45 06/22/20 11:03 Gabapentin 600 Mg Tablet PO 600 mg TIDCM SARAH Administration Glimepiride 4 mg 06/22/20 08:00 06/22/20 08:32 Glimepiride 4 Mg Tablet PO 4 mg DAILYCM SARAH Administration Sodium Chloride 250 mls @ 15 mls/hr 06/21/20 18:25 IV .[id number] PRN Saline Flush Sodium Chloride 250 mls @ 15 mls/hr 06/21/20 18:25 IV .[id number] PRN Additional IVPB Infusion Magnesium Chloride 128 mg 06/22/20 08:00 06/22/20 08:32 Magnesium Chloride 64 Mg Delay Rel.Tablet PO 128 mg DAILYCM SARAH Administration Melatonin 15 mg 06/21/20 22:00 06/21/20 22:53 Melatonin 10 Mg Tablet PO 15 mg QHS SARAH Administration Nutritional Formula (Lactose Free) 120 ml 06/22/20 07:45 06/22/20 11:03 Glucerna Shake 120 Ml Liquid PO 120 ml TIDCM SARAH Administration Nystatin 1 applic 06/21/20 22:00 06/22/20 13:51 Nystatin Ointment TOPICAL 1 dose TID SARAH Administration Protocol Oxycodone HCl 10 mg 06/21/20 18:41 06/22/20 09:03 Oxycodone 5 Mg Tablet PO 10 mg Q4H PRN PRN Administration Pain Score 6-10 Pantoprazole Sodium 20 mg 06/21/20 22:00 06/21/20 22:55 Pantoprazole Sodium 20 Mg Tablet PO 20 mg QHS SARAH Administration Polyethylene Glycol 17 gm 06/22/20 06:00 06/22/20 05:01 Polyethylene Glycol 3350 17 Gm Packet PO 17 gm DAILY SARAH Administration Senna/Docusate Sodium 2 tablet 06/21/20 18:18 Senna/Docusate Sodium 1 Tablet PO BID PRN PRN Constipation Sodium Chloride 10 - 40 ml 06/21/20 18:25 06/21/20 23:05 0.9% Saline Lock 10 Ml Syringe IV 20 ml UD PRN Administration SALINE FLUSH Tizanidine HCl 4 mg 06/21/20 18:46 Tizanidine Hcl 2 Mg Tablet PO Q8H PRN SPASMS Tramadol HCl 50 mg 06/21/20 18:18 06/22/20 00:57 Tramadol 50 Mg Tablet PO 50 mg Q6H PRN PRN Administration Pain Score 4-5 Tuberculin PPD 5 tu 06/29/20 10:00 Tuberculin,Purif.Prot.Deriv. 50 Tu/Ml Vial ID 06/29/20 10:01 X1 ONE Zinc Sulfate 220 mg 06/22/20 08:00 06/22/20 08:32 Zinc Sulfate (50mg Elemental) 220 Mg Capsule PO 220 mg DAILYCM SARAH Administration Problem List (Last Reviewed 05/14/19 @ 14:33 by Arianne Smiley TELECOMMUNICATIONS SWITCH TECHNICIAN, TELECOMMUNICATIONS SWITCH TECHNICIAN-C) Zinc deficiency (Acute) Muscle spasm (Acute) Insomnia (Acute) Hypomagnesemia (Acute) Thrush (Acute) Vitamin B12 deficiency (Acute) COPD (chronic obstructive pulmonary disease) (Chronic) Debility (Acute) Atrial fibrillation with rapid ventricular response (Acute) Acute kidney injury (Acute) Pleural effusion (Acute) Neuropathic pain (Chronic) Hyperlipidemia (Chronic) Type 2 diabetes mellitus without complications (Chronic) Vital Signs Temp Pulse Resp BP Pulse Ox 96.5 F L 75 16 111/61 94 06/22/20 07:17 06/22/20 07:17 06/22/20 07:17 06/22/20 07:17 06/21/20 18:41 Oxygen Flow Rate (L/min) 3 Oxygen Delivery Method Nasal Cannula Weight: 82.6 kg Body Mass Index (BMI) 38.0 Finger Stick Blood Glucose 83 Sodium 133 mmol/L (136-145) L 06/22/20 05:25 Potassium 4.6 mmol/L (3.5-5.1) 06/22/20 05:25 Chloride 101 mmol/L (98-107) 06/22/20 05:25 Carbon Dioxide 28.0 mmol/L (21.0-32.0) 06/22/20 05:25 Anion Gap 4 (5-15) L 06/22/20 05:25 BUN 28 mg/dL (7-18) H 06/22/20 05:25 Creatinine 1.04 mg/dL (0.55-1.02) H 06/22/20 05:25 Est GFR (MDRD) Af Amer 67 mL/min (>60) 06/22/20 05:25 Est GFR (MDRD) Non-Af 56 mL/min (>60) L 06/22/20 05:25 BUN/Creatinine Ratio 26.9 RATIO (10-20) H 06/22/20 05:25 Glucose 84 mg/dL (74-106) 06/22/20 05:25 Assessment/Plan: 1. Pain: Tylenol 1000mg PO Q6h PRN Pain 1-3, Tramadol 50mg PO Q6h PRN Pain 4-5, Oxycodone 10mg PO Q4h PRN Pain 6-10. Please continue to monitor for increased/decreased S/S pain, PRN medication usage. 2. Atrial Fibrillation: Atenolol 25mg PO daily, Diltiazem 240mg PO Daily, Lovenox 80mg SC BID (will transition to Eliquis post-thoracentesis per H/P). Please continue to monitor BP ( last 111/61), Pulse ( last 75 BPM), weight change (while on Lovenox), S/S bleeding/bruising, Renal function (last CrCl 64 mL/min 06/22). 3. Hyperlipidemia: [id number] PO Daily. Please continue to monitor CrCl, lipid panel annually or sooner if clinically indicated (last drawn 02/2020). 4.Diabetes II: Glimepiride 4mg PO Daily. Please continue to monitor blood glucose levels, A1C (6.4% 02/2020), S/S hypoglycemia. 5. Neuropathic Pain: Gabapentin 600mg PO TID. Please continue to monitor for medication effectiveness. This is a Beer's criteria medication, please monitor pt for falls. 6. COPD: Ventolin inhaler 2 puffs Q6h PRN SOB/Wheezing. Please continue to monitor for S/S COPD exacerbations, PRN medication usage. 7. GERD: Protonix 20mg PO QHS. Please continue to monitor for medication effectiveness, Vitamin B12 levels (Last= 285 02/2020). Please consider nonpharmacologic treatments as well to decrease GERD exacerbations. 8. Insomnia: Melatonin 15mg PO QHS. Please continue to monitor medication effectiveness. If medication ineffective, please try administering 2 hours prior to bedtime, thanks. 9. Thrush: Fluconazole 200mg PO Daily through 06/26/20. Please continue to monitor for resolution of infection. 10. Muscle Spasm: Zanaflex 4mg PO Q8h PRN. Please continue to monitor for medication effectiveness, PRN medication usage. 11. General Wellness: Ascorbic acid 500mg PO Daily, Cyanocobalamin 500mcg PO QHS, Magnesium Chloride 128mg PO Daily, Zinc Sulfate 220mg PO daily. Please continue to monitor. Psychotropic Medications: None Unnecessary Medications: None Bowel Regimen: Miralax 17g PO Daily, Senna/Docusate 2 tab PO BID PRN. Please continue to monitor for increased/decreased constipation and/or diarrhea. Date of Note:: 06/22/20
--- NOTE | 2020-06-22 14:23 | NURSING ---
Pt straight catheterized to collect urine for UA and culture. Cloudy with strong odor noted . Pt tolerated well.
[2020-06-22 15:50] LABS: Mucous, Urine 0 SEEN /hpf (<or=2+)
[2020-06-22 15:51] VITALS: O2SAT 91
[2020-06-22 16:01] VITALS: BP 93/48; PULSE 93; RESP 18; TEMP 36.8; O2SAT 93
[2020-06-22 16:17] LABS: Color, Urine Yellow (Yellow); Glucose, Dipstick Normal (Normal); Ketone-Dipstick Negative (Negative); Leukocyte Esterase-Dipstick 500 /ul (Negative); Nitrite-Dipstick Negative (Negative); Occult Blood-Urine 250 /ul (Negative); Protein-Dipstick 100 mg/dl (Negative); Urine Bilirubin Dipstick Negative (Negative); Urine Clarity Cloudy (Clear); Urine Urobilinogen Normal (Normal); Urine pH 6.5 (5.0 - 8.0)
[2020-06-22 16:37] LABS: Bacteria 1+ /hpf (None Seen); Red Blood Cells-Urine 10-25 SEEN /hpf (0-5); Squamous Epithelial Cells - UA 0-5 SEEN /hpf (5-10); White Blood Cells >100 SEEN /hpf (0-5)
[2020-06-22] MEDS: Ciprofloxacin 500 MG Tablet PO (20:33)
[2020-06-22] MEDS: Baclofen 10 MG Tablet PO (21:27)
[2020-06-22] MEDS: MELATONIN 10 MG TABLET 15 MG PO (21:28)
[2020-06-22] MEDS: Cyanocobalamin 500 MCG Tablet PO (21:29)
[2020-06-22] MEDS: Pantoprazole Sodium 20 MG Tablet PO (21:29)
[2020-06-22 22:00] VITALS: PULSE 95; RESP 18
[2020-06-23 00:11] LABS: Bedside Glucose 119 mg/dL (70-110)
[2020-06-23 04:25] VITALS: BP 120/74; PULSE 112; RESP 22; TEMP 36.4; O2SAT 95
[2020-06-23] MEDS: dilTIAZem CD 240 MG Capsule PO (04:32)
[2020-06-23] MEDS: Atenolol 25 MG Tablet PO (04:32)
[2020-06-23] MEDS: Menthol/Lanolin/Calamine/Znox 113 GM Tube 1 APPLIC TOPICAL ×2 (04:33→17:26)
[2020-06-23] MEDS: Fluconazole 100 MG Tablet 200 MG PO (04:34)
[2020-06-23] MEDS: Nystatin Ointment 1 APPLIC TOPICAL ×3 (04:34→21:46)
[2020-06-23] MEDS: Ciprofloxacin 500 MG Tablet PO ×2 (04:34→17:26)
[2020-06-23] MEDS: Enoxaparin 80 MG/0.8 ML Syringe SC ×2 (04:35→17:25)
[2020-06-23] MEDS: Polyethylene Glycol 3350 17 GM PACKET PO (04:35)
--- NOTE | 2020-06-23 04:52 | NURSING ---
Patient calling out loudly for her niece, went in room and found patient confused, asking nurse if she'd always been in this room, wondering why here sister wasn't in the room with her. Reoriented her to situation. Vitals checked, tachy w/ irregular apical HR 112, otherwise vitals ok. She denies pain, shortness of breath, dizziness. Blood sugar 74. Gave patient juice, sugar recheck 20mins later was 98. Patient's confusion improved, will continue to monitor.
[2020-06-23 05:01] LABS: Bedside Glucose 74 mg/dL (70-110)
[2020-06-23 05:01] LABS: Bedside Glucose 98 mg/dL (70-110)
[2020-06-23 06:25] LABS: Bedside Glucose 117 mg/dL (70-110)
[2020-06-23 07:05] VITALS: O2SAT 90
--- NOTE | 2020-06-23 07:26 | CPS ---
patient was bumped to 5L due to low O2, patient was not wearing Nasal cannula
[2020-06-23] MEDS: Glimepiride 4 MG Tablet PO (08:03)
[2020-06-23] MEDS: Fenofibrate 145 MG Tablet PO (08:03)
[2020-06-23] MEDS: Magnesium Chloride 64 MG Delay Rel.Tablet 128 MG PO (08:04)
[2020-06-23] MEDS: Gabapentin 600 MG Tablet PO ×3 (08:04→17:26)
[2020-06-23] MEDS: Ascorbic Acid 500 MG Tablet PO (08:04)
[2020-06-23 11:00] VITALS: RESP 20; O2SAT 93
[2020-06-23] MEDS: oxyCODONE 5 MG Tablet 10 MG PO ×2 (11:11→22:37)
[2020-06-23 11:16] LABS: Bedside Glucose 173 mg/dL (70-110)
[2020-06-23 11:39] VITALS: BP 128/60; PULSE 92
[2020-06-23] MEDS: Glucerna Shake 120 ML LIQUID PO ×2 (12:16→17:25)
--- NOTE | 2020-06-23 12:38 | NURSING ---
hospice office coordinator Note: Res in bed asleep with lunch on tray. Attempted to wake resident by calling her name, hand rub, arm rub. No response. PENSION EXAMINER able to rouse resident with sternal rub. Awakened briefly. Offered to assist with set up for lunch. States she is not hungry. Attempted to complete activities assessment, however, resident unable to answer any question, continues to fall asleep with little response to verbal or physical stimuli. Reported to RN as well.
[2020-06-23 15:29] VITALS: BP 121/71; PULSE 108; RESP 22; TEMP 36.6; O2SAT 94
[2020-06-23 15:56] LABS: Bedside Glucose 145 mg/dL (70-110)
--- NOTE | 2020-06-23 15:59 | CASEMGMT ---
Social Work Attempted to meet with patient for initial assessment but unavailable. Will continue to attempt. Caity Azar, MOBILE LOUNGE DRIVER OR OPERATOR BALLER TENDER
--- NOTE | 2020-06-23 18:25 | NURSING ---
Pt confused intermittently today, unable to answer questions when prompted. Bilateral arm twitching/jerking when transferring out of bed to chair. HR irregular and tachy but all other vitals stable. Daughter here to visit and updated on all, confirms mom is more confused today, unable to hold a conversation with her. Currently on Cipro for a UTI. Dr. Domingo updated on all and NNO.
[2020-06-23] MEDS: MELATONIN 10 MG TABLET 15 MG PO (21:46)
[2020-06-23] MEDS: Pantoprazole Sodium 20 MG Tablet PO (21:47)
[2020-06-23] MEDS: Cyanocobalamin 500 MCG Tablet PO (21:47)
[2020-06-23 21:51] LABS: Bedside Glucose 153 mg/dL (70-110)
[2020-06-23] MEDS: Albuterol Sulfate 8 gm Inhaler (60 puffs) 2 PUFF INHALATION (22:35)
--- NOTE | 2020-06-24 00:14 | NURSING ---
Soap suds enema given, patient unable to hold, return of enema with no BM. No impaction noted on assessment.
[2020-06-24 04:41] VITALS: BP 114/59; PULSE 94; RESP 20; TEMP 36.2; O2SAT 93
[2020-06-24] MEDS: Menthol/Lanolin/Calamine/Znox 113 GM Tube 1 APPLIC TOPICAL ×2 (04:48→17:59)
[2020-06-24] MEDS: oxyCODONE 5 MG Tablet 10 MG PO ×2 (04:49→12:26)
[2020-06-24] MEDS: Enoxaparin 80 MG/0.8 ML Syringe SC ×2 (04:50→17:59)
[2020-06-24] MEDS: Ciprofloxacin 500 MG Tablet PO ×2 (04:51→17:59)
[2020-06-24] MEDS: Atenolol 25 MG Tablet PO (04:51)
[2020-06-24] MEDS: Fluconazole 100 MG Tablet 200 MG PO (04:51)
[2020-06-24] MEDS: dilTIAZem CD 240 MG Capsule PO (04:51)
[2020-06-24] MEDS: Nystatin Ointment 1 APPLIC TOPICAL ×3 (04:52→22:05)
[2020-06-24] MEDS: Polyethylene Glycol 3350 17 GM PACKET PO (04:52)
[2020-06-24] MEDS: Baclofen 10 MG Tablet PO (06:25)
[2020-06-24 06:36] LABS: Bedside Glucose 58 mg/dL (70-110)
[2020-06-24 06:55] LABS: Bedside Glucose 104 mg/dL (70-110)
[2020-06-24] MEDS: Glimepiride 4 MG Tablet PO (08:14)
[2020-06-24] MEDS: Gabapentin 600 MG Tablet PO ×2 (08:14→13:18)
[2020-06-24] MEDS: Fenofibrate 145 MG Tablet PO (08:14)
[2020-06-24] MEDS: Magnesium Chloride 64 MG Delay Rel.Tablet 128 MG PO (08:14)
[2020-06-24] MEDS: Ascorbic Acid 500 MG Tablet PO (08:14)
[2020-06-24 11:05] LABS: Bedside Glucose 135 mg/dL (70-110)
[2020-06-24] MEDS: Furosemide 40 MG Tablet PO (12:29)
[2020-06-24] MEDS: Glucerna Shake 120 ML LIQUID PO ×2 (13:17→17:58)
[2020-06-24] MEDS: Magnesium Citrate 300 ML PO (13:37)
--- NOTE | 2020-06-24 14:44 | CASEMGMT ---
Social Work Another attempt to speak with pt. Pt answered a few questions but very drowsy and difficult to keep aroused. requested Palliative Care consult. Order entered and referral made to [facility]. Will continue to follow. NAUN CarltonW
--- NOTE | 2020-06-24 15:58 | PCM.CONS.GEN ---
Assessment & Plan Assessment/Plan (1) Fatigue: Status: Acute Code(s): R53.83 - Other fatigue Qualifiers: Fatigue type: unspecified Qualified Code(s): R53.83 - Other fatigue Plan: Consider monitoring effect of Gabapentin dosing on lethargy. Palliative willing to follow and monitor pain interventions and effect on mental status. Dr. Burgos decreased dose to BID. (2) Chronic pain: Status: Chronic Code(s): G89.29 - Other chronic pain Qualifiers: Chronic pain type: other chronic postprocedural pain Qualified Code(s): G89.28 - Other chronic postprocedural pain Plan: Appears stable at this time. Tramadol was discontinued. Concerned with mental status and lethargy. Palliative will monitor mental status following decrease of Gabapentin dosing at discharge to LTC. (3) Weakness: Status: Acute Code(s): R53.1 - Weakness Plan: Newly diagnosed afib with RVR in addition to pleural effusion may contribute to weakness. Will monitor effect of Beta blockers on afib and endurance. Encourage meals and supplements.Palliative will follow up at discharge to LTC if agreeable by daughter Marcy. (4) Constipation: Status: Acute Code(s): K59.00 - Constipation, unspecified Qualifiers: Constipation type: unspecified constipation type Qualified Code(s): K59.00 - Constipation, unspecified Plan: Continue current standing orders for constipation. Encourage fluids and activity as tolerated with Opioid medication. Continue daily Miralax and may consider routine use of Senna versus PRN. Palliative to follow on discharge to LTC HPI Consult Data Date of Consult: 06/24/20 HPI Narrative HPI Narrative: LUCY GUTIERREZ, is a 70 F who was referred to [facility] due to chronic and worsening back pain. Patient presented to ED from TCU on 06/17/20 with complaints of palpitations, dizziness and near syncope. She was admitted to the ER on Saturday with worsening back pain. 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 This is a suspected cause of her back pain. She does not have sciatica, which she claims. She has pain that radiates to the proximal lateral right thigh. EKG at the ER showed afib with RVR without a previous history of afib. Patient was given Cardizem IV with some improvement of her heart rate. She was a started on a Cardizem drip. She was given Zofran IV. D-dimer 1.77, troponin 0.029. Chest x-ray shows right lower lobe infiltrate. Plan is for thoracentesis once off anticogulants. Patient was also started on Cipro for Klebsiella pneumoniae in the urine. HR Stabilized and sent back to TCU 06/21/20. She was seen today in her TCU room on bedpan, lethargic but grunting trying to move her bowels. Staff report that she has not had a bowel movement since 06/16/20 and they had just given mag citrate after no result from enema. Patient was able to respond to verbal stimuli. States pain is horrible but unable to describe and quickly falls back asleep. O2 per nc noted at 4 liters. Spoke to daughterMarcy and Palliative services explained. Very concerned about decline of her mother and voices need to have her placed in a LTC facility. States that her brother and mother's caregiver, June 04 and she has not been the same.I think she is giving up. Unsure at this time how patient will progress with therapy and if hospice would be an option in the future. Daughter seems to be understanding of this concept. Prefers to have Palliative follow care inpatient and outpatient if insurance covers the care. [facility] Medical History (Updated 06/24/20 @ 17:14 by Kelsey Taylor, JEANETH-C) Hiatal hernia with GERD Hyperlipidemia Hypertension Lumbar disc disease Osteoarthritis Polio Scoliosis Type 2 diabetes mellitus without complications Home Medications glimepiride 4 mg PO DAILY 05/13/15 [History Last Taken 06/14/20] fenofibrate micronized 134 mg PO DAILY 06/04/16 [History Last Taken 06/14/20] tizanidine 4 mg PO Q8H PRN 06/04/16 [History Last Taken 06/14/20] albuterol sulfate 90 mcg/actuation aerosol inhaler 2 puff INHALATION Q6H PRN #18 g 05/14/19 [Rx Last Taken 06/14/20] ascorbic acid (vitamin C) 500 mg PO DAILY 06/09/20 [History Last Taken 06/17/20 07:57] magnesium oxide 400 mg PO DAILY 06/09/20 [History Last Taken 06/17/20 07:56] cyanocobalamin (vitamin B-12) 500 mcg PO QHS #0 06/15/20 [Rx Last Taken 06/16/20 21:46] melatonin 15 mg PO QHS 06/15/20 [History Last Taken 06/17/20 01:05] sennosides-docusate sodium 2 tablet PO BID PRN PRN tablet 06/15/20 [Rx Last Taken Unknown] atenolol 25 mg PO DAILY 06/16/20 [History Last Taken 06/17/20 05:09] diphenhydramine HCl 25 mg PO QHS 06/16/20 [History Last Taken 06/16/20 21:46] nystatin 1 applic TOPICAL TID 06/16/20 [History Last Taken 06/17/20 05:10] acetaminophen 1,000 mg PO Q6H PRN PRN 06/17/20 [History Last Taken 06/17/20 05:08] menthol-zinc oxide 1 applic TOPICAL BID 06/17/20 [History Last Taken 06/17/20 05:10] oxycodone 10 mg PO Q4H PRN PRN 06/17/20 [History Last Taken 06/17/20 05:08] pantoprazole 20 mg PO QHS 06/17/20 [History Last Taken 06/16/20 21:46] polyethylene glycol 3350 17 gm PO DAILY 06/17/20 [History Last Taken Unknown] tramadol 50 mg PO Q6H PRN PRN 06/17/20 [History Last Taken Unknown] zinc sulfate 220 mg PO DAILY 06/17/20 [History Last Taken 06/17/20 07:56] diltiazem HCl 240 mg PO DAILY #0 cap 06/21/20 [Rx Last Taken Unknown] enoxaparin 80 mg SUBCUT BID #0 ml 06/21/20 [Rx Last Taken Unknown] fluconazole 200 mg PO DAILY #0 tab 06/21/20 [Rx Last Taken Unknown] gabapentin 600 mg PO TID #0 tab 06/21/20 [Rx Last Taken Unknown] Allergy/AdvReac Type Severity Reaction Status Date / Time atorvastatin calcium Allergy Unknown Verified 06/17/20 09:37 [From Lipitor] pravastatin Allergy Unknown Verified 06/17/20 09:37 simvastatin Allergy Unknown Verified 06/17/20 09:37 morphine AdvReac Other Verified 06/17/20 09:37 altace Allergy Unknown Uncoded 06/17/20 09:37 antihyperlipidemics Allergy Unknown Uncoded 06/17/20 09:37 Family History Mother Brain aneurysm Father CVA (cerebral vascular accident) Sister Thyroid cancer Surgical History (Updated 06/17/20 @ 14:19 by Jojo Garcia 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 Mauricio Domingo MD) household members: none Smoking Status: Former smoker Tobacco: How many years used: 20 ROS Review of Systems ROS Unobtainable: other Details: lethargy. Does verbally complain of pain, but appears comfortable Physical Exam Const alert General Appearance: cooperative and ill appearing Orientation / Consciousness: oriented to person and lethargic Exam Limitations: altered mental status Resp normal respiratory effort Resp Narrative: O2 per nasal cannula Auscultation: diminished lung sounds Cardio no murmurs Rhythm: abnormal rhythm irregularly irregular GI Inspection: abdominal distention and other Other Details: soft with positive bowel sounds Auscultation: hyperactive bowel sounds Palpation: soft and hernia Back/Spine General Back: tenderness Lumbar Spine / Lower Back: pain with ROM Extremity no clubbing, cyanosis or edema and no pedal edema Extremity Narrative: BLE wrapped with TONY wraps Neuro Sensorium / Orientation: somnolent Speech: speech normal Lab / Micro Data Result Diagrams: 06/22/20 05:25 06/22/20 05:25 Labs: Laboratory Results - last 24 hr 06/23/20 06/24/20 06/24/20 21:40 06:13 06:47 POC Glucose 153 H 58 L 104 06/24/20 10:48 POC Glucose 135 H Micro: Microbiology 06/22/20 14:15 Urine Culture - Final Urine, Catheterized Klebsiella pneumoniae sp pneum 06/23/20 14:44 SARS-CoV-2 Antigen (Rapid) - Final Mucosa - Nose
[2020-06-24 16:00] VITALS: BP 104/58; PULSE 67; RESP 20; TEMP 36.9; O2SAT 95
[2020-06-24 16:45] LABS: Bedside Glucose 145 mg/dL (70-110)
[2020-06-24] MEDS: 0.9% Saline Lock 10 ML Syringe IV (18:48)
[2020-06-24 20:00] VITALS: O2SAT 96
[2020-06-24 21:12] VITALS: BP 119/62; PULSE 95; RESP 20; O2SAT 96
--- NOTE | 2020-06-24 21:13 | NURSING ---
Pt called out c/o not feeling good, very vague with symptoms, lying in bed with eyes closed, skin warm, pale and dry, does not open eyes unless asked to, denies chest pain, denies nausea, denies jaw pain, denies n/t, states I just don't feel good. abdomen distended, bowel sounds hyperactive, pt had mag citrate earlier, VSS, encouraged pt to try to have a bm, assisted with bedpan, pt states she will try but doesn't think she can have a bowel movement. Will continue to monitor.
[2020-06-24 21:56] LABS: Bedside Glucose 119 mg/dL (70-110)
[2020-06-24] MEDS: MELATONIN 10 MG TABLET 15 MG PO (22:07)
[2020-06-24] MEDS: Pantoprazole Sodium 20 MG Tablet PO (22:08)
[2020-06-24] MEDS: Cyanocobalamin 500 MCG Tablet PO (22:08)
[2020-06-25] MEDS: Polyethylene Glycol 3350 17 GM PACKET PO (05:44)
[2020-06-25] MEDS: Menthol/Lanolin/Calamine/Znox 113 GM Tube 1 APPLIC TOPICAL ×2 (05:44→17:02)
[2020-06-25 05:45] VITALS: BP 113/55; PULSE 87; RESP 18; TEMP 36.6; O2SAT 94
[2020-06-25] MEDS: Ciprofloxacin 500 MG Tablet PO ×2 (05:45→17:03)
[2020-06-25] MEDS: dilTIAZem CD 240 MG Capsule PO (05:45)
[2020-06-25] MEDS: Atenolol 25 MG Tablet PO (05:45)
[2020-06-25] MEDS: Fluconazole 100 MG Tablet 200 MG PO (05:46)
[2020-06-25] MEDS: Nystatin Ointment 1 APPLIC TOPICAL ×3 (05:46→21:52)
[2020-06-25] MEDS: Enoxaparin 80 MG/0.8 ML Syringe SC ×2 (05:46→17:03)
[2020-06-25] MEDS: Baclofen 10 MG Tablet PO (05:52)
[2020-06-25 05:53] VITALS: PULSE 99
[2020-06-25] MEDS: 0.9% Saline Lock 10 ML Syringe IV (05:56)
[2020-06-25 06:26] LABS: Bedside Glucose 56 mg/dL (70-110)
[2020-06-25 06:35] LABS: Bedside Glucose 71 mg/dL (70-110)
[2020-06-25 07:05] LABS: Bedside Glucose 123 mg/dL (70-110)
[2020-06-25 07:25] VITALS: O2SAT 93
[2020-06-25] MEDS: Fenofibrate 145 MG Tablet PO (08:07)
[2020-06-25] MEDS: Magnesium Chloride 64 MG Delay Rel.Tablet 128 MG PO (08:07)
[2020-06-25] MEDS: Ascorbic Acid 500 MG Tablet PO (08:07)
[2020-06-25] MEDS: Gabapentin 600 MG Tablet PO ×2 (08:08→17:03)
[2020-06-25] MEDS: Glimepiride 1 MG Tablet PO (08:08)
[2020-06-25 10:46] LABS: Bedside Glucose 81 mg/dL (70-110)
[2020-06-25] MEDS: Senna/Docusate Sodium 1 Tablet 2 TABLET PO (10:48)
[2020-06-25] MEDS: Glucerna Shake 120 ML LIQUID PO ×2 (12:28→17:02)
[2020-06-25] MEDS: oxyCODONE 5 MG Tablet 10 MG PO ×2 (14:48→19:59)
[2020-06-25 15:04] VITALS: BP 108/61; PULSE 92; RESP 20; TEMP 36.6; O2SAT 94
[2020-06-25 16:35] LABS: Bedside Glucose 80 mg/dL (70-110)
[2020-06-25 20:00] VITALS: O2SAT 94
[2020-06-25 21:26] LABS: Bedside Glucose 70 mg/dL (70-110)
[2020-06-25] MEDS: Cyanocobalamin 500 MCG Tablet PO (21:53)
[2020-06-25] MEDS: MELATONIN 10 MG TABLET 15 MG PO (21:53)
[2020-06-25] MEDS: Pantoprazole Sodium 20 MG Tablet PO (21:55)
--- NOTE | 2020-06-26 00:57 | NURSING ---
Pt awakens easily, drank glass of apple juice for blood sugar 70. Oriented x3, answers questions appropriately, repositioned in bed for comfort.
[2020-06-26 05:49] VITALS: BP 100/63; PULSE 115; RESP 18; TEMP 36.1; O2SAT 96
[2020-06-26] MEDS: Menthol/Lanolin/Calamine/Znox 113 GM Tube 1 APPLIC TOPICAL ×2 (05:51→17:09)
[2020-06-26] MEDS: dilTIAZem CD 240 MG Capsule PO (05:53)
[2020-06-26] MEDS: Fluconazole 100 MG Tablet 200 MG PO (05:54)
[2020-06-26] MEDS: Ciprofloxacin 500 MG Tablet PO ×2 (05:54→17:09)
[2020-06-26] MEDS: Enoxaparin 80 MG/0.8 ML Syringe SC ×2 (05:54→17:08)
[2020-06-26] MEDS: Nystatin Ointment 1 APPLIC TOPICAL ×2 (05:55→13:23)
[2020-06-26 06:20] LABS: Bedside Glucose 84 mg/dL (70-110)
--- NOTE | 2020-06-26 07:36 | NURSING ---
Return phone call to daughter, Marcy, after pt informed another nurse on TCU that she would call the police after engaging in conversation. She questions if pt was given Morphine or any new medications. This nurse reviewed medication list and confirmed Morphine was not administered and drug allergy noted in chart. Amaryl is new and blood sugar levels have been favorable. Diflucan complete for systemic yeast infection and continues Cirpo for UTI which is sensitive. Marcy thinks pt should be seen per psych if possible to address emotional and mental health concerns. Informed her palliative care consult was ordered yesterday and most likely staff will not be in over the weekend to assess. Explained the concept of palliative care services. Marcy questions the role of hospice too. All questions answered. Plan will be for pt to go to a facility, unsure of location, as Marcy notes she and her siblings are unable to care for her. Had been seeing Dr. Burgos for pain management and Marcy expresses appreciation that a new set of eyes will be overseeing care in addition to management of multiple symptoms. She will be in to see pt today. Updates given to LUCIE Skinner, and DAILY Gabriel. Spend approximately 20 minutes engaged in conversation.
[2020-06-26 07:38] VITALS: O2SAT 94
--- NOTE | 2020-06-26 07:45 | NURSING ---
Walked into Pt room around 0545 06/26, and Pt states You know I almost right. I said Im sorry, that's horrible.. The Pt then says, What did you say?. I said I'm sorry. She told me I was a horrible person and that she was going to call the police on me. I said, Because I'm sorry that you had almost . I asked the Pt what happened and she said her heart was racing and she got really hot, and she started calming down as she was telling me her story. The Pt asked me if I could put her phone on the cytopathologist. I said I would after I was done taking her vitals and giving her meds. I took her vitals and was getting her meds ready and the patient picks up her phone as I'm going over her medications and called her daughter and is telling her daughter that she needs to come pick her up. I was trying to give the Pt her meds and she said I'm on the phone can you leave. I asked her if she would take her meds and she said no she wasn't taking anything. I put the meds in her med drawer and locked them up and left the room, morning nurse is going to try and give them later this morning.
[2020-06-26] MEDS: Magnesium Chloride 64 MG Delay Rel.Tablet 128 MG PO (08:18)
[2020-06-26] MEDS: Fenofibrate 145 MG Tablet PO (08:18)
[2020-06-26] MEDS: Gabapentin 600 MG Tablet PO ×2 (08:18→17:08)
[2020-06-26] MEDS: Glimepiride 1 MG Tablet PO (08:18)
[2020-06-26] MEDS: oxyCODONE 5 MG Tablet 10 MG PO ×3 (08:24→19:40)
[2020-06-26 10:00] VITALS: PULSE 90; RESP 18
[2020-06-26 10:51] LABS: Bedside Glucose 69 mg/dL (70-110)
[2020-06-26] MEDS: Glucerna Shake 120 ML LIQUID PO ×2 (13:22→17:42)
[2020-06-26 15:19] VITALS: BP 122/57; PULSE 99; RESP 20; TEMP 36.8; O2SAT 95
[2020-06-26 16:50] LABS: Bedside Glucose 55 mg/dL (70-110)
[2020-06-26] MEDS: 0.9% Saline Lock 10 ML Syringe IV (17:43)
[2020-06-26 18:10] LABS: Bedside Glucose 65 mg/dL (70-110)
[2020-06-26 18:10] LABS: Bedside Glucose 86 mg/dL (70-110)
--- NOTE | 2020-06-26 18:11 | NURSING ---
pt BS 55 this evening. Provided multiple supplements and encouragement to continue intake of supplements to bring up BS. Current BS is 86.
--- NOTE | 2020-06-26 19:50 | NURSING ---
Administered Oxycodone per dr order for c/o pain- documented on APR. Reports shortness of breath w/ minimal activity- turning in bed and talking. Fine crackles throughout lung magallon posterior. HR irregular. Denies any chest pain, dizziness, or palpaitations. BP 128/64, 93, 95% on % lpm via nc. Bowel sounds hypoactive to lt upper, rt upper, and lt lower quadrants. Pedal pulses weak, palpable b/l. +1 non-pitting edema to BLE. Mouth moist, noted small blisters to the back of pt's tongue. Thrush resolved.
--- NOTE | 2020-06-26 20:30 | NURSING ---
Phone call to Dr. Domingo to update on pt's symptoms. New order received for CXR PA and Lat. Contact if results indicated fluid overload.
--- NOTE | 2020-06-26 20:38 | RAD_ITS ---
HISTORY: Congestion in lungs EXAM: XR Chest 2 Views: COMPARISON: The 2020 FINDINGS: # of images incl. paperwork: 2 Extensive thoracolumbar spinal fixation hardware remains. Previous right shoulder arthroplasty. Pulmonary hypoexpansion. Atherosclerosis within the aortic arch persists. Airspace disease is less. Heart is not enlarged. No acute osseous pathology perceived. Pulmonary vascularity is indistinct. Small pleural effusions. RAD/Chest PA and Lateral IMPRESSION: Decreased pulmonary edema. at 2158 Reported and signed by: Jaren Pimentel MD Electronically Signed: Jaren Pimentel MD at 21:57 EDT Tel , Service support ,
--- NOTE | 2020-06-26 21:10 | NURSING ---
Pt taken to radiology for CXR per two print traffic manager.
--- NOTE | 2020-06-26 21:40 | NURSING ---
Returned to floor via hospital bed from radiology per two sales and marketing specialist.
--- NOTE | 2020-06-26 21:55 | NURSING ---
Report called to ER nurseCecily. jewellery designer to transport and pt will be placed in room 7. jewellery designer transported pt to ER within minutes of report.
--- NOTE | 2020-06-26 22:05 | NURSING ---
Kallit sent to Dr. Domingo to update on pt condition and transport to the ER. Phone call placed to daughter, Marcy, to update on pt condition and transfer to the ER for eval. She then gave the phone to her spouse to discuss further w/ this nurse. He verbalizes concerns they both have with cardiac issues and if her condition will stabilize. Pt unable to return home and will go to a facility. Would like to speak to a physician tomorrow for an update her pt's medical condition. Emotional support and active listening provided throughout the conversation lasting approximately 25 minutes in length.. Phone call to ER and spoke w/ nurse, Angelita, to update family has been notified of transfer.
[2020-06-26 22:11] LABS: Bedside Glucose 109 mg/dL (70-110)
[2020-06-27] VITALS (7 sets, daily range): BP systolic 108–118; BP diastolic 57–75; PULSE 83–131; RESP 12–20; TEMP 36.6–36.9; O2SAT 90–122
--- NOTE | 2020-06-27 | NURSING ---
Received phone call from nurseCecily, in ER reporting pt will be return to TCU. Has received two doses of IV Cardizem. S/L in LAC and requests this nurse dc. Informed Cecily TCU nursing staff will maintain IV site if needed d/t pt's continued complex medical needs.
[2020-06-27] MEDS: oxyCODONE 5 MG Tablet 10 MG PO ×3 (01:02→17:06)
[2020-06-27 01:51] LABS: Bedside Glucose 64 mg/dL (70-110)
[2020-06-27 01:51] LABS: Bedside Glucose 58 mg/dL (70-110)
--- NOTE | 2020-06-27 02:15 | NURSING ---
Phone call to respiratory. Spoke w/ Lola, questioning if pt has been assessed and what liter flow pt should be on. She notes pt is checked daily per dayshift RTs and has been placed on 5L at times d/t O2 being off when assessed per the therapist to increase SpO2 levels. Per Lola, pt should be able to be placed on 3L and increase PRN dyspnea.
[2020-06-27] MEDS: dilTIAZem CD 240 MG Capsule PO ×2 (04:57→12:50)
[2020-06-27] MEDS: Menthol/Lanolin/Calamine/Znox 113 GM Tube 1 APPLIC TOPICAL ×2 (04:59→16:42)
[2020-06-27] MEDS: Ciprofloxacin 500 MG Tablet PO ×2 (04:59→16:41)
[2020-06-27] MEDS: Nystatin Ointment 1 APPLIC TOPICAL ×3 (05:00→21:36)
[2020-06-27] MEDS: Atenolol 25 MG Tablet PO (05:01)
[2020-06-27] MEDS: Enoxaparin 80 MG/0.8 ML Syringe SC (05:05)
--- NOTE | 2020-06-27 05:05 | NURSING ---
Pt c/o dyspnea again this shift. In no acute distress. Cardizem and Atenolol administered per dr order. Vitals obtained and recorded. O2 at 3 lpm via nc, SpO2 94-95%. SCHOOL LUNCH MONITOR to check blood sugar. Drowsy initially then becomes more alert when engaged in conversation w/ this nurse. Will continue to monitor.
[2020-06-27 05:15] LABS: Bedside Glucose 50 mg/dL (70-110)
[2020-06-27 05:36] LABS: Bedside Glucose 51 mg/dL (70-110)
[2020-06-27 05:50] LABS: Bedside Glucose 85 mg/dL (70-110)
[2020-06-27 06:15] LABS: Bedside Glucose 117 mg/dL (70-110)
[2020-06-27] MEDS: Fenofibrate 145 MG Tablet PO (08:16)
[2020-06-27] MEDS: Magnesium Chloride 64 MG Delay Rel.Tablet 128 MG PO (08:16)
[2020-06-27] MEDS: Glimepiride 1 MG Tablet PO (08:16)
[2020-06-27] MEDS: Gabapentin 600 MG Tablet PO ×2 (08:16→16:42)
[2020-06-27] MEDS: Ascorbic Acid 500 MG Tablet PO (08:16)
--- NOTE | 2020-06-27 08:16 | NURSING ---
Received phone call from daughter, Marcy, to follow-up on status of pt. Informed her pt returned to the unit at approximately 0030 and medical condition since return. Verbalizes pt called her and noted an commercial attorney was in to see her last night. Informed Marcy that no commercial attorney was on unit. Would like physician to call her today to discuss medical condition and prognosis. LUCIE Cavazos, updated.
--- NOTE | 2020-06-27 08:27 | NURSING ---
Dr Domingo increased tenormin & starting pt on Eliquis, dc'd lovenox. also ordered ativan for anxiety if needed. pt updated on all.
[2020-06-27 10:55] LABS: Bedside Glucose 104 mg/dL (70-110)
--- NOTE | 2020-06-27 12:36 | NURSING ---
daughter with many questions per business programmer nurse, dr irchards notified, Dr richards spoke with daughter and answered questions/concerns.
--- NOTE | 2020-06-27 12:37 | NURSING ---
dr richards notified of pt vitals, oxygen increased 4 liters, sat 93%. was sat 89 to 90 on 3 liters. HR 80's to 120's bouncing. new order for cardiem 240 x1 now. and increase to BID. pt resting in bed, call light in reach.
[2020-06-27] MEDS: Glucerna Shake 120 ML LIQUID PO ×2 (12:39→16:41)
--- NOTE | 2020-06-27 13:43 | CASEMGMT ---
Social Work Followed up with pt's dtr to assist with any needs. Dtr inquired about DC and plans. Explained insurance update this date and continued stay is not guaranteed, and SW understands the plan for pt to transfer to SNF. Dtr confirms. Dtr requesting another SNF list. Emailed SNF list that provides include quality and resource data that is consistent with the pt's preferred geographic region, medical needs and insurance networks. Explained to choose 2-3 facilities and SW to refer. Dtr appreciative. Will continue to follow. Caity Azar, HEALTH SCIENCES MANAGER SUPERVISOR CLOTH WINDING
[2020-06-27 16:00] LABS: Bedside Glucose 143 mg/dL (70-110)
--- NOTE | 2020-06-27 16:07 | NURSING ---
Addendum entered by Macy Blunt 06/27/20 16:33: updated daughter on appt with Israel Jean-Baptiste at [facility], she expressed and stated that her friend Vera Barrow will try to make it at 1330 for 1400 appt. explained to daughter if anything changes to please let us know. daughter verbalized understanding. Original Note: pt c/o SOB, sat 93% on 4 liters, vitals stable, except HR bouncing from 77-132 and c/o n/t arms. increased oxygen to [address] richards updated, wants nurse to schedule appt with emergency vehicle technician. notified [facility] and appt made with Israel jean-baptiste at 1400 tomorrow. pt resting in bed, call light in reach. blood sugar 143. will continue to monitor.
[2020-06-27] MEDS: APIXABAN 5 MG TABLET PO (16:42)
[2020-06-27] MEDS: 0.9% Saline Lock 10 ML Syringe IV (16:46)
--- NOTE | 2020-06-27 17:52 | NURSING ---
Dr Domingo in room and spoke with pt and daughter regarding pt prognosis. daughter and pt discussing hospice care at a correction in [place], [place] closer to her daughter. For now pt is gonna try to do some therapy and see retail operations manager tomorrow to get heart rate controlled and see how things go from there at this point.
[2020-06-27 21:16] LABS: Bedside Glucose 178 mg/dL (70-110)
[2020-06-27] MEDS: MELATONIN 10 MG TABLET 15 MG PO (21:33)
[2020-06-27] MEDS: Pantoprazole Sodium 20 MG Tablet PO (21:34)
[2020-06-27] MEDS: Cyanocobalamin 500 MCG Tablet PO (21:35)
[2020-06-28] MEDS: oxyCODONE 5 MG Tablet 10 MG PO ×4 (01:26→21:39)
[2020-06-28 05:06] VITALS: BP 118/56; PULSE 82; RESP 16; TEMP 36.7; O2SAT 95
[2020-06-28] MEDS: Atenolol 50 MG Tablet PO (05:11)
[2020-06-28] MEDS: APIXABAN 5 MG TABLET PO ×2 (05:11→17:51)
[2020-06-28] MEDS: dilTIAZem CD 240 MG Capsule PO ×2 (05:11→17:51)
[2020-06-28] MEDS: Ciprofloxacin 500 MG Tablet PO ×2 (05:11→17:51)
[2020-06-28] MEDS: FLUoxetine 10 MG Capsule PO (05:11)
[2020-06-28] MEDS: Nystatin Ointment 1 APPLIC TOPICAL ×3 (05:13→21:43)
[2020-06-28] MEDS: Menthol/Lanolin/Calamine/Znox 113 GM Tube 1 APPLIC TOPICAL ×2 (05:39→17:50)
[2020-06-28 06:15] LABS: Bedside Glucose 112 mg/dL (70-110)
[2020-06-28 07:30] VITALS: O2SAT 94
[2020-06-28] MEDS: Magnesium Chloride 64 MG Delay Rel.Tablet 128 MG PO (08:14)
[2020-06-28] MEDS: Fenofibrate 145 MG Tablet PO (08:14)
[2020-06-28] MEDS: Glimepiride 1 MG Tablet PO (08:14)
[2020-06-28] MEDS: Ascorbic Acid 500 MG Tablet PO (08:15)
[2020-06-28] MEDS: Gabapentin 600 MG Tablet PO ×2 (08:15→17:52)
[2020-06-28] MEDS: Albuterol Sulfate 8 gm Inhaler (60 puffs) 2 PUFF INHALATION (08:23)
[2020-06-28] MEDS: Glucerna Shake 120 ML LIQUID PO ×2 (09:54→17:49)
[2020-06-28 10:00] VITALS: PULSE 94; RESP 20
--- NOTE | 2020-06-28 10:10 | NURSING ---
Pt C/O of SOB of breath and difficulty breathing. VS 96% 5L NC P94 BP 104/50 RR 20. Pt given PRN Albuterol Inhaler. Pt unsure if it had helped with the SOB. Fine crackles noted to bilateral lower lungs. Encouraged pt to use IS. Pt denies Nausea at this time. Pt having pain to back at this time but would like to wait to take her pain medication closer to her appt. time. Pt in bed at this time playing on phone. Will continue to monitor call light within reach.
[2020-06-28 10:50] LABS: Bedside Glucose 144 mg/dL (70-110)
[2020-06-28] MEDS: NYSTATIN 500,000 UNIT/5 ML UDC 500000 UNIT PO ×3 (13:34→21:41)
[2020-06-28 15:59] VITALS: PULSE 125; RESP 20; TEMP 36; O2SAT 93
[2020-06-28 16:35] LABS: Bedside Glucose 204 mg/dL (70-110)
--- NOTE | 2020-06-28 16:49 | CASEMGMT ---
Social Work Pt alert for SW to complete assessment. Discussed code status. Pt wishes to be DNR-CCA, no intubation. Nursing notified. MOLST form reviewed, communication to , placed in chart. Explained MMO insurance with NRD 5/6 and continued stay is not guaranteed. Inquired about DC plan. Pt is agreeable and aware of plans for her to transfer to SNF, possibly closer to dtr, at [place]. Pt understands insurance may issue DC date with this review. Pt agreeable to continue with Palliative care at [place] and states she isn't ready for hospice now. Pt reports to no appetite, grieving over son and unable to process d/t medical condition. Pt agreeable to medication if prescribed. Left note for Discussed son's , grieving process, pt's change in medical status, all the changes she is enduring, and coping mechanisms. Pt expressed she enjoys knitting and would be open to trying to knit during stay. Encouraged dtr to bring in supplies as she is more alert now. Pt appreciative of visit. SW to continue to follow. Caity Azar, PRINCIPAL CONSULTANT TELEGRAPHIC INSTRUMENT SUPERVISOR
[2020-06-28] MEDS: 0.9% Saline Lock 10 ML Syringe IV (19:12)
[2020-06-28 21:20] LABS: Bedside Glucose 151 mg/dL (70-110)
[2020-06-28] MEDS: Baclofen 10 MG Tablet PO (21:39)
[2020-06-28] MEDS: MELATONIN 10 MG TABLET 15 MG PO (21:42)
[2020-06-28] MEDS: Pantoprazole Sodium 20 MG Tablet PO (21:43)
[2020-06-28] MEDS: Cyanocobalamin 500 MCG Tablet PO (21:44)
[2020-06-29] MEDS: oxyCODONE 5 MG Tablet 10 MG PO ×2 (03:14→20:56)
[2020-06-29] MEDS: Menthol/Lanolin/Calamine/Znox 113 GM Tube 1 APPLIC TOPICAL ×2 (05:51→17:01)
[2020-06-29] MEDS: dilTIAZem CD 240 MG Capsule PO ×2 (05:51→16:57)
[2020-06-29] MEDS: Nystatin Ointment 1 APPLIC TOPICAL ×3 (05:52→21:07)
[2020-06-29] MEDS: Polyethylene Glycol 3350 17 GM PACKET PO (05:52)
[2020-06-29] MEDS: APIXABAN 5 MG TABLET PO ×2 (05:52→16:57)
[2020-06-29] MEDS: Ciprofloxacin 500 MG Tablet PO ×2 (05:52→16:57)
[2020-06-29] MEDS: Atenolol 50 MG Tablet PO (05:53)
[2020-06-29] MEDS: NYSTATIN 500,000 UNIT/5 ML UDC 500000 UNIT PO ×4 (05:53→21:07)
[2020-06-29] MEDS: FLUoxetine 10 MG Capsule PO (05:53)
[2020-06-29 06:02] VITALS: BP 113/62; PULSE 84; RESP 18; TEMP 36.5; O2SAT 96
[2020-06-29 06:02] LABS: Absolute Lymphocyte Count 0.94 X10^3/uL (0.83-4.51); Absolute Neutrophil Count 4.8 X10^3/uL (2.0-7.7); Basophil# 0.02 X10^3/uL; Basophil% 0.3 % (0-1); Eosinophil# 0.09 X10^3/uL; Eosinophils% 1.4 % (0-5); Hematocrit 35.6 % (37-47); Hemoglobin 10.6 g/dL (12.0-15.0); Lymphocyte # 0.94 X10^3/ul (0.83-4.51); Lymphocyte % 14.8 % (19-41); Mean Corp Hgb Conc 29.8 g/dL (32-36); Mean Corpuscular Volume 94.2 fL (81-99); Mean Platelet Vol. 10.7 fl (6.2-12.0); Monocyte# 0.51 X10^3/uL; NRBC Flagged by Analyzer 0 % (0-5); Neutrophil # 4.76 X10^3/uL (2.7-7.7); Neutrophil % 75.2 % (47-70); Platelet Count 154 K/mm3 (150-450); RBC Distribution Width CV 16.8 % (11.6-14.6); Red Blood Count 3.78 M/mm3 (4.2-5.4); White Blood Count 6.3 K/mm3 (4.4-11.0)
[2020-06-29 06:25] LABS: Bedside Glucose 170 mg/dL (70-110)
[2020-06-29 06:32] LABS: Anion Gap 2 (5-15); BUN 11 mg/dL (7-18); BUN/Creat Ratio 15.8 RATIO (10-20); Calcium,Total 8.8 mg/dL (8.5-10.1); Chloride 101 mmol/L (98-107); EST Glomerular Filtration Rate 88 mL/min (>60); Est Glom Filt Rate - Afr Amer 107 mL/min (>60); Estimated Creatinine Clearance 66.28 ml/min; Glucose 138 mg/dL (74-106); Potassium 4.1 mmol/L (3.5-5.1); Sodium Level 134 mmol/L (136-145)
[2020-06-29 07:01] VITALS: O2SAT 96
[2020-06-29] MEDS: Magnesium Chloride 64 MG Delay Rel.Tablet 128 MG PO (08:36)
[2020-06-29] MEDS: Gabapentin 600 MG Tablet PO ×2 (08:36→16:57)
[2020-06-29] MEDS: Glimepiride 1 MG Tablet PO (08:36)
[2020-06-29] MEDS: Fenofibrate 145 MG Tablet PO (08:36)
[2020-06-29] MEDS: Ascorbic Acid 500 MG Tablet PO (08:37)
[2020-06-29] MEDS: Furosemide 20 MG Tablet PO (10:27)
--- NOTE | 2020-06-29 10:39 | ST ---
NAUN Carolina reported to this FULL CHARGE BOOKKEEPER that the pt shared her voice isn't as loud or strong as it used to be. Chart review completed. Pt currently on 5L/min O2 and history of PE. Met with pt to discuss voice changes. Pt's voice intelligible although breathy at times. Pt instructed on how shortness of breath and increased need for O2 can impact ones voice as vocal intensity relies on breath support. Encouraged pt to take deep breaths before speaking or when voice begins trailing off. Pt appreciative of information. No skilled ST intervention warranted at this time.
--- NOTE | 2020-06-29 11:14 | CASEMGMT ---
Addendum entered by Caity Azar 06/30/20 11:48: [facility] accepted pt. Notified dtr. Dtr requested referral to [facility] [place]. Referral made. Dtr would like to wait on that outcome. Addendum entered by Caity Azar 06/29/20 16:15: Dtr provided SW with two facilities - reached out and both [place] which cannot meet pt's level of care. Spoke with dtr and reexplained level of care needed for pt which is a SNF. Dtr expressed understanding. Dtr requested referral to [facility] at [place]. Referral made. Original Note: Social Work IDT met with patient and and dtr via conference call for care plan meeting. Discussed patient's progress in therapy and nursing. Pt still requiring x2 assist and realistic and agreeable to SNF placement with Palliative services near dtr. Dtr to provide choices of SNFs this date for SW to refer and inquire about pricing. Explained insurance update 06/30 and continued stay is not guaranteed. Both voiced understanding. SW to continue to follow. Caity Azar, NAUN ALVAW
[2020-06-29 11:20] LABS: Bedside Glucose 168 mg/dL (70-110)
--- NOTE | 2020-06-29 11:23 | NURSING ---
PURPLE BRACELET APPLIED FOR NEW DNRCC-A NO INTUBATION ORDER.
[2020-06-29] MEDS: Tuberculin,Purif.prot.deriv. 50 TU/ML Vial 5 ML ID (11:32)
[2020-06-29] MEDS: 0.9% Saline Lock 10 ML Syringe IV (11:35)
[2020-06-29 13:41] VITALS: BP 109/52; PULSE 75; RESP 18; TEMP 36.3; O2SAT 93
[2020-06-29 16:31] LABS: Bedside Glucose 162 mg/dL (70-110)
[2020-06-29] MEDS: Glucerna Shake 120 ML LIQUID PO (16:59)
[2020-06-29] MEDS: MELATONIN 10 MG TABLET 15 MG PO (21:06)
[2020-06-29] MEDS: Pantoprazole Sodium 20 MG Tablet PO (21:07)
[2020-06-29] MEDS: Cyanocobalamin 500 MCG Tablet PO (21:09)
[2020-06-29] MEDS: Mirtazapine 15 MG Tablet 7.5 MG PO (21:11)
[2020-06-29 21:16] LABS: Bedside Glucose 170 mg/dL (70-110)
[2020-06-29 22:46] VITALS: PULSE 85; O2SAT 97
[2020-06-30 05:00] VITALS: BP 113/56; PULSE 65; RESP 14; TEMP 36.5; O2SAT 95
[2020-06-30] MEDS: Menthol/Lanolin/Calamine/Znox 113 GM Tube 1 APPLIC TOPICAL ×2 (05:27→16:28)
[2020-06-30] MEDS: APIXABAN 5 MG TABLET PO ×2 (05:28→16:55)
[2020-06-30] MEDS: Ciprofloxacin 500 MG Tablet PO (05:28)
[2020-06-30] MEDS: Nystatin Ointment 1 APPLIC TOPICAL ×3 (05:28→20:26)
[2020-06-30] MEDS: dilTIAZem CD 240 MG Capsule PO ×2 (05:28→16:55)
[2020-06-30] MEDS: Furosemide 20 MG Tablet PO (05:28)
[2020-06-30] MEDS: Atenolol 50 MG Tablet PO (05:29)
[2020-06-30] MEDS: NYSTATIN 500,000 UNIT/5 ML UDC 500000 UNIT PO ×2 (05:29→20:26)
[2020-06-30] MEDS: FLUoxetine 10 MG Capsule PO (05:29)
[2020-06-30 06:25] LABS: Bedside Glucose 126 mg/dL (70-110)
[2020-06-30] MEDS: Magnesium Chloride 64 MG Delay Rel.Tablet 128 MG PO (07:54)
[2020-06-30] MEDS: Glimepiride 1 MG Tablet PO (07:54)
[2020-06-30] MEDS: Gabapentin 600 MG Tablet PO ×2 (07:54→16:25)
[2020-06-30] MEDS: Fenofibrate 145 MG Tablet PO (07:54)
[2020-06-30] MEDS: Ascorbic Acid 500 MG Tablet PO (07:54)
[2020-06-30 08:51] VITALS: PULSE 66; RESP 18
[2020-06-30] MEDS: oxyCODONE 5 MG Tablet 10 MG PO ×2 (10:05→20:24)
[2020-06-30 10:41] LABS: Bedside Glucose 256 mg/dL (70-110)
[2020-06-30 13:55] VITALS: BP 102/52; PULSE 73; RESP 17; TEMP 36.4; O2SAT 99
--- NOTE | 2020-06-30 16:39 | CASEMGMT ---
Social Work Pt's JYOTSNA contacted SW to get clarifying information. Spoke with JYOTNSA for about 60 minutes and discussed at length SNF recommendations, Palliative vs hospice, private pay at SNF and process for Medicaid. JYOTSNA explained is was unclear about the trust that pt had to spend on SNF placement. It is a policy that is shared between pt and her sister, whom lives in [place], and it requires both of their notarized signatures to get liquidated, which will take about 7-10 days to process. JYOTSNA concerned insurance will issue DC date prior to receiving that money to pay for SNF placement. Offered to assist with explaining situation to TCU director for delay in private pay to remain until funds are available and/or to accepting SNF they will accept delayed payment as well. JYOTSNA very appreciative. Dtr and JYOTSNA want to ensure her money is spent wisely and stated [facility] SNFs are more expensive than [facility] and prefer for pt to placed in [facility]. Emailed SNF list and estimated pricing of [facility] facilities to choose from. Contacted [place] SNFs to disregard referrals. Dtr contacted for referrals to [facility] and [facility] and inquire about MMO contract. [facility] can receive one-time contract for part B and/or for future skilled services, if needed. [facility] states they are in network with MMO and she can receive part B therapies as well. Provided pricing of each facility to JYOTSNA. Awaiting insurance outcome. Will continue to follow. NAUN Carlton
[2020-06-30 16:45] LABS: Bedside Glucose 129 mg/dL (70-110)
[2020-06-30] MEDS: MELATONIN 10 MG TABLET 15 MG PO (20:25)
[2020-06-30] MEDS: Pantoprazole Sodium 20 MG Tablet PO (20:27)
[2020-06-30] MEDS: Mirtazapine 15 MG Tablet 7.5 MG PO (20:27)
[2020-06-30] MEDS: Cyanocobalamin 500 MCG Tablet PO (20:28)
[2020-06-30 21:36] LABS: Bedside Glucose 190 mg/dL (70-110)
[2020-07-01 05:00] VITALS: BP 100/67; PULSE 72; RESP 18; TEMP 36.5; O2SAT 97
[2020-07-01 06:21] LABS: Bedside Glucose 98 mg/dL (70-110)
[2020-07-01] MEDS: Menthol/Lanolin/Calamine/Znox 113 GM Tube 1 APPLIC TOPICAL ×2 (06:24→18:22)
[2020-07-01] MEDS: Furosemide 20 MG Tablet PO (06:25)
[2020-07-01] MEDS: dilTIAZem CD 240 MG Capsule PO ×2 (06:25→18:22)
[2020-07-01] MEDS: FLUoxetine 10 MG Capsule PO (06:25)
[2020-07-01] MEDS: APIXABAN 5 MG TABLET PO ×2 (06:25→18:22)
[2020-07-01] MEDS: Atenolol 50 MG Tablet PO (06:25)
[2020-07-01] MEDS: NYSTATIN 500,000 UNIT/5 ML UDC 500000 UNIT PO ×4 (06:26→20:38)
[2020-07-01] MEDS: Polyethylene Glycol 3350 17 GM PACKET PO (06:26)
[2020-07-01] MEDS: Nystatin Ointment 1 APPLIC TOPICAL ×3 (06:26→20:38)
[2020-07-01] MEDS: Glucerna Shake 120 ML LIQUID PO (08:36)
[2020-07-01] MEDS: Magnesium Chloride 64 MG Delay Rel.Tablet 128 MG PO (08:38)
[2020-07-01] MEDS: Glimepiride 1 MG Tablet PO (08:38)
[2020-07-01] MEDS: Fenofibrate 145 MG Tablet PO (08:38)
[2020-07-01] MEDS: Gabapentin 600 MG Tablet PO ×2 (08:38→18:22)
[2020-07-01] MEDS: Ascorbic Acid 500 MG Tablet PO (08:39)
[2020-07-01 11:11] LABS: Bedside Glucose 195 mg/dL (70-110)
--- NOTE | 2020-07-01 11:34 | MDS.RN ---
Information for the mds was obtained from review of the clinical record, interview of resident, staff, and direct observation of resident's care.
--- NOTE | 2020-07-01 12:05 | CASEMGMT ---
Social Work Continued conversations with dtr and JYOTSNA this date on facilities and DC plans. Notified both that insurance approved additional days to finalize DC plans with NRD 07/05 and anticipate [facility]. Family narrowed down to [facility] and [facility]. Offered for both to contact JYOTSNA to discuss details and pricing - agreeable. Will continue to follow. Caity Azar, CONTROLS DESIGN ENGINEER DIRECTOR OF GOVERNMENT SALES
[2020-07-01 14:01] VITALS: BP 108/53; PULSE 65; RESP 18; TEMP 36.1; O2SAT 97
[2020-07-01 16:56] LABS: Bedside Glucose 195 mg/dL (70-110)
[2020-07-01] MEDS: oxyCODONE 5 MG Tablet 10 MG PO (19:44)
[2020-07-01] MEDS: MELATONIN 10 MG TABLET 15 MG PO (20:37)
[2020-07-01] MEDS: Baclofen 10 MG Tablet PO (20:37)
[2020-07-01] MEDS: Pantoprazole Sodium 20 MG Tablet PO (20:38)
[2020-07-01] MEDS: Mirtazapine 15 MG Tablet 7.5 MG PO (20:39)
[2020-07-01] MEDS: Cyanocobalamin 500 MCG Tablet PO (20:40)
[2020-07-01 20:45] VITALS: RESP 18
[2020-07-01 21:26] LABS: Bedside Glucose 97 mg/dL (70-110)
[2020-07-02] MEDS: oxyCODONE 5 MG Tablet 10 MG PO ×2 (00:16→08:54)
[2020-07-02] MEDS: 0.9% Saline Lock 10 ML Syringe IV (00:16)
[2020-07-02 00:30] VITALS: RESP 18; O2SAT 97
[2020-07-02 05:00] VITALS: BP 104/57; PULSE 78; RESP 16; TEMP 36.7; O2SAT 93
[2020-07-02] MEDS: APIXABAN 5 MG TABLET PO ×2 (05:32→17:54)
[2020-07-02] MEDS: NYSTATIN 500,000 UNIT/5 ML UDC 500000 UNIT PO ×3 (05:32→22:35)
[2020-07-02] MEDS: dilTIAZem CD 240 MG Capsule PO ×2 (05:32→17:54)
[2020-07-02] MEDS: Atenolol 50 MG Tablet PO (05:32)
[2020-07-02] MEDS: FLUoxetine 10 MG Capsule PO (05:33)
[2020-07-02] MEDS: Menthol/Lanolin/Calamine/Znox 113 GM Tube 1 APPLIC TOPICAL ×2 (05:33→17:53)
[2020-07-02] MEDS: Furosemide 20 MG Tablet PO (05:33)
[2020-07-02] MEDS: Nystatin Ointment 1 APPLIC TOPICAL ×3 (05:34→22:35)
[2020-07-02 06:36] LABS: Bedside Glucose 141 mg/dL (70-110)
[2020-07-02] MEDS: Glucerna Shake 120 ML LIQUID PO ×2 (08:54→17:52)
[2020-07-02] MEDS: Magnesium Chloride 64 MG Delay Rel.Tablet 128 MG PO (08:56)
[2020-07-02] MEDS: Ascorbic Acid 500 MG Tablet PO (08:56)
[2020-07-02] MEDS: Fenofibrate 145 MG Tablet PO (08:56)
[2020-07-02] MEDS: Glimepiride 1 MG Tablet PO (08:57)
[2020-07-02] MEDS: Gabapentin 600 MG Tablet PO ×2 (08:57→17:54)
[2020-07-02 11:01] LABS: Bedside Glucose 159 mg/dL (70-110)
[2020-07-02 11:43] VITALS: BP 100/64; PULSE 74; RESP 18; TEMP 36.7; O2SAT 95
[2020-07-02 13:58] VITALS: BP 102/56; PULSE 85; RESP 18; TEMP 36.8; O2SAT 94; O2SAT 97
[2020-07-02 17:00] LABS: Bedside Glucose 130 mg/dL (70-110)
--- NOTE | 2020-07-02 20:30 | NURSING ---
Went to pt's room to complete assessment d/t concerns from FLOWER STRIPPER in regard to change in condition from a previous shift. Pt drowsy, arouses easily to verbal stimulation. Oriented x3. Her irregular, 93; BP 99/63; spO2 96% on 4 lpm via nc; R 16. In no acute distress. Skin pink/pale, warm, and dry. Mouth dry. Has ice chips, water, and el james within reach. Max verbal cueing during assessment to consume fluids to promote hydration. Denies any chest pain, dizziness, lightheadeness, and/or palpitations. Staff to continue to monitor.
[2020-07-02 21:41] LABS: Bedside Glucose 154 mg/dL (70-110)
--- NOTE | 2020-07-02 22:35 | NURSING ---
After hs meds administered, pt consumed a fair amount of water. No swallowing difficulty noted. This nurse applied mouth moisturizer to lips. Refused to have mouth moisturizer applied inside mouth. Strongly encouraged continued intake of oral fluids while awake to promote hydration and prevent supplementation of IV fluids. Will continue to monitor.
[2020-07-02] MEDS: Pantoprazole Sodium 20 MG Tablet PO (22:39)
[2020-07-02] MEDS: Cyanocobalamin 500 MCG Tablet PO (22:39)
[2020-07-02] MEDS: Mirtazapine 15 MG Tablet 7.5 MG PO (22:40)
[2020-07-03 05:42] VITALS: BP 101/46; PULSE 79; RESP 16; TEMP 36.7; O2SAT 96
[2020-07-03] MEDS: NYSTATIN 500,000 UNIT/5 ML UDC 500000 UNIT PO ×2 (05:45→11:21)
[2020-07-03] MEDS: Menthol/Lanolin/Calamine/Znox 113 GM Tube 1 APPLIC TOPICAL ×2 (05:45→11:26)
[2020-07-03] MEDS: Nystatin Ointment 1 APPLIC TOPICAL ×3 (05:46→21:17)
[2020-07-03] MEDS: APIXABAN 5 MG TABLET PO ×2 (05:46→17:23)
[2020-07-03] MEDS: FLUoxetine 10 MG Capsule PO (05:46)
[2020-07-03] MEDS: dilTIAZem CD 240 MG Capsule PO ×2 (05:46→17:23)
[2020-07-03] MEDS: Atenolol 50 MG Tablet PO (05:47)
[2020-07-03] MEDS: Furosemide 20 MG Tablet PO (05:50)
--- NOTE | 2020-07-03 05:59 | NURSING ---
Lips dry. Taking fluids fair during med pass. Frozen fruit bar given. Mouth moisturizer applied to lips. Instructed to continue to consume an adequate amount of fluids, especially water.
[2020-07-03 06:26] LABS: Bedside Glucose 174 mg/dL (70-110)
[2020-07-03] MEDS: Gabapentin 600 MG Tablet PO ×2 (09:02→17:24)
[2020-07-03] MEDS: Magnesium Chloride 64 MG Delay Rel.Tablet 128 MG PO (09:02)
[2020-07-03] MEDS: Fenofibrate 145 MG Tablet PO (09:02)
[2020-07-03] MEDS: Glimepiride 1 MG Tablet PO (09:02)
[2020-07-03] MEDS: Glucerna Shake 120 ML LIQUID PO (09:02)
[2020-07-03] MEDS: Ascorbic Acid 500 MG Tablet PO (09:02)
[2020-07-03] MEDS: Albuterol Sulfate 8 gm Inhaler (60 puffs) 2 PUFF INHALATION (09:12)
[2020-07-03 11:26] LABS: Bedside Glucose 187 mg/dL (70-110)
[2020-07-03 11:41] VITALS: PULSE 72; O2SAT 95
[2020-07-03 14:42] VITALS: BP 114/48; PULSE 85; RESP 18; TEMP 36.1; O2SAT 90
[2020-07-03 15:12] VITALS: O2SAT 90
[2020-07-03] MEDS: Furosemide 40 MG/4 ML Vial IV (16:21)
[2020-07-03 16:51] LABS: Bedside Glucose 166 mg/dL (70-110)
[2020-07-03] MEDS: oxyCODONE 5 MG Tablet 10 MG PO (21:13)
[2020-07-03] MEDS: Acetaminophen 500 MG Tablet 1000 MG PO (21:13)
[2020-07-03] MEDS: MELATONIN 10 MG TABLET 15 MG PO (21:14)
[2020-07-03] MEDS: Pantoprazole Sodium 20 MG Tablet PO (21:15)
[2020-07-03] MEDS: Cyanocobalamin 500 MCG Tablet PO (21:15)
[2020-07-03] MEDS: Mirtazapine 15 MG Tablet 7.5 MG PO (21:16)
[2020-07-03 21:55] LABS: Bedside Glucose 144 mg/dL (70-110)
[2020-07-04] MEDS: oxyCODONE 5 MG Tablet 10 MG PO ×2 (03:31→20:03)
--- NOTE | 2020-07-04 03:35 | NURSING ---
Pt awake, oriented x3, requesting pain meds for rating 7/10, pt states she only wants 1 Oxy instead of 2, states that 2 make her more groggy and loopy. Medicated for pain with 5mg Oxy Ir.
[2020-07-04 04:44] VITALS: BP 113/51; PULSE 65; RESP 18; TEMP 36.4; O2SAT 94
[2020-07-04] MEDS: Atenolol 50 MG Tablet PO (04:45)
[2020-07-04] MEDS: FLUoxetine 10 MG Capsule PO (04:45)
[2020-07-04] MEDS: dilTIAZem CD 240 MG Capsule PO ×2 (04:45→18:01)
[2020-07-04] MEDS: APIXABAN 5 MG TABLET PO ×2 (04:45→18:01)
[2020-07-04] MEDS: Nystatin Ointment 1 APPLIC TOPICAL ×3 (04:46→21:36)
[2020-07-04] MEDS: Menthol/Lanolin/Calamine/Znox 113 GM Tube 1 APPLIC TOPICAL ×2 (04:46→18:02)
[2020-07-04 06:31] LABS: Bedside Glucose 105 mg/dL (70-110)
[2020-07-04 07:25] VITALS: O2SAT 93
[2020-07-04] MEDS: Glimepiride 1 MG Tablet PO (08:15)
[2020-07-04] MEDS: Fenofibrate 145 MG Tablet PO (08:15)
[2020-07-04] MEDS: Gabapentin 600 MG Tablet PO ×2 (08:15→18:01)
[2020-07-04] MEDS: Magnesium Chloride 64 MG Delay Rel.Tablet 128 MG PO (08:15)
[2020-07-04] MEDS: Ascorbic Acid 500 MG Tablet PO (08:15)
[2020-07-04] MEDS: Furosemide 40 MG/4 ML Vial IV ×2 (10:51→18:01)
[2020-07-04] MEDS: 0.9% Saline Lock 10 ML Syringe IV ×2 (10:54→18:01)
[2020-07-04 11:01] LABS: Bedside Glucose 194 mg/dL (70-110)
[2020-07-04 12:13] VITALS: PULSE 69; RESP 18; O2SAT 94
[2020-07-04 14:00] VITALS: BP 108/56; PULSE 69; RESP 18; TEMP 36.6; O2SAT 94
[2020-07-04 16:31] LABS: Bedside Glucose 116 mg/dL (70-110)
[2020-07-04] MEDS: NYSTATIN 500,000 UNIT/5 ML UDC 500000 UNIT PO ×2 (18:01→21:36)
[2020-07-04 18:03] VITALS: PULSE 102
[2020-07-04] MEDS: MELATONIN 10 MG TABLET 15 MG PO (21:35)
[2020-07-04] MEDS: Pantoprazole Sodium 20 MG Tablet PO (21:36)
[2020-07-04] MEDS: Mirtazapine 15 MG Tablet 7.5 MG PO (21:37)
[2020-07-04] MEDS: Cyanocobalamin 500 MCG Tablet PO (21:37)
[2020-07-04 22:01] LABS: Bedside Glucose 161 mg/dL (70-110)
[2020-07-05] MEDS: Baclofen 10 MG Tablet PO (01:44)
[2020-07-05 05:00] VITALS: BP 103/55; PULSE 62; RESP 16; TEMP 36.6; O2SAT 94
[2020-07-05] MEDS: Atenolol 50 MG Tablet PO (06:01)
[2020-07-05] MEDS: dilTIAZem CD 240 MG Capsule PO ×2 (06:02→17:05)
[2020-07-05] MEDS: Nystatin Ointment 1 APPLIC TOPICAL ×3 (06:02→21:54)
[2020-07-05] MEDS: APIXABAN 5 MG TABLET PO ×2 (06:02→17:05)
[2020-07-05] MEDS: FLUoxetine 10 MG Capsule PO (06:02)
[2020-07-05] MEDS: Menthol/Lanolin/Calamine/Znox 113 GM Tube 1 APPLIC TOPICAL ×2 (06:03→17:07)
[2020-07-05 06:30] LABS: Anion Gap 4 (5-15); BUN 11 mg/dL (7-18); BUN/Creat Ratio 13.3 RATIO (10-20); Calcium,Total 8.3 mg/dL (8.5-10.1); Chloride 96 mmol/L (98-107); Creatinine, Serum 0.83 mg/dL (0.55-1.02); EST Glomerular Filtration Rate 72 mL/min (>60); Est Glom Filt Rate - Afr Amer 87 mL/min (>60); Estimated Creatinine Clearance 79.85 ml/min; Glucose 63 mg/dL (74-106); Potassium 2.9 mmol/L (3.5-5.1); Sodium Level 136 mmol/L (136-145)
[2020-07-05 06:31] LABS: Bedside Glucose 86 mg/dL (70-110)
[2020-07-05 08:40] VITALS: O2SAT 92
[2020-07-05] MEDS: Glimepiride 1 MG Tablet PO (08:58)
[2020-07-05] MEDS: Magnesium Chloride 64 MG Delay Rel.Tablet 128 MG PO (08:58)
[2020-07-05] MEDS: Gabapentin 600 MG Tablet PO ×2 (08:58→17:06)
[2020-07-05] MEDS: Ascorbic Acid 500 MG Tablet PO (08:58)
[2020-07-05] MEDS: Fenofibrate 145 MG Tablet PO (08:58)
[2020-07-05] MEDS: Potassium Chloride Oral Tablet 20 MEQ 40 MEQ PO (08:58)
--- NOTE | 2020-07-05 09:38 | CASEMGMT ---
Addendum entered by Caity Azar 07/05/20 10:01: JYOTSNA and dtr chose [facility] for DC. Original Note: Social Work Followed up with JYOTSNA and dtr on final SNF decision. Both stated they wanted to get final pricing with [facility]. Inquire about having that conversation the last two business days - both declined. Explained for one of them to call [facility] to speak with Admissions about pricing as the insurance update is due today and that information is requested. JYOTSNA to contact and notify SW of outcome. Will continue to follow. NAUN Carlton
[2020-07-05] MEDS: Furosemide 40 MG/4 ML Vial IV ×2 (10:01→17:06)
[2020-07-05] MEDS: 0.9% Saline Lock 10 ML Syringe IV ×2 (10:02→17:06)
[2020-07-05 11:06] LABS: Bedside Glucose 202 mg/dL (70-110)
[2020-07-05] MEDS: oxyCODONE 5 MG Tablet 10 MG PO ×2 (11:25→22:05)
[2020-07-05 14:41] VITALS: BP 103/45; PULSE 84; RESP 16; TEMP 35.9; O2SAT 95
[2020-07-05 16:35] LABS: Bedside Glucose 121 mg/dL (70-110)
[2020-07-05] MEDS: Potassium Chloride Oral Tablet 20 MEQ PO (17:06)
[2020-07-05 21:46] LABS: Bedside Glucose 130 mg/dL (70-110)
[2020-07-05] MEDS: Acetaminophen 500 MG Tablet 1000 MG PO (21:52)
[2020-07-05] MEDS: MELATONIN 10 MG TABLET 15 MG PO (21:53)
[2020-07-05] MEDS: Mirtazapine 15 MG Tablet 7.5 MG PO (21:55)
[2020-07-05] MEDS: Pantoprazole Sodium 20 MG Tablet PO (21:55)
[2020-07-05] MEDS: NYSTATIN 500,000 UNIT/5 ML UDC 500000 UNIT PO (21:55)
[2020-07-05] MEDS: Cyanocobalamin 500 MCG Tablet PO (21:56)
[2020-07-05 22:00] VITALS: PULSE 63; RESP 18; O2SAT 92
[2020-07-06] MEDS: oxyCODONE 5 MG Tablet 10 MG PO ×3 (00:35→11:41)
[2020-07-06 05:00] VITALS: BP 111/53; PULSE 77; RESP 16; TEMP 36.6; O2SAT 93
[2020-07-06 05:50] LABS: Absolute Lymphocyte Count 1.24 X10^3/uL (0.83-4.51); Basophil# 0.02 X10^3/uL; Basophil% 0.4 % (0-1); Eosinophil# 0.11 X10^3/uL; Eosinophils% 2.3 % (0-5); Hematocrit 36.9 % (37-47); Lymphocyte # 1.24 X10^3/ul (0.83-4.51); Lymphocyte % 25.8 % (19-41); Mean Corp Hgb Conc 29.8 g/dL (32-36); Mean Corpuscular Hgb 27.8 pg (27.0-32.0); Mean Corpuscular Volume 93.4 fL (81-99); Mean Platelet Vol. 11.7 fl (6.2-12.0); Monocyte# 0.44 X10^3/uL; Monocyte% 9.1 % (0-10); NRBC Flagged by Analyzer 0 % (0-5); Neutrophil # 2.99 X10^3/uL (2.7-7.7); Neutrophil % 62.2 % (47-70); Platelet Count 178 K/mm3 (150-450); RBC Distribution Width CV 16.2 % (11.6-14.6); RBC Distribution Width SD 55.5 fl (35.1-43.9); Red Blood Count 3.95 M/mm3 (4.2-5.4); White Blood Count 4.8 K/mm3 (4.4-11.0)
[2020-07-06] MEDS: Menthol/Lanolin/Calamine/Znox 113 GM Tube 1 APPLIC TOPICAL ×2 (05:59→17:22)
[2020-07-06] MEDS: APIXABAN 5 MG TABLET PO ×2 (06:00→17:19)
[2020-07-06] MEDS: Atenolol 50 MG Tablet PO (06:00)
[2020-07-06] MEDS: Nystatin Ointment 1 APPLIC TOPICAL ×3 (06:00→23:29)
[2020-07-06] MEDS: FLUoxetine 10 MG Capsule PO (06:00)
[2020-07-06] MEDS: dilTIAZem CD 240 MG Capsule PO ×2 (06:00→17:20)
[2020-07-06] MEDS: Polyethylene Glycol 3350 17 GM PACKET PO (06:00)
[2020-07-06 06:07] LABS: Anion Gap 3 (5-15); BUN 12 mg/dL (7-18); Calcium,Total 8.7 mg/dL (8.5-10.1); Chloride 94 mmol/L (98-107); Creatinine, Serum 0.92 mg/dL (0.55-1.02); EST Glomerular Filtration Rate 64 mL/min (>60); Est Glom Filt Rate - Afr Amer 77 mL/min (>60); Estimated Creatinine Clearance 72.04 ml/min; Glucose 62 mg/dL (74-106); Potassium 3.3 mmol/L (3.5-5.1); Sodium Level 139 mmol/L (136-145)
[2020-07-06 06:46] LABS: Bedside Glucose 64 mg/dL (70-110)
[2020-07-06 07:45] LABS: Bedside Glucose 103 mg/dL (70-110)
[2020-07-06] MEDS: Glimepiride 1 MG Tablet PO (08:55)
[2020-07-06] MEDS: Ascorbic Acid 500 MG Tablet PO (08:55)
[2020-07-06] MEDS: Fenofibrate 145 MG Tablet PO (08:55)
[2020-07-06] MEDS: Magnesium Chloride 64 MG Delay Rel.Tablet 128 MG PO (08:56)
[2020-07-06] MEDS: Gabapentin 600 MG Tablet PO ×2 (08:56→17:18)
[2020-07-06] MEDS: Potassium Chloride Oral Tablet 20 MEQ PO ×3 (09:07→17:17)
--- NOTE | 2020-07-06 09:46 | NURSING ---
Pt was having pain in back and requested prn oxycodone. Per pt requested only wanted to take 0.5mg d/t it making her feel loopy if she takes the 5 mg.
[2020-07-06 11:06] LABS: Bedside Glucose 184 mg/dL (70-110)
[2020-07-06 11:33] VITALS: O2SAT 92
[2020-07-06] MEDS: Furosemide 40 MG/4 ML Vial IV ×2 (11:48→17:20)
--- NOTE | 2020-07-06 12:24 | CASEMGMT ---
Social Work Insurance issued LCD 07/08, DC 07/09. Spoke with pt and dtr and both agreeable. Notified W of DC. PASRR completed. Scheduled cot transport through [facility]. Notified [facility] of DC. Plan: DC to [facility] private pay 07/09 with part B therapies, Palliative Caity Azar, NAUN ALVAW
[2020-07-06 13:00] VITALS: PULSE 86; RESP 18; O2SAT 92
[2020-07-06 16:35] LABS: Bedside Glucose 120 mg/dL (70-110)
[2020-07-06 17:34] VITALS: BP 105/54; PULSE 86; RESP 18; TEMP 37.1; O2SAT 94
[2020-07-06] MEDS: MELATONIN 10 MG TABLET 15 MG PO (23:28)
[2020-07-06] MEDS: Pantoprazole Sodium 20 MG Tablet PO (23:29)
[2020-07-06] MEDS: Cyanocobalamin 500 MCG Tablet PO (23:30)
[2020-07-06] MEDS: Mirtazapine 15 MG Tablet 7.5 MG PO (23:30)
[2020-07-06 23:51] LABS: Bedside Glucose 164 mg/dL (70-110)
[2020-07-07 05:00] VITALS: BP 104/60; PULSE 82; RESP 14; TEMP 36.7; O2SAT 96
[2020-07-07] MEDS: APIXABAN 5 MG TABLET PO ×2 (05:09→17:38)
[2020-07-07] MEDS: Polyethylene Glycol 3350 17 GM PACKET PO (05:09)
[2020-07-07] MEDS: Menthol/Lanolin/Calamine/Znox 113 GM Tube 1 APPLIC TOPICAL ×2 (05:09→12:16)
[2020-07-07] MEDS: dilTIAZem CD 240 MG Capsule PO ×2 (05:09→17:38)
[2020-07-07] MEDS: Nystatin Ointment 1 APPLIC TOPICAL ×3 (05:10→21:03)
[2020-07-07] MEDS: NYSTATIN 500,000 UNIT/5 ML UDC 500000 UNIT PO (05:10)
[2020-07-07] MEDS: FLUoxetine 10 MG Capsule PO (05:11)
[2020-07-07] MEDS: Atenolol 50 MG Tablet PO (05:11)
--- NOTE | 2020-07-07 05:12 | DS.PCM_ITS ---
Providers Date of Admission: 06/21/20 Consultations 06/24/20 08:05 Consult: Pain Management Routine Consulting Provider: Darnell Burgos Reason for Consult: Low Back Pain EMERGENT Consult: No MD Notified: Yes Date Notified:: 06/24/20 Time Notified: 08:05 Method of Notification: Verbal Reason For Visit: AFIB WITH RVR Diagnosis Discharge Diagnosis (1) Fatigue: Status: Acute Code(s): R53.83 - Other fatigue Qualifiers: Fatigue type: unspecified Qualified Code(s): R53.83 - Other fatigue (2) Chronic pain: Status: Chronic Code(s): G89.29 - Other chronic pain Qualifiers: Chronic pain type: other chronic postprocedural pain Qualified Code(s): G89.28 - Other chronic postprocedural pain (3) Weakness: Status: Acute Code(s): R53.1 - Weakness (4) Constipation: Status: Acute Code(s): K59.00 - Constipation, unspecified Qualifiers: Constipation type: unspecified constipation type Qualified Code(s): K59.00 - Constipation, unspecified Medications at Discharge Home Medications glimepiride 1 mg PO DAILY 05/13/15 fenofibrate micronized 145 mg PO DAILY 06/04/16 albuterol sulfate 90 mcg/actuation aerosol inhaler 2 puff INHALATION Q6H PRN #18 g 05/14/19 ascorbic acid (vitamin C) 500 mg PO DAILY 06/09/20 cyanocobalamin (vitamin B-12) 500 mcg PO QHS #0 06/15/20 melatonin 15 mg PO QHS 06/15/20 sennosides-docusate sodium 2 tablet PO BID PRN PRN tablet 06/15/20 atenolol 25 mg PO DAILY 06/16/20 nystatin 1 applic TOPICAL TID 06/16/20 acetaminophen 1,000 mg PO Q6H PRN PRN 06/17/20 menthol-zinc oxide 1 applic TOPICAL BID 06/17/20 pantoprazole 20 mg PO QHS 06/17/20 polyethylene glycol 3350 17 gm PO DAILY 06/17/20 zinc sulfate 220 mg PO DAILY 06/17/20 diltiazem HCl 240 mg PO DAILY #0 cap 06/21/20 baclofen 10 mg PO BID 06/26/20 ciprofloxacin HCl 500 mg PO BID 06/26/20 gabapentin 600 mg PO BIDCM 06/26/20 magnesium chloride 128 mg PO DAILY 06/26/20 apixaban [Eliquis] 5 mg PO BID #60 tab 07/07/20 fluoxetine 10 mg PO DAILY #0 cap 07/07/20 furosemide 40 mg PO BID #60 tab 07/07/20 gabapentin 600 mg PO BIDCM #0 tab 07/07/20 magnesium chloride [Mag 64] 128 mg PO DAILYCM #0 tab 07/07/20 mirtazapine 7.5 mg PO QHS #0 tab 07/07/20 oxycodone 10 mg PO Q4H PRN PRN 3 Days #36 tab 07/07/20 potassium chloride [Klor-Con M20] 20 meq PO TIDCM #0 tab 07/07/20 Hospital Course Operations None Procedures None Summary of Care Provided Minutes Spent on Discharge: 35 Hospital Course: 70 year old female with below past medical history hospitalized for new onset atrial fibrillation with rapid ventricular response, complicated by bilateral pleural effusions, low back pain, admitted to TCU with debility, here for rehabilitation, strengthening, prior to discharge home alone. Discharge to [facility] 07/09/2020, with Part B Therapies, Pall iative. Physical Exam Const alert and oriented x3 General Appearance: cooperative HEENT normocephalic Eyes PERRL and EOMs intact bilaterally Neck supple, no JVD and no carotid bruits Resp normal respiratory effort, normal air movement and clear to auscultation bilaterally Cardio regular rate and regular rhythm GI normal to inspection, nondistended, normoactive bowel sounds, non-tender and non-distended Extremity normal capillary refill General Extremity: Negative for edema Skin no rashes or lesions noted General Skin Exam: no breakdown Psych affect normal Appearance: appropriate ABG / Lab / Microbiology Data Result Diagrams: 07/06/20 05:25 07/06/20 05:25 Laboratory: Laboratory Results - last 24 hr 07/06/20 07/06/20 07/06/20 05:25 05:25 06:30 WBC 4.8 RBC 3.95 L Hgb 11.0 L Hct 36.9 L MCV 93.4 MCH 27.8 MCHC 29.8 L RDW Std Deviation 55.5 H RDW Coeff of Liseth 16.2 H Plt Count 178 MPV 11.7 Immature Gran % (Auto) 0.200 Neut % (Auto) 62.2 Lymph % (Auto) 25.8 [place] % (Auto) 9.1 Eos % (Auto) 2.3 Baso % (Auto) 0.4 Absolute Neuts (auto) 3.0 Absolute Lymphs (auto) 1.24 Nucleated RBC % 0 Sodium 139 Potassium 3.3 L Chloride 94 L Carbon Dioxide 42.0 H Anion Gap 3 L BUN 12 Creatinine 0.92 Estim Creat Clear Calc 72.04 Est GFR (MDRD) Af Amer 77 Est GFR (MDRD) Non-Af 64 BUN/Creatinine Ratio 13.0 Glucose 62 L Calcium 8.7 POC Glucose 64 L 07/06/20 07/06/20 07/06/20 07:39 10:53 16:25 WBC RBC Hgb Hct MCV MCH MCHC RDW Std Deviation RDW Coeff of Liseth Plt Count MPV Immature Gran % (Auto) Neut % (Auto) Lymph % (Auto) [place] % (Auto) Eos % (Auto) Baso % (Auto) Absolute Neuts (auto) Absolute Lymphs (auto) Nucleated RBC % Sodium Potassium Chloride Carbon Dioxide Anion Gap BUN Creatinine Estim Creat Clear Calc Est GFR (MDRD) Af Amer Est GFR (MDRD) Non-Af BUN/Creatinine Ratio Glucose Calcium POC Glucose 103 184 H 120 H 07/06/20 23:32 WBC RBC Hgb Hct MCV MCH MCHC RDW Std Deviation RDW Coeff of Liseth Plt Count MPV Immature Gran % (Auto) Neut % (Auto) Lymph % (Auto) [place] % (Auto) Eos % (Auto) Baso % (Auto) Absolute Neuts (auto) Absolute Lymphs (auto) Nucleated RBC % Sodium Potassium Chloride Carbon Dioxide Anion Gap BUN Creatinine Estim Creat Clear Calc Est GFR (MDRD) Af Amer Est GFR (MDRD) Non-Af BUN/Creatinine Ratio Glucose Calcium POC Glucose 164 H Microbiology: Microbiology 07/06/20 14:55 SARS-CoV-2 Antigen (Rapid) - Final Mucosa - Nasopharyngeal Microbiology 07/06/20 14:55 Mucosa - Nasopharyngeal SARS-CoV-2 Antigen (Rapid) - Final 06/22/20 14:15 Urine, Catheterized Urine Culture - Final Klebsiella pneumoniae sp pneum 06/23/20 14:44 Mucosa - Nose SARS-CoV-2 Antigen (Rapid) - Final D/C Instructions Discharge Diet: No restrictions Discharge Activity: Return to Normal Activity, May Shower and Use Walker Weight Bearing Status: Weight bearing as tolerated Call your doctor if you observe: Fever of 101 or Higher, Inability to urinate, Shortness of breath, Dizziness, Fainting spells, Chest pain and Uncontrolled pain Additional Instructions: Discharge to [facility] 07/09/2020, with Part B Therapies, Palliative. Please Follow Up With: Nathan Breaux MD When: 2 weeks. Meaningful Use Info Meaningful Use Diagnoses (Choose all that apply): None applicable Discharge Plan Admission Admit Date/Time: 06/21/20 18:00 Primary Reason for Your Visit: Debility Attending Provider: Mauricio Domingo Chi Primary Care Provider: Makenzie Ace Consulting Providers: Darnell Burgos Instructions Additional Instructions / Restrictions: Discharge to [facility] 07/09/2020, with Part B Therapies, Pallia tive. Discharge Orders/Prescriptions Prescriptions: New gabapentin 600 mg Tablet 600 mg PO BIDCM Qty: 0 RF: 0 potassium chloride [Klor-Con M20] 20 mEq Tablet,Er Particles/Crystals 20 meq PO TIDCM Qty: 0 RF: 0 fluoxetine 10 mg Capsule 10 mg PO DAILY Qty: 0 RF: 0 mirtazapine 15 mg Tablet 7.5 mg PO QHS Qty: 0 RF: 0 oxycodone 5 mg Tablet 10 mg PO Q4H PRN PRN (Reason: Pain Score 6-10) 3 Days Qty: 36 RF: 0 magnesium chloride [Mag 64] 64 mg Tablet,Delayed Release (Dr/Ec) 128 mg PO DAILYCM Qty: 0 RF: 0 Eliquis 5 mg Tablet 5 mg PO BID Qty: 60 RF: 0 furosemide 40 mg tablet 40 mg PO BID Qty: 60 RF: 0 Continued albuterol sulfate [Ventolin HFA] 90 mcg/actuation HFA aerosol inhaler 2 puff INHALATION Q6H PRN (Reason: shortness of breath or wheezing) Qty: 18 RF: 6 glimepiride 4 MG tablet 1 mg PO DAILY RF: 0 fenofibrate micronized 134 MG capsule 145 mg PO DAILY RF: 0 ascorbic acid (vitamin C) 500 MG capsule 500 mg PO DAILY RF: 0 melatonin 5 MG tablet 15 mg PO QHS RF: 0 sennosides-docusate sodium 1 TABLET tablet 2 tablet PO BID PRN PRN (Reason: Constipation) RF: 0 cyanocobalamin (vitamin B-12) 500 MCG tablet 500 mcg PO QHS Qty: 0 RF: 0 nystatin 1 APPLIC ointment 1 applic TOPICAL TID RF: 0 atenolol 25 MG tablet 25 mg PO DAILY RF: 0 polyethylene glycol 3350 17 GM powder in packet 17 gm PO DAILY RF: 0 acetaminophen 500 MG tablet 1,000 mg PO Q6H PRN PRN (Reason: Pain Score 1-3) RF: 0 pantoprazole 20 MG tablet 20 mg PO QHS RF: 0 zinc sulfate 220 MG tablet 220 mg PO DAILY RF: 0 menthol-zinc oxide 71 GM ointment 1 applic TOPICAL BID RF: 0 diltiazem HCl 240 mg Capsule,Extended Release 24hr 240 mg PO DAILY Qty: 0 RF: 0 baclofen 10 mg Tablet 10 mg PO BID RF: 0 magnesium chloride 64 mg Tablet,Delayed Release (Dr/Ec) 128 mg PO DAILY RF: 0 gabapentin 600 mg tablet 600 mg PO BIDCM RF: 0 Discontinued oxycodone 10 MG tablet 10 mg PO Q4H PRN PRN (Reason: Pain Score 6-10) RF: 0 enoxaparin 80 mg/0.8 mL Syringe 80 mg subcut BID Qty: 0 RF: 0 No Action ciprofloxacin HCl 500 mg Tablet 500 mg PO BID RF: 0 Referrals / Follow Up: Makenzie Ace DO [Primary Care Provider] - Disposition Disposition (needs filled in before D/C Order can be placed): NonSkilled NH /Intermed Care
--- NOTE | 2020-07-07 05:29 | PCM.TXEXTCAR ---
Diet 06/29/20 11:53 Diet: Regular - General Food consistency:: Regular Liquid Consistency:: Regular/Thin Type of Dietary Supplement:: Ensure Enlive Is pt able to select menu?: Yes Diet Comments: 8 oz ensure enlive (VANILLA), 1/2 cup 2% milk, cup of ice w/ meals Routine Orders/Code Status Suppository Type: Dulcolax 10mg Suppository Frequency: Daily PRN Therapies Weight Bearing: Weight bearing as tolerated Extremity Affected:: Bilateral Lower Physical Therapy: Eval and Treat Occupational Therapy: Eval and Treat Problem/Diagnosis (1) Fatigue: Status: Acute (2) Chronic pain: Status: Chronic (3) Weakness: Status: Acute (4) Constipation: Status: Acute Allergies/Procedures Done in Hospital Allergies atorvastatin calcium [From Lipitor] Allergy (Verified 06/28/20 14:07) Unknown LEG CRAMPS pravastatin Allergy (Verified 06/28/20 14:07) Unknown LEG CRAMPS ramipril [From Altace] Allergy (Verified 07/03/20 15:07) NEEDS FOLLOW-UP simvastatin Allergy (Verified 06/28/20 14:07) Unknown LEG CRAMPS morphine Adverse Reaction (Verified 06/28/20 14:07) Other BAD NIGHTMARES altace Allergy (Uncoded 06/26/20 22:26) Unknown antihyperlipidemics Allergy (Uncoded 06/26/20 22:26) Unknown LEG CRAMPS Type of Care/Length of Stay Estimated LOS: Convalescent Care Less Than 30 days Type of Care Needed: Intermediate Rehab Potential: Fair Prognosis: Fair Additional Orders/Day of Discharge Day of Discharge: 07/09/20 Dietary and Speech Recommendations Dietitian Recommendations/Changes: Will continue liberal Regular diet per res request to try to encourage increased po intake at meals. Will continue to provide vanilla ensure w/ meals per res request. Will discontinue ONS at [facility] d/t res refusals. Follow Up Care Please Follow Up With: Nathan Breaux MD When: 1 week Please Follow Up With: Makenzie Ace DO When: N/A Please Follow Up With: Israel Jean-Baptiste ENTERPRISE BUSINESS ARCHITECT, ENTERPRISE BUSINESS ARCHITECT-C When: 1 week Discharge Plan Admission Admit Date/Time: 06/21/20 18:00 Primary Reason for Your Visit: Debility Attending Provider: Mauricio Domingo Chi Primary Care Provider: Makenzie Ace Consulting Providers: Darnell Burgos Instructions Additional Instructions / Restrictions: Discharge to [facility] 07/09/2020, with Part B Therapies, Palliative. Discharge Orders/Prescriptions Prescriptions: New gabapentin 600 mg Tablet 600 mg PO BIDCM Qty: 0 RF: 0 potassium chloride [Klor-Con M20] 20 mEq Tablet,Er Particles/Crystals 20 meq PO TIDCM Qty: 0 RF: 0 fluoxetine 10 mg Capsule 10 mg PO DAILY Qty: 0 RF: 0 mirtazapine 15 mg Tablet 7.5 mg PO QHS Qty: 0 RF: 0 oxycodone 5 mg Tablet 10 mg PO Q4H PRN PRN (Reason: Pain Score 6-10) 3 Days Qty: 36 RF: 0 magnesium chloride [Mag 64] 64 mg Tablet,Delayed Release (Dr/Ec) 128 mg PO DAILYCM Qty: 0 RF: 0 Eliquis 5 mg Tablet 5 mg PO BID Qty: 60 RF: 0 furosemide 40 mg tablet 40 mg PO BID Qty: 60 RF: 0 Continued albuterol sulfate [Ventolin HFA] 90 mcg/actuation HFA aerosol inhaler 2 puff INHALATION Q6H PRN (Reason: shortness of breath or wheezing) Qty: 18 RF: 6 glimepiride 4 MG tablet 1 mg PO DAILY RF: 0 fenofibrate micronized 134 MG capsule 145 mg PO DAILY RF: 0 ascorbic acid (vitamin C) 500 MG capsule 500 mg PO DAILY RF: 0 melatonin 5 MG tablet 15 mg PO QHS RF: 0 sennosides-docusate sodium 1 TABLET tablet 2 tablet PO BID PRN PRN (Reason: Constipation) RF: 0 cyanocobalamin (vitamin B-12) 500 MCG tablet 500 mcg PO QHS Qty: 0 RF: 0 nystatin 1 APPLIC ointment 1 applic TOPICAL TID RF: 0 atenolol 25 MG tablet 25 mg PO DAILY RF: 0 polyethylene glycol 3350 17 GM powder in packet 17 gm PO DAILY RF: 0 acetaminophen 500 MG tablet 1,000 mg PO Q6H PRN PRN (Reason: Pain Score 1-3) RF: 0 pantoprazole 20 MG tablet 20 mg PO QHS RF: 0 zinc sulfate 220 MG tablet 220 mg PO DAILY RF: 0 menthol-zinc oxide 71 GM ointment 1 applic TOPICAL BID RF: 0 diltiazem HCl 240 mg Capsule,Extended Release 24hr 240 mg PO DAILY Qty: 0 RF: 0 baclofen 10 mg Tablet 10 mg PO BID RF: 0 magnesium chloride 64 mg Tablet,Delayed Release (Dr/Ec) 128 mg PO DAILY RF: 0 gabapentin 600 mg tablet 600 mg PO BIDCM RF: 0 Discontinued oxycodone 10 MG tablet 10 mg PO Q4H PRN PRN (Reason: Pain Score 6-10) RF: 0 enoxaparin 80 mg/0.8 mL Syringe 80 mg subcut BID Qty: 0 RF: 0 No Action ciprofloxacin HCl 500 mg Tablet 500 mg PO BID RF: 0 Referrals / Follow Up: Makenzie Ace DO [Primary Care Provider] - Disposition Disposition (needs filled in before D/C Order can be placed): NonSkilled NH/Intermed Care
[2020-07-07 06:02] LABS: Anion Gap 1 (5-15); BUN 13 mg/dL (7-18); Calcium,Total 8.8 mg/dL (8.5-10.1); Chloride 93 mmol/L (98-107); Creatinine, Serum 0.93 mg/dL (0.55-1.02); EST Glomerular Filtration Rate 63 mL/min (>60); Est Glom Filt Rate - Afr Amer 77 mL/min (>60); Estimated Creatinine Clearance 71.27 ml/min; Glucose 145 mg/dL (74-106); Potassium 3.3 mmol/L (3.5-5.1); Sodium Level 138 mmol/L (136-145)
[2020-07-07 06:41] LABS: Bedside Glucose 131 mg/dL (70-110)
[2020-07-07] MEDS: Ascorbic Acid 500 MG Tablet PO (09:34)
[2020-07-07] MEDS: Glimepiride 1 MG Tablet PO (09:34)
[2020-07-07] MEDS: Potassium Chloride Oral Tablet 20 MEQ PO ×3 (09:34→17:38)
[2020-07-07] MEDS: Gabapentin 600 MG Tablet PO ×2 (09:34→17:38)
[2020-07-07] MEDS: Furosemide 40 MG/4 ML Vial IV (09:34)
[2020-07-07] MEDS: Magnesium Chloride 64 MG Delay Rel.Tablet 128 MG PO (09:34)
[2020-07-07] MEDS: Fenofibrate 145 MG Tablet PO (09:34)
[2020-07-07] MEDS: 0.9% Saline Lock 10 ML Syringe IV (09:42)
[2020-07-07 10:51] LABS: Bedside Glucose 213 mg/dL (70-110)
[2020-07-07 11:08] VITALS: PULSE 83; RESP 18; O2SAT 94
[2020-07-07] MEDS: oxyCODONE 5 MG Tablet 10 MG PO ×2 (11:12→17:43)
--- NOTE | 2020-07-07 11:14 | NURSING ---
Reports increased labored breathing with therapy. O2 at 4L/min. Spo2 92-94% on oxygen. Breathing improves at rest. Complains of back pain. Requesting only one oxycodone. Medicated at this time. Reports feeling depressed with son being gone. explained that she was started on prozac for this and she does not feel like it has helped at this time.
[2020-07-07] MEDS: Acetaminophen 500 MG Tablet 1000 MG PO ×2 (12:19→21:13)
[2020-07-07 14:23] VITALS: BP 103/48; PULSE 74; RESP 16; TEMP 36.1; O2SAT 97
[2020-07-07 16:01] LABS: Bedside Glucose 126 mg/dL (70-110)
[2020-07-07] MEDS: Pantoprazole Sodium 20 MG Tablet PO (21:01)
[2020-07-07] MEDS: MELATONIN 10 MG TABLET 15 MG PO (21:02)
[2020-07-07] MEDS: Mirtazapine 15 MG Tablet 7.5 MG PO (21:04)
[2020-07-07] MEDS: Cyanocobalamin 500 MCG Tablet PO (21:05)
[2020-07-07] MEDS: Furosemide 40 MG Tablet PO (21:06)
[2020-07-07 21:41] LABS: Bedside Glucose 158 mg/dL (70-110)
[2020-07-07 23:00] VITALS: PULSE 72; O2SAT 96
[2020-07-08] MEDS: oxyCODONE 5 MG Tablet 10 MG PO (01:53)
[2020-07-08 05:00] VITALS: BP 110/53; PULSE 64; RESP 14; TEMP 36.8; O2SAT 92
[2020-07-08] MEDS: Menthol/Lanolin/Calamine/Znox 113 GM Tube 1 APPLIC TOPICAL ×2 (05:10→16:40)
[2020-07-08] MEDS: APIXABAN 5 MG TABLET PO ×2 (05:10→16:41)
[2020-07-08] MEDS: dilTIAZem CD 240 MG Capsule PO ×2 (05:10→16:42)
[2020-07-08] MEDS: Nystatin Ointment 1 APPLIC TOPICAL ×3 (05:11→22:56)
[2020-07-08] MEDS: Atenolol 50 MG Tablet PO (05:12)
[2020-07-08] MEDS: FLUoxetine 10 MG Capsule PO (05:12)
[2020-07-08 06:03] LABS: Anion Gap 3 (5-15); BUN 15 mg/dL (7-18); Calcium,Total 9.1 mg/dL (8.5-10.1); Chloride 96 mmol/L (98-107); EST Glomerular Filtration Rate 58 mL/min (>60); Est Glom Filt Rate - Afr Amer 71 mL/min (>60); Estimated Creatinine Clearance 66.28 ml/min; Glucose 96 mg/dL (74-106); Potassium 3.7 mmol/L (3.5-5.1); Sodium Level 136 mmol/L (136-145)
[2020-07-08 06:26] LABS: Bedside Glucose 99 mg/dL (70-110)
[2020-07-08] MEDS: Potassium Chloride Oral Tablet 20 MEQ PO ×3 (07:55→16:39)
[2020-07-08] MEDS: Glimepiride 1 MG Tablet PO (07:56)
[2020-07-08] MEDS: Ascorbic Acid 500 MG Tablet PO (07:56)
[2020-07-08] MEDS: Fenofibrate 145 MG Tablet PO (07:56)
[2020-07-08] MEDS: Gabapentin 600 MG Tablet PO ×2 (07:56→16:40)
[2020-07-08] MEDS: Magnesium Chloride 64 MG Delay Rel.Tablet 128 MG PO (07:56)
[2020-07-08] MEDS: oxyCODONE 5 MG Tablet PO ×3 (09:58→22:52)
[2020-07-08] MEDS: Furosemide 40 MG Tablet PO ×2 (10:59→16:42)
[2020-07-08 11:04] VITALS: PULSE 84; RESP 18; O2SAT 93
[2020-07-08 11:10] LABS: Bedside Glucose 224 mg/dL (70-110)
[2020-07-08] MEDS: Acetaminophen 500 MG Tablet 1000 MG PO ×2 (12:58→22:52)
--- NOTE | 2020-07-08 13:37 | MDS.RN ---
Completed pain interview for gary 07/09/20
--- NOTE | 2020-07-08 15:07 | CASEMGMT ---
Social Work BIMS and PHQ-9 completed for MDS assessment. Caity Azar, MICROARRAY SPECIALIST SHARED SERVICES AND OUTSOURCING MANAGER
[2020-07-08 15:08] VITALS: O2SAT 93
[2020-07-08 15:37] VITALS: BP 127/64; PULSE 84; RESP 18; TEMP 36.4; O2SAT 93
[2020-07-08 16:41] LABS: Bedside Glucose 97 mg/dL (70-110)
[2020-07-08 21:50] LABS: Bedside Glucose 127 mg/dL (70-110)
[2020-07-08] MEDS: Pantoprazole Sodium 20 MG Tablet PO (22:53)
[2020-07-08] MEDS: Cyanocobalamin 500 MCG Tablet PO (22:53)
[2020-07-08] MEDS: MELATONIN 10 MG TABLET 15 MG PO (22:53)
[2020-07-08] MEDS: Mirtazapine 15 MG Tablet 7.5 MG PO (23:04)
--- NOTE | 2020-07-09 03:58 | NURSING ---
Pt calls questioning if purwick is working. Puwick is connected to suction. Small amount of straw colored urine in canister. Brief checked and is dry. Thin layer of calmoseptine in place to gluteal folds. Positioned in bed for comfort. Call light w/ in reach.
[2020-07-09 05:30] VITALS: BP 94/52; PULSE 90; RESP 16; TEMP 36.6; O2SAT 94
[2020-07-09] MEDS: Menthol/Lanolin/Calamine/Znox 113 GM Tube 1 APPLIC TOPICAL (05:32)
[2020-07-09] MEDS: Acetaminophen 500 MG Tablet 1000 MG PO (05:33)
[2020-07-09] MEDS: FLUoxetine 10 MG Capsule PO (05:33)
[2020-07-09] MEDS: Nystatin Ointment 1 APPLIC TOPICAL ×2 (05:34→12:03)
[2020-07-09] MEDS: dilTIAZem CD 240 MG Capsule PO (05:34)
[2020-07-09] MEDS: APIXABAN 5 MG TABLET PO (05:34)
[2020-07-09] MEDS: 0.9% Saline Lock 10 ML Syringe IV (05:35)
[2020-07-09 06:30] LABS: Bedside Glucose 88 mg/dL (70-110)
[2020-07-09] MEDS: Potassium Chloride Oral Tablet 20 MEQ PO ×2 (08:43→12:02)
[2020-07-09] MEDS: Glimepiride 1 MG Tablet PO (08:43)
[2020-07-09] MEDS: Fenofibrate 145 MG Tablet PO (08:43)
[2020-07-09] MEDS: Ascorbic Acid 500 MG Tablet PO (08:43)
[2020-07-09] MEDS: Gabapentin 600 MG Tablet PO (08:43)
[2020-07-09] MEDS: Magnesium Chloride 64 MG Delay Rel.Tablet 128 MG PO (08:43)
[2020-07-09] MEDS: Furosemide 40 MG Tablet PO (10:17)
[2020-07-09 11:06] LABS: Bedside Glucose 196 mg/dL (70-110)
[2020-07-09 12:05] VITALS: PULSE 66; RESP 16; O2SAT 95
[2020-07-09] MEDS: oxyCODONE 5 MG Tablet PO (12:29)
== END 2020-07-09 12:45 | disposition intermediate care facility (04) | DRG 309 ==
PROVIDERS: Nurse Practitioner Family; Admitting Provider Family Medicine Geriatric Medicine; PCP Internal Medicine Nephrology; Visit Provider Family Medicine Geriatric Medicine
DX: I48.91 Unspecified atrial fibrillation (principal); B37.0 Candidal stomatitis; K21.9 Gastro-esophageal reflux disease without esophagitis; E11.9 Type 2 diabetes mellitus without complications; I10 Essential (primary) hypertension; K44.9 Diaphragmatic hernia without obstruction or gangrene; M19.90 Unspecified osteoarthritis, unspecified site; M41.9 Scoliosis, unspecified; J44.9 Chronic obstructive pulmonary disease, unspecified; M51.36 Other intervertebral disc degeneration, lumbar region; E78.2 Mixed hyperlipidemia; B35.4 Tinea corporis; F41.9 Anxiety disorder, unspecified; G89.29 Other chronic pain; Y79.2 Prosthetic and other implants, materials and accessory orthopedic devices associated with adverse incidents; T84.89XD Other specified complication of internal orthopedic prosthetic devices, implants and grafts, subsequent encounter; M51.9 Unspecified thoracic, thoracolumbar and lumbosacral intervertebral disc disorder; F32.9 Major depressive disorder, single episode, unspecified; M79.2 Neuralgia and neuritis, unspecified; Z79.84 Long term (current) use of oral hypoglycemic drugs; Z86.12 Personal history of poliomyelitis; Z79.899 Other long term (current) drug therapy; Z87.891 Personal history of nicotine dependence
CPT/HCPCS: 36415; 71046; 80048; 81001; 82962; 83880; 85025; 87077; 87086; 87088; 87186; 87426; 97110; 97162; 97166; 97530; 97535; 97802; A4216; J1940

== ENCOUNTER 2020-06-26 22:10 | Emergency (ER) | payer MEDICARE, SELFPAY ==
[2020-06-26 22:11] VITALS: BP 141/73; PULSE 153; RESP 24; TEMP 35.8; O2SAT 93; BMI 39.1
[2020-06-26 22:44] VITALS: O2SAT 94
--- NOTE | 2020-06-26 22:44 | EKG12_ITS ---
Test Reason : HIGH HR Blood Pressure : / mmHG Vent. Rate : 131 BPM Atrial Rate : 096 BPM P-R Int : 000 ms QRS Dur : 078 ms QT Int : 332 ms P-R-T Axes : 000 051 035 degrees QTc Int : 490 ms Atrial fibrillation Low voltage QRS Abnormal ECG Confirmed by ULISSES WASHINGTON, RUDDY ([id number]), art editor DOMENICO GLEZ ([id number]) on 06/29/2020 8:51:39 AM Referred By: MICHAEL Confirmed By:RUDDY GTZ MD
--- NOTE | 2020-06-26 22:46 | EDS_ITS ---
HPI History of Present Illness Chief Complaint: Palpitations Narrative Narrative: Patient reports palpitations that started a couple hours ago. She is in the transitional care unit for treatment of atrial fibrillation with rapid ventricular response. She is on daily Lovenox injections. She has had A. fib in the past. She was recently mid to the hospital for this. She is on oral rate control medications. She stated this evening she was not feeling well and went down to chest x-ray. They did do a chest x-ray when she returned she was in A. fib with RVR. She has been recently on a Cardizem drip as an inpatient prior to being transitioned to oral medications and rehab. She denies any chest pain currently. She is on oxygen nasal cannula. Currently she does not feel short of breath while on oxygen. She stated she is never had a heart attack. Comes in for further evaluation per patient of a recurrent problem. [facility] Medical History Hiatal hernia with GERD Hyperlipidemia Hypertension Lumbar disc disease Osteoarthritis Polio Scoliosis Type 2 diabetes mellitus without complications Home Medications glimepiride 1 mg PO DAILY 05/13/15 [History Last Taken 06/14/20] fenofibrate micronized 145 mg PO DAILY 06/04/16 [History Last Taken 06/14/20] albuterol sulfate 90 mcg/actuation aerosol inhaler 2 puff INHALATION Q6H PRN #18 g 05/14/19 [Rx Last Taken 06/14/20] ascorbic acid (vitamin C) 500 mg PO DAILY 06/09/20 [History Last Taken 06/17/20 07:57] cyanocobalamin (vitamin B-12) 500 mcg PO QHS #0 06/15/20 [Rx Last Taken 06/16/20 21:46] melatonin 15 mg PO QHS 06/15/20 [History Last Taken 06/17/20 01:05] sennosides-docusate sodium 2 tablet PO BID PRN PRN tablet 06/15/20 [Rx Last Taken Unknown] atenolol 25 mg PO DAILY 06/16/20 [History Last Taken 06/17/20 05:09] nystatin 1 applic TOPICAL TID 06/16/20 [History Last Taken 06/17/20 05:10] acetaminophen 1,000 mg PO Q6H PRN PRN 06/17/20 [History Last Taken 06/17/20 05:08] menthol-zinc oxide 1 applic TOPICAL BID 06/17/20 [History Last Taken 06/17/20 05:10] oxycodone 10 mg PO Q4H PRN PRN 06/17/20 [History Last Taken 06/17/20 05:08] pantoprazole 20 mg PO QHS 06/17/20 [History Last Taken 06/16/20 21:46] polyethylene glycol 3350 17 gm PO DAILY 06/17/20 [History Last Taken Unknown] zinc sulfate 220 mg PO DAILY 06/17/20 [History Last Taken 06/17/20 07:56] diltiazem HCl 240 mg PO DAILY #0 cap 06/21/20 [Rx Last Taken Unknown] enoxaparin 80 mg SUBCUT BID #0 ml 06/21/20 [Rx Last Taken Unknown] baclofen 10 mg PO BID 06/26/20 [History Last Taken Unknown] ciprofloxacin HCl 500 mg PO BID 06/26/20 [History Last Taken Unknown] gabapentin 600 mg PO BIDCM 06/26/20 [History Last Taken Unknown] magnesium chloride 128 mg PO DAILY 06/26/20 [History Last Taken Unknown] Allergy/AdvReac Type Severity Reaction Status Date / Time atorvastatin calcium Allergy Unknown Verified 06/26/20 22:26 [From Lipitor] pravastatin Allergy Unknown Verified 06/26/20 22:26 simvastatin Allergy Unknown Verified 06/26/20 22:26 morphine AdvReac Other Verified 06/26/20 22:26 altace Allergy Unknown Uncoded 06/26/20 22:26 antihyperlipidemics Allergy Unknown Uncoded 06/26/20 22:26 Family History Mother Brain aneurysm Father CVA (cerebral vascular accident) Sister Thyroid cancer Surgical History back H/O tubal ligation History of 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 right shoulder S/P appendectomy S/P carpal tunnel release S/P carpal tunnel release spinal fusion Status post total replacement of right shoulder Social History household members: none Smoking Status: Former smoker Tobacco: How many years used: 20 ROS ROS ED ROS Narrative ROS General: Denies fever, chills, sweats Eyes: Denies visual changes, blurred vision, double vision ENT: Denies ear pain, rhinorrhea, sore throat Cardiovascular: See HPI Respiratory: Denies cough, sputum, dyspnea on exertion, orthopnea,PND GI: Denies abdominal pain, nausea, vomiting, diarrhea, constipation, melena : Denies dysuria, hematuria, frequency Musculoskeletal: Denies myalgias, arthralgias, neck pain, back pain Skin: Denies rash, abscess, abrasions Neuro: Patient stated her left and right elbows have some mild paresthesia. This started this evening. Psych: Denies depression, anxiety Endo: Denies polyuria, polydipsia, polyphagia Heme: Denies easy bruising, easy bleeding, lymphadenopathy Allergy: Denies hives, swelling EXAM Physical Exam Narrative Exam Narrative: Vital signs reviewed General: Well-nourished well-developed Head: Normocephalic atraumatic Eyes: Pupils equal round and reactive to light extraocular movements intact ENT: TMs clear no hemotympanum no trauma Neck: Nontender full range of motion Cardiovascular: Irregular tachycardia consistent with A. fib. Normal S1-S2. Respiratory: No distress clear to auscultation bilaterally chest nontender Abdomen: Soft nontender nondistended normal bowel sounds no masses Back: Nontender no CVA tenderness Extremities: Nontender active range of motion ?4 extremities no trauma Skin: Normal color no trauma Neuro alert oriented cranial nerves II through XII intact normal strength sensation reflexes Const Vital Signs: 06/26/20 22:11 06/26/20 22:15 06/26/20 22:44 Temperature 96.5 F L Temperature Source Temporal Pulse Rate 153 H Respiratory Rate 24 H Respiratory Effort Short of Breath Respiratory Pattern Tachypnea Blood Pressure 141/73 H Blood Pressure Mean 95 Pulse Ox 93 94 Oxygen Delivery Method Nasal Cannula Nasal Cannula Oxygen Flow Rate (L/min) 4 2 06/26/20 23:40 Temperature Temperature Source Pulse Rate 124 H Respiratory Rate 16 Respiratory Effort Respiratory Pattern Blood Pressure 119/76 Blood Pressure Mean 90 Pulse Ox 97 Oxygen Delivery Method Room Air Oxygen Flow Rate (L/min) MDM MDM MDM Narrative Medical decision making narrative: EKG obtained upon arrival shows atrial fibrillation at a rate of 131. No acute ischemic findings. Lab work obtained. Patient will continue on oxygen. She does not appear in distress. Chest x-ray was reviewed from the TCU done earlier this evening. It shows that her pulmonary edema is better. No overt failure. Small pleural effusions. Patient given a dose of Cardizem for rate control. Heart rate came down to 110. Given a second dose of Cardizem. Heart rate now down in the 90s to low 100s asymptom atic. At this time I feel she can go back to the transitional care unit for further rate control. This is a chronic problem for the patient. Her heart rate just got up too fast. Lab Data Labs: Laboratory Results - last 24 hr 06/26/20 06/26/20 22:15 22:15 WBC 6.5 RBC 4.31 Hgb 12.1 Hct 40.8 MCV 94.7 MCH 28.1 MCHC 29.7 L RDW Std Deviation 59.6 H RDW Coeff of Liseth 17.0 H Plt Count 200 MPV 10.8 Immature Gran % (Auto) 0.200 Neut % (Auto) 73.8 H Lymph % (Auto) 15.9 L [place] % (Auto) 8.5 Eos % (Auto) 1.1 Baso % (Auto) 0.5 Absolute Neuts (auto) 4.8 Absolute Lymphs (auto) 1.03 Nucleated RBC % 0 Sodium 137 Potassium 4.0 Chloride 101 Carbon Dioxide 34.0 H Anion Gap 2 L BUN 9 Creatinine 0.72 Estim Creat Clear Calc 69.16 Est GFR (MDRD) Af Amer 102 Est GFR (MDRD) Non-Af 85 BUN/Creatinine Ratio 12.5 Glucose 96 Calcium 9.2 Troponin I < 0.015 Discharge Plan Triage Chief Complaint: Palpitations ED Provider: Eduard Fam Dx/Rx/DC Orders Prescriptions: No Action albuterol sulfate [Ventolin HFA] 90 mcg/actuation HFA aerosol inhaler 2 puff INHALATION Q6H PRN (Reason: shortness of breath or wheezing) Qty: 18 RF: 6 glimepiride 4 MG tablet 1 mg PO DAILY RF: 0 fenofibrate micronized 134 MG capsule 145 mg PO DAILY RF: 0 ascorbic acid (vitamin C) 500 MG capsule 500 mg PO DAILY RF: 0 melatonin 5 MG tablet 15 mg PO QHS RF: 0 sennosides-docusate sodium 1 TABLET tablet 2 tablet PO BID PRN PRN (Reason: Constipation) RF: 0 cyanocobalamin (vitamin B-12) 500 MCG tablet 500 mcg PO QHS Qty: 0 RF: 0 nystatin 1 APPLIC ointment 1 applic TOPICAL TID RF: 0 atenolol 25 MG tablet 25 mg PO DAILY RF: 0 polyethylene glycol 3350 17 GM powder in packet 17 gm PO DAILY RF: 0 acetaminophen 500 MG tablet 1,000 mg PO Q6H PRN PRN (Reason: Pain Score 1-3) RF: 0 pantoprazole 20 MG tablet 20 mg PO QHS RF: 0 zinc sulfate 220 MG tablet 220 mg PO DAILY RF: 0 oxycodone 10 MG tablet 10 mg PO Q4H PRN PRN (Reason: Pain Score 6-10) RF: 0 menthol-zinc oxide 71 GM ointment 1 applic TOPICAL BID RF: 0 diltiazem HCl 240 mg Capsule,Extended Release 24hr 240 mg PO DAILY Qty: 0 RF: 0 enoxaparin 80 mg/0.8 mL Syringe 80 mg subcut BID Qty: 0 RF: 0 ciprofloxacin HCl 500 mg Tablet 500 mg PO BID RF: 0 baclofen 10 mg Tablet 10 mg PO BID RF: 0 magnesium chloride 64 mg Tablet,Delayed Release (Dr/Ec) 128 mg PO DAILY RF: 0 gabapentin 600 mg tablet 600 mg PO BIDCM RF: 0 Primary Care Provider: Israel Carrion
[2020-06-26 22:55] LABS: Absolute Lymphocyte Count 1.03 X10^3/uL (0.83-4.51); Absolute Neutrophil Count 4.8 X10^3/uL (2.0-7.7); Basophil# 0.03 X10^3/uL; Basophil% 0.5 % (0-1); Eosinophil# 0.07 X10^3/uL; Eosinophils% 1.1 % (0-5); Hematocrit 40.8 % (37-47); Hemoglobin 12.1 g/dL (12.0-15.0); Lymphocyte # 1.03 X10^3/ul (0.83-4.51); Lymphocyte % 15.9 % (19-41); Mean Corp Hgb Conc 29.7 g/dL (32-36); Mean Corpuscular Hgb 28.1 pg (27.0-32.0); Mean Corpuscular Volume 94.7 fL (81-99); Mean Platelet Vol. 10.8 fl (6.2-12.0); Monocyte# 0.55 X10^3/uL; Monocyte% 8.5 % (0-10); NRBC Flagged by Analyzer 0 % (0-5); Neutrophil # 4.77 X10^3/uL (2.7-7.7); Neutrophil % 73.8 % (47-70); Platelet Count 200 K/mm3 (150-450); RBC Distribution Width SD 59.6 fl (35.1-43.9); Red Blood Count 4.31 M/mm3 (4.2-5.4); White Blood Count 6.5 K/mm3 (4.4-11.0)
[2020-06-26] MEDS: dilTIAZem 25 MG/5 ML Vial 10 MG IV BOLUS ×2 (22:55→23:42)
[2020-06-26 23:12] LABS: Anion Gap 2 (5-15); BUN 9 mg/dL (7-18); BUN/Creat Ratio 12.5 RATIO (10-20); Calcium,Total 9.2 mg/dL (8.5-10.1); Chloride 101 mmol/L (98-107); Creatinine, Serum 0.72 mg/dL (0.55-1.02); EST Glomerular Filtration Rate 85 mL/min (>60); Est Glom Filt Rate - Afr Amer 102 mL/min (>60); Estimated Creatinine Clearance 69.16 ml/min; Glucose 96 mg/dL (74-106); Sodium Level 137 mmol/L (136-145)
[2020-06-26 23:40] VITALS: BP 119/76; PULSE 124; RESP 16; O2SAT 97
[2020-06-27 00:18] VITALS: BP 107/60; PULSE 111; RESP 14; O2SAT 91
--- NOTE | 2020-06-27 00:51 | ED.RN ---
ATTEMPTED TO CALL PT'S DAUGHTER EVIN MARSHALL AT [phone], MAILBOX IS FULL, NO ANSWER.
== END 2020-06-27 00:51 ==
PROVIDERS: Emergency Provider Emergency Medicine; PCP Family Medicine
DX: I48.91 Unspecified atrial fibrillation (principal); J90 Pleural effusion, not elsewhere classified; I10 Essential (primary) hypertension; M41.9 Scoliosis, unspecified; E11.9 Type 2 diabetes mellitus without complications; E78.5 Hyperlipidemia, unspecified; K21.9 Gastro-esophageal reflux disease without esophagitis; K44.9 Diaphragmatic hernia without obstruction or gangrene; M19.90 Unspecified osteoarthritis, unspecified site; Z79.84 Long term (current) use of oral hypoglycemic drugs; Z79.899 Other long term (current) drug therapy; Z87.891 Personal history of nicotine dependence
CPT/HCPCS: 80048; 84484; 85025; 93005; 96374; 96376; 99284; A4216

== ENCOUNTER → 2020-07-13 05:00 | Outpatient (REF) | payer MEDICARE, SELFPAY ==
[2020-06-26 22:11] VITALS: BMI 39.1
[2020-07-13 07:53] LABS: Absolute Neutrophil Count 6.2 X10^3/uL (2.0-7.7); Basophil# 0.03 X10^3/uL; Basophil% 0.4 % (0-1); Eosinophil# 0.03 X10^3/uL; Eosinophils% 0.4 % (0-5); Hematocrit 35.7 % (37-47); Hemoglobin 10.9 g/dL (12.0-15.0); Lymphocyte % 13.7 % (19-41); Mean Corp Hgb Conc 30.5 g/dL (32-36); Mean Corpuscular Hgb 27.5 pg (27.0-32.0); Mean Corpuscular Volume 90.2 fL (81-99); Mean Platelet Vol. 11.9 fl (6.2-12.0); Monocyte# 0.66 X10^3/uL; Monocyte% 8.2 % (0-10); NRBC Flagged by Analyzer 0 % (0-5); Neutrophil # 6.16 X10^3/uL (2.7-7.7); Neutrophil % 76.8 % (47-70); Platelet Count 243 K/mm3 (150-450); RBC Distribution Width CV 16.5 % (11.6-14.6); RBC Distribution Width SD 54.5 fl (35.1-43.9); Red Blood Count 3.96 M/mm3 (4.2-5.4)
[2020-07-13 08:05] LABS: Anion Gap 5 (5-15); BUN 17 mg/dL (7-18); Calcium,Total 9.4 mg/dL (8.5-10.1); Chloride 102 mmol/L (98-107); Creatinine, Serum 0.89 mg/dL (0.55-1.02); EST Glomerular Filtration Rate 66 mL/min (>60); Est Glom Filt Rate - Afr Amer 80 mL/min (>60); Glucose 156 mg/dL (74-106); Potassium 3.9 mmol/L (3.5-5.1); Sodium Level 138 mmol/L (136-145)
== END ==
LOC: OLS.WHLTCC 05:00
PROVIDERS: PCP Family Medicine; Visit Provider Family Medicine
DX: N17.9 Acute kidney failure, unspecified (principal); T84.296D Other mechanical complication of internal fixation device of vertebrae, subsequent encounter; M54.5 Low back pain; J90 Pleural effusion, not elsewhere classified; N39.0 Urinary tract infection, site not specified; I50.9 Heart failure, unspecified; J44.9 Chronic obstructive pulmonary disease, unspecified
CPT/HCPCS: 36415; 71046; 80048; 85025

== ENCOUNTER → 2020-07-13 08:02 | Outpatient (CLI) | payer MEDICARE, SELFPAY ==
[2020-06-26 22:11] VITALS: BMI 39.1
--- NOTE | 2020-07-13 08:10 | RAD_ITS ---
STUDY: X-RAY CHEST REASON FOR EXAM: Female, 70 years old. Chest pain/pressure TECHNIQUE: 2 PA and lateral views of the chest. COMPARISON: 06/26/2020 FINDINGS: Lungs are expanded with stable chronic interstitial changes. Stable small left pleural effusion. Normal size heart. Normal mediastinum and giancarlo. Normal visualized pulmonary arteries. Normal visualized aortic arch and descending thoracic aorta. Surgical hardware in the thoracic and lumbar spine free of complication. Replaced right glenohumeral joint free of complication There is no demonstrated abnormality of the visualized soft tissue structures of the upper abdomen. RAD/Chest PA and Lateral IMPRESSION: Chronic interstitial changes with stable small left pleural effusion. No significant interval change since the previous study Electronically Signed: Joe Bran MD at 8:25 EDT , Service support ,
== END ==
PROVIDERS: Referring Provider Internal Medicine Critical Care Medicine; Visit Provider Internal Medicine Critical Care Medicine
DX: I50.9 Heart failure, unspecified (principal); J44.9 Chronic obstructive pulmonary disease, unspecified
CPT/HCPCS: 71046

== ENCOUNTER → 2020-07-20 05:00 | Outpatient (REF) | payer MEDICARE, SELFPAY ==
[2020-06-26 22:11] VITALS: BMI 39.1
[2020-07-20 08:06] LABS: Absolute Lymphocyte Count 1.54 X10^3/uL (0.83-4.51); Absolute Neutrophil Count 4.8 X10^3/uL (2.0-7.7); Basophil# 0.02 X10^3/uL; Basophil% 0.3 % (0-1); Eosinophil# 0.08 X10^3/uL; Eosinophils% 1.1 % (0-5); Hematocrit 33.6 % (37-47); Lymphocyte # 1.54 X10^3/ul (0.83-4.51); Mean Corp Hgb Conc 29.8 g/dL (32-36); Mean Corpuscular Hgb 27.2 pg (27.0-32.0); Mean Corpuscular Volume 91.6 fL (81-99); Mean Platelet Vol. 12.2 fl (6.2-12.0); Monocyte# 0.56 X10^3/uL; NRBC Flagged by Analyzer 0 % (0-5); Neutrophil # 4.77 X10^3/uL (2.7-7.7); Neutrophil % 68.2 % (47-70); Platelet Count 204 K/mm3 (150-450); RBC Distribution Width CV 17.1 % (11.6-14.6); RBC Distribution Width SD 57.1 fl (35.1-43.9); Red Blood Count 3.67 M/mm3 (4.2-5.4)
[2020-07-20 08:25] LABS: Anion Gap 4 (5-15); BUN 19 mg/dL (7-18); BUN/Creat Ratio 22.7 RATIO (10-20); Calcium,Total 8.8 mg/dL (8.5-10.1); Chloride 103 mmol/L (98-107); Creatinine, Serum 0.84 mg/dL (0.55-1.02); EST Glomerular Filtration Rate 71 mL/min (>60); Est Glom Filt Rate - Afr Amer 86 mL/min (>60); Glucose 116 mg/dL (74-106); Sodium Level 138 mmol/L (136-145)
== END ==
LOC: OLS.WHLTCC 05:00
PROVIDERS: Visit Provider Family Medicine
DX: N17.9 Acute kidney failure, unspecified (principal); T84.296D Other mechanical complication of internal fixation device of vertebrae, subsequent encounter; M54.5 Low back pain; J90 Pleural effusion, not elsewhere classified; N39.0 Urinary tract infection, site not specified
CPT/HCPCS: 36415; 80048; 85025

== ENCOUNTER → 2020-07-27 05:00 | Outpatient (REF) | payer MEDICARE, SELFPAY ==
[2020-07-27 08:14] LABS: Absolute Lymphocyte Count 1.31 X10^3/uL (0.83-4.51); Absolute Neutrophil Count 5.6 X10^3/uL (2.0-7.7); Basophil# 0.04 X10^3/uL; Basophil% 0.5 % (0-1); Eosinophil# 0.11 X10^3/uL; Eosinophils% 1.4 % (0-5); Hematocrit 36.4 % (37-47); Lymphocyte # 1.31 X10^3/ul (0.83-4.51); Lymphocyte % 17.2 % (19-41); Mean Corp Hgb Conc 30.2 g/dL (32-36); Mean Corpuscular Hgb 27.4 pg (27.0-32.0); Mean Corpuscular Volume 90.5 fL (81-99); Mean Platelet Vol. 12.6 fl (6.2-12.0); Monocyte# 0.53 X10^3/uL; NRBC Flagged by Analyzer 0 % (0-5); Neutrophil # 5.59 X10^3/uL (2.7-7.7); Neutrophil % 73.6 % (47-70); Platelet Count 192 K/mm3 (150-450); RBC Distribution Width CV 17.5 % (11.6-14.6); RBC Distribution Width SD 57.8 fl (35.1-43.9); Red Blood Count 4.02 M/mm3 (4.2-5.4); White Blood Count 7.6 K/mm3 (4.4-11.0)
[2020-07-27 08:29] LABS: Anion Gap 7 (5-15); BUN 25 mg/dL (7-18); BUN/Creat Ratio 26.7 RATIO (10-20); Calcium,Total 9.6 mg/dL (8.5-10.1); Chloride 99 mmol/L (98-107); Creatinine, Serum 0.94 mg/dL (0.55-1.02); EST Glomerular Filtration Rate 63 mL/min (>60); Est Glom Filt Rate - Afr Amer 76 mL/min (>60); Glucose 81 mg/dL (74-106); Potassium 3.8 mmol/L (3.5-5.1); Sodium Level 137 mmol/L (136-145)
[2020-07-30 19:54] VITALS: BMI 33.6
== END ==
LOC: OLS.WHLEAS 05:00
PROVIDERS: Visit Provider Family Medicine
DX: N17.9 Acute kidney failure, unspecified (principal); T84.296D Other mechanical complication of internal fixation device of vertebrae, subsequent encounter; M54.5 Low back pain; J90 Pleural effusion, not elsewhere classified; N39.0 Urinary tract infection, site not specified
CPT/HCPCS: 36415; 80048; 85025

== ENCOUNTER 2020-07-30 15:54 | Inpatient (IN) | payer MEDICARE, SELFPAY ==
[2020-07-28 10:43] VITALS: BMI 31.5
[2020-07-30] VITALS (13 sets, daily range): BP systolic 75–131; BP diastolic 33–82; PULSE 101–140; RESP 12–30; TEMP 34.7–36.6; O2SAT 93–100; BMI 29.5; BMI 33.6
--- NOTE | 2020-07-30 16:06 | EKG12_ITS ---
Test Reason : LATHARGIC Blood Pressure : / mmHG Vent. Rate : 140 BPM Atrial Rate : 144 BPM P-R Int : 000 ms QRS Dur : 122 ms QT Int : 394 ms P-R-T Axes : 062 130 025 degrees QTc Int : 601 ms Somatic/Motion Artifact Undetermined rhythm Right bundle branch block T wave abnormality, consider inferior ischemia Consider Repeat EKG Abnormal ECG Confirmed by ULISSES WASHINGTON, RUDDY ([id number]), supervising editor news reel DOMENICO GLEZ ([id number]) on 08/02/2020 10:06:38 AM Referred By: SEN Confirmed By:RUDDY GTZ MD
--- NOTE | 2020-07-30 16:07 | EDS_ITS ---
HPI History of Present Illness Chief Complaint: General Illness Informant: patient and family Onset/Context/Timing Onset: Today Current Severity: Severe Maximum Severity: Severe Narrative Narrative: 70-year-old female with extensive and complicated past medical history. DNR Comfort Care status. I discussed this with her daughter and they want work-up but no intubation, no shock, no CPR and no central line. Recently the patient's son is since that time her overall medical condition is gone downhill. She has a history of diabetes, hypertension, COPD chronic back pain. She was going to have back surgery but they did not feel that she would survive the anesthesia so that is been canceled. She is under the care of chronic pain management. Reportedly today [facility] and was hypotensive so they sent her in the emergency department to be evaluated. Patient herself is somewhat of a limited informant. Prior similar symptoms: No Recent Illness/Hospitalization: No PFSH PFSH Medical History Atrial fibrillation Chronic pain COPD (chronic obstructive pulmonary disease) Diabetes Hiatal hernia with GERD HTN (hypertension) Hyperlipemia Hyperlipidemia Hypertension Kidney disease Lumbar disc disease Osteoarthritis Polio Pulmonary hypertension Scoliosis Type 2 diabetes mellitus without complications Home Medications glimepiride 4 mg PO DAILY 05/13/15 [History Last Taken 06/14/20] fenofibrate micronized 160 mg PO DAILY 06/04/16 [History Last Taken 06/14/20] albuterol sulfate 90 mcg/actuation aerosol inhaler 2 puff INHALATION Q6H PRN #18 g 05/14/19 [Rx Last Taken 06/14/20] ascorbic acid (vitamin C) 500 mg PO DAILY 06/09/20 [History Last Taken 06/17/20 07:57] cyanocobalamin (vitamin B-12) 500 mcg PO QHS #0 06/15/20 [Rx Last Taken 06/16/20 21:46] melatonin 15 mg PO QHS 06/15/20 [History Last Taken 06/17/20 01:05] sennosides-docusate sodium 2 tablet PO BID PRN PRN tablet 06/15/20 [Rx Last Taken Unknown] atenolol 25 mg PO DAILY 06/16/20 [History Last Taken 06/17/20 05:09] nystatin 1 applic TOPICAL TID 06/16/20 [History Last Taken 06/17/20 05:10] acetaminophen 1,000 mg PO Q6H PRN PRN 06/17/20 [History Last Taken 06/17/20 05:08] pantoprazole 20 mg PO QHS 06/17/20 [History Last Taken 06/16/20 21:46] zinc sulfate 220 mg PO DAILY 06/17/20 [History Last Taken 06/17/20 07:56] diltiazem HCl 240 mg PO DAILY #0 cap 06/21/20 [Rx Last Taken Unknown] baclofen 10 mg PO BID 06/26/20 [History Last Taken Unknown] apixaban [Eliquis] 5 mg PO BID #60 tab 07/07/20 [Rx Last Taken Unknown] fluoxetine 10 mg PO DAILY #0 cap 07/07/20 [Rx Last Taken Unknown] furosemide 40 mg PO BID #60 tab 07/07/20 [Rx Last Taken Unknown] gabapentin 600 mg PO BIDCM #0 tab 07/07/20 [Rx Last Taken Unknown] magnesium chloride [Mag 64] 128 mg PO DAILYCM #0 tab 07/07/20 [Rx Last Taken Unknown] mirtazapine 7.5 mg PO QHS #0 tab 07/07/20 [Rx Last Taken Unknown] potassium chloride [Klor-Con M20] 20 meq PO TIDCM #0 tab 07/07/20 [Rx Last Taken Unknown] Allergy/AdvReac Type Severity Reaction Status Date / Time atorvastatin calcium Allergy Unknown Verified 07/30/20 16:01 [From Lipitor] pravastatin Allergy Unknown Verified 07/30/20 16:01 ramipril [From Altace] Allergy NEEDS Verified 07/30/20 16:01 FOLLOW-UP simvastatin Allergy Unknown Verified 07/30/20 16:01 morphine AdvReac Other Verified 07/30/20 16:01 Family History Mother Brain aneurysm Father CVA (cerebral vascular accident) Sister Thyroid cancer Surgical History back H/O tubal ligation History of 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 right shoulder S/P appendectomy S/P carpal tunnel release S/P carpal tunnel release spinal fusion Status post total replacement of right shoulder Social History household members: none Smoking Status: Former smoker Tobacco: How many years used: 20 ROS ROS ED ROS Narrative Unable to obtain due to the patient's overall medical condition. Review of Systems ROS Unobtainable: due to mental status EXAM Physical Exam Narrative Exam Narrative: Elderly chronically ill female presents hypotensive at 87/35. Pulse ox 90% on high percent O2. Patient looks pale. She is a decreased mental status. She does follow limited commands. H EENT exam no trauma. Dry mucous membranes. Lungs clear diminished bilaterally. Heart tachycardic rate of 130s no obvious murmur. Abdomen soft nontender. Normal bowel sounds no peritoneal signs. No signs of obstruction. Extremities weak but no gross deformities. No cellulitis. Neurologically her eyes are open. She is awake. She follows limited commands. She is a very poor informant. Const Vital Signs: 07/30/20 15:55 07/30/20 15:58 07/30/20 16:06 Temperature 97.9 F 97.9 F 97.8 F Temperature Source Axillary Axillary Axillary Pulse Rate 138 H 138 H 113 H Respiratory Rate 25 H 18 14 Respiratory Effort Respiratory Pattern Blood Pressure 87/35 L 87/35 L 82/49 L Blood Pressure Mean 52 52 60 Pulse Ox 98 98 95 Oxygen Delivery Method Non-Rebreather Non-Rebreather Non-Rebreather Oxygen Flow Rate (L/min) 15 07/30/20 16:15 07/30/20 16:58 Temperature 96.5 F L Temperature Source Core Pulse Rate 101 H Respiratory Rate 12 Respiratory Effort Normal Non-Labored Respiratory Pattern Normal Blood Pressure 92/51 L Blood Pressure Mean 64 Pulse Ox 94 Oxygen Delivery Method Non-Rebreather Oxygen Flow Rate (L/min) 15 Positive well nourished, well developed and obese General Appearance ED: well developed Nutritional Appearance: obese HEENT Reports dry mucous membranes Negative for trauma or tenderness Mouth ED: Yes dry mucous membranes Mouth: dry mucous membranes Eyes PERRL and EOMs intact bilaterally General Eye ED: Yes pale conjunctiva Neck no lymphadenopathy, supple and no JVD General: Negative for tenderness Chest Wall inspection of chest normal and palpation of chest normal Resp Resp Narrative: Respiratory distress. Auscultation: diminished lung sounds Cardio Rate: tachycardic GI normal to inspection, nondistended, normoactive bowel sounds, non-tender, non- distended and no masses Auscultation: normoactive bowel sounds Palpation: soft; Negative for tender, guarding or rebound tenderness present Extremity normal to inspection General Extremety ED: Negative for edema or tenderness General Extremity: Negative for edema Neuro Neuro Narrative: Alert. Eyes open. Follows limited commands. Generalized weakness. Seems more so on the right than the left. Sensorium / Orientation: alert MDM MDM MDM Narrative Medical decision making narrative: Elderly chronically ill patient with DNR CC status presents hypotensive and hypoxic off O2. Discussed with patient's daughter via phone they do not want aggressive or heroic measures. They do want her worked up and IV fluids and medications are acceptable. Patient will undergo a septic work-up. She is currently getting IV fluid bolus. Patient being treated for septic shock. She is receiving a liter normal saline. She will get a second liter. She will be started on broad-spectrum antibiotics including Zosyn and vancomycin. I will discuss with the hospitalist admission. Again the patient is DNR and is not to be intubated nor CPR nor shocked. As labs returned patient has severe hyperkalemia will be treated for that also. She is now receiving IV fluid boluses. She will receive calcium gluconate IV along with aerosols and insulin. Patient does appear to be responding to the IV fluids. She is also being treated for severe hyperkalemia. Also being treated for sepsis with IV antibiotics. Patient is extremely ill with a very very poor prognosis. I will discuss all this with her daughter when she arrives. Lab Data Lab results narrative: CBC shows an elevated white count of 15.2. Hemoglobin globin 13.4. Electrolytes show sodium 132. Potassium of 8.6. Anion gap of 14. BUN 39 creatinine 2.41 consistent with acute kidney injury. Elevated liver enzymes consistent with septic shock with multisystem organ failure. Knapp catheter was placed. The limited urine she has made appears to be grossly infected. Is very cloudy and thick. Labs: Laboratory Results - last 24 hr 07/30/20 07/30/20 07/30/20 16:00 16:00 16:00 WBC 15.2 H RBC 4.89 Hgb 13.4 Hct 44.7 MCV 91.4 MCH 27.4 MCHC 30.0 L RDW Std Deviation 61.3 H RDW Coeff of Liseth 19.1 H Plt Count 258 MPV 13.3 H Immature Gran % (Auto) 1.100 H Neut % (Auto) 83.1 H Lymph % (Auto) 8.8 L [place] % (Auto) 6.9 Eos % (Auto) 0.0 Baso % (Auto) 0.1 Absolute Neuts (auto) 12.6 H Absolute Lymphs (auto) 1.33 Nucleated RBC % 0 PT Cancelled INR Cancelled APTT Cancelled Sodium 132 L Potassium 8.6 H* Chloride 97 L Carbon Dioxide 21.0 Anion Gap 14 BUN 39 H Creatinine 2.41 H Estim Creat Clear Calc 17.71 Est GFR (MDRD) Af Amer 25 L Est GFR (MDRD) Non-Af 21 L BUN/Creatinine Ratio 16.2 Glucose 163 H Lactic Acid Calcium 9.9 Total Bilirubin 1.70 H AST 5935 H ALT 1626 H Alkaline Phosphatase 69 Total Protein 7.6 Albumin 3.2 Globulin 4.4 H Albumin/Globulin Ratio 0.7 L Urine Color Urine Clarity Urine pH Ur Specific [place] Urine Protein Urine Glucose (UA) Urine Ketones Urine Occult Blood Urine Nitrite Urine Bilirubin Urine Urobilinogen Ur Leukocyte Esterase Urine RBC Urine WBC Ur Squamous Epith Cells Amorphous Sediment Urine Bacteria Urine Mucus 07/30/20 07/30/20 07/30/20 16:00 16:35 16:35 WBC RBC Hgb Hct MCV MCH MCHC RDW Std Deviation RDW Coeff of Liseth Plt Count MPV Immature Gran % (Auto) Neut % (Auto) Lymph % (Auto) [place] % (Auto) Eos % (Auto) Baso % (Auto) Absolute Neuts (auto) Absolute Lymphs (auto) Nucleated RBC % PT 78.4 H INR 9.8 H* APTT 36.5 H Sodium Potassium Chloride Carbon Dioxide Anion Gap BUN Creatinine Estim Creat Clear Calc Est GFR (MDRD) Af Amer Est GFR (MDRD) Non-Af BUN/Creatinine Ratio Glucose Lactic Acid 10.2 H* Calcium Total Bilirubin AST ALT Alkaline Phosphatase Total Protein Albumin Globulin Albumin/Globulin Ratio Urine Color Yellow Urine Clarity Cloudy Urine pH 5.0 Ur Specific [place] 1.025 Urine Protein 30 H Urine Glucose (UA) Normal Urine Ketones 5 H Urine Occult Blood 250 H Urine Nitrite Negative Urine Bilirubin 1 H Urine Urobilinogen 4 H Ur Leukocyte Esterase 500 H Urine RBC > 100 SEEN Urine WBC >100 SEEN Ur Squamous Epith Cells 5-10 SEEN Amorphous Sediment 1+ URATE Urine Bacteria RARE Urine Mucus 0 SEEN Radiography Chest X-Ray - ED: 1 View, Read by ED Physician, Read by Radiologist, Heart, Mediastinum, Bony Structures, Chronic Changes, Right Effusion and Left Effusion Diagnostic Testing: Radiology Impression Chest X-Ray 07/30/20 16:46 IMPRESSION: 1. New right stable left pleural effusions with interstitial thickening suggesting fluid overload/CHF. Electronically Signed: Erasmo Delaroas MD (Brooks) at 17:08 EDT , Service support , EKG Initial EKG: Attestation: I personally reviewed and interpreted this EKG as follows: Interpretation: Sinus Rhythm, No Acute Injury Pattern and Sinus Tachycardia Comments: Very difficult EKG to interpret due to baseline. And artifact. Appears to be a sinus tachycardia. Right bundle kristofer block. No acute signs of IN. Critical Care Time Critical Care Time: Yes Critical care time (excluding procedures): 30-74 minutes, Discussing w/Patient &/or Family/Crawler Crane Operator, Discussing w/Consultants and Performing Direct Patient Care at Bedside Discharge Plan Triage Chief Complaint: General Illness ED Provider: Derek Young Dx/Rx/DC Orders Clinical Impression: Sepsis with acute organ dysfunction and septic shock, Acute kidney injury, Multisystem organ failure, Acute UTI, Acute hypotension, DNR (do not resuscitate), Acute hyperkalemia, Acute kidney injury (nontraumatic) Prescriptions: No Action albuterol sulfate [Ventolin HFA] 90 mcg/actuation HFA aerosol inhaler 2 puff INHALATION Q6H PRN (Reason: shortness of breath or wheezing) Qty: 18 RF: 6 glimepiride 4 MG tablet 4 mg PO DAILY RF: 0 fenofibrate micronized 134 MG capsule 160 mg PO DAILY RF: 0 ascorbic acid (vitamin C) 500 MG capsule 500 mg PO DAILY RF: 0 melatonin 5 MG tablet 15 mg PO QHS RF: 0 sennosides-docusate sodium 1 TABLET tablet 2 tablet PO BID PRN PRN (Reason: Constipation) RF: 0 cyanocobalamin (vitamin B-12) 500 MCG tablet 500 mcg PO QHS Qty: 0 RF: 0 nystatin 1 APPLIC ointment 1 applic TOPICAL TID RF: 0 atenolol 25 MG tablet 25 mg PO DAILY RF: 0 acetaminophen 500 MG tablet 1,000 mg PO Q6H PRN PRN (Reason: Pain Score 1-3) RF: 0 pantoprazole 20 MG tablet 20 mg PO QHS RF: 0 zinc sulfate 220 MG tablet 220 mg PO DAILY RF: 0 diltiazem HCl 240 mg Capsule,Extended Release 24hr 240 mg PO DAILY Qty: 0 RF: 0 gabapentin 600 mg Tablet 600 mg PO BIDCM Qty: 0 RF: 0 potassium chloride [Klor-Con M20] 20 mEq Tablet,Er Particles/Crystals 20 meq PO TIDCM Qty: 0 RF: 0 fluoxetine 10 mg Capsule 10 mg PO DAILY Qty: 0 RF: 0 mirtazapine 15 mg Tablet 7.5 mg PO QHS Qty: 0 RF: 0 magnesium chloride [Mag 64] 64 mg Tablet,Delayed Release (Dr/Ec) 128 mg PO DAILYCM Qty: 0 RF: 0 Eliquis 5 mg Tablet 5 mg PO BID Qty: 60 RF: 0 furosemide 40 mg tablet 40 mg PO BID Qty: 60 RF: 0 baclofen 10 mg Tablet 10 mg PO BID RF: 0 Primary Care Provider: Israel Wright Referrals: Israel Wright MD [Primary Care Provider] -
[2020-07-30] MEDS: 0.9% Normal Saline 1,000 ML 999 ML IV (16:15)
--- NOTE | 2020-07-30 16:17 | NURSING ---
NEED COAGS REDRAWN
[2020-07-30 16:18] LABS: Absolute Lymphocyte Count 1.33 X10^3/uL (0.83-4.51); Absolute Neutrophil Count 12.6 X10^3/uL (2.0-7.7); Basophil# 0.02 X10^3/uL; Basophil% 0.1 % (0-1); Hematocrit 44.7 % (37-47); Hemoglobin 13.4 g/dL (12.0-15.0); Lymphocyte # 1.33 X10^3/ul (0.83-4.51); Lymphocyte % 8.8 % (19-41); Mean Corpuscular Hgb 27.4 pg (27.0-32.0); Mean Corpuscular Volume 91.4 fL (81-99); Mean Platelet Vol. 13.3 fl (6.2-12.0); Monocyte# 1.05 X10^3/uL; Monocyte% 6.9 % (0-10); NRBC Flagged by Analyzer 0 % (0-5); Neutrophil % 83.1 % (47-70); Platelet Count 258 K/mm3 (150-450); RBC Distribution Width CV 19.1 % (11.6-14.6); RBC Distribution Width SD 61.3 fl (35.1-43.9); Red Blood Count 4.89 M/mm3 (4.2-5.4); White Blood Count 15.2 K/mm3 (4.4-11.0)
[2020-07-30 16:46] LABS: Mucous, Urine 0 SEEN /hpf (<or=2+)
[2020-07-30 16:46] LABS: ALB/GLOB Ratio 0.7 RATIO (0.9-2.4); AST(SGOT) 5935 U/L (15-37); Alanine Aminotransfer ALT/SGPT 1626 U/L (13-56); Albumin, Serum 3.2 g/dL (3.2-5.0); Alkaline Phosphatase 69 U/L (45-117); Anion Gap 14 (5-15); BUN 39 mg/dL (7-18); BUN/Creat Ratio 16.2 RATIO (10-20); Calcium,Total 9.9 mg/dL (8.5-10.1); Chloride 97 mmol/L (98-107); Creatinine, Serum 2.41 mg/dL (0.55-1.02); EST Glomerular Filtration Rate 21 mL/min (>60); Est Glom Filt Rate - Afr Amer 25 mL/min (>60); Estimated Creatinine Clearance 17.71 ml/min; Globulin 4.4 g/dL (2.2-4.2); Glucose 163 mg/dL (74-106); Potassium 8.6 mmol/L (3.5-5.1); Protein, Total 7.6 g/dL (6.4-8.2); Sodium Level 132 mmol/L (136-145)
--- NOTE | 2020-07-30 16:46 | RAD_ITS ---
STUDY: X-RAY CHEST REASON FOR EXAM: Female, 70 years old. hypotension TECHNIQUE: AP COMPARISON: 07/13/2020 FINDINGS: Chronic interstitial changes overall similar. Small left pleural effusion have not significantly changed. Trace right pleural fluid is also demonstrated. There is mild cardiac enlargement. Normal mediastinum and ginacarlo. Normal visualized pulmonary arteries. There is atherosclerotic calcification of the aortic arch with tortuosity. Extensive fusion hardware of the thoracolumbar spine. Right shoulder replacement noted. There is no demonstrated abnormality of the visualized soft tissue structures of the upper abdomen. RAD/Chest 1 View (Portable) IMPRESSION: 1. New right stable left pleural effusions with interstitial thickening suggesting fluid overload/CHF. Electronically Signed: Erasmo Delarosa MD (Brooks) at 17:08 EDT , Service support ,
[2020-07-30 16:49] LABS: Lactic Acid 10.2 mmol/L (0.4-1.9)
[2020-07-30 16:54] LABS: Color, Urine Yellow (Yellow); Glucose, Dipstick Normal (Normal); Ketone-Dipstick 5 mg/dl (Negative); Leukocyte Esterase-Dipstick 500 /ul (Negative); Nitrite-Dipstick Negative (Negative); Occult Blood-Urine 250 /ul (Negative); Protein-Dipstick 30 mg/dl (Negative); Specific Gravity, Urine 1.025 (1.002-1.030); Urine Clarity Cloudy (Clear); Urine Urobilinogen 4 mg/dl (Normal)
[2020-07-30 16:58] LABS: Partial Thromboplast Time 36.5 Seconds (24.1-36.2); Prothrombin Time (Protime)PT. 78.4 SECONDS (11.7-14.9)
[2020-07-30 17:02] LABS: International Normalized Ratio 9.8; Urine Bilirubin Dipstick 1 mg/dL (Negative)
[2020-07-30 17:04] LABS: Red Blood Cells-Urine > 100 SEEN /hpf (0-5); Squamous Epithelial Cells - UA 5-10 SEEN /hpf (5-10); White Blood Cells >100 SEEN /hpf (0-5)
[2020-07-30 17:05] LABS: Bacteria RARE /hpf (None Seen)
[2020-07-30 17:06] LABS: Amorphous Sediment 1+ URATE
[2020-07-30] MEDS: Insulin Lispro 10 UNIT in Syringe 0 ML 6 UNIT IV (17:09)
[2020-07-30] MEDS: Dextrose 50%-Water 25 GM/50 ML DISP.SYRIN IV (17:09)
--- NOTE | 2020-07-30 17:15 | PCM.HP.STD ---
HPI - General General Date of Service: 07/30/20 Chief Complaint: Lethargy HPI Narrative LUCY GUTIERREZ, is a 70 F with multiple comorbidities currently resident at an extended care facility who was brought to the emergency department with increasing lethargy. In view of patient current clinical status history was taken mainly from the ED chart the EMS charting and from the ED physician. Patient was apparently reported to be lethargic than her usual self. Her blood pressure was apparently unrecordable. The EMS squad was called and patient was sent to the ED. In the emergency department patient was found to be in septic shock with multiorgan system failure. Treatment initiated from the ED and patient admitted to the intensive care unit for further further management FOR[facility]LY [facility] Medical History Atrial fibrillation Chronic pain COPD (chronic obstructive pulmonary disease) Diabetes Hiatal hernia with GERD HTN (hypertension) Hyperlipemia Hyperlipidemia Hypertension Kidney disease Lumbar disc disease Osteoarthritis [place] Pulmonary hypertension Scoliosis Type 2 diabetes mellitus without complications Home Medications glimepiride 4 mg PO DAILY 05/13/15 [History Last Taken 06/14/20] fenofibrate micronized 160 mg PO DAILY 06/04/16 [History Last Taken 06/14/20] albuterol sulfate 90 mcg/actuation aerosol inhaler 2 puff INHALATION Q6H PRN #18 g 05/14/19 [Rx Last Taken 06/14/20] ascorbic acid (vitamin C) 500 mg PO DAILY 06/09/20 [History Last Taken 06/17/20 07:57] cyanocobalamin (vitamin B-12) 500 mcg PO QHS #0 06/15/20 [Rx Last Taken 06/16/20 21:46] melatonin 15 mg PO QHS 06/15/20 [History Last Taken 06/17/20 01:05] sennosides-docusate sodium 2 tablet PO BID PRN PRN tablet 06/15/20 [Rx Last Taken Unknown] atenolol 25 mg PO DAILY 06/16/20 [History Last Taken 06/17/20 05:09] nystatin 1 applic TOPICAL TID 06/16/20 [History Last Taken 06/17/20 05:10] acetaminophen 1,000 mg PO Q6H PRN PRN 06/17/20 [History Last Taken 06/17/20 05:08] pantoprazole 20 mg PO QHS 06/17/20 [History Last Taken 06/16/20 21:46] zinc sulfate 220 mg PO DAILY 06/17/20 [History Last Taken 06/17/20 07:56] diltiazem HCl 240 mg PO DAILY #0 cap 06/21/20 [Rx Last Taken Unknown] baclofen 10 mg PO BID 06/26/20 [History Last Taken Unknown] apixaban [Eliquis] 5 mg PO BID #60 tab 07/07/20 [Rx Last Taken Unknown] fluoxetine 10 mg PO DAILY #0 cap 07/07/20 [Rx Last Taken Unknown] furosemide 40 mg PO BID #60 tab 07/07/20 [Rx Last Taken Unknown] gabapentin 600 mg PO BIDCM #0 tab 07/07/20 [Rx Last Taken Unknown] magnesium chloride [Mag 64] 128 mg PO DAILYCM #0 tab 07/07/20 [Rx Last Taken Unknown] mirtazapine 7.5 mg PO QHS #0 tab 07/07/20 [Rx Last Taken Unknown] potassium chloride [Klor-Con M20] 20 meq PO TIDCM #0 tab 07/07/20 [Rx Last Taken Unknown] Allergy/AdvReac Type Severity Reaction Status Date / Time atorvastatin calcium Allergy Unknown Verified 07/30/20 16:01 [From Lipitor] pravastatin Allergy Unknown Verified 07/30/20 16:01 ramipril [From Altace] Allergy NEEDS Verified 07/30/20 16:01 FOLLOW-UP simvastatin Allergy Unknown Verified 07/30/20 16:01 morphine AdvReac Other Verified 07/30/20 16:01 Family History Mother Brain aneurysm Father CVA (cerebral vascular accident) Sister Thyroid cancer Surgical History back H/O tubal ligation History of 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 right shoulder S/P appendectomy S/P carpal tunnel release S/P carpal tunnel release spinal fusion Status post total replacement of right shoulder Social History household members: none Smoking Status: Former smoker Tobacco: How many years used: 20 ROS Review of Systems ROS Unobtainable: due to encephalopathy Vital Signs Vital Signs Vital Signs: 07/30/20 15:55 07/30/20 15:58 07/30/20 16:06 Temperature 97.9 F 97.9 F 97.8 F Temperature Source Axillary Axillary Axillary Pulse Rate 138 H 138 H 113 H Respiratory Rate 25 H 18 14 Respiratory Effort Respiratory Pattern Blood Pressure 87/35 L 87/35 L 82/49 L Blood Pressure Mean 52 52 60 Pulse Ox 98 98 95 Oxygen Delivery Method Non-Rebreather Non-Rebreather Non-Rebreather Oxygen Flow Rate (L/min) 15 07/30/20 16:15 07/30/20 16:58 Temperature 96.5 F L Temperature Source Core Pulse Rate 101 H Respiratory Rate 12 Respiratory Effort Normal Non-Labored Respiratory Pattern Normal Blood Pressure 92/51 L Blood Pressure Mean 64 Pulse Ox 94 Oxygen Delivery Method Non-Rebreather Oxygen Flow Rate (L/min) 15 Weight Weight: 75.75 kg Body Mass Index (BMI) 29.5 Physical Exam Narrative GENERAL: Ill-looking HEENT: Atraumatic; EYES; Anicteric, Normal Conjunctiva NECK; supple, normal thyroid, RESPIRATORY: Diminished to auscultation CARDIOVASCULAR: Regular S1 S2, GI: soft, normoactive bowel sounds, : No Renal angle tenderness; EXTREMITIES: No edema, no clubbing, MUSCULOSKELETAL: no muscle waisting NEURO: Awake; no lateralizing signs. SKIN: Mottling of the lower extremities PSYCH; Flat affect Results Lab / Micro Data Result Diagrams: 07/30/20 16:00 07/30/20 16:00 Labs: Laboratory Results - last 24 hr 07/30/20 07/30/20 07/30/20 16:00 16:00 16:00 WBC 15.2 H RBC 4.89 Hgb 13.4 Hct 44.7 MCV 91.4 MCH 27.4 MCHC 30.0 L RDW Std Deviation 61.3 H RDW Coeff of Liseth 19.1 H Plt Count 258 MPV 13.3 H Immature Gran % (Auto) 1.100 H Neut % (Auto) 83.1 H Lymph % (Auto) 8.8 L [place] % (Auto) 6.9 Eos % (Auto) 0.0 Baso % (Auto) 0.1 Absolute Neuts (auto) 12.6 H Absolute Lymphs (auto) 1.33 Nucleated RBC % 0 PT Cancelled INR Cancelled APTT Cancelled Sodium 132 L Potassium 8.6 H* Chloride 97 L Carbon Dioxide 21.0 Anion Gap 14 BUN 39 H Creatinine 2.41 H Estim Creat Clear Calc 17.71 Est GFR (MDRD) Af Amer 25 L Est GFR (MDRD) Non-Af 21 L BUN/Creatinine Ratio 16.2 Glucose 163 H Lactic Acid Calcium 9.9 Total Bilirubin 1.70 H AST 5935 H ALT 1626 H Alkaline Phosphatase 69 Total Protein 7.6 Albumin 3.2 Globulin 4.4 H Albumin/Globulin Ratio 0.7 L Urine Color Urine Clarity Urine pH Ur Specific [place] Urine Protein Urine Glucose (UA) Urine Ketones Urine Occult Blood Urine Nitrite Urine Bilirubin Urine Urobilinogen Ur Leukocyte Esterase Urine RBC Urine WBC Ur Squamous Epith Cells Amorphous Sediment Urine Bacteria Urine Mucus 07/30/20 07/30/20 07/30/20 16:00 16:35 16:35 WBC RBC Hgb Hct MCV MCH MCHC RDW Std Deviation RDW Coeff of Liseth Plt Count MPV Immature Gran % (Auto) Neut % (Auto) Lymph % (Auto) [place] % (Auto) Eos % (Auto) Baso % (Auto) Absolute Neuts (auto) Absolute Lymphs (auto) Nucleated RBC % PT 78.4 H INR 9.8 H* APTT 36.5 H Sodium Potassium Chloride Carbon Dioxide Anion Gap BUN Creatinine Estim Creat Clear Calc Est GFR (MDRD) Af Amer Est GFR (MDRD) Non-Af BUN/Creatinine Ratio Glucose Lactic Acid 10.2 H* Calcium Total Bilirubin AST ALT Alkaline Phosphatase Total Protein Albumin Globulin Albumin/Globulin Ratio Urine Color Yellow Urine Clarity Cloudy Urine pH 5.0 Ur Specific [place] 1.025 Urine Protein 30 H Urine Glucose (UA) Normal Urine Ketones 5 H Urine Occult Blood 250 H Urine Nitrite Negative Urine Bilirubin 1 H Urine Urobilinogen 4 H Ur Leukocyte Esterase 500 H Urine RBC > 100 SEEN Urine WBC >100 SEEN Ur Squamous Epith Cells 5-10 SEEN Amorphous Sediment 1+ URATE Urine Bacteria RARE Urine Mucus 0 SEEN Radiology Impression Chest X-Ray 07/30/20 16:46 IMPRESSION: 1. New right stable left pleural effusions with interstitial thickening suggesting fluid overload/CHF. Electronically Signed: Erasmo Delarosa MD ([place]) at 17:08 EDT , Service support , Assessment & Plan Assessment/Plan (1) Acute hyperkalemia: (2) Type 2 diabetes mellitus without complications: QUALIFIERS: Diabetes mellitus terminal computer operator insulin use: without terminal computer operator use Qualified Code(s): E11.9 - Type 2 diabetes mellitus without complications (3) Hypertension: QUALIFIERS: Hypertension type: essential hypertension Qualified Code(s): I10 - Essential (primary) hypertension (4) Hyperlipidemia: QUALIFIERS: Hyperlipidemia type: mixed hyperlipidemia Qualified Code(s): E78.2 - Mixed hyperlipidemia (5) Acute UTI: (6) Multisystem organ failure: (7) Sepsis with acute organ dysfunction and septic shock: (8) Acute kidney injury: PLAN: Patient is a 70-year-old lady with multiple comorbidities resident at an [facility] facility brought to the emergency department with increasing lethargy and assessment of septic shock with multisystem organ failure made admitted to the intensive care unit for further management 1. Septic shock ?Secondary to acute cystitis. Patient managed with aggressive IV fluid resuscitation cultures sent subsequent monitoring with lactic acid levels ordered. Patient was started on broad-spectrum antibiotic therapy with Zosyn and vancomycin 2. Acute renal failure ?Secondary to acute tubular necrosis from above patient being managed with IV fluid with subsequent monitoring of electrolyte 3. Hyperkalemia -secondary to patient's acute renal failure treatment with albuterol, calcium gluconate and calcium chloride initiated from the ED. Admitted to the intensive care unit for continuous telemetry monitoring every 4 BMPs ordered for subsequent management 4. Acute liver failure ?Secondary to septic shock patient on IV fluid with subsequent monitoring of liver function test ordered 5. Coagulopathy ?INR checked from the emergency department was 9.8. Patient is on apixaban which is known to interfere with INR results. In any case her elevation is more than the usual expected rise in INR. Daily INRs ordered for subsequent monitoring 6. Acute metabolic encephalopathy ?Secondary to above management's involvement managing the underlying conditions 7. Essential hypertension ?Patient antihypertensives on hold 8. Diabetes mellitus type II -patient's oral hypoglycemics held. Placed on long acting insulin, Accu-Cheks a.c. and at bedtime and covered with sliding scale insulin 9. Paroxysmal A. fib ?Rate controlled patient apixaban held in view of markedly elevated INR 10. Dyslipidemia ?Pain changes on fenofibrate held in view of her acute kidney injury 11. GERD ?Patient is on PPI 12. Depression with anxiety ?Patient is on SSRI 13. DVT prophylaxis ?Patient is coagulopathic no need for additional measures Total CC time spent on patient evaluating patient subsequent adjustment in therapy, and subsequent follow-up; 80 minutes Advance planning; discussions were held with patient's daughter regarding patient's condition and advanced directives as well as CODE STATUS. Did explain the various scenarios involved ( FULL CODE, DNR CCA, DNR CCA with no intubation, and DNR CC and what each meant) patient's daughter did express the desire for patient to remain DNR CCA no intubation. Order was placed. Time spent on discussion 18 minutes. Charges/Coding Multi Select Codes Hospitalists' Procedures Procedures: 61692 Critial Care 1st Hr, 30026 Critial Care Addl 30 Min and 34657 Advncd Care Plan 30 Min
--- NOTE | 2020-07-30 17:26 | NURSING ---
ICU KITTOE SEPTIC SHOCK, MSOF, DNR, COAGULOPATHY, LACTIC ACIDOSIS
--- NOTE | 2020-07-30 17:54 | NURSING ---
ICU 3
[2020-07-30 20:11] LABS: Reflex Lactate? Y
[2020-07-30 22:02] LABS: Anion Gap 9 (5-15); BUN 35 mg/dL (7-18); BUN/Creat Ratio 17.1 RATIO (10-20); Calcium,Total 9.1 mg/dL (8.5-10.1); Chloride 100 mmol/L (98-107); Creatinine, Serum 2.05 mg/dL (0.55-1.02); EST Glomerular Filtration Rate 25 mL/min (>60); Est Glom Filt Rate - Afr Amer 31 mL/min (>60); Estimated Creatinine Clearance 29.99 ml/min; Glucose 322 mg/dL (74-106); Sodium Level 136 mmol/L (136-145)
[2020-07-30 22:12] LABS: Lactic Acid 5.3 mmol/L (0.4-1.9)
[2020-07-30] MEDS: Ondansetron 4 MG/2 ML Vial IV (23:45)
[2020-07-30] MEDS: HYDROmorphone 1 MG/ML Syringe IV (23:46)
--- NOTE | 2020-07-30 23:48 | NURSING ---
[facility]icians ambulance crew here to transport patient. Hospice nurse calls to inpatient hospice to give report.
[2020-07-31 01:55] LABS: Reflex Lactate? Y
--- NOTE | 2020-07-31 07:08 | DS.PCM_ITS ---
Providers Date of Admission: 07/30/20 Primary Care Physician: Dr. Israel Wright MD Consultations 07/30/20 21:11 Consult: Hospice / Palliative Care Routine Consulting Provider: [facility] Reason for Consult: Family wishes EMERGENT Consult: No MD Notified: Yes Date Notified:: 07/30/20 Time Notified: 21:12 Method of Notification: Answering Service Reason For Visit: SEPTIC SHOCK Diagnosis Discharge Diagnosis (1) Acute hyperkalemia: Status: Acute Code(s): E87.5 - Hyperkalemia (2) Type 2 diabetes mellitus without complications: Status: Chronic Code(s): E11.9 - Type 2 diabetes mellitus without complications Qualifiers: Diabetes mellitus [facility] insulin use: without intermediate project manager use Qualified Code(s): E11.9 - Type 2 diabetes mellitus without complications (3) Hypertension: Status: Chronic Code(s): I10 - Essential (primary) hypertension Qualifiers: Hypertension type: essential hypertension Qualified Code(s): I10 - Essential (primary) hypertension (4) Hyperlipidemia: Status: Chronic Code(s): E78.5 - Hyperlipidemia, unspecified Qualifiers: Hyperlipidemia type: mixed hyperlipidemia Qualified Code(s): E78.2 - Mixed hyperlipidemia (5) Acute UTI: Status: Acute Code(s): N39.0 - Urinary tract infection, site not specified (6) Multisystem organ failure: Status: Acute (7) Sepsis with acute organ dysfunction and septic shock: Status: Acute Code(s): A41.9 - Sepsis, unspecified organism; R65.21 - Severe sepsis with septic shock (8) Acute kidney injury: Status: Acute Code(s): N17.9 - Acute kidney failure, unspecified Medications at Discharge Home Medications glimepiride 4 mg PO DAILY 05/13/15 fenofibrate micronized 160 mg PO DAILY 06/04/16 albuterol sulfate 90 mcg/actuation aerosol inhaler 2 puff INHALATION Q6H PRN #18 g 05/14/19 ascorbic acid (vitamin C) 500 mg PO DAILY 06/09/20 cyanocobalamin (vitamin B-12) 500 mcg PO QHS #0 06/15/20 melatonin 15 mg PO QHS 06/15/20 sennosides-docusate sodium 2 tablet PO BID PRN PRN tablet 06/15/20 atenolol 25 mg PO DAILY 06/16/20 nystatin 1 applic TOPICAL TID 06/16/20 acetaminophen 1,000 mg PO Q6H PRN PRN 06/17/20 pantoprazole 20 mg PO QHS 06/17/20 zinc sulfate 220 mg PO DAILY 06/17/20 diltiazem HCl 240 mg PO DAILY #0 cap 06/21/20 baclofen 10 mg PO BID 06/26/20 apixaban [Eliquis] 5 mg PO BID #60 tab 07/07/20 fluoxetine 10 mg PO DAILY #0 cap 07/07/20 furosemide 40 mg PO BID #60 tab 07/07/20 gabapentin 600 mg PO BIDCM #0 tab 07/07/20 magnesium chloride [Mag 64] 128 mg PO DAILYCM #0 tab 07/07/20 mirtazapine 7.5 mg PO QHS #0 tab 07/07/20 potassium chloride [Klor-Con M20] 20 meq PO TIDCM #0 tab 07/07/20 baclofen 5 mg PO TID PRN 07/30/20 bisacodyl 10 mg DE DAILY PRN 07/30/20 oxycodone 2.5 - 5 mg PO Q6H PRN 07/30/20 polyethylene glycol 3350 [Miralax] 17 g PO DAILY 07/30/20 Hospital Course Summary of Care Provided Hospital Course: Patient is a 70-year-old lady with multiple comorbidities resident at an [facility] care facility brought to the emergency department with increasing lethargy and assessment of septic shock with multisystem organ failure made admitted to the intensive care unit for further management 1. Septic shock ?Secondary to acute cystitis. Patient managed with aggressive IV fluid resuscitation cultures sent subsequent monitoring with lactic acid levels ordered. Patient was started on broad-spectrum antibiotic therapy with Zosyn and vancomycin 2. Acute renal failure ?Secondary to acute tubular necrosis from above patient being managed with IV fluid with subsequent monitoring of electrolyte 3. Hyperkalemia -secondary to patient's acute renal failure treatment with albuterol, calcium gluconate and calcium chloride initiated from the ED. Admitted to the intensive care unit for continuous telemetry monitoring every 4 BMPs ordered for subsequent management 4. Acute liver failure ?Secondary to septic shock patient on IV fluid with subsequent monitoring of l iver function test ordered 5. Coagulopathy ?INR checked from the emergency department was 9.8. Patient is on apixaban which is known to interfere with INR results. In any case her elevation is more than the usual expected rise in INR. Daily INRs ordered for subsequent monitoring 6. Acute metabolic encephalopathy ?Secondary to above management's involvement managing the underlying conditions 7. Essential hypertension ?Patient antihypertensives on hold 8. Diabetes mellitus type II -patient's oral hypoglycemics held. Placed on long acting insulin, Accu-Cheks a.c. and at bedtime and covered with sliding scale insulin 9. Paroxysmal A. fib ?Rate controlled patient apixaban held in view of markedly elevated INR 10. Dyslipidemia ?Pain changes on fenofibrate held in view of her acute kidney injury 11. GERD ?Patient is on PPI 12. Depression with anxiety ?Patient is on SSRI 13. DVT prophylaxis ?Patient is coagulopathic no need for additional measures Patient's family requested changing patient CODE STATUS patient was made comfort care the hospice service was consulted patient was transferred to hospice in the medical facility Physical Exam Narrative GENERAL: Ill-looking HEENT: Atraumatic; EYES; Anicteric, Normal Conjunctiva NECK; supple, normal thyroid, RESPIRATORY: Diminished to auscultation CARDIOVASCULAR: Regular S1 S2, SKIN: Mottling of the lower extremities PSYCH; Flat affect ABG / Lab / Microbiology Data Result Diagrams: 07/30/20 16:00 07/30/20 20:56 Laboratory: Laboratory Results - last 24 hr 07/30/20 07/30/20 07/30/20 16:00 16:00 16:00 WBC 15.2 H RBC 4.89 Hgb 13.4 Hct 44.7 MCV 91.4 MCH 27.4 MCHC 30.0 L RDW Std Deviation 61.3 H RDW Coeff of Liseth 19.1 H Plt Count 258 MPV 13.3 H Immature Gran % (Auto) 1.100 H Neut % (Auto) 83.1 H Lymph % (Auto) 8.8 L [place] % (Auto) 6.9 Eos % (Auto) 0.0 Baso % (Auto) 0.1 Absolute Neuts (auto) 12.6 H Absolute Lymphs (auto) 1.33 Nucleated RBC % 0 PT Cancelled INR Cancelled APTT Cancelled Sodium 132 L Potassium 8.6 H* Chloride 97 L Carbon Dioxide 21.0 Anion Gap 14 BUN 39 H Creatinine 2.41 H Estim Creat Clear Calc 17.71 Est GFR (MDRD) Af Amer 25 L Est GFR (MDRD) Non-Af 21 L BUN/Creatinine Ratio 16.2 Glucose 163 H Lactic Acid Calcium 9.9 Total Bilirubin 1.70 H AST 5935 H ALT 1626 H Alkaline Phosphatase 69 Troponin I Total Protein 7.6 Albumin 3.2 Globulin 4.4 H Albumin/Globulin Ratio 0.7 L Urine Color Urine Clarity Urine pH Ur Specific [place] Urine Protein Urine Glucose (UA) Urine Ketones Urine Occult Blood Urine Nitrite Urine Bilirubin Urine Urobilinogen Ur Leukocyte Esterase Urine RBC Urine WBC Ur Squamous Epith Cells Amorphous Sediment Urine Bacteria Urine Mucus COVID-19 (MARLENI) 07/30/20 07/30/20 07/30/20 16:00 16:35 16:35 WBC RBC Hgb Hct MCV MCH MCHC RDW Std Deviation RDW Coeff of Liseth Plt Count MPV Immature Gran % (Auto) Neut % (Auto) Lymph % (Auto) [place] % (Auto) Eos % (Auto) Baso % (Auto) Absolute Neuts (auto) Absolute Lymphs (auto) Nucleated RBC % PT 78.4 H INR 9.8 H* APTT 36.5 H Sodium Potassium Chloride Carbon Dioxide Anion Gap BUN Creatinine Estim Creat Clear Calc Est GFR (MDRD) Af Amer Est GFR (MDRD) Non-Af BUN/Creatinine Ratio Glucose Lactic Acid 10.2 H* Calcium Total Bilirubin AST ALT Alkaline Phosphatase Troponin I Total Protein Albumin Globulin Albumin/Globulin Ratio Urine Color Yellow Urine Clarity Cloudy Urine pH 5.0 Ur Specific [place] 1.025 Urine Protein 30 H Urine Glucose (UA) Normal Urine Ketones 5 H Urine Occult Blood 250 H Urine Nitrite Negative Urine Bilirubin 1 H Urine Urobilinogen 4 H Ur Leukocyte Esterase 500 H Urine RBC > 100 SEEN Urine WBC >100 SEEN Ur Squamous Epith Cells 5-10 SEEN Amorphous Sediment 1+ URATE Urine Bacteria RARE Urine Mucus 0 SEEN COVID-19 (MARLENI) 07/30/20 07/30/20 07/30/20 17:45 20:56 20:56 WBC RBC Hgb Hct MCV MCH MCHC RDW Std Deviation RDW Coeff of Liseth Plt Count MPV Immature Gran % (Auto) Neut % (Auto) Lymph % (Auto) [place] % (Auto) Eos % (Auto) Baso % (Auto) Absolute Neuts (auto) Absolute Lymphs (auto) Nucleated RBC % PT INR APTT Sodium 136 Potassium 6.0 H* Chloride 100 Carbon Dioxide 27.0 Anion Gap 9 BUN 35 H Creatinine 2.05 H Estim Creat Clear Calc 29.99 Est GFR (MDRD) Af Amer 31 L Est GFR (MDRD) Non-Af 25 L BUN/Creatinine Ratio 17.1 Glucose 322 H Lactic Acid Calcium 9.1 Total Bilirubin AST ALT Alkaline Phosphatase Troponin I 0.095 H Total Protein Albumin Globulin Albumin/Globulin Ratio Urine Color Urine Clarity Urine pH Ur Specific [place] Urine Protein Urine Glucose (UA) Urine Ketones Urine Occult Blood Urine Nitrite Urine Bilirubin Urine Urobilinogen Ur Leukocyte Esterase Urine RBC Urine WBC Ur Squamous Epith Cells Amorphous Sediment Urine Bacteria Urine Mucus COVID-19 (MARLENI) Not Detected 07/30/20 20:56 WBC RBC Hgb Hct MCV MCH MCHC RDW Std Deviation RDW Coeff of Liseth Plt Count MPV Immature Gran % (Auto) Neut % (Auto) Lymph % (Auto) [place] % (Auto) Eos % (Auto) Baso % (Auto) Absolute Neuts (auto) Absolute Lymphs (auto) Nucleated RBC % PT INR APTT Sodium Potassium Chloride Carbon Dioxide Anion Gap BUN Creatinine Estim Creat Clear Calc Est GFR (MDRD) Af Amer Est GFR (MDRD) Non-Af BUN/Creatinine Ratio Glucose Lactic Acid 5.3 H* Calcium Total Bilirubin AST ALT Alkaline Phosphatase Troponin I Total Protein Albumin Globulin Albumin/Globulin Ratio Urine Color Urine Clarity Urine pH Ur Specific [place] Urine Protein Urine Glucose (UA) Urine Ketones Urine Occult Blood Urine Nitrite Urine Bilirubin Urine Urobilinogen Ur Leukocyte Esterase Urine RBC Urine WBC Ur Squamous Epith Cells Amorphous Sediment Urine Bacteria Urine Mucus COVID-19 (MARLENI) Microbiology: Microbiology 07/30/20 16:35 Streptococcus pneumoniae Antigen (M - Final Urine Catheter - Catheter Microbiology 07/30/20 16:35 Urine Catheter - Catheter Streptococcus pneumoniae Antigen (M - Final Radiography Diagnostic Testing: Radiology Impression Chest X-Ray 07/30/20 16:46 IMPRESSION: 1. New right stable left pleural effusions with interstitial thickening suggesting fluid overload/CHF. Electronically Signed: Erasmo Delarosa MD (Brooks) at 17:08 EDT , Service support , Meaningful Use Info Meaningful Use Diagnoses (Choose all that apply): None applicable Discharge Plan Admission Admit Date/Time: 07/30/20 17:23 Primary Reason for Your Visit: Septic shock Attending Provider: Rufus Nix Primary Care Provider: Israel Wright Consulting Providers: Lesly Wei ; Rufus Dee ; Raya Roberts ; Madisyn Cagle ; Kelsey Taylor ; Marcy Chacon TRAVEL ASSISTANT Discharge Orders/Prescriptions Prescriptions: No Action albuterol sulfate [Ventolin HFA] 90 mcg/actuation HFA aerosol inhaler 2 puff INHALATION Q6H PRN (Reason: shortness of breath or wheezing) Qty: 18 RF: 6 glimepiride 4 MG tablet 4 mg PO DAILY RF: 0 fenofibrate micronized 134 MG capsule 160 mg PO DAILY RF: 0 ascorbic acid (vitamin C) 500 MG capsule 500 mg PO DAILY RF: 0 melatonin 5 MG tablet 15 mg PO QHS RF: 0 sennosides-docusate sodium 1 TABLET tablet 2 tablet PO BID PRN PRN (Reason: Constipation) RF: 0 cyanocobalamin (vitamin B-12) 500 MCG tablet 500 mcg PO QHS Qty: 0 RF: 0 nystatin 1 APPLIC ointment 1 applic TOPICAL TID RF: 0 atenolol 25 MG tablet 25 mg PO DAILY RF: 0 acetaminophen 500 MG tablet 1,000 mg PO Q6H PRN PRN (Reason: Pain Score 1-3) RF: 0 pantoprazole 20 MG tablet 20 mg PO QHS RF: 0 zinc sulfate 220 MG tablet 220 mg PO DAILY RF: 0 diltiazem HCl 240 mg Capsule,Extended Release 24hr 240 mg PO DAILY Qty: 0 RF: 0 gabapentin 600 mg Tablet 600 mg PO BIDCM Qty: 0 RF: 0 potassium chloride [Klor-Con M20] 20 mEq Tablet,Er Particles/Crystals 20 meq PO TIDCM Qty: 0 RF: 0 fluoxetine 10 mg Capsule 10 mg PO DAILY Qty: 0 RF: 0 mirtazapine 15 mg Tablet 7.5 mg PO QHS Qty: 0 RF: 0 magnesium chloride [Mag 64] 64 mg Tablet,Delayed Release (Dr/Ec) 128 mg PO DAILYCM Qty: 0 RF: 0 Eliquis 5 mg Tablet 5 mg PO BID Qty: 60 RF: 0 furosemide 40 mg tablet 40 mg PO BID Qty: 60 RF: 0 baclofen 10 mg Tablet 10 mg PO BID RF: 0 polyethylene glycol 3350 [Miralax] 17 gram Powder In Packet 17 g PO DAILY RF: 0 bisacodyl 10 mg Suppository 10 mg DE DAILY PRN (Reason: Constipation) RF: 0 baclofen 5 mg Tablet 5 mg PO TID PRN (Reason: Back Pain) RF: 0 oxycodone 5 mg Tablet 2.5 - 5 mg PO Q6H PRN (Reason: Pain, Moderate) RF: 0 Referrals / Follow Up: Israel Wright MD [Primary Care Provider] - Disposition Disposition (needs filled in before D/C Order can be placed): Residential Facility Charges/Coding Visit Charges Inpatient E&M: 34347 Disch Hosp
== END 2020-07-30 23:50 | disposition skilled nursing facility (03) | DRG 871 ==
LOC: ED 16:15 → ICU 17:52
PROVIDERS: Internal Medicine; Admitting Provider Internal Medicine; Emergency Provider Emergency Medicine; Visit Provider Internal Medicine
DX: A41.9 Sepsis, unspecified organism (principal); G93.41 Metabolic encephalopathy; R65.21 Severe sepsis with septic shock; K72.00 Acute and subacute hepatic failure without coma; N17.0 Acute kidney failure with tubular necrosis; J96.01 Acute respiratory failure with hypoxia; N30.00 Acute cystitis without hematuria; J90 Pleural effusion, not elsewhere classified; D68.9 Coagulation defect, unspecified; E11.9 Type 2 diabetes mellitus without complications; E66.9 Obesity, unspecified; Z68.29 Body mass index [BMI] 29.0-29.9, adult; E78.2 Mixed hyperlipidemia; E87.5 Hyperkalemia; F41.8 Other specified anxiety disorders; G89.29 Other chronic pain; I10 Essential (primary) hypertension; I27.20 Pulmonary hypertension, unspecified; I48.0 Paroxysmal atrial fibrillation; J44.9 Chronic obstructive pulmonary disease, unspecified; K21.9 Gastro-esophageal reflux disease without esophagitis; M19.90 Unspecified osteoarthritis, unspecified site; M41.9 Scoliosis, unspecified; K44.9 Diaphragmatic hernia without obstruction or gangrene; Z66 Do not resuscitate; Z98.1 Arthrodesis status; Z79.01 Long term (current) use of anticoagulants; Z79.84 Long term (current) use of oral hypoglycemic drugs; Z79.899 Other long term (current) drug therapy; Z87.891 Personal history of nicotine dependence; T45.515A Adverse effect of anticoagulants, initial encounter; Y92.9 Unspecified place or not applicable
CPT/HCPCS: 36415; 51702; 71045; 80048; 80053; 81001; 83605; 84484; 85025; 85610; 85730; 87040; 87077; 87086; 87088; 87186; 87449; 87635; 93005; 94640; 99285; J7030; J7040; J7050; U0005; A4216; J0610; J2405; U0003